=== PATIENT | female | born 1980 | race Caucasian/White ===

== ENCOUNTER 2017-09-24 11:58 | Inpatient (IN) | payer OTHER ==
[~2017-09-24] VITALS: Ht 165.1 cm; Wt 115.0 kg
--- NOTE | 2017-09-24 12:35 | ED GI/GU/ABDOMINAL COMPLAINT ---
History of Present Illness General Chief Complaint: General Adult Stated Complaint: SENT IN BY MD CHAVEZ FOR FEVER;?[facility] HOME Source: patient Exam Limitations: no limitations Vital Signs & Intake/Output Vital Signs & Intake/Output Vital Signs Date Time Temp Pulse Resp B/P B/P Pulse O2 O2 Flow FiO2 Mean Ox Delivery Rate 09/24 1745 100.0 110 18 94/60 98 Room Air 09/24 1538 99.9 106 18 92/54 100 Room Air 09/24 1343 99.0 110 09/24 1343 98 Room Air 09/24 1225 103.6 09/24 1217 103.6 130 18 94/63 98 Room Air Allergies Coded Allergies: erythromycin base (From ERYTHROCIN) (Intermediate, HIVES 09/24/17) Penicillins (RASH 04/07/17) amoxicillin (RASH 04/07/17) Reconcile Medications Ferrous Sulfate 325 MG (65 MG IRON) TABLET 1 TAB PO DAILY IRON, VITAMIN ( Reported) Mesalamine (Lialda) 1.2 GRAM TABLET. 4 TAB PO DAILY UNKNOWN (Reported) Prednisone 20 MG TABLET 1 TAB PO DAILY STEROID (Reported) Triage Note: PT TO ER PER DR. CHAVEZ FOR 5 DAY HX OF FEVER, CHILLS, AND VOMITING X 1. TEMP IN TRIAGE 103.6, LAST DOSE OF TYLENOL AT 0730. MEDICATED IN TRIAGE WITH 975 MG TYLENOL. PT REPORTS NEAR-[facility]NCOPE AT HOME BP 94/63 HR 130 Triage Nurses Notes Reviewed? yes ? N Is pt currently ? No Onset: Gradual Duration: constant Timing: recent history Quality/Severity: moderate Severity Numbers: 5 Radiation: no radiation HPI: Patient is a 37-year-old female with a past medical history of ulcerative colitis who currently is on infusions of INTYVIO currently she is on her second infusion last infusion was 3 weeks ago patient is also on prednisone mesalamine where she presents emergency room with concerns 5 day history of generalized weakness and fatigue fevers chills and intermittent headaches. Patient denies any overt abdominal pain however has had intermittent nausea symptoms. And one episode today of vomiting. Denies any neck pain neck stiffness chest pain cough shortness of breath arm pain jaw pain dysuria hematuria vaginal bleeding or discharge. Patient can tolerate by mouth (Shaina WEINSTEIN,Keith) Past History Travel History Traveled to [place] past 21 day No Medical History Any Pertinent Medical History? see below for history Neurological: NONE EENT: NONE Cardiovascular: NONE Respiratory: NONE Gastrointestinal: ulcerative colitis Hepatic: NONE Renal: NONE Musculoskeletal: NONE Psychiatric: NONE Endocrine: NONE Blood Disorders: NONE Cancer(s): NONE Surgical History Surgical History: none Psychosocial History What is your primary language Bulgarian Tobacco Use: Quit >30 days ago Family History Hx Contributory? No (Keith Elaine) Review of Systems Review of Systems Constitutional: Reports: see HPI, chills, fever, weakness. EENTM: Reports: no symptoms. Respiratory: Reports: no symptoms. Cardiovascular: Reports: no symptoms. GI: Reports: see HPI. Genitourinary: Reports: no symptoms. Musculoskeletal: Reports: no symptoms. Skin: Reports: no symptoms. Neurological/Psychological: Reports: see HPI. Hematologic/Endocrine: Reports: no symptoms. Immunologic/Allergic: Reports: no symptoms. All Other Systems: Reviewed and Negative (Keith Elaine) Physical Exam Physical Exam General Appearance: lethargic Head: atraumatic Eyes: Bilateral: normal appearance. Ears, Nose, Throat, Mouth: moist mucous membrane Respiratory: normal breath sounds, chest non-tender Cardiovascular: tachycardia Gastrointestinal: normal bowel sounds, soft, rebound Extremities: normal range of motion Neurologic/Psych: no motor/sensory deficits, awake Skin: intact, normal color Core Measures ACS in differential dx? No Sepsis Present: No Sepsis Focused Exam Completed? No (Keith Elaine) Progress Differential Diagnosis: AAA, AMI, appendicitis, biliary colic, bowel obstruction , colon cancer, cholecystitis, diverticulitis, ectopic , endometritis, esophageal varices, gastritis, hepatitis, hernia, hemorrhoids, ischemic bowel, inflamm bowel dis, intrauterine , kidney stone, Ngozi-Renetta tear, ovarian cyst, ovarian torsion, pancreatitis, PID/cervicitis, peptic ulcer, PUD/ GERD, perforated viscous, SBO, threatened AB, UTI/pyelo Plan of Care: Orders Procedure Date/time Status Clear Liquid Diet 09/24 D Active LACTIC ACID 09/24 2245 Active LACTIC ACID 09/24 1945 Active HIGH SENSITIVITY CRP 09/24 1837 Active WESTERGREN SED RATE 09/24 183 Active Weight 09/24 183 Active Vital Signs 09/24 183 Complete Teach/Educate 09/24 183 Active Pain Treatment and Response 09/24 1832 Active Nutritional Intake, Monitor 09/24 1832 Active Isolation 09/24 1833 Active Intake & Output 09/24 1833 Complete Patient Care Conference 09/24 1833 Active Activity/Ambulation 09/24 1833 Active C.DIFFICILE 09/24 1745 Active Pathway - chart 09/24 1744 Active House Staff 09/24 1744 Active Patient Data 09/24 1744 Active Code Status 09/24 1744 Active RAPID VIRAL INFLUENZA A 09/24 1630 Complete CULTURE,URINE 09/24 1630 Active Patient Data 09/24 1600 Active LACTIC ACID 09/24 1558 Complete ED Holding Orders 09/24 1557 Active Admit to inpatient 09/24 1557 Active Vital Signs 09/24 1557 Complete Code Status 09/24 1557 Complete Telemetry/[place] 09/24 1414 Active Intake & Output 09/24 1343 Active TROPONIN LEVEL 09/24 1322 Complete MAGNESIUM 09/24 1322 Complete HUMAN BETA HCG SCREEN 09/24 1322 Complete BLOOD CULTURE 09/24 1258 Active URINALYSIS 09/24 1258 Complete LACTIC ACID 09/24 1258 Complete COMPREHENSIVE METABOLIC PANEL 09/24 1258 Complete CBC WITHOUT DIFFERENTIAL 09/24 1258 Complete EKG 09/24 1200 Active Lab Add-on Test 09/24 UNK Active VTE Mechanical Prophylaxis 09/24 UNK Active Vital Signs 09/24 UNK Active MISTAKE 09/24 UNK Active Intake & Output 09/24 UNK Complete Hemoccult 09/24 UNK Active FingerStick- Glucose 09/24 UNK Active Current Medications Sig/Raymond Start time Last Medication Dose Stop Time Status Admin Ceftriaxone Sodium 1,000 MG Q12 09/25 0900 AC (Rocephin) Metronidazole 500 MG Q8 09/24 2200 AC (Flagyl) N/A 1 UNIT (No Carrier) Methylprednisolone 40 MG Q12 09/24 2100 AC (Solumedrol) Acetaminophen 325 MG Q6P PRN 09/24 1930 AC (Tylenol) Ciprofloxacin 400 MG ONCE ONE 09/24 1600 CAN (Cipro) 09/24 1659 Dextrose/Water 200 ML (D5W) Laboratory Tests 09/24/17 1652: Urine Color YEL, Urine Clarity CLEAR, Urine pH 6.5, Ur Specific [place] <= 1.005 , Urine Protein NEG, Urine Ketones NEG, Urine Nitrite NEG, Urine Bilirubin NEG, Urine Urobilinogen 0.2, Ur Leukocyte Esterase NEG, Ur Microscopic EXAM NOT REQUIRED, Urine Hemoglobin NEG, Urine Glucose NEG 09/24/17 1645: Lactic Acid 2.3 H 09/24/17 1322: Anion Gap 16, Estimated GFR 56 L, BUN/Creatinine Ratio 9.1, Glucose 99, Lactic Acid 3.6 H, Calcium 8.6, Magnesium 1.1 L, Total Bilirubin 0.8, AST 25, ALT 24, Alkaline Phosphatase 120, Troponin I < 0.01, Total Protein 6.0 L, Albumin 3.2 L, Globulin 2.8, Albumin/Globulin Ratio 1.1, Total Beta HCG NEGATIVE, CBC w Diff MAN DIFF ORDERED, RBC 4.14 L, MCV 86.8, MCH 28.6, MCHC 33.0, RDW 14.9 H, MPV 6.9 L, Gran % 95.5 H, Lymphocytes % 4.3 L, Monocytes % 0.1 L, Eosinophils % 0, Basophils % 0.1, Absolute Granulocytes 6.6 H, Segmented Neutrophils 77 H, Band Neutrophils 17 H, Absolute Lymphocytes 0.3 L, Lymphocytes 6 L, Absolute Monocytes 0 L, Absolute Eosinophils 0, Absolute Basophils 0, Platelet Estimate VERIFIED BY SMEAR, Normocytic RBCs VERIFIED, Normochromic RBCs VERIFIED 09/24/17 1308: Troponin I Cancelled 09/24/17 1259: Total Beta HCG Cancelled Microbiology 09/24 1745 STOOL: Clostridium difficile Toxin A & B - COLB 09/24 1652 URINE ROUT: Urine Culture - RECD 09/24 1638 NASOPHARYN: Influenza Virus A & B Rapid Smear - COMP 09/24 1333 BLOOD: Blood Culture - RECD 09/24 1322 BLOOD: Blood Culture - RECD On initial examination patient is noted to be lethargic and febrile, isn't has mild generalized point tenderness no peritoneal signs no concerns of meningitis, Patient has negative Rosinski in [place] sign, patient does have concerns that her CT scan was resulted of acute infectious ulcer to of colitis. Patient's GI provider is outsourced Dr. Malcolm where I discussed patient with Dr. Chavez who is aware and works patient discussed patient with infectious disease Dr. ARGUETA and Dr. PINEDA advised patient to be given Cipro Flagyl and will consult. Discussed admission with patient was aware and has no questions PT WAS GIVEN PO POTASSIUM Discussed patient with Dr. ARGUETA WHO ADVISED TO CHANGE CIPRO TO ROCEPHIN Diagnostic Imaging: Viewed by Me: CT Scan. Radiology Impression: acute abnormality Initial ED EKG: SINUS TACHYCARDIA 130 BPM Comments: PATIENT: BROOKLYN RUVALCABA PRESENT AGE: 37 PATIENT ACCOUNT NO: [id number] : 79 LOCATION: [facility] ORDERING PHYSICIAN: Keith WEINSTEIN SERVICE DATE: 09/24/17-1377 EXAM TYPE: CAT - CT ABD & PELVIS W IV CONTRAST; CTA CHEST-PULMONARY EMBOLISM EXAMINATION: CT ANGIOGRAM OF THE CHEST WITH CONTRAST (CT PULMONARY ANGIOGRAM FOR PE) CT ABDOMEN AND PELVIS WITH IV CONTRAST CLINICAL INFORMATION: History of ulcerative colitis. Fever, shortness of breath and tachycardia. Abdominal pain. COMPARISON: CT images from 11/25/2009 TECHNIQUE: Chest - Prior to contrast administration, noncontrast localization images were obtained. Subsequently, multidetector volumetric imaging was performed from the thoracic inlet to below the diaphragms following the administration of 95 mL Optiray 320 intravenous contrast. No contrast reaction reported. Sagittal, coronal, and MIP oblique sagittal reformatted images were obtained on the CT workstation, uploaded to PACS, and reviewed. Abdomen and pelvis - Multidetector CT imaging evaluation of the abdomen and pelvis was performed after the intravenous contrast administration. DLP: Total exam dose-length product 1471 mGy-cm FINDINGS: CHEST - QUALITY OF STUDY/CONTRAST BOLUS: Satisfactory. PULMONARY ARTERIES: Pulmonary arteries are normal in size. No embolic filling defects are identified within the main, lobar or segmental vessels. THORACIC AORTA: Normal in caliber; no aneurysm or dissection. LUNGS AND PLEURA: Trachea and central airways are widely patent and normal in caliber. No interstitial pulmonary edema, pneumothorax or pleural effusion. Minimal atelectasis in the dependent aspect of each lower lobe. There is a 0.4 cm noncalcified nodule of the medial right lung apex (image 68, series 2). 0.2 cm noncalcified nodule is present in the anterolateral aspect of the right lung apex (image 87, series 2). 0.2 cm subpleural nodule in the lateral aspect of the right upper lobe (image 138, series 2). Small, 0.3 x 0.5 cm noncalcified nodule in the posterior segment of the right upper lobe (image 164, series 2). Small, approximately 0.2 cm sized pulmonary and pleural-based nodules of the left upper lobe (image 144, 147 and 179, series 2). No pulmonary mass or consolidation. CARDIOVASCULAR: The heart size is normal. No pericardial effusion. MEDIASTINUM: The esophagus has normal wall thickness. The visualized portion of the thyroid gland is unremarkable. No mediastinal mass. LYMPHATICS: No pathologic sized axillary, hilar or mediastinal lymph nodes. ABDOMEN AND PELVIS - HEPATOBILIARY: Unremarkable. On the arterial phase images, there is no reflux of contrast into the inferior vena cava. Liver has normal size, contour and attenuation. No evidence of hepatic mass or intrahepatic bile duct dilatation. Gallbladder is normal. PANCREAS: Unremarkable. SPLEEN: Unremarkable. ADRENAL GLANDS: Unremarkable. KIDNEYS, URETERS, BLADDER: Unremarkable. GI TRACT AND PERITONEUM: Stomach is normal. Loops of bowel are normal in caliber. Appendix appears to be surgically absent. Circumferential wall thickening and mild mucosal hyperenhancement of the distal descending and sigmoid colon extending to the rectum with adjacent pericolic fat stranding and vascular congestion of the mesentery. Findings are consistent with active colitis. There are a few diverticula of the sigmoid colon. No pneumoperitoneum. ABDOMINAL WALL: Diastases of rectus abdominis muscles. At the level of the umbilicus, there is a small fat-containing umbilical hernia. VASCULAR: Abdominal aorta is normal in caliber and the celiac trunk, SMA, DENI and renal arteries are widely patent. There is a circumaortic left renal vein. Inferior vena cava is normal. LYMPH NODES: Within the lower abdomen/pelvis, mesenteric lymph nodes measure up to 0.8 cm short axis dimension. These are likely reactive to the colonic inflammation. No pathologic sized retroperitoneal lymph nodes. No iliac or inguinal lymphadenopathy. PELVIC VISCERA: The uterus and adnexa are unremarkable. A trace amount of free fluid is present in the pelvis. No abscess. OSSEOUS STRUCTURES: Bones of the thorax are unremarkable. Thoracic vertebra have normal height and alignment. No aggressive osseous lesions within the chest. The lumbar vertebra are intact. No suspicious osseous lesions in the lumbar spine, pelvis or proximal femurs. IMPRESSION: 1. No pulmonary embolism. 2. There are a few nonspecific, noncalcified nodules in the right and left upper lobe, largest measuring 0.3 x 0.5 cm. No pulmonary mass or lymphadenopathy in the chest. 3. Findings consistent with active colitis involving the descending and sigmoid colon to level the rectum. This is consistent with history of ulcerative colitis. There is reactive lymphadenopathy in the mesentery. 4. Small fat-containing umbilical hernia. DICTATED BY: Toby Arndt MD DATE/TIME DICTATED:09/24/171438 ETCH OPERATOR SEMICONDUCTOR WAFERS:SAMI DATE/TIME TRANSCRIBED:09/24/171438 CONFIDENTIAL, DO NOT COPY WITHOUT APPROPRIATE AUTHORIZATION. <Electronically signed in Other Vendor System> SIGNED BY: Toby Arndt MD 09/24/17 1500 (Keith Elaine) Departure Departure Disposition: STILL A PATIENT Condition: Stable Clinical Impression Primary Impression: Infectious colitis Secondary Impressions: Fever, Hypokalemia Referrals: Marin Chavez MD (PCP/Family) Departure Forms: Customer Survey General Discharge Information Admission Note Spoke With: Marin Chavez MD Documentation of Exam: Documentation of any treatments & extenuating circumstances including Concerns Regarding Discharge (functional status, medication knowledge or non-compliance, living conditions, etc.) that warrant an admission rather than observation: [PT REQUIRES IV ABX, GI CONSULT, ID CONSULT, IV FLUIDS, BLOOD CX PENDING ] (Keith Elaine) PA/CENTRAL SUPPLY TECH Co-Sign Statement Statement: ED Attending supervision documentation- [X] I saw and evaluated the patient. I have also reviewed all the pertinent lab results and diagnostic results. I agree with the findings and the plan of care as documented in the PA's/CENTRAL SUPPLY TECH's documentation. [] I have reviewed the ED Record and agree with the PA's/CENTRAL SUPPLY TECH's documentation. [] Additions or exceptions (if any) to the PAs/CENTRAL SUPPLY TECH's note and plan are summarized below: [] (Filiberto Mata DO) (Filiberto Mata DO)
[2017-09-24 13:32] LABS: ABSOLUTE BASOPHIL COUNT 0 /CUMM (0.0-0.2); ABSOLUTE EOSINOPHIL COUNT 0 /CUMM (0.0-0.7); ABSOLUTE GRANULOCYTE CT 6.6 /CUMM (1.4-6.5); ABSOLUTE LYMPH COUNT 0.3 /CUMM (1.2-3.4); ABSOLUTE MONOCYTE COUNT 0 /CUMM (0.10-0.60); BASOPHIL % 0.1 % (0.0-2.0); EOSINOPHIL % 0 % (0-5); HEMATOCRIT 35.9 % (37-47); MEAN CORPUSCULAR HGB 28.6 PG (27.0-31.0); MEAN CORPUSCULAR VOLUME 86.8 FL (81.0-99.0); MEAN PLATELET VOLUME 6.9 FL (7.4-10.4); PLATELET COUNT 316 /CUMM (130-400); RBC DISTRIBUTION WIDTH 14.9 % (11.5-14.5); RED BLOOD CELL CT 4.14 /CUMM (4.20-5.40); WHITE BLOOD CELL COUNT 6.9 /CUMM (4.8-10.8)
[2017-09-24 13:33] LABS: GRANULOCYTE % 95.5 % (42.2-75.2)
[2017-09-24] MEDS ORDERED: LIALDA1.2 G1 PO (14:30)
[2017-09-24] MEDS ORDERED: PREDNISONE20 M1 PO (14:30)
[2017-09-24] MEDS ORDERED: FERROUS SULFAT325 M3 PO (14:30)
--- NOTE | 2017-09-24 15:00 | CT SCAN REPORT ---
EXAMINATION: CT ANGIOGRAM OF THE CHEST WITH CONTRAST (CT PULMONARY ANGIOGRAM FOR PE) CT ABDOMEN AND PELVIS WITH IV CONTRAST CLINICAL INFORMATION: History of ulcerative colitis. Fever, shortness of breath and tachycardia. Abdominal pain. COMPARISON: CT images from 11/25/2009 TECHNIQUE: Chest - Prior to contrast administration, noncontrast localization images were obtained. Subsequently, multidetector volumetric imaging was performed from the thoracic inlet to below the diaphragms following the administration of 95 mL Optiray 320 intravenous contrast. No contrast reaction reported. Sagittal, coronal, and MIP oblique sagittal reformatted images were obtained on the CT workstation, uploaded to PACS, and reviewed. Abdomen and pelvis - Multidetector CT imaging evaluation of the abdomen and pelvis was performed after the intravenous contrast administration. DLP: Total exam dose-length product 1471 mGy-cm FINDINGS: CHEST - QUALITY OF STUDY/CONTRAST BOLUS: Satisfactory. PULMONARY ARTERIES: Pulmonary arteries are normal in size. No embolic filling defects are identified within the main, lobar or segmental vessels. THORACIC AORTA: Normal in caliber; no aneurysm or dissection. LUNGS AND PLEURA: Trachea and central airways are widely patent and normal in caliber. No interstitial pulmonary edema, pneumothorax or pleural effusion. Minimal atelectasis in the dependent aspect of each lower lobe. There is a 0.4 cm noncalcified nodule of the medial right lung apex (image 68, series 2). 0.2 cm noncalcified nodule is present in the anterolateral aspect of the right lung apex (image 87, series 2). 0.2 cm subpleural nodule in the lateral aspect of the right upper lobe (image 138, series 2). Small, 0.3 x 0.5 cm noncalcified nodule in the posterior segment of the right upper lobe (image 164, series 2). Small, approximately 0.2 cm sized pulmonary and pleural-based nodules of the left upper lobe (image 144, 147 and 179, series 2). No pulmonary mass or consolidation. CARDIOVASCULAR: The heart size is normal. No pericardial effusion. MEDIASTINUM: The esophagus has normal wall thickness. The visualized portion of the thyroid gland is unremarkable. No mediastinal mass. LYMPHATICS: No pathologic sized axillary, hilar or mediastinal lymph nodes. ABDOMEN AND PELVIS - HEPATOBILIARY: Unremarkable. On the arterial phase images, there is no reflux of contrast into the inferior vena cava. Liver has normal size, contour and attenuation. No evidence of hepatic mass or intrahepatic bile duct dilatation. Gallbladder is normal. PANCREAS: Unremarkable. SPLEEN: Unremarkable. ADRENAL GLANDS: Unremarkable. KIDNEYS, URETERS, BLADDER: Unremarkable. GI TRACT AND PERITONEUM: Stomach is normal. Loops of bowel are normal in caliber. Appendix appears to be surgically absent. Circumferential wall thickening and mild mucosal hyperenhancement of the distal descending and sigmoid colon extending to the rectum with adjacent pericolic fat stranding and vascular congestion of the mesentery. Findings are consistent with active colitis. There are a few diverticula of the sigmoid colon. No pneumoperitoneum. ABDOMINAL WALL: Diastases of rectus abdominis muscles. At the level of the umbilicus, there is a small fat-containing umbilical hernia. VASCULAR: Abdominal aorta is normal in caliber and the celiac trunk, SMA, DENI and renal arteries are widely patent. There is a circumaortic left renal vein. Inferior vena cava is normal. LYMPH NODES: Within the lower abdomen/pelvis, mesenteric lymph nodes measure up to 0.8 cm short axis dimension. These are likely reactive to the colonic inflammation. No pathologic sized retroperitoneal lymph nodes. No iliac or inguinal lymphadenopathy. PELVIC VISCERA: The uterus and adnexa are unremarkable. A trace amount of free fluid is present in the pelvis. No abscess. OSSEOUS STRUCTURES: Bones of the thorax are unremarkable. Thoracic vertebra have normal height and alignment. No aggressive osseous lesions within the chest. The lumbar vertebra are intact. No suspicious osseous lesions in the lumbar spine, pelvis or proximal femurs. IMPRESSION: 1. No pulmonary embolism. 2. There are a few nonspecific, noncalcified nodules in the right and left upper lobe, largest measuring 0.3 x 0.5 cm. No pulmonary mass or lymphadenopathy in the chest. 3. Findings consistent with active colitis involving the descending and sigmoid colon to level the rectum. This is consistent with history of ulcerative colitis. There is reactive lymphadenopathy in the mesentery. 4. Small fat-containing umbilical hernia.
--- NOTE | 2017-09-24 16:58 | History & Physical ---
Alba OLIVIER,[facility] 09/24/17 3558: General Information and HPI MD Statement: I have seen and personally examined BROOKLYN RUVALCABA and documented this H&P. The patient is a 37 year old F who presented with a patient stated chief complaint of [weakness]. Source of Information: patient, family History of Present Illness: 37-year-old female with past medical history of ulcerative colitis [diagnosed in 2012], came to [facility] with complaints of weakness, lethargy, fever since 5 days. Patient was in her usual state of health until 5 days ago following which she developed weakness and lethargy. Patient was able to hydrate herself but had a decreased food intake since then. Patient also had lightheadedness while bending her head down. She denies chest pain, shortness of breath, cough, nasal congestion, abdominal pain, nausea, vomiting, dysuria. Patient is on INTYVIO, prednisone mesalamine. She got her second infusion of INTYVIO 3 weeks ago. According to her she was on Remicade few years ago and was switched to INTYVIO recently. Dr. TOWNSEND's side senior water resources engineer. Patient has her next infusion scheduled on October 02. Allergies/Medications Home Med list Ferrous Sulfate 325 MG (65 MG IRON) TABLET 1 TAB PO DAILY IRON, VITAMIN ( Reported) Mesalamine (Lialda) 1.2 GRAM TABLET.DR 4 TAB PO DAILY UNKNOWN (Reported) Prednisone 20 MG TABLET 1 TAB PO DAILY STEROID (Reported) Compliance With Home Meds: FAIR Past History Travel History Traveled to [place] past 21 day No Medical History Neurological: NONE EENT: NONE Cardiovascular: NONE Respiratory: NONE Gastrointestinal: ulcerative colitis Hepatic: NONE Renal: NONE Musculoskeletal: NONE Psychiatric: NONE Endocrine: NONE Blood Disorders: NONE Cancer(s): NONE Surgical History Surgical History: none Past Family/Social History Family History Relations & Conditions if any MOTHER (post breast Ca x 2, DM, HTN, diverticulitis). Age 69. FATHER (ASHD, post CABG x 3, DM). Age 72. BROTHER (A&W- *UC, post colectomy). BROTHER (A&W). BROTHER (A&W). BROTHER (Ulcerative colitis). Relation not specified for: ulcerative colitis Psychosocial History Where do you live? Home Who Do You Live With? spouse Primary Language: Turkish Smoking Status: Never Smoked ETOH Use: denies use Functional Ability ADLs Independent: dressing, eating, toileting, bathing. Ambulation: independent IADLs Independent: shopping, housework, finances, food prep, telephone, transportation , medication admin. Review of Systems Review of Systems Constitutional: Reports: chills, fever, malaise, weakness. Cardiovascular: Reports: no symptoms. Respiratory: Reports: no symptoms. GI: Reports: bloody stool. Genitourinary: Reports: no symptoms. Musculoskeletal: Reports: no symptoms. Exam & Diagnostic Data Last 24 Hrs of Vital Signs/I&O Vital Signs Date Time Temp Pulse Resp B/P B/P Pulse O2 O2 Flow FiO2 Mean Ox Delivery Rate 09/24 2008 101.6 09/24 1745 100.0 110 18 94/60 98 Room Air 09/24 1538 99.9 106 18 92/54 100 Room Air 09/24 1343 99.0 110 09/24 1343 98 Room Air 09/24 1225 103.6 09/24 1217 103.6 130 18 94/63 98 Room Air Intake & Output 09/24 1600 09/24 0800 09/24 0000 Intake Total 1000 Output Total Balance 1000 Intake, IV 1000 Patient 225 lb Weight Weight Reported by Patient Measurement Method Physical Exam General Appearance Alert, Oriented X3, Cooperative, No Acute Distress Cardiovascular Regular Rate, Normal S1, Normal S2, No Murmurs Lungs Clear to Auscultation Abdomen Soft Neurological Normal Speech, Strength at 5/5 X4 Ext Last 24 Hrs of Labs/Cecilio: Laboratory Tests 09/24/17 1652: Urine Color YEL, Urine Clarity CLEAR, Urine pH 6.5, Ur Specific [place] <= 1.005 , Urine Protein NEG, Urine Ketones NEG, Urine Nitrite NEG, Urine Bilirubin NEG, Urine Urobilinogen 0.2, Ur Leukocyte Esterase NEG, Ur Microscopic EXAM NOT REQUIRED, Urine Hemoglobin NEG, Urine Glucose NEG 09/24/17 1645: Lactic Acid 2.3 H 09/24/17 1322: Anion Gap 16, Estimated GFR 56 L, BUN/Creatinine Ratio 9.1, Glucose 99, Lactic Acid 3.6 H, Calcium 8.6, Magnesium 1.1 L, Total Bilirubin 0.8, AST 25, ALT 24, Alkaline Phosphatase 120, Troponin I < 0.01, Total Protein 6.0 L, Albumin 3.2 L, Globulin 2.8, Albumin/Globulin Ratio 1.1, Total Beta HCG NEGATIVE, CBC w Diff MAN DIFF ORDERED, RBC 4.14 L, MCV 86.8, MCH 28.6, MCHC 33.0, RDW 14.9 H, MPV 6.9 L, Gran % 95.5 H, Lymphocytes % 4.3 L, Monocytes % 0.1 L, Eosinophils % 0, Basophils % 0.1, Absolute Granulocytes 6.6 H, Segmented Neutrophils 77 H, Band Neutrophils 17 H, Absolute Lymphocytes 0.3 L, Lymphocytes 6 L, Absolute Monocytes 0 L, Absolute Eosinophils 0, Absolute Basophils 0, Platelet Estimate VERIFIED BY SMEAR, Normocytic RBCs VERIFIED, Normochromic RBCs VERIFIED 09/24/17 1308: Troponin I Cancelled 09/24/17 1259: Total Beta HCG Cancelled Microbiology 09/24 2012 STOOL: Cryptosporidium Antigen - ORD 09/24 2012 STOOL: Giardia Antigen (CECILIO) - ORD 09/24 1745 STOOL: Clostridium difficile Toxin A & B - COLB 09/24 1652 URINE ROUT: Urine Culture - RECD 09/24 1638 NASOPHARYN: Influenza Virus A & B Rapid Smear - COMP 09/24 1333 BLOOD: Blood Culture - RECD 09/24 1322 BLOOD: Blood Culture - RECD Assessment/Plan Assessment: 37-year-old female with past medical history of ulcerative colitis on intyvio, prednisone, methylamine, came to [facility] ER with complaints of weakness, fever with chills, headache. Admission Vitals Temperature 103.6 , pulse rate 110, blood pressure 94/63, saturating 100 at room air Admission labs WBC 6.9 with granulocytes 95.5, hemoglobin 11.8, platelet count 316, sodium 135, potassium 2.9, creatinine 1.1, BUNs and 10, lactic acid 3.6, [id number], alkaline phosphatase 120, AST [address] abdomen and pelvis with IV contrast/CTA 1. No pulmonary embolism. 2. There are a few nonspecific, noncalcified nodules in the right and left upper lobe, largest measuring 0.3 x 0.5 cm. No pulmonary mass or lymphadenopathy in the chest. 3. Findings consistent with active colitis involving the descending and sigmoid colon to level the rectum. This is consistent with history of ulcerative colitis. There is reactive lymphadenopathy in the mesentery. 4. Small fat-containing umbilical hernia. Pending- Influenza A&B, blood culture, urine culture ------ Assessment and plan 1. Colitis-rule out flareup of ulcerative colitis/infectious colitis 2. Hypokalemia 3. Ulcerative colitis * Admitted in GEN med floor. Patient was seen by infectious disease doctor who suggested to start her on ceftriaxone and Flagyl. Patient will be started on clear liquids and IV fluids. Discussed with Dr. Menendez over the phone who suggested to continue his mesalamine, IV Solu-Medrol. Stool will be sent for C. difficile, culture. Serial abdominal examination. Tylenol for fever and Zofran for nausea if needed. * Hypokalemia-secondary due to multiple bowel movements and dehydration. We will replace potassium. * Accu-Chek. * GI prophylaxis-Pepcid 20 daily * Need to confirm when she had her last colonoscopy with her senior water resources engineer. Code-full code Diet-clear liquids DVT prophylaxis-Alps As Ranked By This Provider Problem List: 1. Hypomagnesemia 2. Hypokalemia 3. Infectious colitis 4. Ulcerative colitis Core Measures/Misc (01/26) Acute Coronary Syndrome ACS Diagnosis: No Congestive Heart Failure Congestive Heart Failure Diagnosis No Cerebrovascular Accident CVA/TIA Diagnosis: No VTE (View Protocol) VTE Risk Factors Age>40 No Mechanical VTE Prophylaxis d/t Other No VTE Pharm Prophylaxis d/t Other Sepsis (View protocol) Sepsis Present: No EdgarGia 09/24/17 1713: General Information and HPI Allergies/Medications Allergies: Coded Allergies: erythromycin base (From ERYTHROCIN) (Intermediate, HIVES 09/24/17) Penicillins (RASH 04/07/17) amoxicillin (RASH 04/07/17) Resident Review Statement Resident Statement: examined this patient, discussed with environmental intern, agreed with environmental intern, discussed with family, reviewed images Other Findings: This is a 37 YO lady w/PMH significant for ulcerative colitis on Prednisone 20 mg daily, Mesalamine, INTYVIO (Vedolizumab) infusions(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 The patient was in her USOH until Friday. She has been having fivers/chills since Friday. This morning called Dr. Maurer's office and was told to come to the hospital. The patient also noticed having lightheadedness and headache for the past 2 days. Please see above for more details. Upon presentation to the emergency room, she was noted to be febrile, hypotensive, labs significant for bandemia. Potassium was 2.9, lactic acid 2.6. Physical exam at the time of admission: Temperature 99.9, pulse rate 106, respiratory rate 18, blood pressure 92/54, oxygen saturation was diminished on room air. NAD, AAO 3, HEENT: PERRLA, EOMI, oropharynx, dry mucous membranes. Neck: Supple, no JVD, no carotid bruit: CV: RRR no murmur. Lungs: CTA BL. Abdomen: Normal bowel sounds, nontender, nondistended. Extremities: No edema, normal pulses. Neurology: Nonfocal. Pertinent labs as above, she underwent CTA and CT abdomen and pelvis which revealed no pulmonary embolism, calcified nodules in right and left upper lobe, active colitis involving descending and sigmoid colon. Reactive lymphadenopathy in the mesentery and small fat-containing umbilical hernia. Problem list: #Active colitis: In a patient with a history of ulcerative colitis, this could flare of ulcerative colitis versus infectious colitis. #Hypokalemia #Elevated creatinine-baseline unknown Plan * Monitor the patient on general medicine floor * Blood cultures, urine culture, flu swab for influenza, stool for C. difficile * Accu-Cheks while on steroids * Can try Zofran as needed * GI and ID consult appreciated Will follow recommendations * Will start the patient empirically on IV ceftriaxone and IV Flagyl * Encourage adequate fluid intake * Replete her potassium, recheck tomorrow morning and replete accordingly * Will start the patient on IV steroids as per GI recommendations, the patient will need mesalamine * Recheck renal function tomorrow morning after patient is hydrated. * Consider colorectal surgery evaluation * DVT prophylaxis at all times * The patient is full code * Case was discussed with attending Dr. Maurer, please refer to his addendum for further recommendations. Erasto OLIVIER,[facility] 09/24/171950: Attending MD Review Statement Attending Statement Attending MD Statement: examined this patient, discuss w/resident/PA/VOCATIONAL COORDINATOR, agreed w/resident/PA/VOCATIONAL COORDINATOR, discussed with family, reviewed EMR data (avail), discussed with nursing, discussed with case mgmt, reviewed images, amended to note Attending Assessment/Plan: Seen and examined independently She is awake and alert in no acute distress. T-max 103.6. Skin reveals significant erythematous rash in the upper body and her face HEENT exam is negative; Neck is supple with no adenopathy. Lungs are clear. Heart regular rhythm with no murmur. Abdomen is obese, soft, mildly tender in the lower abdomen, with no guarding or rebound, positive bowel sounds. Back no CVA tenderness. Extremities no cyanosis, clubbing or edema. Neuro is without focality. IMPRESSION This is a lady with severe ulcerative colitis with recurrent exacerbation, on immunosuppressive therapy including prednisone with previous failed Rituxan now on vedolizumab induction therapy, very high fever, chills, body ache with on and off diarrhea. She has been feeling lightheaded in the recent past. Since she came into the emergency room she was found to be significantly febrile and she had had extensive workup which includes a CT of the chest abdomen and pelvis which showed severe colitis. Issues include * Significant febrile illness with bandemia and CT scan suggestive of ulcerative colitis flare in a lady with immunosuppressed state due to biological agent and 20 mg of prednisone. This is highly suggestive of acute exacerbation of her ulcerative colitis with significant flare despite maximum therapy. Other causes of colitis like C. difficile seems less likely but that needs to be ruled out * Very high fever with headaches and significant flushing sensation. Rule out other infections including influenza but that seems less likely * Mild kidney disease creatinine of 1.1 probably related to dehydration * Significant electrolyte abnormality including hypo-kalemia which needs to be aggressively replaced * Hypomagnesemia * Metabolic acidosis due to lactic acidosis from low flow state now responding well to intravenous fluids * Significant immunosuppressed state RECOMMENDATION Continue fluid resuscitation Change fluid to D5 normal saline Aggressive potassium replacement by mouth 40 mEq 3 and intravenously Magnesium 2 g IV antibiotics as noted by D Check stool for culture, C. difficile, ova and parasite Intravenous steroids solumedrol 40 q 12 or hydrocortizone 100 q8 ESR and crp ( not high sensitive crp) NPO for now Follow labs closely PO pepcid Tylenol WIll follow danna
--- NOTE | 2017-09-24 17:08 | Cons- Infect Disease ---
General Information and HPI Consulting Request Date of Consult: 09/24/17 Requested By: Erasto OLIVIER,Marin Mckeon Reason for Consult: Fever and chills in a patient with ulcerative colitis Source of Information: patient, family History of Present Illness: This is a 37-year-old woman with ulcerative colitis, diagnosed several years prior to admission, treated with Remicade in the past, and, more recently, with Prednisone 20 mg daily, Mesalamine and status post 2 infusions of INTYVIO ( Vedolizumab), most recently 2 weeks prior to admission, admitted today after presenting to the emergency room with 5 days of fevers, chills and body aches, 2 days of left-sided headache and more acute onset of lightheadedness and near syncope. On admission she was febrile to 103.6, with a blood pressure of 94/63. Laboratory data revealed a white blood cell count of 7000, with 77 segs and 17 bands, BUN/creatinine 10 and 1.1, potassium 2.9, lactic acid 3.6, with normal liver enzymes. CTA of the chest, abdomen and pelvis revealed circumferential wall thickening and mild mucosal hyperenhancement of the distal descending and sigmoid colon extending to the rectum. She did have one episode of vomiting in the emergency room but has had no change in her bowel movements, which are typically bloody. She denies any cough, chest pain or shortness of breath. She denies any urinary symptoms or back pain. Allergies/Medications Allergies: Coded Allergies: erythromycin base (From ERYTHROCIN) (Intermediate, HIVES 09/24/17) Penicillins (RASH 04/07/17) amoxicillin (RASH 04/07/17) Home Med List: Ferrous Sulfate 325 MG (65 MG IRON) TABLET 1 TAB PO DAILY IRON, VITAMIN ( Reported) Mesalamine (Lialda) 1.2 GRAM TABLET.DR 4 TAB PO DAILY UNKNOWN (Reported) Prednisone 20 MG TABLET 1 TAB PO DAILY STEROID (Reported) Past History Travel History Traveled to [place] past 21 day No Medical History Neurological: NONE EENT: NONE Cardiovascular: NONE Respiratory: NONE Gastrointestinal: ulcerative colitis Hepatic: NONE Renal: NONE Musculoskeletal: NONE Psychiatric: NONE Endocrine: NONE Blood Disorders: NONE Cancer(s): NONE Surgical History Surgical History: none Psychosocial History Smoking Status: Never Smoked ETOH Use: denies use Illicit Drug Use: denies illicit drug use Review of Systems Review of Systems All Other Systems: Reviewed and Negative Exam & Diagnostic Data Last 24 Hrs of Vital Signs/I&O Vital Signs Date Time Temp Pulse Resp B/P B/P Pulse O2 O2 Flow FiO2 Mean Ox Delivery Rate 09/24 1538 99.9 106 18 92/54 100 Room Air 09/24 1343 99.0 110 09/24 1343 98 Room Air 09/24 1225 103.6 09/24 1217 103.6 130 18 94/63 98 Room Air Intake & Output 09/24 1600 09/24 0800 09/24 0000 Intake Total 1000 Output Total Balance 1000 Intake, IV 1000 Patient 225 lb Weight Weight Reported by Patient Measurement Method Physical Exam Other Physical Findings: She is awake and alert in no acute distress. T-max 103.6. Skin reveals no rash. HEENT exam is negative; no temporal artery tenderness. Neck is supple with no adenopathy. Lungs are clear. Heart regular rhythm with no murmur. Abdomen is obese, soft, mildly tender in the lower abdomen, with no guarding or rebound, positive bowel sounds. Back no CVA tenderness. Extremities no cyanosis, clubbing or edema. Neuro is without focality. Last 24 Hours of Lab Results: Laboratory Tests 09/24 09/24 09/24 1652 1645 1322 Chemistry Sodium (137 - 145 mmol/L) 135 L Potassium (3.5 - 5.1 mmol/L) 2.9 *L Chloride (98 - 107 mmol/L) 95 L Carbon Dioxide (22 - 30 mmol/L) 24 Anion Gap (5 - 16) 16 BUN (7 - 17 mg/dL) 10 Creatinine (0.5 - 1.0 mg/dL) 1.1 H Estimated GFR (>60 ml/min) 56 L BUN/Creatinine Ratio (7 - 25 %) 9.1 Glucose (65 - 99 mg/dL) 99 Lactic Acid (0.7 - 2.1 mmol/L) Pending 3.6 H Calcium (8.4 - 10.2 mg/dL) 8.6 Total Bilirubin (0.2 - 1.3 mg/dL) 0.8 AST (14 - 36 U/L) 25 ALT (9 - 52 U/L) 24 Alkaline Phosphatase (<127 U/L) 120 Troponin I (< 0.11 ng/ml) < 0.01 Total Protein (6.3 - 8.2 g/dL) 6.0 L Albumin (3.5 - 5.0 g/dL) 3.2 L Globulin (1.9 - 4.2 gm/dL) 2.8 Albumin/Globulin Ratio (1.1 - 2.2 %) 1.1 Total Beta HCG (NEGATIVE) NEGATIVE Hematology CBC w Diff MAN DIFF ORDERED WBC (4.8 - 10.8 /CUMM) 6.9 RBC (4.20 - 5.40 /CUMM) 4.14 L Hgb (12.0 - 16.0 G/DL) 11.8 L Hct (37 - 47 %) 35.9 L MCV (81.0 - 99.0 FL) 86.8 MCH (27.0 - 31.0 PG) 28.6 MCHC (33.0 - 37.0 G/DL) 33.0 RDW (11.5 - 14.5 %) 14.9 H Plt Count (130 - 400 /CUMM) 316 MPV (7.4 - 10.4 FL) 6.9 L Gran % (42.2 - 75.2 %) 95.5 H Lymphocytes % (20.5 - 51.1 %) 4.3 L Monocytes % (1.7 - 9.3 %) 0.1 L Eosinophils % (0 - 5 %) 0 Basophils % (0.0 - 2.0 %) 0.1 Absolute Granulocytes (1.4 - 6.5 /CUMM) 6.6 H Segmented Neutrophils (42.2 - 75.2 %) 77 H Band Neutrophils (0.0 - 5.0 %) 17 H Absolute Lymphocytes (1.2 - 3.4 /CUMM) 0.3 L Lymphocytes (20.5 - 51.1 %) 6 L Absolute Monocytes (0.10 - 0.60 /CUMM) 0 L Absolute Eosinophils (0.0 - 0.7 /CUMM) 0 Absolute Basophils (0.0 - 0.2 /CUMM) 0 Platelet Estimate (ADEQUATE) VERIFIED BY SMEAR Normocytic RBCs VERIFIED Normochromic RBCs VERIFIED Urines Urine Color Pending Urine Clarity Pending Urine pH Pending Ur Specific [place] Pending Urine Protein Pending Urine Ketones Pending Urine Nitrite Pending Urine Bilirubin Pending Urine Urobilinogen Pending Ur Leukocyte Esterase Pending Ur Microscopic Pending Urine Hemoglobin Pending Urine Glucose Pending 09/24 09/24 1308 1259 Chemistry Troponin I Cancelled Total Beta HCG Cancelled Last 24 Hours of Cecilio Results: Blood cultures September 24 pending Diagnostic Data Recent Imaging Findings: CTA of the chest, abdomen and pelvis revealed circumferential wall thickening and mild mucosal hyperenhancement of the distal descending and sigmoid colon extending to the rectum. Assessment/Plan Assessment/Plan Impression: This is a 37-year-old woman with ulcerative colitis, currently treated with Prednisone, Mesalamine and status post 2 infusions of INTYVIO (Vedolizumab) admitted today with 5 days of fevers, chills and body aches, 2 days of left- sided headache and more acute onset of lightheadedness and near syncope, found to be febrile with bandemia and hypokalemia and with a CT of the chest, abdomen and pelvis revealing findings consistent with active ulcerative colitis. Her fever and bandemia may all be secondary to a flareup of her ulcerative colitis, with the CT scan revealing findings consistent with this diagnosis. There is no evidence on exam or CT scan for perforation; therefore the role of antibiotics is unclear but, given her bandemia and her immunocompromised state, feel that antibiotics should be given empirically pending further evaluation. Other causes of colitis, including C. difficile (though she has had no recent antibiotics) or infectious colitis, could be considered though she reports no change in her bowel movements. She has no urinary symptoms to suggest a urinary tract infection, but this should be ruled out. Her symptoms are more suggestive of a viral illness, such as Influenza, though she has been ill for 5 days and bandemia would be unusual with this. Suggestion: 1. Obtain a urine for urinalysis and urine culture 2. Rapid flu swab for Influenza 3. Stool for C. difficile and culture 4. Further management of her ulcerative colitis per GI 5. Would begin Ceftriaxone 1 g IV every 24 hours and Flagyl 500 mg IV every 8 hours pending cultures Consult Acknowledgment - Thank you for your consult request.
[2017-09-24 17:45] VITALS: BP 94/60
--- NOTE | 2017-09-24 17:51 | PN- Student ---
Subjective Subjective: HPI: 37 y/o F with PMHx of ulcerative colitis treated with Remicade in the past now on INTYVIO, with Prednisone, Mesalamine. Patient was in her usual state of health until 5 days prior to admission (Friday ) when she started having fever (100's), chills, and body aches. Symptoms were constant until this morning around 03:00am when she had a spike in the fever to 103 and had ringins in the ears, started seeing stars, sharp pain around the left face, nausea, vomiting, and ligheadache. At this point patient decided to come to the ER. ROS: Denied- sorethroat, chest pain, SOB, cough, weight loss/gain PMHx: Ulcerative colitis PSHx: x2, apendectomy SHx: non-smoker, no ilicit drugs, no alchol Today-Lactic acid spike up to 9 and IV hydration was started. No acute events overnight. Patient seen and examined this morning. Reported feeling better. Patientr had one bowel movements last night. Patient ambulaton to the restroom okay. Denied headache, palpitations, chest pain, abodminal pain. Objective Objective: PE: General: obese young woman looking tired and lethargic HEENT: NCAT, anicteric sclera, moist oral mucosa without exudate CVS: normal S1 and S2 Lungs: symetreical chest expansion, clear breath sounds without any added sound Abdomen: positive bowel sounds, nondistended, mildlytender Extremities: palpable pulses, no edema Results Results: Laboratory Tests 09/25 09/25 09/25 09/25 09/25 0613 0600 0440 0306 0130 Chemistry Sodium Pending Potassium Pending Chloride Pending Carbon Dioxide Pending Anion Gap Pending BUN Pending Creatinine Pending BUN/Creatinine Ratio Pending Lactic Acid (0.7 - 2.1 mmol/L) 1.3 Cancelled 2.2 H Phosphorus Pending Magnesium Pending Hematology CBC w Diff Pending WBC Pending RBC Pending Hgb Pending Hct Pending MCV Pending MCH Pending MCHC Pending RDW Pending Plt Count Pending MPV Pending Other Body Source Stool Calprotectin Pending 09/24 09/24 09/24 2245 2244 2200 Chemistry Sodium (137 - 145 mmol/L) 136 L Cancelled Potassium (3.5 - 5.1 mmol/L) 4.3 Cancelled Chloride (98 - 107 mmol/L) 102 Cancelled Carbon Dioxide (22 - 30 mmol/L) 13 L Cancelled Anion Gap (5 - 16) 20 H Cancelled BUN (7 - 17 mg/dL) 9 Cancelled Creatinine (0.5 - 1.0 mg/dL) 1.1 H Cancelled Estimated GFR (>60 ml/min) 56 L BUN/Creatinine Ratio (7 - 25 %) 8.2 Cancelled Lactic Acid (0.7 - 2.1 mmol/L) Cancelled 9.4 H Magnesium (1.6 - 2.3 mg/dL) 0.9 *L Cancelled C-Reactive Prot, Quant (<1.0 mg/dL) > 9.0 H C-React Prot High Sens (1.0 - 3.0 mg/L) > 15.0 H Hematology ESR Westergren (0 - 20 MM) 55 H 09/24 09/24 1652 1645 Chemistry Lactic Acid (0.7 - 2.1 mmol/L) 2.3 H Urines Urine Color (YEL,AMB,STR) YEL Urine Clarity (CLEAR) CLEAR Urine pH (5.0 - 8.0) 6.5 Ur Specific Sixes (1.001 - 1.035) <= 1.005 Urine Protein (NEG,<30 MG/DL) NEG Urine Ketones (NEG) NEG Urine Nitrite (NEG) NEG Urine Bilirubin (NEG) NEG Urine Urobilinogen (0.1 - 1.0 EU/dl) 0.2 Ur Leukocyte Esterase (NEG) NEG Ur Microscopic EXAM NOT REQUIRED Urine Hemoglobin (NEG) NEG Urine Glucose (N MG/DL) NEG 09/24 09/24 1322 1308 Chemistry Sodium (137 - 145 mmol/L) 135 L Potassium (3.5 - 5.1 mmol/L) 2.9 *L Chloride (98 - 107 mmol/L) 95 L Carbon Dioxide (22 - 30 mmol/L) 24 Anion Gap (5 - 16) 16 BUN (7 - 17 mg/dL) 10 Creatinine (0.5 - 1.0 mg/dL) 1.1 H Estimated GFR (>60 ml/min) 56 L BUN/Creatinine Ratio (7 - 25 %) 9.1 Glucose (65 - 99 mg/dL) 99 Lactic Acid (0.7 - 2.1 mmol/L) 3.6 H Calcium (8.4 - 10.2 mg/dL) 8.6 Magnesium (1.6 - 2.3 mg/dL) 1.1 L Total Bilirubin (0.2 - 1.3 mg/dL) 0.8 AST (14 - 36 U/L) 25 ALT (9 - 52 U/L) 24 Alkaline Phosphatase (<127 U/L) 120 Troponin I (< 0.11 ng/ml) < 0.01 Cancelled Total Protein (6.3 - 8.2 g/dL) 6.0 L Albumin (3.5 - 5.0 g/dL) 3.2 L Globulin (1.9 - 4.2 gm/dL) 2.8 Albumin/Globulin Ratio (1.1 - 2.2 %) 1.1 Total Beta HCG (NEGATIVE) NEGATIVE Hematology CBC w Diff MAN DIFF ORDERED WBC (4.8 - 10.8 /CUMM) 6.9 RBC (4.20 - 5.40 /CUMM) 4.14 L Hgb (12.0 - 16.0 G/DL) 11.8 L Hct (37 - 47 %) 35.9 L MCV (81.0 - 99.0 FL) 86.8 MCH (27.0 - 31.0 PG) 28.6 MCHC (33.0 - 37.0 G/DL) 33.0 RDW (11.5 - 14.5 %) 14.9 H Plt Count (130 - 400 /CUMM) 316 MPV (7.4 - 10.4 FL) 6.9 L Gran % (42.2 - 75.2 %) 95.5 H Lymphocytes % (20.5 - 51.1 %) 4.3 L Monocytes % (1.7 - 9.3 %) 0.1 L Eosinophils % (0 - 5 %) 0 Basophils % (0.0 - 2.0 %) 0.1 Absolute Granulocytes (1.4 - 6.5 /CUMM) 6.6 H Segmented Neutrophils (42.2 - 75.2 %) 77 H Band Neutrophils (0.0 - 5.0 %) 17 H Absolute Lymphocytes (1.2 - 3.4 /CUMM) 0.3 L Lymphocytes (20.5 - 51.1 %) 6 L Absolute Monocytes (0.10 - 0.60 /CUMM) 0 L Absolute Eosinophils (0.0 - 0.7 /CUMM) 0 Absolute Basophils (0.0 - 0.2 /CUMM) 0 Platelet Estimate (ADEQUATE) VERIFIED BY SMEAR Normocytic RBCs VERIFIED Normochromic RBCs VERIFIED 09/24 1259 Chemistry Total Beta HCG Cancelled Vital Signs Date Time Temp Pulse Resp B/P B/P Pulse O2 O2 Flow FiO2 Mean Ox Delivery Rate 09/25 0625 97.5 81 18 100/64 97 Room Air 09/25 0124 98.7 103 18 102/52 95 Room Air 09/25 0000 95 Room Air 09/24 2245 99.0 09/24 2234 101.5 118 18 102/62 97 Room Air 09/24 2200 104.0 09/24 2108 101.0 09/24 2009 101.6 09/24 1745 100.0 110 18 94/60 98 Room Air 09/24 1538 99.9 106 18 92/54 100 Room Air 09/24 1343 99.0 110 09/24 1343 98 Room Air 09/24 1225 103.6 09/24 1217 103.6 130 18 94/63 98 Room Air Intake & Output 09/25 1600 09/25 0800 09/25 0000 Intake Total 5800 800 Output Total Balance 5800 800 Intake, IV 5800 400 Intake, Oral 400 Number 1 Bowel Movements Patient 243 lb 220 lb Weight Weight Reported by Patient Measurement Method Laboratory Tests 09/24/17 1652: Urine Color YEL, Urine Clarity CLEAR, Urine pH 6.5, Ur Specific Sixes <= 1.005 , Urine Protein NEG, Urine Ketones NEG, Urine Nitrite NEG, Urine Bilirubin NEG, Urine Urobilinogen 0.2, Ur Leukocyte Esterase NEG, Ur Microscopic EXAM NOT REQUIRED, Urine Hemoglobin NEG, Urine Glucose NEG 09/24/17 1645: Lactic Acid 2.3 H 09/24/17 1322: Anion Gap 16, Estimated GFR 56 L, BUN/Creatinine Ratio 9.1, Glucose 99, Lactic Acid 3.6 H, Calcium 8.6, Magnesium Pending, Total Bilirubin 0.8, AST 25, ALT 24 , Alkaline Phosphatase 120, Troponin I < 0.01, Total Protein 6.0 L, Albumin 3.2 L, Globulin 2.8, Albumin/Globulin Ratio 1.1, Total Beta HCG NEGATIVE, CBC w Diff MAN DIFF ORDERED, RBC 4.14 L, MCV 86.8, MCH 28.6, MCHC 33.0, RDW 14.9 H, MPV 6.9 L, Gran % 95.5 H, Lymphocytes % 4.3 L, Monocytes % 0.1 L, Eosinophils % 0, Basophils % 0.1, Absolute Granulocytes 6.6 H, Segmented Neutrophils 77 H, Band Neutrophils 17 H, Absolute Lymphocytes 0.3 L, Lymphocytes 6 L, Absolute Monocytes 0 L, Absolute Eosinophils 0, Absolute Basophils 0, Platelet Estimate VERIFIED BY SMEAR, Normocytic RBCs VERIFIED, Normochromic RBCs VERIFIED Assessment/Plan Assessment: 37 y/o F with PMHx of ulcerative colitis admitted today with a chief complain of fevers, chills and weakness. On admission she was febrile (103.6), tachycardic ( up to 130), with a BP of 94/63. Lab's showed WBC of 6.9 with granulocytes of 96 % and [address] abd consistent with active colitis involving the descending and sigmoid colon to level the rectum. Based on history, physycal examination, lab's and imagine, this maybe a flare up of her ulcerative colitis. DDx include: infectious colitis with baqcteria or viral origin (viral- is unlikely because of her bandemia and 5 days of symtopms will have been an improvement by now. Baterial seems more likely in a inmunocompromised host), acute gastroenteratis is more consistent with nausea and vomiting and this patient had one episode of emesis and CT is more consistent with colitis. Ischemic colitis and perforation are unlikely because no guarding/rebound tenderness, no active bloody movement, and no gas pattern or ischemic sign in CT. Plan: Plan: -Clear fluids diet -Monitor vitals, CBC, chemistry -Serial abd exams -Replet electrolytes -Zofran PRN -Emperic treatment of Ceftriaxone 1g IV daily and Flagyl 500mg IV Q8 -Follow recomendations -Prednisone 20 mg daily to IV Medrol 40 mg BID Pending: -Blood and urine cx -Rapid flu swab for Influenza -Per GI- Stool for C&S, Shiga toxin, C. difficile, Giardia Ag, Cryptosporidia Ag , Vibrio, Yersinia, & fecal calprotectin
--- NOTE | 2017-09-24 17:53 | Cons- Gastroenterology ---
General Information and HPI Consulting Request Date of Consult: 09/24/17 Requested By: Erasto OLIVIER,Marin Mckeon Reason for Consult: Fever, chills, myalgias, arthralgias, left frontal RICARDO, n & v, diarrhea, near syncope, & hypoK+, in a female with UC, followed for GI by Dr. Jordan Canales, in [place]. Source of Information: patient, family (pt's , Catarino), old records Exam Limitations: some of records in [place] History of Present Illness: 37 y/o female, non-HTN, non-DM, obesity (weight gain post steroids), remote 4 pk yr cigarette smoker (D/C 2001), dxd with ulcerative proctitis (UP) via 02/01/13: colonoscopy to TI by [facility] (Dr. Arriaga), at which point, bxs of TI, right colon, transverse colon & sigmoid - negative; bxs of rectosigmoid at 20 cm & rectum- marked chronic colitis with moderate acute activity & crypt abscesses, rx epithelial atypia, without dysplasia or Ca. The patient has since been taken care of for GI by Dr. Jordan Canales for GI in [place], [place] ([phone]). As per my discussion with Dr. Canales on admission, she progressed from UP to UC. She failed Remicade, despite increased doses & decreased intervals, & was *recently switched to Entyvio (Vedolizumab). She claimed she never developed Ab against Remicade, but it "just didn't work". She had never been on Humira. She was in the midst of being loaded with Entyvio & had received 2 doses (usual dosing is 300 mg IV x 1 on week 0, 2, 6, then Q 8 weeks). Her last dose of Entyvio was on 09/04/17, & she is due for her next (3rd) dose on 10/02/17, after which, it should be Q 8 weeks. She was also on Lialda 1.2g tab-> 4 tabs daily (4.8g QD), & Prednisone 20 mg daily. She claimed she had been Prednisone dependent for the past year, since 08/2016, and that every time the steroids were tapered, she began to flare. She was on Uceris months ago. She & her huisband were well-aware of the risks & benefits of biologic agents & steroid tx. She had never been on immunomodulators, such as 6MP. The patient stated that previous attempts at tx with Rowasa enema, Canasa suppositories, and /or Uceris foam "did not work & irritated her rectum". She claimed her last colonoscopy by Dr. Canales was > 1 year ago (*per Dr. Canales, last colonoscopy was : left-sided UC). There is no FHx of colon Ca. Of note, one of her brothers had a colectomy for UC. She denied any recent antibiotics or NSAIDs. She denied any recent travel, sick contacts, or raw food ingestion. She is allergic to Emycin, PCN, & Amoxicillin (rash), but apparently had previously tolerated cephalosporins. Her surgeries have included AP at [facility], [place] in 2013, & C- section x 2. 09/30/14: *QuantiFERON TB- negative; TPMT genotype- negative for poor metabolizer alleles (TPMT*1/TPMT*1), + varicella IgG 3.59 (immune); Hep A Ab, Hep Bs Ag, Hep B core Ab IgM, Hep Bs Ab- all neg. (*No Hep C Ab or HIV sent then). The patient stated [place] p.m. 09/19/17, she had T 101.8 with chills, myalgias, & arthralgias (syed knees B/L), without rash, jaundice, sx UTI, or URI. She got a left frontal RICARDO on 09/22/17, without any meningeal signs. She called her GI MD 09/22/17, with thoughts that she may have a viral syndrome. Her fever broke on 09/23/17, only to recur on Fri09/24/17 ("T- 103 at home"), with weakness & near syncope, without CP, SOB, palpitations, or LOC. She called her PMD 09/24/17 & was sent to the [facility] ER. The patient had 1-2 episodes of n & v-> clear emesis, without bile or hematemesis. There was no melena. She remained with her baseline diarrhea (12-15x/day x years), with only scant chronic BRBPR post defecation of brown stool, without any spontaneous LGIB. She denied any constipation, obstipation, or tenesmus. She denied any abdominal pain, except for chronic suprapubic discomfort. She denied any HOG TRADER sx, vaginal spotting, or discharge. Her appetite was fairly good. There was no unintentional weight loss. She had never had a blood transfx. Upon arrival to the [facility] ER 09/24/17 at 11:58 a.m., BP 94/63, P 130, R 18, T 103.6, O2 sat RA 98%. She was found to be hypokalemic with elevated lactate (* see labs). She was given IV NS, Tylenol, Zofran, & KCL. The patient was seen in consultation by ID in the ER. She was cultured & empirically started on broad spectrum antibiotics (Ceftriaxone 1g IV Q12h & Flagyl 500 mg IV Q8h). 09/24/17: 1322: Admission labs- WBC 6.9 (77S/17B/6L), H/H 11.8/35.9, MCV 86.8, RDW 14.9, PLT 316, glu 99, BUN/Cr 10/1.1, GFR 56, Na 135, K 2.9, HCO3 24, AG 16 , lactate 3.6-> 2.3, Mg 1.1, albumin 3.2, globulin 2.8, TBil 0.8, alk phos 120, AST 25, ALT 24, troponin < 0.01, serum HCG- neg. 09/24/17: U/A- clear, yellow, < 1.005, 6.5, micro- otherwise neg; neg nitirite, neg esterase. 09/24/17: BC x 2- pending. 09/24/17: UC- pending. 09/24/17: Rapid viral influenza A/B- negative. 09/24/17: EKG- ST @ 130, nl axis, LAE, NSST abnl. 09/24/17: CT ANGIOGRAM OF THE CHEST WITH CONTRAST (CT PULMONARY ANGIOGRAM FOR PE ) CT ABDOMEN AND PELVIS WITH IV CONTRAST- 1. No pulmonary embolism. 2. There are a few nonspecific, noncalcified nodules in the right and left upper lobe, largest measuring 0.3 x 0.5 cm. No pulmonary mass or lymphadenopathy in the chest. 3. Findings consistent with active colitis with circumferential wall thickening involving the descending and sigmoid colon, to the level of the rectum, with adjacent pericolonic fat stranding. This is consistent with history of ulcerative colitis. There is reactive lymphadenopathy in the mesentery. Few sigmoid diverticula, without diverticulitis. No obstruction, megacolon, or free air. Post AP. 4. Small fat-containing umbilical hernia. 5. Normal uterus & adnexa. Trace fluid in the pelvis. No abscess. Allergies/Medications Allergies: Coded Allergies: erythromycin base (From ERYTHROCIN) (Intermediate, HIVES 09/24/17) Penicillins (RASH 04/07/17) amoxicillin (RASH 04/07/17) Home Med List: Ferrous Sulfate 325 MG (65 MG IRON) TABLET 1 TAB PO DAILY IRON, VITAMIN ( Reported) Mesalamine (Lialda) 1.2 GRAM TABLET.DR 4 TAB PO DAILY UNKNOWN (Reported) Prednisone 20 MG TABLET 1 TAB PO DAILY STEROID (Reported) Current Medications: Current Medications Sig/Raymond Start time Last Medication Dose Route Stop Time Status Admin Acetaminophen 650 MG ONCE ONE 09/24 2014 DC 09/24 PO 09/25 2015 2009 Acetaminophen 325 MG Q6P PRN 09/24 1930 AC PO Acetaminophen 975 MG ONCE ONE 09/24 1230 DC 09/24 PO 09/24 1231 1225 Ceftriaxone Sodium 1,000 MG Q12 09/25 0900 AC IV Ceftriaxone Sodium 0 .STK-MED ONE 09/24 1705 DC .ROUTE Ceftriaxone Sodium 1,000 MG ONCE ONE 09/24 1630 DC 09/24 IV 09/24 1631 1700 Ciprofloxacin 400 MG ONCE ONE 09/24 1600 CAN Dextrose/Water 200 ML IV 09/24 1659 Dextrose/Sodium 1,000 ML Q10H 09/24 2014 UNVr Chloride IV Famotidine 20 MG DAILY 09/24 2014 AC PO Magnesium Sulfate 1 GM ONCE ONE 09/24 2014 UNVr Dextrose/Water 100 ML IV 09/25 0014 Methylprednisolone 40 MG Q12 09/24 2100 AC IV Metronidazole 500 MG Q8 09/24 2200 AC N/A 1 UNIT IV Metronidazole 500 MG ONCE ONE 09/24 1600 DC 09/24 N/A 1 UNIT IV 09/24 1659 1731 Ondansetron HCl 0 .STK-MED ONE 09/24 1329 DC .ROUTE Ondansetron HCl 4 MG ONCE ONE 09/24 1300 DC 05/16 IV 05/ 1301 1330 Potassium Chloride 80 MEQ ONCE ONE 09/24 2015 DC PO 09/24 2016 Potassium Chloride 10 MEQ ONCE ONE 09/24 1800 DC 05/16 IV 09/24 1801 1845 Potassium Chloride 0 .STK-MED ONE 09/24 1416 DC PO Potassium Chloride 40 MEQ ONCE ONE 09/24 1415 DC 05/16 PO / 1416 1428 Sodium Chloride 1,000 ML Q10H 09/24 2014 CAN IV 09/25 0614 Sodium Chloride 1,000 ML BOLUS ONE 09/24 1600 DC 05/16 IV / 1659 1700 Sodium Chloride 1,000 ML BOLUS ONE 09/24 1545 DC 05/16 IV / 1644 1542 Sodium Chloride 1,000 ML BOLUS ONE 09/24 1430 DC 05/ IV 09/24 1529 1420 Sodium Chloride 1,000 ML BOLUS ONE 09/24 1300 DC 05/ IV 09/24 1359 1330 Past History Travel History Traveled to [place] past 21 day No Medical History Blood Transfusion Hx: No Neurological: NONE EENT: NONE Cardiovascular: NONE Respiratory: NONE Gastrointestinal: NONE (02/01/13: initially dxd as UP), ulcerative colitis, umbilical hernia (intact) Hepatic: NONE Renal: NONE Musculoskeletal: NONE Psychiatric: NONE Endocrine: obesity (wt gain post prednisone) Blood Disorders: NONE Cancer(s): NONE HOG TRADER/Reproductive: NONE Surgical History Surgical History: appendectomy (2014 at [facility]), (x 2) Family History Relations & Conditions If Any: MOTHER (post breast Ca x 2, DM, HTN, diverticulitis). Age 69. FATHER (ASHD, post CABG x 3, DM). Age 72. BROTHER ([employer]- *UC, post colectomy). BROTHER ([employer]). BROTHER ([employer]). Psychosocial History Where Do You Live? Home Who Do You Live With? spouse, child Services at Home: None Primary Language: Tuvaluan Smoking Status: Former Smoker ETOH Use: denies use Illicit Drug Use: denies illicit drug use Living Will? no Power of Vp [employer]/HCP? no Other Social History: to Catarino. 2 children- [employer] (1 son & 1 dtr). Remote 4 pk yr cigarette smoker, D/C 2001. No EtOH. No illicit drugs. 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 Functional Ability ADLs Independent: dressing, eating, toileting, bathing. Ambulation: independent IADLs Independent: shopping, housework, finances, food prep, telephone, transportation , medication admin. 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 Review of Systems Constitutional: Reports: chills, fever, weakness. Denies: diaphoresis, malaise, unexplained weight loss. EENTM: Denies: blurred vision, double vision, visual changes, eye pain, eye drainage, eye tearing, icterus, ear discharge, ear pain, ear redness, hearing changes, nasal congestion, epistaxis, nasal pain, throat pain, throat swelling, mouth pain, tooth pain. Cardiovascular: Denies: chest pain, edema, orthopena, palpitations, peripheral edema, syncope. Respiratory: Denies: cough, hemoptysis, orthopnea, short of breath, sputum production, stridor, wheezing. GI: Reports: abdominal pain (suprapubic), diarrhea (chronic), nausea, vomiting ( clear). Denies: bloating, constipation, distention, bowel incontinence, melena, bloody stool, changes in stool, steatorrhea. Genitourinary: Denies: discharge, dysuria, frequency, hematuria, hesitation, nocturia, pain, urgency. Musculoskeletal: Reports: joint pain (arthralgias, syed knees B/L), muscle pain (myalgias). Denies: back pain, gout, joint swelling, muscle stiffness, neck pain. Skin: Denies: cysts, change in skin color, change in hair/nails, dryness, erythema, jaundice, lesions, lymphangitis, lumps, moles, rash. Neurological/Psychological: Denies: anxiety, ataxia, cognitive dysfunction, confusion, depressed, dementia, emotional problems, headache, numbness, paresthesia, pre-existing deficit, petit mal seizures, tingling, tremors, tonic-clonic seizures, unable to move lower ext , unable to move upper ext, weakness. Hematologic/Endocrine: Denies: bruising, bleeding, polyuria, polydipsia. Immunologic/Allergic: Denies: splenectomy, HIV/AIDS, lymphadenopathy. All Other Systems: Reviewed and Negative Exam & Diagnostic Data Vital Signs and I&O Vital Signs Date Time Temp Pulse Resp B/P B/P Pulse O2 O2 Flow FiO2 Mean Ox Delivery Rate 09/24 1538 99.9 106 18 92/54 100 Room Air 09/24 1343 99.0 110 09/24 1343 98 Room Air 09/24 1225 103.6 09/24 1217 103.6 130 18 94/63 98 Room Air Intake & Output 09/24 1600 09/24 0400 09/23 1600 09/23 0400 09/22 1600 09/22 0400 Intake Total 1000 Output Total Balance 1000 Intake, IV 1000 Patient 225 lb Weight Weight Reported by Patient Measurement Method Physical Exam: Well-developed, well-nourished, pleasant obese female, in no apparent distress. Nontoxic appearing, but fatigued. Sclera anicteric. Conjunctiva pink. Sinuses: NT. Oropharynx clear. No oral thrush. No apthous ulcers. Dry mucus membranes. There is no adenopathy, thyromegaly, or JVD. Neck: supple. No peripheral stigmata of inflammatory bowel disease or chronic liver disease on exam. No spiders on the anterior chest wall. No CVA tenderness. Breast & pelvic exams: API. Lungs: clear to A&P. No wheezing, rales, or rhonchi. Heart exam: regular rate rhythm, S1 and S2, without any murmur. Abdominal exam: normal bowel sounds , soft belly, mild LLQ tenderness, without guarding or rebound. Small reducible umbilical hernia, otherwise no mass. No organomegaly. No fluid shift. No pulsatile mass. Negative Hollis sign. No epigastric bruit. Clinically, without megacolon. Digital rectal exam: deferred by patient. Extremities: without C, C, or E. No palpable cords. B/L LE ALPS. No acute arthropathy. No joint crepitus. No rash. No palmar erythema. No Dupuytren's contractures. Distal pulses 2+ bilaterally. DTRs 2+ bilaterally. Alert and oriented x 3. Right handed. CN II- XII intact. No photophobia. Motor 5/5 B/L. No meningeal signs. No tremor. No asterixis. Results Pertinent Lab Results: Laboratory Tests 09/24 09/24 1652 1645 Chemistry Lactic Acid (0.7 - 2.1 mmol/L) 2.3 H Urines Urine Color (YEL,AMB,STR) YEL Urine Clarity (CLEAR) CLEAR Urine pH (5.0 - 8.0) 6.5 Ur Specific Hudson (1.001 - 1.035) <= 1.005 Urine Protein (NEG,<30 MG/DL) NEG Urine Ketones (NEG) NEG Urine Nitrite (NEG) NEG Urine Bilirubin (NEG) NEG Urine Urobilinogen (0.1 - 1.0 EU/dl) 0.2 Ur Leukocyte Esterase (NEG) NEG Ur Microscopic EXAM NOT REQUIRED Urine Hemoglobin (NEG) NEG Urine Glucose (N MG/DL) NEG 09/24 09/24 1322 1308 Chemistry Sodium (137 - 145 mmol/L) 135 L Potassium (3.5 - 5.1 mmol/L) 2.9 *L Chloride (98 - 107 mmol/L) 95 L Carbon Dioxide (22 - 30 mmol/L) 24 Anion Gap (5 - 16) 16 BUN (7 - 17 mg/dL) 10 Creatinine (0.5 - 1.0 mg/dL) 1.1 H Estimated GFR (>60 ml/min) 56 L BUN/Creatinine Ratio (7 - 25 %) 9.1 Glucose (65 - 99 mg/dL) 99 Lactic Acid (0.7 - 2.1 mmol/L) 3.6 H Calcium (8.4 - 10.2 mg/dL) 8.6 Magnesium (1.6 - 2.3 mg/dL) 1.1 L Total Bilirubin (0.2 - 1.3 mg/dL) 0.8 AST (14 - 36 U/L) 25 ALT (9 - 52 U/L) 24 Alkaline Phosphatase (<127 U/L) 120 Troponin I (< 0.11 ng/ml) < 0.01 Cancelled Total Protein (6.3 - 8.2 g/dL) 6.0 L Albumin (3.5 - 5.0 g/dL) 3.2 L Globulin (1.9 - 4.2 gm/dL) 2.8 Albumin/Globulin Ratio (1.1 - 2.2 %) 1.1 Total Beta HCG (NEGATIVE) NEGATIVE Hematology CBC w Diff MAN DIFF ORDERED WBC (4.8 - 10.8 /CUMM) 6.9 RBC (4.20 - 5.40 /CUMM) 4.14 L Hgb (12.0 - 16.0 G/DL) 11.8 L Hct (37 - 47 %) 35.9 L MCV (81.0 - 99.0 FL) 86.8 MCH (27.0 - 31.0 PG) 28.6 MCHC (33.0 - 37.0 G/DL) 33.0 RDW (11.5 - 14.5 %) 14.9 H Plt Count (130 - 400 /CUMM) 316 MPV (7.4 - 10.4 FL) 6.9 L Gran % (42.2 - 75.2 %) 95.5 H Lymphocytes % (20.5 - 51.1 %) 4.3 L Monocytes % (1.7 - 9.3 %) 0.1 L Eosinophils % (0 - 5 %) 0 Basophils % (0.0 - 2.0 %) 0.1 Absolute Granulocytes (1.4 - 6.5 /CUMM) 6.6 H Segmented Neutrophils (42.2 - 75.2 %) 77 H Band Neutrophils (0.0 - 5.0 %) 17 H Absolute Lymphocytes (1.2 - 3.4 /CUMM) 0.3 L Lymphocytes (20.5 - 51.1 %) 6 L Absolute Monocytes (0.10 - 0.60 /CUMM) 0 L Absolute Eosinophils (0.0 - 0.7 /CUMM) 0 Absolute Basophils (0.0 - 0.2 /CUMM) 0 Platelet Estimate (ADEQUATE) VERIFIED BY SMEAR Normocytic RBCs VERIFIED Normochromic RBCs VERIFIED 09/24 1259 Chemistry Total Beta HCG Cancelled Imaging/Other Studies: 09/24/17: EKG- ST @ 130, nl axis, LAE, NSST abnl. 09/24/17: CT ANGIOGRAM OF THE CHEST WITH CONTRAST (CT PULMONARY ANGIOGRAM FOR PE ) CT ABDOMEN AND PELVIS WITH IV CONTRAST- 1. No pulmonary embolism. 2. There are a few nonspecific, noncalcified nodules in the right and left upper lobe, largest measuring 0.3 x 0.5 cm. No pulmonary mass or lymphadenopathy in the chest. 3. Findings consistent with active colitis with circumferential wall thickening involving the descending and sigmoid colon, to the level of the rectum, with adjacent pericolonic fat stranding. This is consistent with history of ulcerative colitis. There is reactive lymphadenopathy in the mesentery. Few sigmoid diverticula, without diverticulitis. No obstruction, megacolon, or free air. Post AP. 4. Small fat-containing umbilical hernia. 5. Normal uterus & adnexa. Trace fluid in the pelvis. No abscess. Assessment/Plan Assessment/Recommendations: 37 y/o female, non-HTN, non-DM, obesity (weight gain post steroids), remote 4 pk yr cigarette smoker (D/C 2001), dxd with ulcerative proctitis (UP) via 02/01/13: colonoscopy to [facility] by [facility] (Dr. Arriaga), at which point, bxs of TI, right colon, transverse colon & sigmoid - negative; bxs of rectosigmoid at 20 cm & rectum- marked chronic colitis with moderate acute activity & crypt abscesses, rx epithelial atypia, without dysplasia or Ca. The patient has since been taken care of for GI by Dr. Jordan Canales for GI in [place], [place] ([phone]). As per my discussion with Dr. Canales on admission, she progressed from UP to UC. She failed Remicade, despite increased doses & decreased intervals, & was *recently switched to Entyvio (Vedolizumab). She claimed she never developed Ab against Remicade, but it "just didn't work". She had never been on Humira. She was in the midst of being loaded with Entyvio & had received 2 doses (usual dosing is 300 mg IV x 1 on week 0, 2, 6, then Q 8 weeks). Her last dose of Entyvio was on 09/04/17, & she is due for her next (3rd) dose on 10/02/17, after which, it should be Q 8 weeks. She was also on Lialda 1.2g tab-> 4 tabs daily (4.8g QD), & Prednisone 20 mg daily. She claimed she had been Prednisone dependent for the past year, since 08/2016, and that every time the steroids were tapered, she began to flare. She was on Uceris months ago. She & her huisband were well-aware of the risks & benefits of biologic agents & steroid tx. She had never been on immunomodulators, such as 6MP. The patient stated that previous attempts at tx with Rowasa enema, Canasa suppositories, and /or Uceris foam "did not work & irritated her rectum". She claimed her last colonoscopy by Dr. Canales was > 1 year ago (*per Dr. Canales, last colonoscopy was : left-sided UC). There is no FHx of colon Ca. Of note, one of her brothers had a colectomy for UC. She denied any recent antibiotics or NSAIDs. She denied any recent travel, sick contacts, or raw food ingestion. She is allergic to Emycin, PCN, & Amoxicillin (rash), but apparently had previously tolerated cephalosporins. Her surgeries have included AP at [facility] in 2013, & C- section x 2. 09/30/14: *QuantiFERON TB- negative; TPMT genotype- negative for poor metabolizer alleles (TPMT*1/TPMT*1), + varicella IgG 3.59 (immune); Hep A Ab, Hep Bs Ag, Hep B core Ab IgM, Hep Bs Ab- all neg. (*No Hep C Ab or HIV sent then). The patient stated Friday p.m. 09/19/17, she had T 101.8 with chills, myalgias, & arthralgias (syed knees B/L), without rash, jaundice, sx UTI, or URI. She got a left frontal RICARDO on 09/22/17, without any meningeal signs. She called her GI MD 09/22/17, with thoughts that she may have a viral syndrome. Her fever broke on 09/23/17, only to recur on Fri09/24/17 ("T- 103 at home"), with weakness & near syncope, without CP, SOB, palpitations, or LOC. She called her PMD 09/24/17 & was sent to the [facility] ER. The patient had 1-2 episodes of n & v-> clear emesis, without bile or hematemesis. There was no melena. She remained with her baseline diarrhea (12-15x/day x years), with only scant chronic BRBPR post defecation of brown stool, without any spontaneous LGIB. She denied any constipation, obstipation, or tenesmus. She denied any abdominal pain, except for chronic suprapubic discomfort. She denied any HOG TRADER sx, vaginal spotting, or discharge. Her appetite was fairly good. There was no unintentional weight loss. She had never had a blood transfx. Upon arrival to the [facility] 09/24/17 at 11:58 a.m., BP 94/63, P 130, R 18, T 103.6, O2 sat RA 98%. She was found to be hypokalemic with elevated lactate (* see labs). She was given IV NS, Tylenol, Zofran, & KCL. The patient was seen in consultation by ID in the ER. She was cultured & empirically started on broad spectrum antibiotics (Ceftriaxone 1g IV Q12h & Flagyl 500 mg IV Q8h). 09/24/17: 1322: Admission labs- WBC 6.9 (77S/17B/6L), H/H 11.8/35.9, MCV 86.8, RDW 14.9, PLT 316, glu 99, BUN/Cr 10/1.1, GFR 56, Na 135, K 2.9, HCO3 24, AG 16 , lactate 3.6-> 2.3, Mg 1.1, albumin 3.2, globulin 2.8, TBil 0.8, alk phos 120, AST 25, ALT 24, troponin < 0.01, serum HCG- neg. 09/24/17: U/A- clear, yellow, < 1.005, 6.5, micro- otherwise neg; neg nitirite, neg esterase. 09/24/17: BC x 2- pending. 09/24/17: UC- pending. 09/24/17: Rapid viral influenza A/B- negative. 09/24/17: EKG- ST @ 130, nl axis, LAE, NSST abnl. 09/24/17: CT ANGIOGRAM OF THE CHEST WITH CONTRAST (CT PULMONARY ANGIOGRAM FOR PE ) CT ABDOMEN AND PELVIS WITH IV CONTRAST- 1. No pulmonary embolism. 2. There are a few nonspecific, noncalcified nodules in the right and left upper lobe, largest measuring 0.3 x 0.5 cm. No pulmonary mass or lymphadenopathy in the chest. 3. Findings consistent with active colitis with circumferential wall thickening involving the descending and sigmoid colon, to the level of the rectum, with adjacent pericolonic fat stranding. This is consistent with history of ulcerative colitis. There is reactive lymphadenopathy in the mesentery. Few sigmoid diverticula, without diverticulitis. No obstruction, megacolon, or free air. Post AP. 4. Small fat-containing umbilical hernia. 5. Normal uterus & adnexa. Trace fluid in the pelvis. No abscess. *As of 09/24/17, it was difficult to tell whether the patient's fever, chills, myalgias, arthralgias, left frontal RICARDO, n & v, diarrhea, near syncope, & hypoK+/ hypoMg, were purely from a flare of her left-sided ulcerative colitis vs. superinfection with viral or bacterial pathogen in an immunocompromised patient on Entyvio (in midst of loading) & steroids. The left shift made a bacterial process more likely than viral. Her influenza swab was negative. She was pancultured, including blood and urine. A stool workup had not yet been sent. Her diarrhea was chronic in nature. The nausea and vomiting was minimal. Her last colonoscopy in [place] was 01/2015. She had previously failed Remicade & has been steroid dependent for most of the past year, since 08/2016, with difficulty in tapering them. She had never been on Humira or 6-MP. CT failed to reveal any megacolon or obstruction, with left- sided inflammation. Other possibilities to consider could include CMV colitis. A tick borne illness (prodromal sx, RICARDO) was probably unlikely, but possible. There was no rash. *SUGGEST: Clears po. Serial abdominal exams. Panculture (BC/UC). Stool for C&S, Shiga toxin, C. difficile, Giardia Ag, Cryptosporidia Ag, Vibrio, Yersinia, & fecal calprotectin. Check ESR & CRP. IV fluids. Strict I/O's. Replete K+ & Mg2+ ( prefer to replete the latter parenterally, as po Mg2+ may exacerbate diarrhea). Zofran as needed. Cautious use of Imodium as needed. Switch po Prednisone 20 mg daily to IV Medrol 40 mg BID. Accuchecks while on steroids. Continue Lialda ( mesalamine) 4.8g daily. *Empiric broad spectrum antibiotics (IV Ceftriaxone 1g Q12h & IV Flagyl 500 mg Q8h) for now, pending cultures & stool workup. *The next (3rd) 300 mg IV dose of Entyvio is due 10/02/17 (& after this, Q 8 weeks) & sepsis should be excluded before this is given. Consider checking tick panel, to include Lyme/Babesiosis/Ehrlichiosis. Serial CBC with diff, lytes, GFR, LFTs. If sx persist, may need inpt flex sig vs. full colonoscopy with bxs, to exclude CMV colitis. No NSAIDs. Tylenol as needed. The above findings and recommendations were discussed with the medical house staff. I also spoke with Dr. Younger & Dr. Jordan Canales, her usual GI MD, on the day of admission. Further GI recommendations to follow, depending on clinical course. Problem List: 1. Ulcerative colitis 2. Diarrhea 3. Nausea & vomiting 4. Fever 5. Hypokalemia 6. Dehydration 7. Umbilical hernia without obstruction and without gangrene 8. Hypomagnesemia 9. Elevated lactic acid level 10. Family history of ulcerative colitis Copies To: Erasto OLIVIER,Marin Mckeon; Parker OLIVIER,Jordan; Carisa OLIVIER,Jason Pardo. Consult Acknowledgment - Thank you for your consult request.
[2017-09-24 22:34] VITALS: BP 102/62
[2017-09-25 01:24] VITALS: BP 102/52
[2017-09-25 06:25] VITALS: BP 100/64
--- NOTE | 2017-09-25 07:49 | PN- Housestaff ---
Alba OLIVIER,Franny 09/25/17 0749: Subjective Follow-up For: Ulcerative colitis Rule out infectious colitis Subjective: Patient seen and examined at bedside. No overnight events. Denies fever, abdominal pain, diarrhea, nausea, vomiting. Patient had one episode of vomiting last night. Review of Systems Constitutional: Reports: no symptoms, see HPI. Objective Last 24 Hrs of Vital Signs/I&O Vital Signs Date Time Temp Pulse Resp B/P B/P Pulse O2 O2 Flow FiO2 Mean Ox Delivery Rate 09/25 0800 Room Air 09/25 0625 97.5 81 18 100/64 97 Room Air 09/25 0124 98.7 103 18 102/52 95 Room Air 09/25 0000 95 Room Air 09/24 2245 99.0 09/24 2234 101.5 118 18 102/62 97 Room Air 09/24 2200 104.0 09/24 2108 101.0 09/24 2009 101.6 09/24 1745 100.0 110 18 94/60 98 Room Air 09/24 1538 99.9 106 18 92/54 100 Room Air 09/24 1343 99.0 110 09/24 1343 98 Room Air Intake & Output 09/25 1600 09/25 0800 09/25 0000 Intake Total 5800 800 Output Total Balance 5800 800 Intake, IV 5800 400 Intake, Oral 400 Number 1 Bowel Movements Patient 243 lb 220 lb Weight Weight Reported by Patient Measurement Method Physical Exam General Appearance: Alert, Oriented X3, Cooperative, No Acute Distress Cardiovascular: Regular Rate, Normal S1, Normal S2, No Murmurs Lungs: Clear to Auscultation Abdomen: Soft, No Tenderness, No Hepatospenomegaly, No Masses Neurological: Normal Speech, Strength at 5/5 X4 Ext, Normal Tone, Sensation Intact Current Medications: Current Medications Sig/Raymond Start time Last Medication Dose Route Stop Time Status Admin Acetaminophen 650 MG ONCE ONE 09/25 1145 DC 09/25 PO 09/25 1146 1145 Acetaminophen 1,000 MG Q6P PRN 09/24 2245 AC N/A 1 UNIT IV Acetaminophen 650 MG ONCE ONE 09/24 2014 DC 09/24 PO 09/24 Acetaminophen 325 MG Q6P PRN 09/24 1930 DC PO Ceftriaxone Sodium 1,000 MG Q12 09/25 0900 AC 09/25 IV 0937 Ceftriaxone Sodium 0 .STK-MED ONE 09/24 1705 DC .ROUTE Ceftriaxone Sodium 1,000 MG ONCE ONE 09/24 1630 DC 09/24 IV 09/24 1631 1700 Ciprofloxacin 400 MG ONCE ONE 09/24 1600 CAN Dextrose/Water 200 ML IV 09/24 1659 Dextrose/Sodium 1,000 ML Q10H 09/24 2014 AC 09/24 Chloride IV 2127 Famotidine 20 MG DAILY 09/24 2013 AC 09/25 PO 0936 Heparin Sodium 5,000 UNIT Q8 09/24 220 AC 09/25 (Porcine) SC 0554 Magnesium Sulfate 1 GM ONCE ONE 09/24 2014 DC 09/24 Dextrose/Water 100 ML IV 09/25 0014 2348 Melatonin 5 MG AT BEDTIME 09/25 2099 AC PO Mesalamine 1,600 MG TID 09/24 2099 AC 09/25 PO 0936 Methylprednisolone 40 MG Q12 09/24 2100 AC 09/25 IV 0937 Metronidazole 500 MG Q8H 09/25 0130 AC 09/25 N/A 1 UNIT IV 0937 Metronidazole 500 MG Q8 09/24 220 DC N/A 1 UNIT IV Metronidazole 500 MG ONCE ONE 09/24 1600 DC 09/24 N/A 1 UNIT IV 09/24 1659 1731 Ondansetron HCl 4 MG Q6P PRN 09/24 2245 09/25 IV 0936 Oxycodone/ 1 TAB ONCE ONE 09/25 0215 DC 09/25 Acetaminophen PO 09/25 0216 0218 Potassium Chloride 80 MEQ ONCE ONE 09/24 2014 DC 09/24 PO 09/24 2016 2304 Potassium Chloride 10 MEQ ONCE ONE 09/24 1800 DC 09/24 IV 09/24 1801 1845 Potassium Chloride 0 .STK-MED ONE 09/24 1416 DC PO Potassium Chloride 40 MEQ ONCE ONE 09/24 1415 DC 09/24 PO 09/24 1416 1428 Sodium Chloride 1,000 ML BOLUS ONE 09/25 0015 DC 09/25 IV 09/25 0214 0017 Sodium Chloride 1,000 ML Q10H 09/24 2015 CAN IV 09/25 0614 Sodium Chloride 1,000 ML BOLUS ONE 09/24 1600 DC 09/24 IV 09/24 1659 1700 Sodium Chloride 1,000 ML BOLUS ONE 09/24 1545 DC 05 IV 09/24 1644 1542 Sodium Chloride 1,000 ML BOLUS ONE 05/16 1430 DC 09/24 IV 09/24 1529 1420 Sodium Chloride 1,000 ML BOLUS ONE 09/24 1300 DC 09/24 IV 09/24 1359 1330 Last 24 Hrs of Lab/Cecilio Results Last 24 Hrs of Labs/Mics: Laboratory Tests 09/25/17 0613: Anion Gap 11, Estimated GFR > 60, BUN/Creatinine Ratio 12.9, Phosphorus 3.6, Magnesium 1.8, CBC w Diff MAN DIFF ORDERED, RBC 3.51 L, MCV 87.9, MCH 28.4, MCHC 32.3 L, RDW 15.6 H, MPV 8.1, Gran % 96.4 H, Lymphocytes % 3.1 L, Monocytes % 0.5 L, Eosinophils % 0, Basophils % 0, Absolute Granulocytes 11.8 H, Segmented Neutrophils 71, Band Neutrophils 26 H, Absolute Lymphocytes 0.4 L , Lymphocytes 3 L, Absolute Monocytes 0.1, Absolute Eosinophils 0, Absolute Basophils 0, Platelet Estimate ADEQUATE, Normocytic RBCs VERIFIED, Normochromic RBCs VERIFIED 09/25/17 0600: Stool Calprotectin Pending 09/25/17 0440: Lactic Acid 1.3 09/25/17 0306: Lactic Acid Cancelled 09/25/17 0130: Lactic Acid 2.2 H 09/24/17 2245: Lactic Acid Cancelled 09/24/17 2244: Anion Gap 20 H, Estimated GFR 56 L, BUN/Creatinine Ratio 8.2, Lactic Acid 9.4 H, Magnesium 0.9 *L, C-Reactive Prot, Quant > 9.0 H, C-React Prot High Sens > 15.0 H, ESR Westergren 55 H 09/24/17 2200: Sodium Cancelled, Potassium Cancelled, Chloride Cancelled, Carbon Dioxide Cancelled, Anion Gap Cancelled, BUN Cancelled, Creatinine Cancelled, BUN/ Creatinine Ratio Cancelled, Magnesium Cancelled 09/24/17 2117: Lactic Acid Cancelled 09/24/17 1945: Lactic Acid Cancelled 09/24/17 1652: Urine Color YEL, Urine Clarity CLEAR, Urine pH 6.5, Ur Specific [place] <= 1.005 , Urine Protein NEG, Urine Ketones NEG, Urine Nitrite NEG, Urine Bilirubin NEG, Urine Urobilinogen 0.2, Ur Leukocyte Esterase NEG, Ur Microscopic EXAM NOT REQUIRED, Urine Hemoglobin NEG, Urine Glucose NEG 09/24/17 1645: Lactic Acid 2.3 H Microbiology 09/25 599 STOOL: Clostridium difficile Toxin A & B - RES 09/25 599 STOOL: Vibrio Culture - RES 09/25 599 STOOL: Yersinia Culture - RES 09/25 599 STOOL: Stool Culture - RES 09/25 599 STOOL: Cryptosporidium Antigen - COMP 09/25 599 STOOL: Giardia Antigen (CECILIO) - COMP 09/24 1745 STOOL: Clostridium difficile Toxin A & B - CAN Cancelled: COMBINED 09/24 1652 URINE ROUT: Urine Culture - RES 09/24 1638 NASOPHARYN: Influenza Virus A & B Rapid Smear - COMP Assessment/Plan Assessment: 37-year-old female with past medical history of ulcerative colitis on intyvio, prednisone, methylamine, came to [facility] with complaints of weakness, fever with chills, headache. Assessment and plan 1. Colitis-rule out flareup of ulcerative colitis/infectious colitis 2. Hypokalemia 3. Ulcerative colitis * Patient being treated for a flareup of ulcerative colitis/infectious colitis. Patient C. difficile negative. Patient is on ceftriaxone and Flagyl in view of possible perforation. Patient blood culture growing gram-negative rods. Patient was seen by infectious disease doctor who suggested to continue current management and get a surgical consult. Patient is on clear liquids will keep her nothing by mouth in view of perforation. Patient is also being followed by gastroenterology. Patient is on methylamine and IV Solu-Medrol. * Hypokalemia - resolved. * Accu-Check. * GI prophylaxis-Pepcid 20 daily Code-full code Diet-clear liquids DVT prophylaxis-Alps Problem List: 1. Gram-negative bacteremia 2. Ulcerative colitis Pain Ratin Pain Location: abdomen Pain Goal: Remain pain free Pain Plan: tylenol Tomorrow's Labs & Rationales: cbc,bep Erasto OLIVIER,[facility] 09/25/17 1407: Objective Last 24 Hrs of Vital Signs/I&O Vital Signs Date Time Temp Pulse Resp B/P B/P Pulse O2 O2 Flow FiO2 Mean Ox Delivery Rate 09/25 1359 97.6 85 20 100/70 98 Room Air 09/25 0800 Room Air 09/25 0625 97.5 81 18 100/64 97 Room Air 09/25 0124 98.7 103 18 102/52 95 Room Air 09/25 0000 95 Room Air 09/24 2245 99.0 09/24 2234 101.5 118 18 102/62 97 Room Air 09/24 2200 104.0 09/24 2108 101.0 09/24 2009 101.6 09/24 1745 100.0 110 18 94/60 98 Room Air 09/24 1538 99.9 106 18 92/54 100 Room Air Intake & Output 09/25 1600 09/25 0800 09/25 0000 Intake Total 5800 800 Output Total Balance 5800 800 Intake, IV 5800 400 Intake, Oral 400 Number 1 Bowel Movements Patient 243 lb 220 lb Weight Weight Reported by Patient Measurement Method Attending MD Review Statement Attending Statement Attending MD Statement: examined this patient, discuss w/resident/PA/HEEL SANDER RUBBER, agreed w/resident/PA/HEEL SANDER RUBBER, discussed with family, reviewed EMR data (avail), discussed with nursing, discussed with case mgmt, reviewed images, amended to note Attending Assessment/Plan: Skin reveals significant erythematous rash in the upper body which was present yesterday is better HEENT exam is negative; Neck is supple with no adenopathy. Lungs are clear. Heart regular rhythm with no murmur. Abdomen is obese, soft, mildly tender in the lower abdomen, with no guarding or rebound, positive bowel sounds. Back no CVA tenderness. Extremities no cyanosis, clubbing or edema. Neuro is without focality. IMPRESSION This is a lady with severe ulcerative colitis with recurrent exacerbation, on immunosuppressive therapy including prednisone with previous failed Rituxan now on vedolizumab induction therapy, very high fever, chills, body ache with on and off diarrhea. She has been feeling lightheaded in the recent past. Since she came into the emergency room she was found to be significantly febrile and she had had extensive workup which includes a CT of the chest abdomen and pelvis which showed severe colitis. Issues include * Significant febrile illness with bandemia and CT scan suggestive of ulcerative colitis flare in a lady with immunosuppressed state due to a biological agent and 20 mg of prednisone. This is highly suggestive of acute exacerbation of her ulcerative colitis with significant flare despite maximum therapy. Other causes of colitis like C. difficile seems less likely but that needs to be ruled out * Improving Very high fever with headaches and significant flushing sensation. FLu swab is neg * Resolved akirelated to dehydration * Electrolyte abnormalities now better * Significant immunosuppressed state RECOMMENDATION Continue fluid resuscitation Change fluid to D5 normal saline can change to 75 cc if taking po Magnesium 1 g IV antibiotics as noted by D Check stool for culture, C. difficile, ova and parasite Intravenous steroids solumedrol 40 q 12 Follow labs closely PO pepcid Tylenol WIll follow closely
[2017-09-25 08:28] LABS: ABSOLUTE BASOPHIL COUNT 0 /CUMM (0.0-0.2); ABSOLUTE EOSINOPHIL COUNT 0 /CUMM (0.0-0.7); ABSOLUTE GRANULOCYTE CT 11.8 /CUMM (1.4-6.5); ABSOLUTE LYMPH COUNT 0.4 /CUMM (1.2-3.4); BASOPHIL % 0 % (0.0-2.0); EOSINOPHIL % 0 % (0-5); MEAN PLATELET VOLUME 8.1 FL (7.4-10.4)
[2017-09-25 09:02] LABS: ABSOLUTE MONOCYTE COUNT 0.1 /CUMM (0.10-0.60); GRANULOCYTE % 96.4 % (42.2-75.2); MEAN CORPUSCULAR HGB 28.4 PG (27.0-31.0); MEAN CORPUSCULAR HGB CONC 32.3 G/DL (33.0-37.0); MEAN CORPUSCULAR VOLUME 87.9 FL (81.0-99.0); PLATELET COUNT 287 /CUMM (130-400); RBC DISTRIBUTION WIDTH 15.6 % (11.5-14.5)
[2017-09-25 09:10] LABS: HEMATOCRIT 30.9 % (37-47); WHITE BLOOD CELL COUNT 12.2 /CUMM (4.8-10.8)
[2017-09-25 11:00] LABS: RED BLOOD CELL CT 3.51 /CUMM (4.20-5.40)
[2017-09-25 13:59] VITALS: BP 100/70
--- NOTE | 2017-09-25 15:56 | PN- Infect Dx ---
Subjective Subjective: T-max 104 on steroids. She feels improved today, with mild lower abdominal discomfort and headache, but with no further chills or body aches. Objective Last 24 Hrs of Vital Signs/I&O Vital Signs Date Time Temp Pulse Resp B/P B/P Pulse O2 O2 Flow FiO2 Mean Ox Delivery Rate 09/25 1359 97.6 85 20 100/70 98 Room Air 09/25 0800 Room Air 09/25 0625 97.5 81 18 100/64 97 Room Air 09/25 0124 98.7 103 18 102/52 95 Room Air 09/25 0000 95 Room Air 09/24 2245 99.0 09/24 2234 101.5 118 18 102/62 97 Room Air 09/24 2200 104.0 09/24 2108 101.0 09/24 2009 101.6 09/24 1745 100.0 110 18 94/60 98 Room Air Intake & Output 09/25 1600 09/25 0800 09/25 0000 Intake Total 5800 800 Output Total Balance 5800 800 Intake, IV 5800 400 Intake, Oral 400 Number 1 Bowel Movements Patient 243 lb 220 lb Weight Weight Reported by Patient Measurement Method Physical Exam Other Physical Findings: She appears comfortable in no acute distress Lungs are clear Heart regular rhythm with no murmur Abdomen is obese, soft, mildly tender on palpation of the lower abdomen, with no guarding but with localized rebound, positive bowel sounds Back no CVA tenderness Results Last 24 Hours of Lab Results: Laboratory Tests 09/25 09/25 09/25 0613 0600 0440 Chemistry Sodium (137 - 145 mmol/L) 140 Potassium (3.5 - 5.1 mmol/L) 4.4 Chloride (98 - 107 mmol/L) 108 H Carbon Dioxide (22 - 30 mmol/L) 21 L Anion Gap (5 - 16) 11 BUN (7 - 17 mg/dL) 9 Creatinine (0.5 - 1.0 mg/dL) 0.7 Estimated GFR (>60 ml/min) > 60 BUN/Creatinine Ratio (7 - 25 %) 12.9 Lactic Acid (0.7 - 2.1 mmol/L) 1.3 Phosphorus (2.5 - 4.5 mg/dL) 3.6 Magnesium (1.6 - 2.3 mg/dL) 1.8 Hematology CBC w Diff MAN DIFF ORDERED WBC (4.8 - 10.8 /CUMM) 12.2 H RBC (4.20 - 5.40 /CUMM) 3.51 L Hgb (12.0 - 16.0 G/DL) 10.0 L Hct (37 - 47 %) 30.9 L MCV (81.0 - 99.0 FL) 87.9 MCH (27.0 - 31.0 PG) 28.4 MCHC (33.0 - 37.0 G/DL) 32.3 L RDW (11.5 - 14.5 %) 15.6 H Plt Count (130 - 400 /CUMM) 287 MPV (7.4 - 10.4 FL) 8.1 Gran % (42.2 - 75.2 %) 96.4 H Lymphocytes % (20.5 - 51.1 %) 3.1 L Monocytes % (1.7 - 9.3 %) 0.5 L Eosinophils % (0 - 5 %) 0 Basophils % (0.0 - 2.0 %) 0 Absolute Granulocytes (1.4 - 6.5 /CUMM) 11.8 H Segmented Neutrophils (42.2 - 75.2 %) 71 Band Neutrophils (0.0 - 5.0 %) 26 H Absolute Lymphocytes (1.2 - 3.4 /CUMM) 0.4 L Lymphocytes (20.5 - 51.1 %) 3 L Absolute Monocytes (0.10 - 0.60 /CUMM) 0.1 Absolute Eosinophils (0.0 - 0.7 /CUMM) 0 Absolute Basophils (0.0 - 0.2 /CUMM) 0 Platelet Estimate (ADEQUATE) ADEQUATE Normocytic RBCs VERIFIED Normochromic RBCs VERIFIED Other Body Source Stool Calprotectin Pending 09/25 09/25 09/24 09/24 0306 1330 [id number] 4400 Chemistry Sodium (137 - 145 mmol/L) 136 L Potassium (3.5 - 5.1 mmol/L) 4.3 Chloride (98 - 107 mmol/L) 102 Carbon Dioxide (22 - 30 mmol/L) 13 L Anion Gap (5 - 16) 20 H BUN (7 - 17 mg/dL) 9 Creatinine (0.5 - 1.0 mg/dL) 1.1 H Estimated GFR (>60 ml/min) 56 L BUN/Creatinine Ratio (7 - 25 %) 8.2 Lactic Acid (0.7 - 2.1 mmol/L) Cancelled 2.2 H Cancelled 9.4 H Magnesium (1.6 - 2.3 mg/dL) 0.9 *L C-Reactive Prot, Quant (<1.0 mg/dL) > 9.0 H C-React Prot High Sens (1.0 - 3.0 mg/L) > 15.0 H Hematology ESR Westergren (0 - 20 MM) 55 H 09/24 09/24 09/24 2200 2117 1945 Chemistry Sodium Cancelled Potassium Cancelled Chloride Cancelled Carbon Dioxide Cancelled Anion Gap Cancelled BUN Cancelled Creatinine Cancelled BUN/Creatinine Ratio Cancelled Lactic Acid Cancelled Cancelled Magnesium Cancelled 09/24 09/24 1652 1645 Chemistry Lactic Acid (0.7 - 2.1 mmol/L) 2.3 H Urines Urine Color (YEL,AMB,STR) YEL Urine Clarity (CLEAR) CLEAR Urine pH (5.0 - 8.0) 6.5 Ur Specific [place] (1.001 - 1.035) <= 1.005 Urine Protein (NEG,<30 MG/DL) NEG Urine Ketones (NEG) NEG Urine Nitrite (NEG) NEG Urine Bilirubin (NEG) NEG Urine Urobilinogen (0.1 - 1.0 EU/dl) 0.2 Ur Leukocyte Esterase (NEG) NEG Ur Microscopic EXAM NOT REQUIRED Urine Hemoglobin (NEG) NEG Urine Glucose (N MG/DL) NEG Last 24 Hours of Cecilio Results: Blood cultures September 24 1 bottle positive for gram-negative rods Rapid flu swab September 24 negative Urine culture September 24 negative Stool culture September 25 negative Stool O&P September 25 negative Stool C. difficile September 25 negative Assessment/Plan ID Impression: Gram-negative sepsis, presumably secondary to a perforation related to her active ulcerative colitis, with temperatures normal so far today (on steroids), but with her white blood cell count increased (possibly secondary to the steroids) though with increased bandemia, concerning for ongoing sepsis. Her abdominal exam may be masked by the steroids, and she does have mild tenderness and possible rebound, though, clearly, it would be preferable to avoid surgery in this patient. Suggestion: 1. Consider surgical evaluation with , whom she has seen in the past 2. Further management of her ulcerative colitis per GI 3. Follow-up final blood cultures 4. Continue Ceftriaxone and Flagyl pending above
--- NOTE | 2017-09-25 17:23 | PN- General Surgery ---
Subjective Subjective: feeling a little better today 37 yo female know to me. I first met her in 2012 when she presented for rectal bleeding. She has a strong family history of inflammatory bowel disease with a brother who is status post total proctocolectomy for ulcerative colitis. She underwent colonoscopy at that time and had obvious left-sided colitis. Biopsies were supportive of this diagnosis. Since that time she's been following with a gastric urologist in [place]. She has been treated with multiple different medicines including Remicade over the last year which per her reports failed to improve her symptoms. She presented to the hospital yesterday with fever abdominal pain and diarrhea. She was based on bowel rest with IV fluid resuscitation. She was started on broad spectrum IV antibiotics. She continues to be on steroids. CT scan performed yesterday demonstrates colitis with no evidence of megacolon or perforation. However she continues to spike fever and has positive blood cultures. Review of Systems: Positive for diarrhea, abdominal pain and fever Review of Systems Constitutional: Reports: chills, fever, malaise, weakness. Respiratory: Reports: no symptoms. Gastrointestinal: Reports: abdominal pain, bloating, diarrhea, vomiting. Genitourinary: Reports: no symptoms. Objective Vital Signs and I&Os Vital Signs Date Time Temp Pulse Resp B/P B/P Pulse O2 O2 Flow FiO2 Mean Ox Delivery Rate 09/25 1359 97.6 85 20 100/70 98 Room Air 09/25 0800 Room Air 09/25 0625 97.5 81 18 100/64 97 Room Air 09/25 0124 98.7 103 18 102/52 95 Room Air 09/25 0000 95 Room Air 09/24 2245 99.0 09/24 2234 101.5 118 18 102/62 97 Room Air 09/24 2200 104.0 09/24 2108 101.0 09/24 2009 101.6 09/24 1745 100.0 110 18 94/60 98 Room Air Intake & Output 09/25 1600 09/25 0800 09/25 0000 09/24 1600 09/24 0809/24 0000 Intake Total 1090 5800 800 1000 Output Total Balance 1090 5800 800 1000 Intake, IV 850 5800 400 1000 Intake, Oral 240 400 Number 1 Bowel Movements Patient 243 lb 220 lb 225 lb Weight Weight Reported by Patient Reported by Patient Measurement Method Gen. awake alert and in no acute distress Respiratory does not appear short of breath Abdomen obese nondistended with mild tenderness in the left lower quadrant and no rebound tenderness, patient does not have masses or hernias appreciable Extremities are well perfused Skin is cool to touch Current Medications: Current Medications Sig/Raymond Start time Last Medication Dose Route Stop Time Status Admin Acetaminophen 650 MG ONCE ONE 09/25 1145 DC 09/25 PO 09/25 1146 1145 Acetaminophen 1,000 MG Q6P PRN 09/24 2245 AC N/A 1 UNIT IV Acetaminophen 650 MG ONCE ONE 09/24 2014 DC 09/24 PO 09/24 Acetaminophen 325 MG Q6P PRN 09/24 1930 DC PO Ceftriaxone Sodium 1,000 MG Q12 09/25 0900 AC 09/25 IV 0937 Dextrose/Sodium 1,000 ML Q10H 09/24 2014 AC 09/24 Chloride IV 2127 Famotidine 20 MG DAILY 09/24 2013 AC 09/25 PO 0936 Heparin Sodium 5,000 UNIT Q8 09/24 2200 AC 09/25 (Porcine) SC 1437 Magnesium Sulfate 1 GM ONCE ONE 09/25 1445 AC Dextrose/Water 100 ML IV 09/25 1844 Magnesium Sulfate 1 GM ONCE ONE 09/24 2014 DC 09/24 Dextrose/Water 100 ML IV 09/25 0014 2348 Melatonin 5 MG AT BEDTIME 09/25 2100 AC PO Mesalamine 1,600 MG TID 09/24 2100 AC 09/25 PO 1436 Methylprednisolone 40 MG Q12 09/24 2100 AC 09/25 IV 0937 Metronidazole 500 MG Q8H 09/25 0130 AC 09/25 N/A 1 UNIT IV 1641 Metronidazole 500 MG Q8 09/24 2200 DC N/A 1 UNIT IV Ondansetron HCl 4 MG Q6P PRN 09/24 2245 AC 09/25 IV 0936 Oxycodone/ 1 TAB ONCE ONE 09/25 0215 DC 09/25 Acetaminophen PO 09/25 0216 0218 Patient Medication 1 ED ONE ONE 09/25 1630 DC 09/25 Teaching ED 09/25 1631 1641 Potassium Chloride 80 MEQ ONCE ONE 09/24 2014 DC 09/24 PO 09/25 2015 2304 Potassium Chloride 10 MEQ ONCE ONE 09/24 1800 DC 09/24 IV 09/24 1801 1845 Sodium Chloride 1,000 ML BOLUS ONE 09/25 0015 DC 09/25 IV 09/25 0214 0017 Sodium Chloride 1,000 ML Q10H 09/24 2014 CAN IV 09/25 0614 Results Last 48 Hours of Labs: Laboratory Tests 09/25 09/25 09/25 0613 0600 0440 Chemistry Sodium (137 - 145 mmol/L) 140 Potassium (3.5 - 5.1 mmol/L) 4.4 Chloride (98 - 107 mmol/L) 108 H Carbon Dioxide (22 - 30 mmol/L) 21 L Anion Gap (5 - 16) 11 BUN (7 - 17 mg/dL) 9 Creatinine (0.5 - 1.0 mg/dL) 0.7 Estimated GFR (>60 ml/min) > 60 BUN/Creatinine Ratio (7 - 25 %) 12.9 Lactic Acid (0.7 - 2.1 mmol/L) 1.3 Phosphorus (2.5 - 4.5 mg/dL) 3.6 Magnesium (1.6 - 2.3 mg/dL) 1.8 Hematology CBC w Diff MAN DIFF ORDERED WBC (4.8 - 10.8 /CUMM) 12.2 H RBC (4.20 - 5.40 /CUMM) 3.51 L Hgb (12.0 - 16.0 G/DL) 10.0 L Hct (37 - 47 %) 30.9 L MCV (81.0 - 99.0 FL) 87.9 MCH (27.0 - 31.0 PG) 28.4 MCHC (33.0 - 37.0 G/DL) 32.3 L RDW (11.5 - 14.5 %) 15.6 H Plt Count (130 - 400 /CUMM) 287 MPV (7.4 - 10.4 FL) 8.1 Gran % (42.2 - 75.2 %) 96.4 H Lymphocytes % (20.5 - 51.1 %) 3.1 L Monocytes % (1.7 - 9.3 %) 0.5 L Eosinophils % (0 - 5 %) 0 Basophils % (0.0 - 2.0 %) 0 Absolute Granulocytes (1.4 - 6.5 /CUMM) 11.8 H Segmented Neutrophils (42.2 - 75.2 %) 71 Band Neutrophils (0.0 - 5.0 %) 26 H Absolute Lymphocytes (1.2 - 3.4 /CUMM) 0.4 L Lymphocytes (20.5 - 51.1 %) 3 L Absolute Monocytes (0.10 - 0.60 /CUMM) 0.1 Absolute Eosinophils (0.0 - 0.7 /CUMM) 0 Absolute Basophils (0.0 - 0.2 /CUMM) 0 Platelet Estimate (ADEQUATE) ADEQUATE Normocytic RBCs VERIFIED Normochromic RBCs VERIFIED Other Body Source Stool Calprotectin Pending 09/25 09/25 09/24 09/24 0306 0130 2245 2244 Chemistry Sodium (137 - 145 mmol/L) 136 L Potassium (3.5 - 5.1 mmol/L) 4.3 Chloride (98 - 107 mmol/L) 102 Carbon Dioxide (22 - 30 mmol/L) 13 L Anion Gap (5 - 16) 20 H BUN (7 - 17 mg/dL) 9 Creatinine (0.5 - 1.0 mg/dL) 1.1 H Estimated GFR (>60 ml/min) 56 L BUN/Creatinine Ratio (7 - 25 %) 8.2 Lactic Acid (0.7 - 2.1 mmol/L) Cancelled 2.2 H Cancelled 9.4 H Magnesium (1.6 - 2.3 mg/dL) 0.9 *L C-Reactive Prot, Quant (<1.0 mg/dL) > 9.0 H C-React Prot High Sens (1.0 - 3.0 mg/L) > 15.0 H Hematology ESR [place] (0 - 20 MM) 55 H 09/24 09/24 09/24 2200 2117 1945 Chemistry Sodium Cancelled Potassium Cancelled Chloride Cancelled Carbon Dioxide Cancelled Anion Gap Cancelled BUN Cancelled Creatinine Cancelled BUN/Creatinine Ratio Cancelled Lactic Acid Cancelled Cancelled Magnesium Cancelled 09/24 09/24 1652 1645 Chemistry Lactic Acid (0.7 - 2.1 mmol/L) 2.3 H Urines Urine Color (YEL,AMB,STR) YEL Urine Clarity (CLEAR) CLEAR Urine pH (5.0 - 8.0) 6.5 Ur Specific [place] (1.001 - 1.035) <= 1.005 Urine Protein (NEG,<30 MG/DL) NEG Urine Ketones (NEG) NEG Urine Nitrite (NEG) NEG Urine Bilirubin (NEG) NEG Urine Urobilinogen (0.1 - 1.0 EU/dl) 0.2 Ur Leukocyte Esterase (NEG) NEG Ur Microscopic EXAM NOT REQUIRED Urine Hemoglobin (NEG) NEG Urine Glucose (N MG/DL) NEG 09/24 09/24 1322 1308 Chemistry Sodium (137 - 145 mmol/L) 135 L Potassium (3.5 - 5.1 mmol/L) 2.9 *L Chloride (98 - 107 mmol/L) 95 L Carbon Dioxide (22 - 30 mmol/L) 24 Anion Gap (5 - 16) 16 BUN (7 - 17 mg/dL) 10 Creatinine (0.5 - 1.0 mg/dL) 1.1 H Estimated GFR (>60 ml/min) 56 L BUN/Creatinine Ratio (7 - 25 %) 9.1 Glucose (65 - 99 mg/dL) 99 Lactic Acid (0.7 - 2.1 mmol/L) 3.6 H Calcium (8.4 - 10.2 mg/dL) 8.6 Magnesium (1.6 - 2.3 mg/dL) 1.1 L Total Bilirubin (0.2 - 1.3 mg/dL) 0.8 AST (14 - 36 U/L) 25 ALT (9 - 52 U/L) 24 Alkaline Phosphatase (<127 U/L) 120 Troponin I (< 0.11 ng/ml) < 0.01 Cancelled Total Protein (6.3 - 8.2 g/dL) 6.0 L Albumin (3.5 - 5.0 g/dL) 3.2 L Globulin (1.9 - 4.2 gm/dL) 2.8 Albumin/Globulin Ratio (1.1 - 2.2 %) 1.1 Total Beta HCG (NEGATIVE) NEGATIVE Hematology CBC w Diff MAN DIFF ORDERED WBC (4.8 - 10.8 /CUMM) 6.9 RBC (4.20 - 5.40 /CUMM) 4.14 L Hgb (12.0 - 16.0 G/DL) 11.8 L Hct (37 - 47 %) 35.9 L MCV (81.0 - 99.0 FL) 86.8 MCH (27.0 - 31.0 PG) 28.6 MCHC (33.0 - 37.0 G/DL) 33.0 RDW (11.5 - 14.5 %) 14.9 H Plt Count (130 - 400 /CUMM) 316 MPV (7.4 - 10.4 FL) 6.9 L Gran % (42.2 - 75.2 %) 95.5 H Lymphocytes % (20.5 - 51.1 %) 4.3 L Monocytes % (1.7 - 9.3 %) 0.1 L Eosinophils % (0 - 5 %) 0 Basophils % (0.0 - 2.0 %) 0.1 Absolute Granulocytes (1.4 - 6.5 /CUMM) 6.6 H Segmented Neutrophils (42.2 - 75.2 %) 77 H Band Neutrophils (0.0 - 5.0 %) 17 H Absolute Lymphocytes (1.2 - 3.4 /CUMM) 0.3 L Lymphocytes (20.5 - 51.1 %) 6 L Absolute Monocytes (0.10 - 0.60 /CUMM) 0 L Absolute Eosinophils (0.0 - 0.7 /CUMM) 0 Absolute Basophils (0.0 - 0.2 /CUMM) 0 Platelet Estimate (ADEQUATE) VERIFIED BY SMEAR Normocytic RBCs VERIFIED Normochromic RBCs VERIFIED 09/24 1259 Chemistry Total Beta HCG Cancelled Recent Imaging Studies: CT scan from yesterday reviewed Patient has obvious evidence of colitis with no evidence of perforation or megacolon Assessment/Plan Assessment/Plan This is a 29-year-old female with long-standing ulcerative colitis and strong family history of inflammatory bowel disease. She appears to have never had complete remission from her disease. She has been on escalating medical therapy. Within the last year she has failed to respond to biologic therapy- Remicade. She was recently switched to new biologic. She presents to the hospital today with diarrhea abdominal pain and fever Her CT scan mistress clear evidence of colitis without evidence of megacolon or perforation. However, she does continue to spike fevers and has positive blood cultures She is on steroids for her exam does not demonstrate a surgical abdomen. Do not believe this patient has perforation. Recommend the followin. Continued bowel rest 2. Continue broad-spectrum IV antibiotics 3. IBD management per GI 4. Serial abdominal exams If the patient fails to progress or shows signs of deterioration she would need a subtotal colectomy with end ileostomy. We would come back sometime later once her sepsis resolved for completion proctectomy J-pouch formation. We will continue to follow with you Problem List: 1. Ulcerative colitis 2. Diarrhea 3. Fever Attending MD Review Statement Attending Statement Attending MD Statement: examined this patient, reviewed images Attending Assessment/Plan: Refer to my assessment and plan
--- NOTE | 2017-09-25 19:25 | PN- Gastroenterology ---
Assessment/Plan GI Assessment/Recommendations: 37 y/o female, non-HTN, non-DM, obesity (weight gain post steroids), remote 4 pk yr cigarette smoker (D/C 2001), dxd with ulcerative proctitis (UP) via 02/01/13: colonoscopy to TI by [facility] (Dr. Arriaga), at which point, bxs of TI, right colon, transverse colon & sigmoid - negative; bxs of rectosigmoid at 20 cm & rectum- marked chronic colitis with moderate acute activity & crypt abscesses, rx epithelial atypia, without dysplasia or Ca. The patient has since been taken care of for GI by Dr. Jordan Canales for GI in [place], [place] ([phone]). As per my discussion with Dr. Canales on admission, she progressed from UP to UC. She failed Remicade, despite increased doses & decreased intervals, & was *recently switched to Entyvio (Vedolizumab). She claimed she never developed Ab against Remicade, but it "just didn't work". She had never been on Humira. She was in the midst of being loaded with Entyvio & had received 2 doses (usual dosing is 300 mg IV x 1 on week 0, 2, 6, then Q 8 weeks). Her last dose of Entyvio was on 09/04/17, & she is due for her next (3rd) dose on 10/02/17, after which, it should be Q 8 weeks. She was also on Lialda 1.2g tab-> 4 tabs daily (4.8g QD), & Prednisone 20 mg daily. She claimed she had been Prednisone dependent for the past year, since 08/2016, and that every time the steroids were tapered, she began to flare. She was on Uceris months ago. She & her huisband were well-aware of the risks & benefits of biologic agents & steroid tx. She had never been on immunomodulators, such as 6MP. The patient stated that previous attempts at tx with Rowasa enema, Canasa suppositories, and /or Uceris foam "did not work & irritated her rectum". She claimed her last colonoscopy by Dr. Canales was > 1 year ago (*per Dr. Canales, last colonoscopy was : left-sided UC). There is no FHx of colon Ca. Of note, one of her brothers had a colectomy for UC. She denied any recent antibiotics or NSAIDs. She denied any recent travel, sick contacts, or raw food ingestion. She is allergic to Emycin, PCN, & Amoxicillin (rash), but apparently had previously tolerated cephalosporins. Her surgeries have included AP at [facility], [place] in 2013, & C- section x 2. 09/30/14: *QuantiFERON TB- negative; TPMT genotype- negative for poor metabolizer alleles (TPMT*1/TPMT*1), + varicella IgG 3.59 (immune); Hep A Ab, Hep Bs Ag, Hep B core Ab IgM, Hep Bs Ab- all neg. (*No Hep C Ab or HIV sent then). The patient stated Friday p.m. 09/19/17, she had T 101.8 with chills, myalgias, & arthralgias (syed knees B/L), without rash, jaundice, sx UTI, or URI. She got a left frontal RICARDO on 09/22/17, without any meningeal signs. She called her GI MD 09/22/17, with thoughts that she may have a viral syndrome. Her fever broke on 09/23/17, only to recur on Fri09/24/17 ("T- 103 at home"), with weakness & near syncope, without CP, SOB, palpitations, or LOC. She called her PMD 09/24/17 & was sent to the [facility]. The patient had 1-2 episodes of n & v-> clear emesis, without bile or hematemesis. There was no melena. She remained with her baseline diarrhea (12-15x/day x years), with only scant chronic BRBPR post defecation of brown stool, without any spontaneous LGIB. She denied any constipation, obstipation, or tenesmus. She denied any abdominal pain, except for chronic suprapubic discomfort. She denied any PIGMENT WEIGHER sx, vaginal spotting, or discharge. Her appetite was fairly good. There was no unintentional weight loss. She had never had a blood transfx. Upon arrival to the [facility] 09/24/17 at 11:58 a.m., BP 94/63, P 130, R 18, T 103.6, O2 sat RA 98%. She was found to be hypokalemic with elevated lactate (* see labs). She was given IV NS, Tylenol, Zofran, & KCL. The patient was seen in consultation by ID in the ER. She was cultured & empirically started on broad spectrum antibiotics (Ceftriaxone 1g IV Q12h & Flagyl 500 mg IV Q8h). 09/24/17: 1322: Admission labs- WBC 6.9 (77S/17B/6L), H/H 11.8/35.9, MCV 86.8, RDW 14.9, PLT 316, glu 99, BUN/Cr 10/1.1, GFR 56, Na 135, K 2.9, HCO3 24, AG 16 , lactate 3.6-> 2.3, Mg 1.1, albumin 3.2, globulin 2.8, TBil 0.8, alk phos 120, AST 25, ALT 24, troponin < 0.01, serum HCG- neg. 09/24/17: U/A- clear, yellow, < 1.005, 6.5, micro- otherwise neg; neg nitirite, neg esterase. 09/24/17: BC x 2- pending. 09/24/17: UC- pending. 09/24/17: Rapid viral influenza A/B- negative. 09/24/17: EKG- ST @ 130, nl axis, LAE, NSST abnl. 09/24/17: CT ANGIOGRAM OF THE CHEST WITH CONTRAST (CT PULMONARY ANGIOGRAM FOR PE ) CT ABDOMEN AND PELVIS WITH IV CONTRAST- 1. No pulmonary embolism. 2. There are a few nonspecific, noncalcified nodules in the right and left upper lobe, largest measuring 0.3 x 0.5 cm. No pulmonary mass or lymphadenopathy in the chest. 3. Findings consistent with active colitis with circumferential wall thickening involving the descending and sigmoid colon, to the level of the rectum, with adjacent pericolonic fat stranding. This is consistent with history of ulcerative colitis. There is reactive lymphadenopathy in the mesentery. Few sigmoid diverticula, without diverticulitis. No obstruction, megacolon, or free air. Post AP. 4. Small fat-containing umbilical hernia. 5. Normal uterus & adnexa. Trace fluid in the pelvis. No abscess. *As of 09/24/17, it was difficult to tell whether the patient's fever, chills, myalgias, arthralgias, left frontal RICARDO, n & v, diarrhea, near syncope, & hypoK+/ hypoMg, were purely from a flare of her left-sided ulcerative colitis vs. superinfection with viral or bacterial pathogen in an immunocompromised patient on Entyvio (in midst of loading) & steroids. The left shift made a bacterial process more likely than viral. Her influenza swab was negative. She was pancultured, including blood and urine. A stool workup had not yet been sent. Her diarrhea was chronic in nature. The nausea and vomiting was minimal. Her last colonoscopy in [place] was 01/2015. She had previously failed Remicade & has been steroid dependent for most of the past year, since 08/2016, with difficulty in tapering them. She had never been on Humira or 6-MP. CT failed to reveal any megacolon or obstruction, with left- sided inflammation. Other possibilities to consider could include CMV colitis. A tick borne illness (prodromal sx, RICARDO) was probably unlikely, but possible. There was no rash. 09/24/17: Tick panel- pending. 09/24/17: *ESR 55 09/24/17: 2244: BUN/Cr 9/1.1, GFR 56, Na 136, K 4.3, HCO3 13, AG 20, *lactate 9.4(-> 2.2-> 1.3), Mg 0.9, *CRP > 9.0, 09/25/17: 0613: *WBC 12.2 (on steroids, with 71S/26B/3L), H/H 10/30.9, PLT 287, BUN/Cr 9/0.7, GFR > 60, Na 140, K 4.4, HCO3 21, AG 11, Mg 1.8, PO4 3.6. 09/24/17: *1 of 2 BC- GNR with ID/sens- pending. 09/24/17: UC- neg x 1 day. 09/25/17: *C. diff- neg, Giardia Ag- neg, Cryptosporidia Ag- neg 09/25/17: *Stool C&S, Shiga toxin, Vibrio, Yersinia- all pending. 09/25/17:*fecal calprotectin- pending. *ID, medical & surgical notes appreciated. *I just found out the patient had : 1 of 2 BC: GNR with ID/sens pending, which prompted a surgical consult on 09/25/17, at the request of ID. She was normotensive & no longer tachycardic. She did have dips in her BP last p.m. She was currently afebrile (T 97.6), *Tm 104 past 24 hrs overnight with chills then. She remained on IV Ceftriaxone and Flagyl & IV: D5NS @ 100 cc/hr. She was getting Mesalamine 4.8g daily & remained on IV Medrol 40 mg BID, plus po Pepcid 20 mg daily. She had sips of clears po yesterday, & was made NPO by surgery- Her abdominal pain was better, as was her diarrhea, N & V. Uncertain if microperfoation (benign abdominal exam, but on steroids) vs. bacterial translocation from ulcerative colitis, accounting for gram negative bacteremia, T 104 last p.m., & hypotension with + lactate (resolved). C. diff, Giardia Ag, Crypto Ag- neg. *SUGGEST: *NPO xc meds with sips. Serial abdominal exams. *2 way abdominal film- flat plate & upright, r/o free air- although adm CT- neg free air or megacolon (d/w RN who will notify medical housestaff) Follow-up cultures (BC-> check ID/sens of GNR; UC- neg so far). *Continue broad spectrum antibiotics (IV Ceftriaxone 1g Q12h & IV Flagyl 500 mg Q8h) for now, pending cultures & stool workup. *Close follow-up with surgery, as the patient may need urgent subtotal colectomy with end ileostomy if she deteriorates, with eventual completion proctectomy & J- pouch formation, once sepsis resolves. *Await stool for C&S, Shiga toxin, Vibrio , Yersinia, & fecal calprotectin. IV fluids. Strict I/O's. Replete K+ & Mg2+ ( prefer to replete the latter parenterally, as po Mg2+ may exacerbate diarrhea). Zofran as needed. Cautious use of Imodium as needed. Carefully continue IV Medrol 40 mg BID. Accuchecks while on steroids. Continue Lialda (mesalamine) 4.8g daily. *The next (3rd) 300 mg IV dose of Entyvio is due 10/02/17 (& after this, Q 8 weeks), but with gram negative bacteremia, this may have to be deferred. Consider checking tick panel, to include Lyme/Babesiosis/Ehrlichiosis (although now probably unlikely source, with GNR in BC). Serial CBC with diff, lytes, GFR, LFTs. *As GNR in BC may certainly imply a microperf, would hold off on inpt flex sig vs. full colonoscopy with bxs for now, to exclude CMV colitis. No NSAIDs. Tylenol as needed. The above findings and recommendations were previously discussed with the medical house staff. I also spoke Dr. Jordan Canales, her usual GI MD, on the day of admission. I again spoke with Dr. Younger of ID. Further GI recommendations to follow, depending on clinical course. Dr. Costa is taking over the inpt GI weekly service this p.m. Problem List: 1. Ulcerative colitis 2. Gram-negative bacteremia 3. Diarrhea 4. Nausea & vomiting 5. Fever 6. Hypokalemia 7. Dehydration 8. Umbilical hernia without obstruction and without gangrene 9. Hypomagnesemia 10. Elevated lactic acid level 11. Family history of ulcerative colitis Subjective Subjective: 09/24/17: Tick panel- pending. 09/24/17: *ESR 55 09/24/17: 2244: BUN/Cr 9/1.1, GFR 56, Na 136, K 4.3, HCO3 13, AG 20, *lactate 9.4(-> 2.2-> 1.3), Mg 0.9, *CRP > 9.0, 09/25/17: 0613: *WBC 12.2 (on steroids, with 71S/26B/3L), H/H 10/30.9, PLT 287, BUN/Cr 9/0.7, GFR > 60, Na 140, K 4.4, HCO3 21, AG 11, Mg 1.8, PO4 3.6. 09/24/17: *1 of 2 BC- GNR with ID/sens- pending. 09/24/17: UC- neg x 1 day. 09/25/17: *C. diff- neg, Giardia Ag- neg, Cryptosporidia Ag- neg 09/25/17: *Stool C&S, Shiga toxin, Vibrio, Yersinia- all pending. 09/25/17:*fecal calprotectin- pending. *ID, medical & surgical notes appreciated. *I just found out the patient had : 1 of 2 BC: GNR with ID/sens pending, which prompted a surgical consult on 09/25/17, at the request of ID. She was normotensive & no longer tachycardic. She did have dips in her BP last p.m. She was currently afebrile (T 97.6), *Tm 104 past 24 hrs overnight with chills then. She remained on IV Ceftriaxone and Flagyl & IV: D5NS @ 100 cc/hr. She was getting Mesalamine 4.8g daily & remained on IV Medrol 40 mg BID, plus po Pepcid 20 mg daily. She had sips of clears po yesterday, & was made NPO by surgery- ? if translocation of bacteria vs. microperfoartion. Her abdominal pain was better, as was her diarrhea, N & V. Review of Systems: Full 14 point ROS otherwise noncontributory & as above. Review of Systems Constitutional: Reports: chills, fever, weakness. Denies: diaphoresis, malaise, unexplained weight loss. EENTM: Denies: blurred vision, double vision, visual changes, eye pain, eye drainage, eye tearing, icterus, ear discharge, ear pain, ear redness, hearing changes, nasal congestion, epistaxis, nasal pain, throat pain, throat swelling, mouth pain, tooth pain. Cardiovascular: Denies: chest pain, edema, orthopena, palpitations, peripheral edema, syncope. Respiratory: Denies: cough, hemoptysis, orthopnea, short of breath, sputum production, stridor, wheezing. GI: Reports: abdominal pain (suprapubic), diarrhea (chronic-> sl better), nausea, vomiting (clear-> better). Denies: bloating, constipation, distention, bowel incontinence, melena, bloody stool, changes in stool, steatorrhea. Genitourinary: Denies: discharge, dysuria, frequency, hematuria, hesitation, nocturia, pain, urgency. Musculoskeletal: Reports: joint pain (arthralgias, syed knees B/L), muscle pain (myalgias). Denies: back pain, gout, joint swelling, muscle stiffness, neck pain. Skin: Denies: cysts, change in skin color, change in hair/nails, dryness, erythema, jaundice, lesions, lymphangitis, lumps, moles, rash. Neurological/Psychological: Denies: anxiety, ataxia, cognitive dysfunction, confusion, depressed, dementia, emotional problems, headache, numbness, paresthesia, pre-existing deficit, petit mal seizures, tingling, tremors, tonic-clonic seizures, unable to move lower ext , unable to move upper ext, weakness. Hematologic/Endocrine: Denies: bruising, bleeding, polyuria, polydipsia. Immunologic/Allergic: Denies: splenectomy, HIV/AIDS, lymphadenopathy. All Other Systems: Reviewed and Negative Objective Vital Signs and I&Os Vital Signs Date Time Temp Pulse Resp B/P B/P Pulse O2 O2 Flow FiO2 Mean Ox Delivery Rate 09/25 1359 97.6 85 20 100/70 98 Room Air 09/25 0800 Room Air 09/25 0625 97.5 81 18 100/64 97 Room Air 09/25 0124 98.7 103 18 102/52 95 Room Air 09/25 0000 95 Room Air 09/24 2245 99.0 09/24 2234 101.5 118 18 102/62 97 Room Air 09/24 2200 104.0 09/24 2108 101.0 09/24 2009 101.6 Intake & Output 09/25 1600 09/25 0400 09/24 1600 09/24 0400 09/23 1600 09/23 0400 Intake Total 6890 800 1000 Output Total Balance 6890 800 1000 Intake, IV 6650 400 1000 Intake, Oral 240 400 Number 1 Bowel Movements Patient 243 lb 220 lb 225 lb Weight Weight Reported by Patient Reported by Patient Measurement Method Physical Exam: Well-developed, well-nourished, pleasant obese female, in no apparent distress. Nontoxic appearing, but fatigued. Sclera anicteric. Conjunctiva pink. Sinuses: NT. Oropharynx clear. No oral thrush. No apthous ulcers. Dry mucus membranes. There is no adenopathy, thyromegaly, or JVD. Neck: supple. No peripheral stigmata of inflammatory bowel disease or chronic liver disease on exam. No spiders on the anterior chest wall. No CVA tenderness. Breast & pelvic exams: API. Lungs: clear to A&P. No wheezing, rales, or rhonchi. Heart exam: regular rate rhythm, S1 and S2, without any murmur. Abdominal exam: normal bowel sounds , soft belly, mild suprapubic tenderness, without guarding or rebound. Small reducible umbilical hernia, otherwise no mass. No organomegaly. No fluid shift. No pulsatile mass. Negative Hollis sign. No epigastric bruit. Clinically , without megacolon. Digital rectal exam: deferred by patient. Extremities: without C, C, or E. No palpable cords. B/L LE ALPS. No acute arthropathy. No joint crepitus. No rash. No palmar erythema. No Dupuytren's contractures. Distal pulses 2+ bilaterally. DTRs 2+ bilaterally. Alert and oriented x 3. Right handed. CN II-XII intact. No photophobia. Motor 5/5 B/L. No meningeal signs. No tremor. No asterixis. Current Medications: Current Medications Sig/Raymond Start time Last Medication Dose Route Stop Time Status Admin Acetaminophen 650 MG ONCE ONE 09/25 1145 DC 09/25 PO 09/25 1146 1145 Acetaminophen 1,000 MG Q6P PRN 09/24 2245 N/A 1 UNIT IV Acetaminophen 650 MG ONCE ONE 09/24 2014 DC 09/24 PO 09/24 Acetaminophen 325 MG Q6P PRN 09/24 1930 DC PO Acetaminophen/ 1 TAB ONCE ONE 09/25 1800 DC 09/25 Butalbital/Caffeine PO 09/25 1801 1813 Ceftriaxone Sodium 1,000 MG Q12 09/25 0900 09/25 IV 0937 Dextrose/Sodium 1,000 ML Q10H 09/24 2014 09/24 Chloride IV 2127 Famotidine 20 MG DAILY 09/24 2013 AC 09/25 PO 0936 Heparin Sodium 5,000 UNIT Q8 09/24 2200 09/25 (Porcine) SC 1437 Magnesium Sulfate 1 GM ONCE ONE 09/25 1445 DC 09/25 Dextrose/Water 100 ML IV 09/25 1844 1813 Magnesium Sulfate 1 GM ONCE ONE 09/24 2014 DC 09/24 Dextrose/Water 100 ML IV 09/25 0014 2348 Melatonin 5 MG AT BEDTIME 09/25 2099 AC PO Mesalamine 1,600 MG TID 09/24 2099 AC 09/25 PO 1436 Methylprednisolone 40 MG Q12 09/24 2099 AC 09/25 IV 0937 Metronidazole 500 MG Q8H 09/25 0130 AC 09/25 N/A 1 UNIT IV 1641 Metronidazole 500 MG Q8 09/24 2200 DC N/A 1 UNIT IV Ondansetron HCl 4 MG .STK-MED ONE 09/25 916 DC IM 09/25 0918 Ondansetron HCl 4 MG Q6P PRN 09/24 2245 09/25 IV 0936 Oxycodone/ 1 TAB ONCE ONE 09/25 214 DC 09/25 Acetaminophen PO 09/25 021 0218 Patient Medication 1 ED ONE ONE 09/25 1630 DC 09/25 Teaching ED 09/25 1631 1641 Potassium Chloride 80 MEQ ONCE ONE 09/24 2014 DC 09/24 PO 09/25 2015 230 Sodium Chloride 1,000 ML BOLUS ONE 09/25 0015 DC 09/25 IV 09/25 021 0017 Sodium Chloride 1,000 ML Q10H 09/24 2014 CAN IV 09/25 0614 Results Pertinent Lab Results: Laboratory Tests 09/25 09/25 09/25 0613 0600 0440 Chemistry Sodium (137 - 145 mmol/L) 140 Potassium (3.5 - 5.1 mmol/L) 4.4 Chloride (98 - 107 mmol/L) 108 H Carbon Dioxide (22 - 30 mmol/L) 21 L Anion Gap (5 - 16) 11 BUN (7 - 17 mg/dL) 9 Creatinine (0.5 - 1.0 mg/dL) 0.7 Estimated GFR (>60 ml/min) > 60 BUN/Creatinine Ratio (7 - 25 %) 12.9 Lactic Acid (0.7 - 2.1 mmol/L) 1.3 Phosphorus (2.5 - 4.5 mg/dL) 3.6 Magnesium (1.6 - 2.3 mg/dL) 1.8 Hematology CBC w Diff MAN DIFF ORDERED WBC (4.8 - 10.8 /CUMM) 12.2 H RBC (4.20 - 5.40 /CUMM) 3.51 L Hgb (12.0 - 16.0 G/DL) 10.0 L Hct (37 - 47 %) 30.9 L MCV (81.0 - 99.0 FL) 87.9 MCH (27.0 - 31.0 PG) 28.4 MCHC (33.0 - 37.0 G/DL) 32.3 L RDW (11.5 - 14.5 %) 15.6 H Plt Count (130 - 400 /CUMM) 287 MPV (7.4 - 10.4 FL) 8.1 Gran % (42.2 - 75.2 %) 96.4 H Lymphocytes % (20.5 - 51.1 %) 3.1 L Monocytes % (1.7 - 9.3 %) 0.5 L Eosinophils % (0 - 5 %) 0 Basophils % (0.0 - 2.0 %) 0 Absolute Granulocytes (1.4 - 6.5 /CUMM) 11.8 H Segmented Neutrophils (42.2 - 75.2 %) 71 Band Neutrophils (0.0 - 5.0 %) 26 H Absolute Lymphocytes (1.2 - 3.4 /CUMM) 0.4 L Lymphocytes (20.5 - 51.1 %) 3 L Absolute Monocytes (0.10 - 0.60 /CUMM) 0.1 Absolute Eosinophils (0.0 - 0.7 /CUMM) 0 Absolute Basophils (0.0 - 0.2 /CUMM) 0 Platelet Estimate (ADEQUATE) ADEQUATE Normocytic RBCs VERIFIED Normochromic RBCs VERIFIED Other Body Source Stool Calprotectin Pending 09/25 09/25 09/24 09/24 0306 0130 2154 2247 Chemistry Sodium (137 - 145 mmol/L) 136 L Potassium (3.5 - 5.1 mmol/L) 4.3 Chloride (98 - 107 mmol/L) 102 Carbon Dioxide (22 - 30 mmol/L) 13 L Anion Gap (5 - 16) 20 H BUN (7 - 17 mg/dL) 9 Creatinine (0.5 - 1.0 mg/dL) 1.1 H Estimated GFR (>60 ml/min) 56 L BUN/Creatinine Ratio (7 - 25 %) 8.2 Lactic Acid (0.7 - 2.1 mmol/L) Cancelled 2.2 H Cancelled 9.4 H Magnesium (1.6 - 2.3 mg/dL) 0.9 *L C-Reactive Prot, Quant (<1.0 mg/dL) > 9.0 H C-React Prot High Sens (1.0 - 3.0 mg/L) > 15.0 H Hematology ESR Westergren (0 - 20 MM) 55 H 09/24 09/24 09/24 2200 2117 1945 Chemistry Sodium Cancelled Potassium Cancelled Chloride Cancelled Carbon Dioxide Cancelled Anion Gap Cancelled BUN Cancelled Creatinine Cancelled BUN/Creatinine Ratio Cancelled Lactic Acid Cancelled Cancelled Magnesium Cancelled 09/24 09/24 1652 1645 Chemistry Lactic Acid (0.7 - 2.1 mmol/L) 2.3 H Urines Urine Color (YEL,AMB,STR) YEL Urine Clarity (CLEAR) CLEAR Urine pH (5.0 - 8.0) 6.5 Ur Specific [place] (1.001 - 1.035) <= 1.005 Urine Protein (NEG,<30 MG/DL) NEG Urine Ketones (NEG) NEG Urine Nitrite (NEG) NEG Urine Bilirubin (NEG) NEG Urine Urobilinogen (0.1 - 1.0 EU/dl) 0.2 Ur Leukocyte Esterase (NEG) NEG Ur Microscopic EXAM NOT REQUIRED Urine Hemoglobin (NEG) NEG Urine Glucose (N MG/DL) NEG 09/24 09/24 1322 1308 Chemistry Sodium (137 - 145 mmol/L) 135 L Potassium (3.5 - 5.1 mmol/L) 2.9 *L Chloride (98 - 107 mmol/L) 95 L Carbon Dioxide (22 - 30 mmol/L) 24 Anion Gap (5 - 16) 16 BUN (7 - 17 mg/dL) 10 Creatinine (0.5 - 1.0 mg/dL) 1.1 H Estimated GFR (>60 ml/min) 56 L BUN/Creatinine Ratio (7 - 25 %) 9.1 Glucose (65 - 99 mg/dL) 99 Lactic Acid (0.7 - 2.1 mmol/L) 3.6 H Calcium (8.4 - 10.2 mg/dL) 8.6 Magnesium (1.6 - 2.3 mg/dL) 1.1 L Total Bilirubin (0.2 - 1.3 mg/dL) 0.8 AST (14 - 36 U/L) 25 ALT (9 - 52 U/L) 24 Alkaline Phosphatase (<127 U/L) 120 Troponin I (< 0.11 ng/ml) < 0.01 Cancelled Total Protein (6.3 - 8.2 g/dL) 6.0 L Albumin (3.5 - 5.0 g/dL) 3.2 L Globulin (1.9 - 4.2 gm/dL) 2.8 Albumin/Globulin Ratio (1.1 - 2.2 %) 1.1 Total Beta HCG (NEGATIVE) NEGATIVE Hematology CBC w Diff MAN DIFF ORDERED WBC (4.8 - 10.8 /CUMM) 6.9 RBC (4.20 - 5.40 /CUMM) 4.14 L Hgb (12.0 - 16.0 G/DL) 11.8 L Hct (37 - 47 %) 35.9 L MCV (81.0 - 99.0 FL) 86.8 MCH (27.0 - 31.0 PG) 28.6 MCHC (33.0 - 37.0 G/DL) 33.0 RDW (11.5 - 14.5 %) 14.9 H Plt Count (130 - 400 /CUMM) 316 MPV (7.4 - 10.4 FL) 6.9 L Gran % (42.2 - 75.2 %) 95.5 H Lymphocytes % (20.5 - 51.1 %) 4.3 L Monocytes % (1.7 - 9.3 %) 0.1 L Eosinophils % (0 - 5 %) 0 Basophils % (0.0 - 2.0 %) 0.1 Absolute Granulocytes (1.4 - 6.5 /CUMM) 6.6 H Segmented Neutrophils (42.2 - 75.2 %) 77 H Band Neutrophils (0.0 - 5.0 %) 17 H Absolute Lymphocytes (1.2 - 3.4 /CUMM) 0.3 L Lymphocytes (20.5 - 51.1 %) 6 L Absolute Monocytes (0.10 - 0.60 /CUMM) 0 L Absolute Eosinophils (0.0 - 0.7 /CUMM) 0 Absolute Basophils (0.0 - 0.2 /CUMM) 0 Platelet Estimate (ADEQUATE) VERIFIED BY SMEAR Normocytic RBCs VERIFIED Normochromic RBCs VERIFIED 09/24 1259 Chemistry Total Beta HCG Cancelled Imaging/Other Studies: 09/24/17: EKG- ST @ 130, nl axis, LAE, NSST abnl. 09/24/17: CT ANGIOGRAM OF THE CHEST WITH CONTRAST (CT PULMONARY ANGIOGRAM FOR PE ) CT ABDOMEN AND PELVIS WITH IV CONTRAST- 1. No pulmonary embolism. 2. There are a few nonspecific, noncalcified nodules in the right and left upper lobe, largest measuring 0.3 x 0.5 cm. No pulmonary mass or lymphadenopathy in the chest. 3. Findings consistent with active colitis with circumferential wall thickening involving the descending and sigmoid colon, to the level of the rectum, with adjacent pericolonic fat stranding. This is consistent with history of ulcerative colitis. There is reactive lymphadenopathy in the mesentery. Few sigmoid diverticula, without diverticulitis. No obstruction, megacolon, or free air. Post AP. 4. Small fat-containing umbilical hernia. 5. Normal uterus & adnexa. Trace fluid in the pelvis. No abscess.
[2017-09-25 21:34] VITALS: BP 118/70
--- NOTE | 2017-09-25 22:59 | RADIOLOGY REPORT ---
EXAMINATION: XR ABDOMEN MULTIPLE VIEWS CLINICAL INDICATION: Abdominal pain. COMPARISON: None TECHNIQUE: 2 views of the abdomen. FINDINGS: There is no evidence of free air or obstruction. No abnormal calcifications are seen. The volume of gas in the bowel is small. Small volume of stool in colon. IMPRESSION: Unremarkable examination.
[2017-09-26 06:39] VITALS: BP 116/70
--- NOTE | 2017-09-26 07:11 | PN- Housestaff ---
Subjective Follow-up For: Ulcerative colitis ? Perforation. Complaints: no complaints Subjective: Patient seen and examined at bedside. No overnight events. Patient denies nausea, vomiting, abdominal pain, diarrhea. Patient is nothing by mouth for suspected perforation. Patient is aware that her blood is growing gram-negative rods. Patient was seen by yesterday who has low suspicion for perforation but would like to continue bowel rest and antibiotics. Review of Systems Constitutional: Reports: no symptoms, see HPI. Objective Last 24 Hrs of Vital Signs/I&O Vital Signs Date Time Temp Pulse Resp B/P B/P Pulse O2 O2 Flow FiO2 Mean Ox Delivery Rate 09/26 1348 97.8 78 20 128/70 98 Room Air 09/26 0639 97.5 70 18 116/70 96 Room Air 09/25 2134 97.8 81 18 118/70 96 Intake & Output 09/26 1600 09/26 0800 09/26 0000 Intake Total 1100 900 Output Total 500 Balance 1100 400 Intake, IV 1100 900 Number 1 1 Bowel Movements Output, Urine 500 Patient 254 lb 253 lb Weight Physical Exam General Appearance: Alert, Oriented X3, Cooperative, No Acute Distress Cardiovascular: Regular Rate, Normal S1, Normal S2, No Murmurs Lungs: Clear to Auscultation Abdomen: Soft, No Tenderness, No Hepatospenomegaly Neurological: Normal Speech, Strength at 5/5 X4 Ext, Normal Tone, Sensation Intact Current Medications: Current Medications Sig/Raymond Start time Last Medication Dose Route Stop Time Status Admin Acetaminophen 1,000 MG Q6P PRN 09/24 2245 AC N/A 1 UNIT IV Acetaminophen/ 1 TAB ONCE ONE 09/25 1800 DC 09/25 Butalbital/Caffeine PO 09/25 1801 1813 Ceftriaxone Sodium 1,000 MG Q24H 09/26 220 AC IV Ceftriaxone Sodium 1,000 MG Q12 09/25 0900 DC 09/25 IV 2201 Dextrose/Sodium 1,000 ML Q10H 09/24 2014 AC 09/26 Chloride IV 0554 Famotidine 20 MG DAILY 09/24 2013 AC 09/26 PO 1019 Heparin Sodium 5,000 UNIT Q8 09/24 2199 AC 09/26 (Porcine) SC 0541 Magnesium Sulfate 1 GM ONCE ONE 09/25 1445 DC 09/25 Dextrose/Water 100 ML IV 09/25 1844 1813 Melatonin 5 MG AT BEDTIME 09/25 2099 09/25 PO 2202 Mesalamine 1,600 MG TID 09/24 2099 AC 09/26 PO 1019 Methylprednisolone 40 MG Q12 09/24 2099 09/26 IV 1020 Metronidazole 500 MG Q8H 09/25 0130 09/26 N/A 1 UNIT IV 1019 Ondansetron HCl 4 MG Q6P PRN 09/24 2245 09/25 IV 0936 Patient Medication 1 ED ONE ONE 09/25 1630 DC 09/25 Teaching ED 09/25 1631 1641 Last 24 Hrs of Lab/Cecilio Results Last 24 Hrs of Labs/Mics: Laboratory Tests 09/26/17 1030: Urinalysis LIGHT H, Urine Color YEL, Urine Clarity HAZY H, Urine pH 6.0, Ur Specific [place] >= 1.030, Urine Protein TRACE H, Urine Ketones NEG, Urine Nitrite NEG, Urine Bilirubin NEG, Urine Urobilinogen 1.0, Ur Leukocyte Esterase TRACE H, Ur Microscopic SEDIMENT EXAMINED, Urine RBC 1-3, Urine WBC 1-3 H, Ur Epithelial Cells MANY H, Urine Bacteria MOD H, Urine Mucus FEW, Micro UA Comment BUDDING YEAST H, Urine Hemoglobin TRACE-INTACT, Urine Glucose NEG 09/26/17 0630: Anion Gap 9, Estimated GFR > 60, BUN/Creatinine Ratio 15.0, Phosphorus 2.6, Magnesium 2.3, CBC w Diff MAN DIFF ORDERED, RBC 3.31 L, MCV 87.6, MCH 28.5, MCHC 32.5 L, RDW 16.0 H, MPV 8.5, Gran % 93.7 H, Lymphocytes % 5.3 L, Monocytes % 0.9 L, Eosinophils % 0, Basophils % 0.1, Absolute Granulocytes 11.8 H, Segmented Neutrophils 84 H, Band Neutrophils 14 H, Absolute Lymphocytes 0.7 L, Lymphocytes 2 L, Absolute Monocytes 0.1, Absolute Eosinophils 0, Absolute Basophils 0, Platelet Estimate ADEQUATE, Hypochromic-Microcytic 1+, Poikilocytosis 1+, Anisocytosis 1+ Assessment/Plan Assessment: 37-year-old female with past medical history of ulcerative colitis on intyvio, prednisone, methylamine, came to [facility] with complaints of weakness, fever with chills, headache. Assessment and plan 1. Colitis-rule out flareup of ulcerative colitis/infectious colitis 2. Hypokalemia 3. Ulcerative colitis * Patient being treated for a flareup of ulcerative colitis/infectious colitis. Patient C. difficile negative. Patient is on ceftriaxone and Flagyl in view of possible perforation. Abdominal x-ray negative for any perforation. This was discussed with colorectal surgeon and custom van converter suggested to advance her diet to full liquid. Patient blood culture growing gram-negative rods. This bacteremia can be secondary due to translocation. We will follow final culture. Patient is also being followed by infectious disease. We'll get recommendations from GI/colorectal/ID. Patient is on mesalamine and IV Solu- Medrol. Eventually taper IV Solu-Medrol to by mouth steroids. * Hypokalemia - resolved. * Accu-Check. * GI prophylaxis-Pepcid 20 daily Code-full code Diet-liquid diet DVT prophylaxis-Alps Problem List: 1. Ulcerative colitis Pain Ratin Pain Location: none Pain Goal: Remain pain free Pain Plan: tylenol Tomorrow's Labs & Rationales: cbc,bep
--- NOTE | 2017-09-26 07:31 | PN- Student ---
Subjective Subjective: No acute events overnight. Continue afebrile. Patient seen and examined this morning. Patient feeling better. Denied fever, chills, palpitation, diarrhea, abdominal pain. Objective Objective: PE: General: obese young woman alert and oriented HEENT: NCAT, anicteric sclera, moist oral mucosa without exudate CVS: normal S1 and S2 Lungs: symetrical chest expansion, clear breath sounds without any added sound Abdomen: positive bowel sounds, nondistended, mildlytender Extremities: palpable pulses, no edema Results Results: Vital Signs Date Time Temp Pulse Resp B/P B/P Pulse O2 O2 Flow FiO2 Mean Ox Delivery Rate 09/26 0639 97.5 70 18 116/70 96 Room Air 09/25 2134 97.8 81 18 118/70 96 09/25 1359 97.6 85 20 100/70 98 Room Air Intake & Output 09/26 1600 09/26 0800 09/26 0000 Intake Total 1100 900 Output Total 500 Balance 1100 400 Intake, IV 1100 900 Number 1 1 Bowel Movements Output, Urine 500 Patient 253 lb Weight Laboratory Tests 09/26/17 0630: Anion Gap 9, Estimated GFR > 60, BUN/Creatinine Ratio 15.0, Phosphorus 2.6, Magnesium 2.3, CBC w Diff MAN DIFF ORDERED, RBC 3.31 L, MCV 87.6, MCH 28.5, MCHC 32.5 L, RDW 16.0 H, MPV 8.5, Gran % 93.7 H, Lymphocytes % 5.3 L, Monocytes % 0.9 L, Eosinophils % 0, Basophils % 0.1, Absolute Granulocytes 11.8 H, Segmented Neutrophils 84 H, Band Neutrophils 14 H, Absolute Lymphocytes 0.7 L, Lymphocytes 2 L, Absolute Monocytes 0.1, Absolute Eosinophils 0, Absolute Basophils 0, Platelet Estimate ADEQUATE, Hypochromic-Microcytic 1+, Poikilocytosis 1+, Anisocytosis 1+ 09/25/17 0613: Anion Gap 11, Estimated GFR > 60, BUN/Creatinine Ratio 12.9, Phosphorus 3.6, Magnesium 1.8, CBC w Diff MAN DIFF ORDERED, RBC 3.51 L, MCV 87.9, MCH 28.4, MCHC 32.3 L, RDW 15.6 H, MPV 8.1, Gran % 96.4 H, Lymphocytes % 3.1 L, Monocytes % 0.5 L, Eosinophils % 0, Basophils % 0, Absolute Granulocytes 11.8 H, Segmented Neutrophils 71, Band Neutrophils 26 H, Absolute Lymphocytes 0.4 L , Lymphocytes 3 L, Absolute Monocytes 0.1, Absolute Eosinophils 0, Absolute Basophils 0, Platelet Estimate ADEQUATE, Normocytic RBCs VERIFIED, Normochromic RBCs VERIFIED 09/25/17 0600: Stool Calprotectin Pending 09/25/17 0440: Lactic Acid 1.3 09/25/17 0306: Lactic Acid Cancelled 09/25/17 0130: Lactic Acid 2.2 H 09/24/17 2245: Lactic Acid Cancelled 09/24/17 2244: Anion Gap 20 H, Estimated GFR 56 L, BUN/Creatinine Ratio 8.2, Lactic Acid 9.4 H, Magnesium 0.9 *L, C-Reactive Prot, Quant > 9.0 H, C-React Prot High Sens > 15.0 H, ESR Westergren 55 H 09/24/17 2200: Sodium Cancelled, Potassium Cancelled, Chloride Cancelled, Carbon Dioxide Cancelled, Anion Gap Cancelled, BUN Cancelled, Creatinine Cancelled, BUN/ Creatinine Ratio Cancelled, Magnesium Cancelled 09/24/17 2117: Lactic Acid Cancelled 09/24/17 1945: Lactic Acid Cancelled 09/24/17 1652: Urine Color YEL, Urine Clarity CLEAR, Urine pH 6.5, Ur Specific [place] <= 1.005 , Urine Protein NEG, Urine Ketones NEG, Urine Nitrite NEG, Urine Bilirubin NEG, Urine Urobilinogen 0.2, Ur Leukocyte Esterase NEG, Ur Microscopic EXAM NOT REQUIRED, Urine Hemoglobin NEG, Urine Glucose NEG 09/24/17 1645: Lactic Acid 2.3 H 09/24/17 1322: Anion Gap 16, Estimated GFR 56 L, BUN/Creatinine Ratio 9.1, Glucose 99, Lactic Acid 3.6 H, Calcium 8.6, Magnesium 1.1 L, Total Bilirubin 0.8, AST 25, ALT 24, Alkaline Phosphatase 120, Troponin I < 0.01, Total Protein 6.0 L, Albumin 3.2 L, Globulin 2.8, Albumin/Globulin Ratio 1.1, Total Beta HCG NEGATIVE, CBC w Diff MAN DIFF ORDERED, RBC 4.14 L, MCV 86.8, MCH 28.6, MCHC 33.0, RDW 14.9 H, MPV 6.9 L, Gran % 95.5 H, Lymphocytes % 4.3 L, Monocytes % 0.1 L, Eosinophils % 0, Basophils % 0.1, Absolute Granulocytes 6.6 H, Segmented Neutrophils 77 H, Band Neutrophils 17 H, Absolute Lymphocytes 0.3 L, Lymphocytes 6 L, Absolute Monocytes 0 L, Absolute Eosinophils 0, Absolute Basophils 0, Platelet Estimate VERIFIED BY SMEAR, Normocytic RBCs VERIFIED, Normochromic RBCs VERIFIED 09/24/17 1308: Troponin I Cancelled 09/24/17 1259: Total Beta HCG Cancelled Microbiology 09/25 599 STOOL: Clostridium difficile Toxin A & B - RES 09/25 599 STOOL: Vibrio Culture - RES 09/25 599 STOOL: Yersinia Culture - RES 09/25 599 STOOL: Stool Culture - RES 09/25 599 STOOL: Cryptosporidium Antigen - COMP 09/25 599 STOOL: Giardia Antigen (TRAY) - COMP 09/24 1745 STOOL: Clostridium difficile Toxin A & B - CAN Cancelled: COMBINED 09/24 1652 URINE ROUT: Urine Culture - COMP 09/24 1638 NASOPHARYN: Influenza Virus A & B Rapid Smear - COMP 09/24 1333 BLOOD: Blood Culture - RES 09/24 1322 BLOOD: Blood Culture - RES GRAM NEGATIVE RODS Assessment/Plan Assessment: 37 y/o F with PMHx of ulcerative colitis admitted with a chief complain of fevers, chills and weakness. On admission she was febrile (103.6), tachycardic ( up to 130), with a BP of 94/63. Lab's showed WBC of 6.9 with granulocytes of 96 % and [address] abd consistent with active colitis involving the descending and sigmoid colon to level the rectum. Based on history, physical examination, lab's and imagine, this maybe a flare up of her ulcerative colitis. On the other hand, bandemia is consistent with infectious colitis. DDx include: infectious colitis with bacteria or viral origin (viral- is unlikely because of her bandemia and 5 days of symtopms will have been an improvement by now. Baterial seems more likely in a inmunocompromised host). Perforation is unlikely because no guarding/rebound tenderness, no active bloody movement, and no gas pattern on CT. WBC-12.6 (on steroids). Plan: Plan: -advance to clear liquids -Monitor vitals, CBC, chemistry -Serial abd exams -Cont. steroids and pepcid -Zofran PRN -Gram negative suzanna in blood: Ceftriaxone 1g IV daily and Flagyl 500mg IV Q8 -Follow recomendations -Prednisone 20 mg daily to IV Medrol 40 mg BID -F/U GI, ID, Gen surg recommendations Pending: -urine cx -Per GI Stool for C&S, Shiga toxin,, Vibrio, Yersinia
--- NOTE | 2017-09-26 09:07 | PN- General Surgery ---
Surgical Brief Attending Note Brief Attending Note: Patient subjectively better today Fever curve is down Abdomen soft tender to deep palpation left lower quadrant, clearly less tender than yesterday Impression: Improving colitis Recommendation: Start clears and advance diet very slowly as long as the patient does not develop worsening symptoms Continue broad-spectrum antibiotics and steroids We will continue to follow
[2017-09-26 09:30] LABS: ABSOLUTE BASOPHIL COUNT 0 /CUMM (0.0-0.2); ABSOLUTE EOSINOPHIL COUNT 0 /CUMM (0.0-0.7); ABSOLUTE GRANULOCYTE CT 11.8 /CUMM (1.4-6.5); ABSOLUTE LYMPH COUNT 0.7 /CUMM (1.2-3.4); ABSOLUTE MONOCYTE COUNT 0.1 /CUMM (0.10-0.60); BASOPHIL % 0.1 % (0.0-2.0); EOSINOPHIL % 0 % (0-5); GRANULOCYTE % 93.7 % (42.2-75.2); MEAN CORPUSCULAR HGB 28.5 PG (27.0-31.0); MEAN CORPUSCULAR HGB CONC 32.5 G/DL (33.0-37.0); MEAN CORPUSCULAR VOLUME 87.6 FL (81.0-99.0); MEAN PLATELET VOLUME 8.5 FL (7.4-10.4); PLATELET COUNT 288 /CUMM (130-400); RED BLOOD CELL CT 3.31 /CUMM (4.20-5.40); WHITE BLOOD CELL COUNT 12.6 /CUMM (4.8-10.8)
--- NOTE | 2017-09-26 13:11 | PN- Gastroenterology ---
Assessment/Plan GI Assessment/Recommendations: Assessment: Ms. Trent is a 37 year old female with left sided ulcerative colitis admitted with a flare and gram negative sepsis presumably secondary to bacterial translocation. She is without an obvious perforation on imaging and has a relatively bening physical exam so I am hopeful that her diet will be able to be advnanced and she can be discharged home shortly to follow up an an outpatient to get reloaded with entyvio. While she may ultimately require surgery for medically refractory disease I don't feel this is urgent and I would only pursue that on this admission if she develops signs of a toxic megacolon which she currently doens't have. Recommendations: 1. Continue IV solumedrol 40 mg q12 hours for now and if she continues to do well will likely change it to oral prednisone in 24-48 hours 2. Continue broad spectrum IV antibiotics for now and follow up cultures and tailor as indicated based on final culture results. 3. Continue mesalamine at current dose 4. Keep on a full liquid diet today and if she does well would consider advancing further in the am 5. Analgesia as needed 6. Considering the gram negative sepsis would recommend holding her next dose of entyvio which she is scheduled to get next week I will continue to follow this patient and make further recommendations based on her clinical course and results of repeat blood work. Problem List: 1. Nausea & vomiting 2. Diarrhea 3. Ulcerative colitis Subjective Subjective: Patient still with some abdominal discomfort and some loose stool but overall she feels better. He has been advanced to a liquid diet, but she has not started eating yet. She is without any vomiting or high fevers. Objective Vital Signs and I&Os Vital Signs Date Time Temp Pulse Resp B/P B/P Pulse O2 O2 Flow FiO2 Mean Ox Delivery Rate 09/26 0639 97.5 70 18 116/70 96 Room Air 09/25 2134 97.8 81 18 118/70 96 09/25 1359 97.6 85 20 100/70 98 Room Air Intake & Output 09/26 1600 09/26 0400 09/25 0400 09/24 0400 Intake Total 0199 752 4027 800 1000 Output Total 500 Balance 4019 605 1892 800 1000 Intake, IV 9228 726 0216 400 1000 Intake, Oral 240 400 Number 1 1 1 Bowel Movements Output, Urine 500 Patient 254 lb 243 lb 220 lb 225 lb Weight Weight Reported by Patient Reported by Patient Measurement Method Physical Exam General Appearance: well developed/nourished, no apparent distress, alert, comfortable Head: atraumatic, normal appearance Ears, Nose, Throat: normal pharynx Neck: normal inspection, supple, full range of motion Respiratory: normal breath sounds Cardiovascular: regular rate/rhythm Abdomen: normal bowel sounds, soft, tenderness Extremities: normal inspection, no edema Current Medications: Current Medications Sig/Raymond Start time Last Medication Dose Route Stop Time Status Admin Acetaminophen 1,000 MG Q6P PRN 09/24 224 N/A 1 UNIT IV Acetaminophen/ 1 TAB ONCE ONE 09/25 1800 SD 09/25 Butalbital/Caffeine PO 09/25 1801 1813 Ceftriaxone Sodium 1,000 MG Q24H 09/26 2199 IV Ceftriaxone Sodium 1,000 MG Q12 09/25 0900 SD 09/25 IV 2201 Dextrose/Sodium 1,000 ML Q10H 09/24 2014 09/26 Chloride IV 0554 Famotidine 20 MG DAILY 09/24 2013 09/26 PO 1019 Heparin Sodium 5,000 UNIT Q8 09/24 2199 09/26 (Porcine) SC 0541 Magnesium Sulfate 1 GM ONCE ONE 09/25 1445 SD 09/25 Dextrose/Water 100 ML IV 09/25 1844 1813 Melatonin 5 MG AT BEDTIME 09/25 2100 09/25 PO 2202 Mesalamine 1,600 MG TID 09/24 2099 09/26 PO 1019 Methylprednisolone 40 MG Q12 09/24 2100 09/26 IV 1020 Metronidazole 500 MG Q8H 09/25 0130 09/26 N/A 1 UNIT IV 1019 Ondansetron HCl 4 MG Q6P PRN 09/24 2244 09/25 IV 0936 Patient Medication 1 ED ONE ONE 09/25 1630 SD 09/25 Teaching ED 09/25 1631 1641 Results Pertinent Lab Results: Laboratory Tests 09/26 09/26 1030 0630 Chemistry Sodium (137 - 145 mmol/L) 141 Potassium (3.5 - 5.1 mmol/L) 4.1 Chloride (98 - 107 mmol/L) 110 H Carbon Dioxide (22 - 30 mmol/L) 23 Anion Gap (5 - 16) 9 BUN (7 - 17 mg/dL) 9 Creatinine (0.5 - 1.0 mg/dL) 0.6 Estimated GFR (>60 ml/min) > 60 BUN/Creatinine Ratio (7 - 25 %) 15.0 Phosphorus (2.5 - 4.5 mg/dL) 2.6 Magnesium (1.6 - 2.3 mg/dL) 2.3 Hematology CBC w Diff MAN DIFF ORDERED WBC (4.8 - 10.8 /CUMM) 12.6 H RBC (4.20 - 5.40 /CUMM) 3.31 L Hgb (12.0 - 16.0 G/DL) 9.4 L Hct (37 - 47 %) 29.0 L MCV (81.0 - 99.0 FL) 87.6 MCH (27.0 - 31.0 PG) 28.5 MCHC (33.0 - 37.0 G/DL) 32.5 L RDW (11.5 - 14.5 %) 16.0 H Plt Count (130 - 400 /CUMM) 288 MPV (7.4 - 10.4 FL) 8.5 Gran % (42.2 - 75.2 %) 93.7 H Lymphocytes % (20.5 - 51.1 %) 5.3 L Monocytes % (1.7 - 9.3 %) 0.9 L Eosinophils % (0 - 5 %) 0 Basophils % (0.0 - 2.0 %) 0.1 Absolute Granulocytes (1.4 - 6.5 /CUMM) 11.8 H Segmented Neutrophils (42.2 - 75.2 %) 84 H Band Neutrophils (0.0 - 5.0 %) 14 H Absolute Lymphocytes (1.2 - 3.4 /CUMM) 0.7 L Lymphocytes (20.5 - 51.1 %) 2 L Absolute Monocytes (0.10 - 0.60 /CUMM) 0.1 Absolute Eosinophils (0.0 - 0.7 /CUMM) 0 Absolute Basophils (0.0 - 0.2 /CUMM) 0 Platelet Estimate (ADEQUATE) ADEQUATE Hypochromic-Microcytic 1+ Poikilocytosis 1+ Anisocytosis 1+ Urines Urinalysis LIGHT H Urine Color (YEL,AMB,STR) YEL Urine Clarity (CLEAR) HAZY H Urine pH (5.0 - 8.0) 6.0 Ur Specific [place] (1.001 - 1.035) >= 1.030 Urine Protein (NEG,<30 MG/DL) TRACE H Urine Ketones (NEG) NEG Urine Nitrite (NEG) NEG Urine Bilirubin (NEG) NEG Urine Urobilinogen (0.1 - 1.0 EU/dl) 1.0 Ur Leukocyte Esterase (NEG) TRACE H Ur Microscopic SEDIMENT EXAMINED Urine RBC (0 - 5 /HPF) 1-3 Urine WBC (0 - 2 /HPF) 1-3 H Ur Epithelial Cells (NONE,FEW) MANY H Urine Bacteria (NEG/NONE) MOD H Urine Mucus (FEW,NONE) FEW Micro UA Comment BUDDING YEAST H Urine Hemoglobin (NEG) TRACE-INTACT Urine Glucose (N MG/DL) NEG 09/25 09/25 09/25 0613 0600 0440 Chemistry Sodium (137 - 145 mmol/L) 140 Potassium (3.5 - 5.1 mmol/L) 4.4 Chloride (98 - 107 mmol/L) 108 H Carbon Dioxide (22 - 30 mmol/L) 21 L Anion Gap (5 - 16) 11 BUN (7 - 17 mg/dL) 9 Creatinine (0.5 - 1.0 mg/dL) 0.7 Estimated GFR (>60 ml/min) > 60 BUN/Creatinine Ratio (7 - 25 %) 12.9 Lactic Acid (0.7 - 2.1 mmol/L) 1.3 Phosphorus (2.5 - 4.5 mg/dL) 3.6 Magnesium (1.6 - 2.3 mg/dL) 1.8 Hematology CBC w Diff MAN DIFF ORDERED WBC (4.8 - 10.8 /CUMM) 12.2 H RBC (4.20 - 5.40 /CUMM) 3.51 L Hgb (12.0 - 16.0 G/DL) 10.0 L Hct (37 - 47 %) 30.9 L MCV (81.0 - 99.0 FL) 87.9 MCH (27.0 - 31.0 PG) 28.4 MCHC (33.0 - 37.0 G/DL) 32.3 L RDW (11.5 - 14.5 %) 15.6 H Plt Count (130 - 400 /CUMM) 287 MPV (7.4 - 10.4 FL) 8.1 Gran % (42.2 - 75.2 %) 96.4 H Lymphocytes % (20.5 - 51.1 %) 3.1 L Monocytes % (1.7 - 9.3 %) 0.5 L Eosinophils % (0 - 5 %) 0 Basophils % (0.0 - 2.0 %) 0 Absolute Granulocytes (1.4 - 6.5 /CUMM) 11.8 H Segmented Neutrophils (42.2 - 75.2 %) 71 Band Neutrophils (0.0 - 5.0 %) 26 H Absolute Lymphocytes (1.2 - 3.4 /CUMM) 0.4 L Lymphocytes (20.5 - 51.1 %) 3 L Absolute Monocytes (0.10 - 0.60 /CUMM) 0.1 Absolute Eosinophils (0.0 - 0.7 /CUMM) 0 Absolute Basophils (0.0 - 0.2 /CUMM) 0 Platelet Estimate (ADEQUATE) ADEQUATE Normocytic RBCs VERIFIED Normochromic RBCs VERIFIED Other Body Source Stool Calprotectin Pending 09/25 09/25 09/24 09/24 0306 0130 2245 2244 Chemistry Sodium (137 - 145 mmol/L) 136 L Potassium (3.5 - 5.1 mmol/L) 4.3 Chloride (98 - 107 mmol/L) 102 Carbon Dioxide (22 - 30 mmol/L) 13 L Anion Gap (5 - 16) 20 H BUN (7 - 17 mg/dL) 9 Creatinine (0.5 - 1.0 mg/dL) 1.1 H Estimated GFR (>60 ml/min) 56 L BUN/Creatinine Ratio (7 - 25 %) 8.2 Lactic Acid (0.7 - 2.1 mmol/L) Cancelled 2.2 H Cancelled 9.4 H Magnesium (1.6 - 2.3 mg/dL) 0.9 *L C-Reactive Prot, Quant (<1.0 mg/dL) > 9.0 H C-React Prot High Sens (1.0 - 3.0 mg/L) > 15.0 H Hematology ESR Westergren (0 - 20 MM) 55 H 09/24 09/24 09/24 2200 2117 1945 Chemistry Sodium Cancelled Potassium Cancelled Chloride Cancelled Carbon Dioxide Cancelled Anion Gap Cancelled BUN Cancelled Creatinine Cancelled BUN/Creatinine Ratio Cancelled Lactic Acid Cancelled Cancelled Magnesium Cancelled 09/24 09/24 1652 1645 Chemistry Lactic Acid (0.7 - 2.1 mmol/L) 2.3 H Urines Urine Color (YEL,AMB,STR) YEL Urine Clarity (CLEAR) CLEAR Urine pH (5.0 - 8.0) 6.5 Ur Specific [place] (1.001 - 1.035) <= 1.005 Urine Protein (NEG,<30 MG/DL) NEG Urine Ketones (NEG) NEG Urine Nitrite (NEG) NEG Urine Bilirubin (NEG) NEG Urine Urobilinogen (0.1 - 1.0 EU/dl) 0.2 Ur Leukocyte Esterase (NEG) NEG Ur Microscopic EXAM NOT REQUIRED Urine Hemoglobin (NEG) NEG Urine Glucose (N MG/DL) NEG 09/24 09/24 1322 1308 Chemistry Sodium (137 - 145 mmol/L) 135 L Potassium (3.5 - 5.1 mmol/L) 2.9 *L Chloride (98 - 107 mmol/L) 95 L Carbon Dioxide (22 - 30 mmol/L) 24 Anion Gap (5 - 16) 16 BUN (7 - 17 mg/dL) 10 Creatinine (0.5 - 1.0 mg/dL) 1.1 H Estimated GFR (>60 ml/min) 56 L BUN/Creatinine Ratio (7 - 25 %) 9.1 Glucose (65 - 99 mg/dL) 99 Lactic Acid (0.7 - 2.1 mmol/L) 3.6 H Calcium (8.4 - 10.2 mg/dL) 8.6 Magnesium (1.6 - 2.3 mg/dL) 1.1 L Total Bilirubin (0.2 - 1.3 mg/dL) 0.8 AST (14 - 36 U/L) 25 ALT (9 - 52 U/L) 24 Alkaline Phosphatase (<127 U/L) 120 Troponin I (< 0.11 ng/ml) < 0.01 Cancelled Total Protein (6.3 - 8.2 g/dL) 6.0 L Albumin (3.5 - 5.0 g/dL) 3.2 L Globulin (1.9 - 4.2 gm/dL) 2.8 Albumin/Globulin Ratio (1.1 - 2.2 %) 1.1 Total Beta HCG (NEGATIVE) NEGATIVE Hematology CBC w Diff MAN DIFF ORDERED WBC (4.8 - 10.8 /CUMM) 6.9 RBC (4.20 - 5.40 /CUMM) 4.14 L Hgb (12.0 - 16.0 G/DL) 11.8 L Hct (37 - 47 %) 35.9 L MCV (81.0 - 99.0 FL) 86.8 MCH (27.0 - 31.0 PG) 28.6 MCHC (33.0 - 37.0 G/DL) 33.0 RDW (11.5 - 14.5 %) 14.9 H Plt Count (130 - 400 /CUMM) 316 MPV (7.4 - 10.4 FL) 6.9 L Gran % (42.2 - 75.2 %) 95.5 H Lymphocytes % (20.5 - 51.1 %) 4.3 L Monocytes % (1.7 - 9.3 %) 0.1 L Eosinophils % (0 - 5 %) 0 Basophils % (0.0 - 2.0 %) 0.1 Absolute Granulocytes (1.4 - 6.5 /CUMM) 6.6 H Segmented Neutrophils (42.2 - 75.2 %) 77 H Band Neutrophils (0.0 - 5.0 %) 17 H Absolute Lymphocytes (1.2 - 3.4 /CUMM) 0.3 L Lymphocytes (20.5 - 51.1 %) 6 L Absolute Monocytes (0.10 - 0.60 /CUMM) 0 L Absolute Eosinophils (0.0 - 0.7 /CUMM) 0 Absolute Basophils (0.0 - 0.2 /CUMM) 0 Platelet Estimate (ADEQUATE) VERIFIED BY SMEAR Normocytic RBCs VERIFIED Normochromic RBCs VERIFIED 09/24 1259 Chemistry Total Beta HCG Cancelled Imaging/Other Studies: SERVICE DATE: 09/25/17- EXAM TYPE: RAD - [id number] VIEWS EXAMINATION: XR ABDOMEN MULTIPLE VIEWS CLINICAL INDICATION: Abdominal pain. COMPARISON: None TECHNIQUE: 2 views of the abdomen. FINDINGS: There is no evidence of free air or obstruction. No abnormal calcifications are seen. The volume of gas in the bowel is small. Small volume of stool in colon. IMPRESSION: Unremarkable examination.
--- NOTE | 2017-09-26 13:28 | PN- Pulmonary ---
Subjective HPI/Critical Care Issues: REmained afebrile little better no pain One bm today Objective Current Medications: Current Medications Sig/Raymond Start time Last Medication Dose Route Stop Time Status Admin Acetaminophen 1,000 MG Q6P PRN 09/24 2245 N/A 1 UNIT IV Acetaminophen/ 1 TAB ONCE ONE 09/25 1800 MT 09/25 Butalbital/Caffeine PO 09/25 1801 1813 Ceftriaxone Sodium 1,000 MG Q24H 09/26 220 IV Ceftriaxone Sodium 1,000 MG Q12 09/25 0900 DC 09/25 IV 2201 Dextrose/Sodium 1,000 ML Q10H 09/24 2014 09/26 Chloride IV 0554 Famotidine 20 MG DAILY 09/24 2013 09/26 PO 1019 Heparin Sodium 5,000 UNIT Q8 09/24 2199 09/26 (Porcine) SC 0541 Magnesium Sulfate 1 GM ONCE ONE 09/25 1445 MT 09/25 Dextrose/Water 100 ML IV 09/25 1844 1813 Melatonin 5 MG AT BEDTIME 09/25 2100 09/25 PO 2202 Mesalamine 1,600 MG TID 09/24 2099 AC 09/26 PO 1019 Methylprednisolone 40 MG Q12 09/24 2100 09/26 IV 1020 Metronidazole 500 MG Q8H 09/25 0130 09/26 N/A 1 UNIT IV 1019 Ondansetron HCl 4 MG Q6P PRN 09/24 224 09/25 IV 0936 Patient Medication 1 ED ONE ONE 09/25 1630 DC 09/25 Teaching ED 09/25 1631 1641 Vital Signs & I&O Last 24 Hrs of Vitals and I&O: Vital Signs Date Time Temp Pulse Resp B/P B/P Pulse O2 O2 Flow FiO2 Mean Ox Delivery Rate 09/26 0639 97.5 70 18 116/70 96 Room Air 09/25 2134 97.8 81 18 118/70 96 09/25 1359 97.6 85 20 100/70 98 Room Air Intake & Output 09/26 1600 09/26 0800 09/26 0000 Intake Total 1100 900 Output Total 500 Balance 1100 400 Intake, IV 1100 900 Number 1 1 Bowel Movements Output, Urine 500 Patient 254 lb 253 lb Weight Laboratory Tests 09/26 09/26 1030 0630 Chemistry Sodium (137 - 145 mmol/L) 141 Potassium (3.5 - 5.1 mmol/L) 4.1 Chloride (98 - 107 mmol/L) 110 H Carbon Dioxide (22 - 30 mmol/L) 23 Anion Gap (5 - 16) 9 BUN (7 - 17 mg/dL) 9 Creatinine (0.5 - 1.0 mg/dL) 0.6 Estimated GFR (>60 ml/min) > 60 BUN/Creatinine Ratio (7 - 25 %) 15.0 Phosphorus (2.5 - 4.5 mg/dL) 2.6 Magnesium (1.6 - 2.3 mg/dL) 2.3 Hematology CBC w Diff MAN DIFF ORDERED WBC (4.8 - 10.8 /CUMM) 12.6 H RBC (4.20 - 5.40 /CUMM) 3.31 L Hgb (12.0 - 16.0 G/DL) 9.4 L Hct (37 - 47 %) 29.0 L MCV (81.0 - 99.0 FL) 87.6 MCH (27.0 - 31.0 PG) 28.5 MCHC (33.0 - 37.0 G/DL) 32.5 L RDW (11.5 - 14.5 %) 16.0 H Plt Count (130 - 400 /CUMM) 288 MPV (7.4 - 10.4 FL) 8.5 Gran % (42.2 - 75.2 %) 93.7 H Lymphocytes % (20.5 - 51.1 %) 5.3 L Monocytes % (1.7 - 9.3 %) 0.9 L Eosinophils % (0 - 5 %) 0 Basophils % (0.0 - 2.0 %) 0.1 Absolute Granulocytes (1.4 - 6.5 /CUMM) 11.8 H Segmented Neutrophils (42.2 - 75.2 %) 84 H Band Neutrophils (0.0 - 5.0 %) 14 H Absolute Lymphocytes (1.2 - 3.4 /CUMM) 0.7 L Lymphocytes (20.5 - 51.1 %) 2 L Absolute Monocytes (0.10 - 0.60 /CUMM) 0.1 Absolute Eosinophils (0.0 - 0.7 /CUMM) 0 Absolute Basophils (0.0 - 0.2 /CUMM) 0 Platelet Estimate (ADEQUATE) ADEQUATE Hypochromic-Microcytic 1+ Poikilocytosis 1+ Anisocytosis 1+ Urines Urinalysis LIGHT H Urine Color (YEL,AMB,STR) YEL Urine Clarity (CLEAR) HAZY H Urine pH (5.0 - 8.0) 6.0 Ur Specific [place] (1.001 - 1.035) >= 1.030 Urine Protein (NEG,<30 MG/DL) TRACE H Urine Ketones (NEG) NEG Urine Nitrite (NEG) NEG Urine Bilirubin (NEG) NEG Urine Urobilinogen (0.1 - 1.0 EU/dl) 1.0 Ur Leukocyte Esterase (NEG) TRACE H Ur Microscopic SEDIMENT EXAMINED Urine RBC (0 - 5 /HPF) 1-3 Urine WBC (0 - 2 /HPF) 1-3 H Ur Epithelial Cells (NONE,FEW) MANY H Urine Bacteria (NEG/NONE) MOD H Urine Mucus (FEW,NONE) FEW Micro UA Comment BUDDING YEAST H Urine Hemoglobin (NEG) TRACE-INTACT Urine Glucose (N MG/DL) NEG 09/25 09/25 09/25 0613 0600 0440 Chemistry Sodium (137 - 145 mmol/L) 140 Potassium (3.5 - 5.1 mmol/L) 4.4 Chloride (98 - 107 mmol/L) 108 H Carbon Dioxide (22 - 30 mmol/L) 21 L Anion Gap (5 - 16) 11 BUN (7 - 17 mg/dL) 9 Creatinine (0.5 - 1.0 mg/dL) 0.7 Estimated GFR (>60 ml/min) > 60 BUN/Creatinine Ratio (7 - 25 %) 12.9 Lactic Acid (0.7 - 2.1 mmol/L) 1.3 Phosphorus (2.5 - 4.5 mg/dL) 3.6 Magnesium (1.6 - 2.3 mg/dL) 1.8 Hematology CBC w Diff MAN DIFF ORDERED WBC (4.8 - 10.8 /CUMM) 12.2 H RBC (4.20 - 5.40 /CUMM) 3.51 L Hgb (12.0 - 16.0 G/DL) 10.0 L Hct (37 - 47 %) 30.9 L MCV (81.0 - 99.0 FL) 87.9 MCH (27.0 - 31.0 PG) 28.4 MCHC (33.0 - 37.0 G/DL) 32.3 L RDW (11.5 - 14.5 %) 15.6 H Plt Count (130 - 400 /CUMM) 287 MPV (7.4 - 10.4 FL) 8.1 Gran % (42.2 - 75.2 %) 96.4 H Lymphocytes % (20.5 - 51.1 %) 3.1 L Monocytes % (1.7 - 9.3 %) 0.5 L Eosinophils % (0 - 5 %) 0 Basophils % (0.0 - 2.0 %) 0 Absolute Granulocytes (1.4 - 6.5 /CUMM) 11.8 H Segmented Neutrophils (42.2 - 75.2 %) 71 Band Neutrophils (0.0 - 5.0 %) 26 H Absolute Lymphocytes (1.2 - 3.4 /CUMM) 0.4 L Lymphocytes (20.5 - 51.1 %) 3 L Absolute Monocytes (0.10 - 0.60 /CUMM) 0.1 Absolute Eosinophils (0.0 - 0.7 /CUMM) 0 Absolute Basophils (0.0 - 0.2 /CUMM) 0 Platelet Estimate (ADEQUATE) ADEQUATE Normocytic RBCs VERIFIED Normochromic RBCs VERIFIED Other Body Source Stool Calprotectin Pending 09/25 09/25 09/24 09/24 0306 0130 2245 2244 Chemistry Sodium (137 - 145 mmol/L) 136 L Potassium (3.5 - 5.1 mmol/L) 4.3 Chloride (98 - 107 mmol/L) 102 Carbon Dioxide (22 - 30 mmol/L) 13 L Anion Gap (5 - 16) 20 H BUN (7 - 17 mg/dL) 9 Creatinine (0.5 - 1.0 mg/dL) 1.1 H Estimated GFR (>60 ml/min) 56 L BUN/Creatinine Ratio (7 - 25 %) 8.2 Lactic Acid (0.7 - 2.1 mmol/L) Cancelled 2.2 H Cancelled 9.4 H Magnesium (1.6 - 2.3 mg/dL) 0.9 *L C-Reactive Prot, Quant (<1.0 mg/dL) > 9.0 H C-React Prot High Sens (1.0 - 3.0 mg/L) > 15.0 H Hematology ESR Westergren (0 - 20 MM) 55 H 09/24 09/24 09/24 2200 2117 1945 Chemistry Sodium Cancelled Potassium Cancelled Chloride Cancelled Carbon Dioxide Cancelled Anion Gap Cancelled BUN Cancelled Creatinine Cancelled BUN/Creatinine Ratio Cancelled Lactic Acid Cancelled Cancelled Magnesium Cancelled 09/24 09/24 1652 1645 Chemistry Lactic Acid (0.7 - 2.1 mmol/L) 2.3 H Urines Urine Color (YEL,AMB,STR) YEL Urine Clarity (CLEAR) CLEAR Urine pH (5.0 - 8.0) 6.5 Ur Specific [place] (1.001 - 1.035) <= 1.005 Urine Protein (NEG,<30 MG/DL) NEG Urine Ketones (NEG) NEG Urine Nitrite (NEG) NEG Urine Bilirubin (NEG) NEG Urine Urobilinogen (0.1 - 1.0 EU/dl) 0.2 Ur Leukocyte Esterase (NEG) NEG Ur Microscopic EXAM NOT REQUIRED Urine Hemoglobin (NEG) NEG Urine Glucose (N MG/DL) NEG Microbiology Date/Time Procedure - Status Source Growth 09/25 0600 Clostridium difficile Toxin A & B - RES STOOL 09/25 0600 Vibrio Culture - RES STOOL 09/25 0600 Yersinia Culture - RES STOOL 09/25 0600 Stool Culture - RES STOOL 09/25 0600 Cryptosporidium Antigen - COMP STOOL 09/25 0600 Giardia Antigen (TRAY) - COMP STOOL 09/24 1745 Clostridium difficile Toxin A & B - CAN STOOL Cancelled: COMBINED 09/24 1652 Urine Culture - COMP URINE ROUT 09/24 1638 Influenza Virus A & B Rapid Smear - COMP NASOPHARYN 09/24 1333 Blood Culture - RES BLOOD 09/24 1322 Blood Culture - RES BLOOD BACTEROIDES PROB FRAGILIS Impression/Plan Impression/Plan Impression/Plan: Skin reveals significant erythematous rash in the upper body which was present yesterday is better HEENT exam is negative; Neck is supple with no adenopathy. Lungs are clear. Heart regular rhythm with no murmur. Abdomen is obese, soft, mildly tender in the lower abdomen, with no guarding or rebound, positive bowel sounds. Back no CVA tenderness. Extremities no cyanosis, clubbing or edema. Neuro is without focality. IMPRESSION This is a lady with severe ulcerative colitis with recurrent exacerbation, on immunosuppressive therapy including prednisone with previous failed Rituxan now on vedolizumab induction therapy, very high fever, chills, body ache with on and off diarrhea. She has been feeling lightheaded in the recent past. Since she came into the emergency room she was found to be significantly febrile and she had had extensive workup which includes a CT of the chest abdomen and pelvis which showed severe colitis. Issues include * Sepsis with B fragilis bacteremia, with acute UC flare with superimposed sepsis in a lady with immunosuppressed state due to a biological agent and 20 mg of prednisone. NO active perf noted * Resolved akirelated to dehydration * Electrolyte abnormalities now better * Significant immunosuppressed state RECOMMENDATION Continue fluid resuscitation, reduce ivf to 50 cc and increase po intake and when stable in 24 hrs dc ivf Magnesium goal 2 and potassium goal 4 IV antibiotics Intravenous steroids solumedrol 40 q 12 and further dosing per gi Follow labs closely PO pepcid while on steroids Hep sub cut Tylenol prn WIll follow closely
[2017-09-26 13:48] VITALS: BP 128/70
--- NOTE | 2017-09-26 15:44 | PN- Infect Dx ---
Subjective Subjective: Afebrile on steroids without complaints. She feels improved and is tolerating a liquid diet currently. Objective Last 24 Hrs of Vital Signs/I&O Vital Signs Date Time Temp Pulse Resp B/P B/P Pulse O2 O2 Flow FiO2 Mean Ox Delivery Rate 09/26 1348 97.8 78 20 128/70 98 Room Air 09/26 0639 97.5 70 18 116/70 96 Room Air 09/25 2134 97.8 81 18 118/70 96 Intake & Output 09/26 1600 09/26 0800 09/26 0000 Intake Total 1100 900 Output Total 500 Balance 1100 400 Intake, IV 1100 900 Number 1 1 Bowel Movements Output, Urine 500 Patient 254 lb 253 lb Weight Physical Exam Other Physical Findings: She appears comfortable in no acute distress Abdomen is obese, soft, nontender with positive bowel sounds Results Last 24 Hours of Lab Results: Laboratory Tests 09/26 09/26 1030 0630 Chemistry Sodium (137 - 145 mmol/L) 141 Potassium (3.5 - 5.1 mmol/L) 4.1 Chloride (98 - 107 mmol/L) 110 H Carbon Dioxide (22 - 30 mmol/L) 23 Anion Gap (5 - 16) 9 BUN (7 - 17 mg/dL) 9 Creatinine (0.5 - 1.0 mg/dL) 0.6 Estimated GFR (>60 ml/min) > 60 BUN/Creatinine Ratio (7 - 25 %) 15.0 Phosphorus (2.5 - 4.5 mg/dL) 2.6 Magnesium (1.6 - 2.3 mg/dL) 2.3 Hematology CBC w Diff MAN DIFF ORDERED WBC (4.8 - 10.8 /CUMM) 12.6 H RBC (4.20 - 5.40 /CUMM) 3.31 L Hgb (12.0 - 16.0 G/DL) 9.4 L Hct (37 - 47 %) 29.0 L MCV (81.0 - 99.0 FL) 87.6 MCH (27.0 - 31.0 PG) 28.5 MCHC (33.0 - 37.0 G/DL) 32.5 L RDW (11.5 - 14.5 %) 16.0 H Plt Count (130 - 400 /CUMM) 288 MPV (7.4 - 10.4 FL) 8.5 Gran % (42.2 - 75.2 %) 93.7 H Lymphocytes % (20.5 - 51.1 %) 5.3 L Monocytes % (1.7 - 9.3 %) 0.9 L Eosinophils % (0 - 5 %) 0 Basophils % (0.0 - 2.0 %) 0.1 Absolute Granulocytes (1.4 - 6.5 /CUMM) 11.8 H Segmented Neutrophils (42.2 - 75.2 %) 84 H Band Neutrophils (0.0 - 5.0 %) 14 H Absolute Lymphocytes (1.2 - 3.4 /CUMM) 0.7 L Lymphocytes (20.5 - 51.1 %) 2 L Absolute Monocytes (0.10 - 0.60 /CUMM) 0.1 Absolute Eosinophils (0.0 - 0.7 /CUMM) 0 Absolute Basophils (0.0 - 0.2 /CUMM) 0 Platelet Estimate (ADEQUATE) ADEQUATE Hypochromic-Microcytic 1+ Poikilocytosis 1+ Anisocytosis 1+ Urines Urinalysis LIGHT H Urine Color (YEL,AMB,STR) YEL Urine Clarity (CLEAR) HAZY H Urine pH (5.0 - 8.0) 6.0 Ur Specific [place] (1.001 - 1.035) >= 1.030 Urine Protein (NEG,<30 MG/DL) TRACE H Urine Ketones (NEG) NEG Urine Nitrite (NEG) NEG Urine Bilirubin (NEG) NEG Urine Urobilinogen (0.1 - 1.0 EU/dl) 1.0 Ur Leukocyte Esterase (NEG) TRACE H Ur Microscopic SEDIMENT EXAMINED Urine RBC (0 - 5 /HPF) 1-3 Urine WBC (0 - 2 /HPF) 1-3 H Ur Epithelial Cells (NONE,FEW) MANY H Urine Bacteria (NEG/NONE) MOD H Urine Mucus (FEW,NONE) FEW Micro UA Comment BUDDING YEAST H Urine Hemoglobin (NEG) TRACE-INTACT Urine Glucose (N MG/DL) NEG Last 24 Hours of Cecilio Results: Blood cultures September 24 1 bottle positive for Bacteroides fragilis Urine culture September 24 negative Stool culture September 25 no growth Recent Imaging Studies: Abdominal x-ray September 26 negative Assessment/Plan ID Impression: Improved overall, with temperatures normal (on steroids) but with her white blood cell count still elevated, possibly secondary to steroids, with decreased bands on today's differential, on Ceftriaxone and Flagyl, Day 2 of treatment for Bacteroides fragilis sepsis, presumably secondary to a perforation related to her ulcerative colitis. Surgical evaluation noted and appreciated. Suggestion: 1. Further management of her ulcerative colitis per GI 2. Continue Ceftriaxone and Flagyl but, upon discharge, can change to Ciprofloxacin 500 mg p.o. every 12 hours and Flagyl 500 mg p.o. every 8 hours to complete a 10 day course of treatment
[2017-09-26 21:58] VITALS: BP 132/84
[2017-09-27 06:20] VITALS: BP 138/80
[2017-09-27 08:39] LABS: ABSOLUTE BASOPHIL COUNT 0 /CUMM (0.0-0.2); ABSOLUTE EOSINOPHIL COUNT 0 /CUMM (0.0-0.7); ABSOLUTE GRANULOCYTE CT 8.4 /CUMM (1.4-6.5); ABSOLUTE LYMPH COUNT 0.8 /CUMM (1.2-3.4); ABSOLUTE MONOCYTE COUNT 0.1 /CUMM (0.10-0.60); BASOPHIL % 0.2 % (0.0-2.0); EOSINOPHIL % 0 % (0-5); GRANULOCYTE % 90.2 % (42.2-75.2); HEMATOCRIT 29.9 % (37-47); MEAN CORPUSCULAR HGB 28.4 PG (27.0-31.0); MEAN CORPUSCULAR HGB CONC 32.5 G/DL (33.0-37.0); MEAN CORPUSCULAR VOLUME 87.3 FL (81.0-99.0); MEAN PLATELET VOLUME 8.9 FL (7.4-10.4); PLATELET COUNT 292 /CUMM (130-400); RBC DISTRIBUTION WIDTH 15.9 % (11.5-14.5); RED BLOOD CELL CT 3.42 /CUMM (4.20-5.40); WHITE BLOOD CELL COUNT 9.4 /CUMM (4.8-10.8)
--- NOTE | 2017-09-27 09:01 | PN- Housestaff ---
Subjective Follow-up For: Ulcerative colitis Potential infective colitis Subjective: Patient continues to have abdominal pain and diarrhea, 15 episodes today. She noted some blood in the diarrhea. She denies any other symptoms and has stable vitals. Review of Systems Constitutional: Reports: no symptoms. Cardiovascular: Reports: no symptoms. Respiratory: Reports: no symptoms. Gastrointestinal: Reports: abdominal pain, diarrhea, bloody stool. Genitourinary: Reports: no symptoms. Musculoskeletal: Reports: no symptoms. Skin: Reports: no symptoms. Objective Last 24 Hrs of Vital Signs/I&O Vital Signs Date Time Temp Pulse Resp B/P B/P Pulse O2 O2 Flow FiO2 Mean Ox Delivery Rate 09/27 1429 97.0 77 20 124/78 98 Room Air 09/27 0800 Room Air 09/27 0620 98.6 79 20 138/80 98 Room Air 09/26 2158 97.9 74 20 132/84 99 Intake & Output 09/27 1600 09/27 0800 09/27 0000 Intake Total 360 630 630 Output Total Balance 360 630 630 Intake, IV 150 150 Intake, Oral 360 480 480 Number 5 Bowel Movements Physical Exam General Appearance: Alert, Oriented X3, Cooperative, No Acute Distress Skin: No Rashes, No Breakdown, No Significant Lesion Skin Temp/Moisture Exam: Warm/Dry Sepsis Skin Exam (color): Normal for Ethnicity HEENT: Atraumatic, EOMI, Mucous Membr. moist/pink Cardiovascular: Regular Rate, Normal S1, Normal S2, No Murmurs Lungs: Clear to Auscultation, Normal Air Movement Abdomen: Normal Bowel Sounds, Soft, No Tenderness, No Hepatospenomegaly Neurological: Normal Speech Current Medications: Current Medications Sig/Raymond Start time Last Medication Dose Route Stop Time Status Admin Acetaminophen 1,000 MG Q6P PRN 09/24 224 AC N/A 1 UNIT IV Ceftriaxone Sodium 1,000 MG Q24H 09/26 2199 DC 09/26 IV 220 Ciprofloxacin 500 MG BID 09/27 2099 AC PO 10/01 2058 Famotidine 20 MG DAILY 09/24 2013 AC 09/27 PO 0903 Heparin Sodium 5,000 UNIT Q8 09/24 2199 AC 09/27 (Porcine) SC 1507 Loperamide HCl 2 MG Q6P PRN 09/27 1800 AC 09/27 PO 1759 Loperamide HCl 2 MG ONE ONE 09/27 1330 DC 09/27 PO 09/27 1331 1343 Melatonin 5 MG AT BEDTIME 09/25 2099 AC 09/26 PO 2205 Mesalamine 1,600 MG TID 09/24 2099 AC 09/27 PO 1611 Methylprednisolone 40 MG Q12 09/24 2099 AC 09/27 IV 0904 Metronidazole 500 MG Q8H 09/25 0130 09/27 N/A 1 UNIT IV 1759 Ondansetron HCl 4 MG Q6P PRN 09/24 2245 AC 09/25 IV 0936 Last 24 Hrs of Lab/Cecilio Results Last 24 Hrs of Labs/Mics: Laboratory Tests 09/27/17 1055: Anion Gap 12, Estimated GFR > 60, BUN/Creatinine Ratio 21.4 09/27/17 0710: CBC w Diff NO MAN DIFF REQ, RBC 3.42 L, MCV 87.3, MCH 28.4, MCHC 32.5 L, RDW 15.9 H, MPV 8.9, Gran % 90.2 H, Lymphocytes % 8.5 L, Monocytes % 1.1 L, Eosinophils % 0, Basophils % 0.2, Absolute Granulocytes 8.4 H, Absolute Lymphocytes 0.8 L, Absolute Monocytes 0.1, Absolute Eosinophils 0, Absolute Basophils 0 Microbiology 09/27 1519 STOOL: Clostridium difficile Toxin A & B - RECD Assessment/Plan Assessment: 37-year-old female with past medical history of ulcerative colitis on intyvio, prednisone, methylamine, came to [place] ER with complaints of weakness, fever with chills, headache. Assessment and plan 1. Colitis-rule out flareup of ulcerative colitis/infectious colitis 2. Hypokalemia 3. Ulcerative colitis * Patient being treated for a flareup of ulcerative colitis/infectious colitis on Ceftriaxone and Flagyl, Day 3 of treatment for Bacteroides fragilis sepsis, presumably secondary to a perforation related to her ulcerative colitis although xray shows no suggestion of perf. Patient C. difficile negative initially but continues to have bad diarrhea so we will draw another C. difficile level and then start the patient on Imodium. Patient is on ceftriaxone and Flagyl in view of possible perforation but as per ID today we will DC ceftriaxone and start Cipro 500 mg twice a day for 1 more week and we will continue Flagyl and transition to 500 mg by mouth every 8 on discharge for 10 days of total treatment. Abdominal x-ray negative for any perforation. This was discussed with colorectal surgeon and manager rail suggested to advance her diet to full liquid which she is still currently on. Patient blood culture growing gram- negative rods. This bacteremia can be secondary due to translocation. We will follow final culture. Patient is on mesalamine and IV soluMedrol 40 mg twice a day. Eventually taper IV Solu-Medrol to by mouth steroids. * Hypokalemia - resolved. * Accu-Check. * GI prophylaxis-Pepcid 20 daily Code-full code Diet-liquid diet DVT prophylaxis-Alps Problem List: 1. Ulcerative colitis Pain Ratin Pain Location: abdomen centrally Pain Goal: Pain 4 or less Pain Plan: na Tomorrow's Labs & Rationales: cbc
--- NOTE | 2017-09-27 10:45 | PN- General Surgery ---
Subjective Subjective: Awake and alert, having non bloody diarrhea. No complaints of abdominal pain Not much of an appetite Objective Vital Signs and I&Os Vital Signs Date Time Temp Pulse Resp B/P B/P Pulse O2 O2 Flow FiO2 Mean Ox Delivery Rate 09/27 0620 98.6 79 20 138/80 98 Room Air 09/26 2158 97.9 74 20 132/84 99 09/26 1348 97.8 78 20 128/70 98 Room Air Intake & Output 09/27 1600 09/27 0800 09/27 0000 09/26 1600 09/26 0800 09/26 0000 Intake Total 385 169 5408 900 Output Total 500 Balance 272 075 6695 400 Intake, IV 159 891 9257 900 Intake, Oral 480 480 Number 5 1 1 Bowel Movements Output, Urine 500 Patient 254 lb 253 lb Weight Physical Exam: Abdomen is soft and non tender Assessment/Plan Assessment/Plan Ulcerative colitis, she appears to be improving with no clinical evidence of perforation I would recommend a repeat C. Diff toxin with her increased diarrhea Core Measures Venous Thromboembolism VTE Risk Factors Age>40 No Mechanical VTE Prophylaxis d/t Other No VTE Pharm Prophylaxis d/t Other Attending MD Review Statement Attending Statement Attending MD Statement: examined this patient
--- NOTE | 2017-09-27 13:08 | PN- Gastroenterology ---
Assessment/Plan GI Assessment/Recommendations: Assessment: Ms. Trent is a 37 year old female admitted with an ulcerative colitis flare for which she is now on day #3 of IV solumederol and IV antibiotics with high dose 5-ASA medications. She has grown out bacteroides in her blood which I suspect is secondary to bacterial translocation from active colits. As sensitivities are pending would continue broad spectrum antibiotics for now and tailor them when they come back. As she has been afebrile for 48 hours now and is without any significant abdominal pain on physical exam she can likely be changed over to oral antibiotics tomorrow. She is having more diarrhea since last night which I am hopeful is just secondary to her resuming eating. She had a negative c diff 2 days ago and while it is not unreasonable to check that now as my suspicion for that is low I would start anti-motility agents now to help with her symptoms. If her symptoms fail to improve she may ultimately require a colectomy, but hopefully the diarrhea can be slowed to a point where she can be discharged and give the entyvio another try as she hasn't been fully loaded. Recommendations: 1. Diet as tolearted. 2. Follow up repeat stool for c diff, but would start imodium as needed for now (technically she is already on treatment for this with IV flagyl) 3. Continue IV solumederol 40 mg iv bid 4. Continue mesalamine at current dose 5. Continue IV broad spectrum antibiotics today, but if she remains afebrile would change to oral antibiotics tomorrow as sensitivities allow I will continue to follow this patient and make further recommendations based on her clinical course and results of repeat stool tests and blood work. Problem List: 1. Ulcerative colitis 2. Diarrhea 3. Nausea & vomiting Subjective Subjective: pt having more watery diarrhea since 1am, but no pain and only a scant amount of blood. tolerating a liquid diet. no vomiting. Objective Vital Signs and I&Os Vital Signs Date Time Temp Pulse Resp B/P B/P Pulse O2 O2 Flow FiO2 Mean Ox Delivery Rate 09/27 0800 Room Air 09/27 0620 98.6 79 20 138/80 98 Room Air 09/26 2158 97.9 74 20 132/84 99 09/26 1348 97.8 78 20 128/70 98 Room Air Intake & Output 09/27 1600 09/27 0400 09/26 1600 09/26 0400 09/25 1600 09/25 0400 Intake Total 548 129 8163 900 6890 800 Output Total 500 Balance 552 210 7162 400 6890 800 Intake, IV 139 693 4906 900 6650 400 Intake, Oral 480 480 240 400 Number 5 1 1 1 Bowel Movements Output, Urine 500 Patient 254 lb 243 lb 220 lb Weight Weight Reported by Patient Measurement Method Physical Exam General Appearance: well developed/nourished, no apparent distress, alert, comfortable Head: atraumatic, normal appearance Neck: normal inspection, supple, full range of motion Respiratory: normal breath sounds, chest non-tender, no respiratory distress Cardiovascular: regular rate/rhythm Abdomen: normal bowel sounds, soft, non-tender, no organomegaly Extremities: no edema Skin: intact, normal color Current Medications: Current Medications Sig/Raymond Start time Last Medication Dose Route Stop Time Status Admin Acetaminophen 1,000 MG Q6P PRN 09/24 2244 N/A 1 UNIT IV Ceftriaxone Sodium 1,000 MG Q24H 09/26 2199 09/26 IV 2200 Dextrose/Sodium 1,000 ML Q10H 09/24 2014 OK 09/26 Chloride IV 0554 Famotidine 20 MG DAILY 09/24 2013 AC 09/27 PO 0903 Heparin Sodium 5,000 UNIT Q8 09/24 2199 AC 09/27 (Porcine) SC 0604 Melatonin 5 MG AT BEDTIME 09/25 2099 AC 09/26 PO 2205 Mesalamine 1,600 MG TID 09/24 2099 AC 09/27 PO 0903 Methylprednisolone 40 MG Q12 09/24 2099 09/27 IV 0904 Metronidazole 500 MG Q8H 09/25 0130 09/27 N/A 1 UNIT IV 0904 Ondansetron HCl 4 MG Q6P PRN 09/24 2244 09/25 IV 0936 Patient Medication 1 ED ONE ONE 09/26 1500 OK 09/26 Teaching ED 09/26 1501 2205 Results Pertinent Lab Results: Laboratory Tests 09/27 09/27 1055 0710 Chemistry Sodium (137 - 145 mmol/L) 140 Potassium (3.5 - 5.1 mmol/L) 4.1 Chloride (98 - 107 mmol/L) 107 Carbon Dioxide (22 - 30 mmol/L) 21 L Anion Gap (5 - 16) 12 BUN (7 - 17 mg/dL) 15 Creatinine (0.5 - 1.0 mg/dL) 0.7 Estimated GFR (>60 ml/min) > 60 BUN/Creatinine Ratio (7 - 25 %) 21.4 Hematology CBC w Diff NO MAN DIFF REQ WBC (4.8 - 10.8 /CUMM) 9.4 RBC (4.20 - 5.40 /CUMM) 3.42 L Hgb (12.0 - 16.0 G/DL) 9.7 L Hct (37 - 47 %) 29.9 L MCV (81.0 - 99.0 FL) 87.3 MCH (27.0 - 31.0 PG) 28.4 MCHC (33.0 - 37.0 G/DL) 32.5 L RDW (11.5 - 14.5 %) 15.9 H Plt Count (130 - 400 /CUMM) 292 MPV (7.4 - 10.4 FL) 8.9 Gran % (42.2 - 75.2 %) 90.2 H Lymphocytes % (20.5 - 51.1 %) 8.5 L Monocytes % (1.7 - 9.3 %) 1.1 L Eosinophils % (0 - 5 %) 0 Basophils % (0.0 - 2.0 %) 0.2 Absolute Granulocytes (1.4 - 6.5 /CUMM) 8.4 H Absolute Lymphocytes (1.2 - 3.4 /CUMM) 0.8 L Absolute Monocytes (0.10 - 0.60 /CUMM) 0.1 Absolute Eosinophils (0.0 - 0.7 /CUMM) 0 Absolute Basophils (0.0 - 0.2 /CUMM) 0 09/26 09/26 1030 0630 Chemistry Sodium (137 - 145 mmol/L) 141 Potassium (3.5 - 5.1 mmol/L) 4.1 Chloride (98 - 107 mmol/L) 110 H Carbon Dioxide (22 - 30 mmol/L) 23 Anion Gap (5 - 16) 9 BUN (7 - 17 mg/dL) 9 Creatinine (0.5 - 1.0 mg/dL) 0.6 Estimated GFR (>60 ml/min) > 60 BUN/Creatinine Ratio (7 - 25 %) 15.0 Phosphorus (2.5 - 4.5 mg/dL) 2.6 Magnesium (1.6 - 2.3 mg/dL) 2.3 Hematology CBC w Diff MAN DIFF ORDERED WBC (4.8 - 10.8 /CUMM) 12.6 H RBC (4.20 - 5.40 /CUMM) 3.31 L Hgb (12.0 - 16.0 G/DL) 9.4 L Hct (37 - 47 %) 29.0 L MCV (81.0 - 99.0 FL) 87.6 MCH (27.0 - 31.0 PG) 28.5 MCHC (33.0 - 37.0 G/DL) 32.5 L RDW (11.5 - 14.5 %) 16.0 H Plt Count (130 - 400 /CUMM) 288 MPV (7.4 - 10.4 FL) 8.5 Gran % (42.2 - 75.2 %) 93.7 H Lymphocytes % (20.5 - 51.1 %) 5.3 L Monocytes % (1.7 - 9.3 %) 0.9 L Eosinophils % (0 - 5 %) 0 Basophils % (0.0 - 2.0 %) 0.1 Absolute Granulocytes (1.4 - 6.5 /CUMM) 11.8 H Segmented Neutrophils (42.2 - 75.2 %) 84 H Band Neutrophils (0.0 - 5.0 %) 14 H Absolute Lymphocytes (1.2 - 3.4 /CUMM) 0.7 L Lymphocytes (20.5 - 51.1 %) 2 L Absolute Monocytes (0.10 - 0.60 /CUMM) 0.1 Absolute Eosinophils (0.0 - 0.7 /CUMM) 0 Absolute Basophils (0.0 - 0.2 /CUMM) 0 Platelet Estimate (ADEQUATE) ADEQUATE Hypochromic-Microcytic 1+ Poikilocytosis 1+ Anisocytosis 1+ Urines Urinalysis LIGHT H Urine Color (YEL,AMB,STR) YEL Urine Clarity (CLEAR) HAZY H Urine pH (5.0 - 8.0) 6.0 Ur Specific [place] (1.001 - 1.035) >= 1.030 Urine Protein (NEG,<30 MG/DL) TRACE H Urine Ketones (NEG) NEG Urine Nitrite (NEG) NEG Urine Bilirubin (NEG) NEG Urine Urobilinogen (0.1 - 1.0 EU/dl) 1.0 Ur Leukocyte Esterase (NEG) TRACE H Ur Microscopic SEDIMENT EXAMINED Urine RBC (0 - 5 /HPF) 1-3 Urine WBC (0 - 2 /HPF) 1-3 H Ur Epithelial Cells (NONE,FEW) MANY H Urine Bacteria (NEG/NONE) MOD H Urine Mucus (FEW,NONE) FEW Micro UA Comment BUDDING YEAST H Urine Hemoglobin (NEG) TRACE-INTACT Urine Glucose (N MG/DL) NEG 09/25 09/25 09/25 0613 0600 0440 Chemistry Sodium (137 - 145 mmol/L) 140 Potassium (3.5 - 5.1 mmol/L) 4.4 Chloride (98 - 107 mmol/L) 108 H Carbon Dioxide (22 - 30 mmol/L) 21 L Anion Gap (5 - 16) 11 BUN (7 - 17 mg/dL) 9 Creatinine (0.5 - 1.0 mg/dL) 0.7 Estimated GFR (>60 ml/min) > 60 BUN/Creatinine Ratio (7 - 25 %) 12.9 Lactic Acid (0.7 - 2.1 mmol/L) 1.3 Phosphorus (2.5 - 4.5 mg/dL) 3.6 Magnesium (1.6 - 2.3 mg/dL) 1.8 Hematology CBC w Diff MAN DIFF ORDERED WBC (4.8 - 10.8 /CUMM) 12.2 H RBC (4.20 - 5.40 /CUMM) 3.51 L Hgb (12.0 - 16.0 G/DL) 10.0 L Hct (37 - 47 %) 30.9 L MCV (81.0 - 99.0 FL) 87.9 MCH (27.0 - 31.0 PG) 28.4 MCHC (33.0 - 37.0 G/DL) 32.3 L RDW (11.5 - 14.5 %) 15.6 H Plt Count (130 - 400 /CUMM) 287 MPV (7.4 - 10.4 FL) 8.1 Gran % (42.2 - 75.2 %) 96.4 H Lymphocytes % (20.5 - 51.1 %) 3.1 L Monocytes % (1.7 - 9.3 %) 0.5 L Eosinophils % (0 - 5 %) 0 Basophils % (0.0 - 2.0 %) 0 Absolute Granulocytes (1.4 - 6.5 /CUMM) 11.8 H Segmented Neutrophils (42.2 - 75.2 %) 71 Band Neutrophils (0.0 - 5.0 %) 26 H Absolute Lymphocytes (1.2 - 3.4 /CUMM) 0.4 L Lymphocytes (20.5 - 51.1 %) 3 L Absolute Monocytes (0.10 - 0.60 /CUMM) 0.1 Absolute Eosinophils (0.0 - 0.7 /CUMM) 0 Absolute Basophils (0.0 - 0.2 /CUMM) 0 Platelet Estimate (ADEQUATE) ADEQUATE Normocytic RBCs VERIFIED Normochromic RBCs VERIFIED Other Body Source Stool Calprotectin Pending 09/25 09/25 09/24 09/24 0306 0130 2245 2244 Chemistry Sodium (137 - 145 mmol/L) 136 L Potassium (3.5 - 5.1 mmol/L) 4.3 Chloride (98 - 107 mmol/L) 102 Carbon Dioxide (22 - 30 mmol/L) 13 L Anion Gap (5 - 16) 20 H BUN (7 - 17 mg/dL) 9 Creatinine (0.5 - 1.0 mg/dL) 1.1 H Estimated GFR (>60 ml/min) 56 L BUN/Creatinine Ratio (7 - 25 %) 8.2 Lactic Acid (0.7 - 2.1 mmol/L) Cancelled 2.2 H Cancelled 9.4 H Magnesium (1.6 - 2.3 mg/dL) 0.9 *L C-Reactive Prot, Quant (<1.0 mg/dL) > 9.0 H C-React Prot High Sens (1.0 - 3.0 mg/L) > 15.0 H Hematology ESR Westergren (0 - 20 MM) 55 H 09/24 09/24 09/24 2200 2117 1945 Chemistry Sodium Cancelled Potassium Cancelled Chloride Cancelled Carbon Dioxide Cancelled Anion Gap Cancelled BUN Cancelled Creatinine Cancelled BUN/Creatinine Ratio Cancelled Lactic Acid Cancelled Cancelled Magnesium Cancelled 09/24 09/24 1652 1645 Chemistry Lactic Acid (0.7 - 2.1 mmol/L) 2.3 H Urines Urine Color (YEL,AMB,STR) YEL Urine Clarity (CLEAR) CLEAR Urine pH (5.0 - 8.0) 6.5 Ur Specific [place] (1.001 - 1.035) <= 1.005 Urine Protein (NEG,<30 MG/DL) NEG Urine Ketones (NEG) NEG Urine Nitrite (NEG) NEG Urine Bilirubin (NEG) NEG Urine Urobilinogen (0.1 - 1.0 EU/dl) 0.2 Ur Leukocyte Esterase (NEG) NEG Ur Microscopic EXAM NOT REQUIRED Urine Hemoglobin (NEG) NEG Urine Glucose (N MG/DL) NEG 09/24 1322 Chemistry Sodium (137 - 145 mmol/L) 135 L Potassium (3.5 - 5.1 mmol/L) 2.9 *L Chloride (98 - 107 mmol/L) 95 L Carbon Dioxide (22 - 30 mmol/L) 24 Anion Gap (5 - 16) 16 BUN (7 - 17 mg/dL) 10 Creatinine (0.5 - 1.0 mg/dL) 1.1 H Estimated GFR (>60 ml/min) 56 L BUN/Creatinine Ratio (7 - 25 %) 9.1 Glucose (65 - 99 mg/dL) 99 Lactic Acid (0.7 - 2.1 mmol/L) 3.6 H Calcium (8.4 - 10.2 mg/dL) 8.6 Magnesium (1.6 - 2.3 mg/dL) 1.1 L Total Bilirubin (0.2 - 1.3 mg/dL) 0.8 AST (14 - 36 U/L) 25 ALT (9 - 52 U/L) 24 Alkaline Phosphatase (<127 U/L) 120 Troponin I (< 0.11 ng/ml) < 0.01 Total Protein (6.3 - 8.2 g/dL) 6.0 L Albumin (3.5 - 5.0 g/dL) 3.2 L Globulin (1.9 - 4.2 gm/dL) 2.8 Albumin/Globulin Ratio (1.1 - 2.2 %) 1.1 Total Beta HCG (NEGATIVE) NEGATIVE Hematology CBC w Diff MAN DIFF ORDERED WBC (4.8 - 10.8 /CUMM) 6.9 RBC (4.20 - 5.40 /CUMM) 4.14 L Hgb (12.0 - 16.0 G/DL) 11.8 L Hct (37 - 47 %) 35.9 L MCV (81.0 - 99.0 FL) 86.8 MCH (27.0 - 31.0 PG) 28.6 MCHC (33.0 - 37.0 G/DL) 33.0 RDW (11.5 - 14.5 %) 14.9 H Plt Count (130 - 400 /CUMM) 316 MPV (7.4 - 10.4 FL) 6.9 L Gran % (42.2 - 75.2 %) 95.5 H Lymphocytes % (20.5 - 51.1 %) 4.3 L Monocytes % (1.7 - 9.3 %) 0.1 L Eosinophils % (0 - 5 %) 0 Basophils % (0.0 - 2.0 %) 0.1 Absolute Granulocytes (1.4 - 6.5 /CUMM) 6.6 H Segmented Neutrophils (42.2 - 75.2 %) 77 H Band Neutrophils (0.0 - 5.0 %) 17 H Absolute Lymphocytes (1.2 - 3.4 /CUMM) 0.3 L Lymphocytes (20.5 - 51.1 %) 6 L Absolute Monocytes (0.10 - 0.60 /CUMM) 0 L Absolute Eosinophils (0.0 - 0.7 /CUMM) 0 Absolute Basophils (0.0 - 0.2 /CUMM) 0 Platelet Estimate (ADEQUATE) VERIFIED BY SMEAR Normocytic RBCs VERIFIED Normochromic RBCs VERIFIED > BLOOD CULTURE REPORT Final 09/27/173375 GRAM STAIN SUGGESTIVE OF: GRAM NEGATIVE RODS Called to/Readback by ALYSSIA/DR CHAVEZ by [facility] 09/25/17 [id number]/[id number] CULTURE: BACTEROIDES PROB FRAGILIS
--- NOTE | 2017-09-27 13:39 | PN- Infect Dx ---
Subjective Subjective: Afebrile on steroids. She complains of significant diarrhea over the past 12 hours, with 15 bowel movements reported, some with blood. She does not report any nausea, vomiting or abdominal discomfort. Objective Last 24 Hrs of Vital Signs/I&O Vital Signs Date Time Temp Pulse Resp B/P B/P Pulse O2 O2 Flow FiO2 Mean Ox Delivery Rate 09/27 0800 Room Air 09/27 0620 98.6 79 20 138/80 98 Room Air 09/26 2158 97.9 74 20 132/84 99 09/26 1348 97.8 78 20 128/70 98 Room Air Intake & Output 09/27 1600 09/27 0800 09/27 0000 Intake Total 630 630 Output Total Balance 630 630 Intake, IV 150 150 Intake, Oral 480 480 Number 5 Bowel Movements Physical Exam Other Physical Findings: She appears comfortable in no acute distress Skin macular rash, nonpruritic, on the face and upper chest Lungs are clear Heart regular rhythm with no murmur Abdomen is obese, soft, nontender with positive bowel sounds Extremities no cyanosis, clubbing or edema Results Last 24 Hours of Lab Results: Laboratory Tests 09/27 09/27 1055 0710 Chemistry Sodium (137 - 145 mmol/L) 140 Potassium (3.5 - 5.1 mmol/L) 4.1 Chloride (98 - 107 mmol/L) 107 Carbon Dioxide (22 - 30 mmol/L) 21 L Anion Gap (5 - 16) 12 BUN (7 - 17 mg/dL) 15 Creatinine (0.5 - 1.0 mg/dL) 0.7 Estimated GFR (>60 ml/min) > 60 BUN/Creatinine Ratio (7 - 25 %) 21.4 Hematology CBC w Diff NO MAN DIFF REQ WBC (4.8 - 10.8 /CUMM) 9.4 RBC (4.20 - 5.40 /CUMM) 3.42 L Hgb (12.0 - 16.0 G/DL) 9.7 L Hct (37 - 47 %) 29.9 L MCV (81.0 - 99.0 FL) 87.3 MCH (27.0 - 31.0 PG) 28.4 MCHC (33.0 - 37.0 G/DL) 32.5 L RDW (11.5 - 14.5 %) 15.9 H Plt Count (130 - 400 /CUMM) 292 MPV (7.4 - 10.4 FL) 8.9 Gran % (42.2 - 75.2 %) 90.2 H Lymphocytes % (20.5 - 51.1 %) 8.5 L Monocytes % (1.7 - 9.3 %) 1.1 L Eosinophils % (0 - 5 %) 0 Basophils % (0.0 - 2.0 %) 0.2 Absolute Granulocytes (1.4 - 6.5 /CUMM) 8.4 H Absolute Lymphocytes (1.2 - 3.4 /CUMM) 0.8 L Absolute Monocytes (0.10 - 0.60 /CUMM) 0.1 Absolute Eosinophils (0.0 - 0.7 /CUMM) 0 Absolute Basophils (0.0 - 0.2 /CUMM) 0 Last 24 Hours of Cecilio Results: No recent cultures Assessment/Plan ID Impression: Overall improved, with temperatures and white blood cell count now both normal ( on steroids), on Ceftriaxone and Flagyl, Day 3 of treatment for Bacteroides fragilis sepsis, presumably secondary to a perforation related to her ulcerative colitis. Her diarrhea may be secondary to the ulcerative colitis, but C. difficile could be considered given her recent antibiotics. Her rash may be medication related, though she has no fever or eosinophilia. Suggestion: 1. Stool for C. difficile 2. Further management of her diarrhea per GI 3. Discontinue Ceftriaxone 4. Begin Ciprofloxacin 500 mg p.o. every 12 hours and continue for 1 more week 5. Continue Flagyl with change to 500 mg p.o. every 8 hours upon discharge to complete a 10 day course of treatment
[2017-09-27 14:29] VITALS: BP 124/78
--- NOTE | 2017-09-27 15:48 | PN- Att Addend ---
Attending Addendum Attending Brief Note Covering attending note: Patient in bed in no distress she is afebrile she is on steroids. Still having diarrhea with some blood medication was ordered for her diarrhea. Her abdomen is soft her potassium is within normal limits her white count was 9400 with infectious disease saw the patient antibiotics were adjusted to Cipro and continue the Flagyl Overall improved. Continue treatments as per infectious diseases recommendations follow-up labs closely Intake & Output 09/27 0400 09/26 1600 09/26 0400 09/25 1600 09/25 0400 Intake Total 464 091 9705 900 6890 800 Output Total 500 Balance 978 901 1800 400 6890 800 Intake, IV 066 004 5994 900 6650 400 Intake, Oral 480 480 240 400 Number 5 1 1 1 Bowel Movements Output, Urine 500 Patient 254 lb 243 lb 220 lb Weight Weight Reported by Patient Measurement Method Current Medications Sig/Raymond Start time Last Medication Dose Route Stop Time Status Admin Acetaminophen 1,000 MG Q6P PRN 09/24 2244 N/A 1 UNIT IV Ceftriaxone Sodium 1,000 MG Q24H 09/26 2199 AC 09/26 IV 2200 Dextrose/Sodium 1,000 ML Q10H 09/24 2014 DC 09/26 Chloride IV 0554 Famotidine 20 MG DAILY 09/24 2013 AC 09/27 PO 0903 Heparin Sodium 5,000 UNIT Q8 09/24 2199 AC 09/27 (Porcine) SC 1507 Loperamide HCl 2 MG ONE ONE 09/27 1330 DC 09/27 PO 09/27 1331 1343 Melatonin 5 MG AT BEDTIME 09/25 2099 AC 09/26 PO 220 Mesalamine 1,600 MG TID 09/24 2099 AC 09/27 PO 0903 Methylprednisolone 40 MG Q12 09/24 2099 AC 09/27 IV 0904 Metronidazole 500 MG Q8H 09/25 0130 09/27 N/A 1 UNIT IV 0904 Ondansetron HCl 4 MG Q6P PRN 09/24 2244 09/25 IV 0936 Laboratory Tests 09/27/17 1055: Anion Gap 12, Estimated GFR > 60, BUN/Creatinine Ratio 21.4 09/27/17 0710: CBC w Diff NO MAN DIFF REQ, RBC 3.42 L, MCV 87.3, MCH 28.4, MCHC 32.5 L, RDW 15.9 H, MPV 8.9, Gran % 90.2 H, Lymphocytes % 8.5 L, Monocytes % 1.1 L, Eosinophils % 0, Basophils % 0.2, Absolute Granulocytes 8.4 H, Absolute Lymphocytes 0.8 L, Absolute Monocytes 0.1, Absolute Eosinophils 0, Absolute Basophils 0 09/26/17 1030: Urinalysis LIGHT H, Urine Color YEL, Urine Clarity HAZY H, Urine pH 6.0, Ur Specific [place] >= 1.030, Urine Protein TRACE H, Urine Ketones NEG, Urine Nitrite NEG, Urine Bilirubin NEG, Urine Urobilinogen 1.0, Ur Leukocyte Esterase TRACE H, Ur Microscopic SEDIMENT EXAMINED, Urine RBC 1-3, Urine WBC 1-3 H, Ur Epithelial Cells MANY H, Urine Bacteria MOD H, Urine Mucus FEW, Micro UA Comment BUDDING YEAST H, Urine Hemoglobin TRACE-INTACT, Urine Glucose NEG 09/26/17 0630: Anion Gap 9, Estimated GFR > 60, BUN/Creatinine Ratio 15.0, Phosphorus 2.6, Magnesium 2.3, CBC w Diff MAN DIFF ORDERED, RBC 3.31 L, MCV 87.6, MCH 28.5, MCHC 32.5 L, RDW 16.0 H, MPV 8.5, Gran % 93.7 H, Lymphocytes % 5.3 L, Monocytes % 0.9 L, Eosinophils % 0, Basophils % 0.1, Absolute Granulocytes 11.8 H, Segmented Neutrophils 84 H, Band Neutrophils 14 H, Absolute Lymphocytes 0.7 L, Lymphocytes 2 L, Absolute Monocytes 0.1, Absolute Eosinophils 0, Absolute Basophils 0, Platelet Estimate ADEQUATE, Hypochromic-Microcytic 1+, Poikilocytosis 1+, Anisocytosis 1+ 09/25/17 0613: Anion Gap 11, Estimated GFR > 60, BUN/Creatinine Ratio 12.9, Phosphorus 3.6, Magnesium 1.8, CBC w Diff MAN DIFF ORDERED, RBC 3.51 L, MCV 87.9, MCH 28.4, MCHC 32.3 L, RDW 15.6 H, MPV 8.1, Gran % 96.4 H, Lymphocytes % 3.1 L, Monocytes % 0.5 L, Eosinophils % 0, Basophils % 0, Absolute Granulocytes 11.8 H, Segmented Neutrophils 71, Band Neutrophils 26 H, Absolute Lymphocytes 0.4 L , Lymphocytes 3 L, Absolute Monocytes 0.1, Absolute Eosinophils 0, Absolute Basophils 0, Platelet Estimate ADEQUATE, Normocytic RBCs VERIFIED, Normochromic RBCs VERIFIED 09/25/17 0600: Stool Calprotectin Pending 09/25/17 0440: Lactic Acid 1.3 09/25/17 0306: Lactic Acid Cancelled 09/25/17 0130: Lactic Acid 2.2 H 09/24/17 2245: Lactic Acid Cancelled 09/24/17 2244: Anion Gap 20 H, Estimated GFR 56 L, BUN/Creatinine Ratio 8.2, Lactic Acid 9.4 H, Magnesium 0.9 *L, C-Reactive Prot, Quant > 9.0 H, C-React Prot High Sens > 15.0 H, ESR Westergren 55 H 09/24/17 2200: Sodium Cancelled, Potassium Cancelled, Chloride Cancelled, Carbon Dioxide Cancelled, Anion Gap Cancelled, BUN Cancelled, Creatinine Cancelled, BUN/ Creatinine Ratio Cancelled, Magnesium Cancelled 09/24/17 2117: Lactic Acid Cancelled 09/24/17 1945: Lactic Acid Cancelled 09/24/17 1652: Urine Color YEL, Urine Clarity CLEAR, Urine pH 6.5, Ur Specific [place] <= 1.005 , Urine Protein NEG, Urine Ketones NEG, Urine Nitrite NEG, Urine Bilirubin NEG, Urine Urobilinogen 0.2, Ur Leukocyte Esterase NEG, Ur Microscopic EXAM NOT REQUIRED, Urine Hemoglobin NEG, Urine Glucose NEG 09/24/17 1645: Lactic Acid 2.3 H Microbiology 09/27 1300 STOOL: Clostridium difficile Toxin A & B - COLB 09/25 06 STOOL: Clostridium difficile Toxin A & B - RES 09/25 06 STOOL: Vibrio Culture - RES 09/25 06 STOOL: Yersinia Culture - RES 09/25 06 STOOL: Stool Culture - RES 09/25 06 STOOL: Cryptosporidium Antigen - COMP 09/25 06 STOOL: Giardia Antigen (TRAY) - COMP 09/24 1745 STOOL: Clostridium difficile Toxin A & B - CAN Cancelled: COMBINED 09/24 165 URINE ROUT: Urine Culture - COMP 09/24 1638 NASOPHARYN: Influenza Virus A & B Rapid Smear - COMP Microbiology 09/27 1300 STOOL: Clostridium difficile Toxin A & B - COLB 09/25 0600 STOOL: Clostridium difficile Toxin A & B - RES 09/25 06 STOOL: Vibrio Culture - RES 09/25 599 STOOL: Yersinia Culture - RES 09/25 599 STOOL: Stool Culture - RES 09/25 599 STOOL: Cryptosporidium Antigen - COMP 09/25 599 STOOL: Giardia Antigen (TRAY) - COMP 09/24 174 STOOL: Clostridium difficile Toxin A & B - CAN Cancelled: COMBINED 09/24 1652 URINE ROUT: Urine Culture - COMP 09/24 1638 NASOPHARYN: Influenza Virus A & B Rapid Smear - COMP Vital Signs Date Time Temp Pulse Resp B/P B/P Pulse O2 O2 Flow FiO2 Mean Ox Delivery Rate 09/27 1429 97.0 77 20 124/78 98 Room Air 09/27 0800 Room Air 09/27 06 98.6 79 20 138/80 98 Room Air 09/26 2158 97.9 74 20 132/84 99 Antibiotics will be adjusted as per consultants recommendations.
[2017-09-27 22:37] VITALS: BP 128/80
[2017-09-28 06:22] VITALS: BP 120/70
--- NOTE | 2017-09-28 08:03 | PN- Housestaff ---
Subjective Follow-up For: Ulcerative colitis Potential infective colitis Subjective: Patient seen and examined at bedside. She was sitting in her bed comfortably. Patient denies abdominal pain, nausea, vomiting, diarrhea. She is able to tolerate oral feeds. Review of Systems Constitutional: Reports: no symptoms, see HPI. Objective Last 24 Hrs of Vital Signs/I&O Vital Signs Date Time Temp Pulse Resp B/P B/P Pulse O2 O2 Flow FiO2 Mean Ox Delivery Rate 09/28 0800 Room Air 09/28 0622 98.7 56 18 120/70 96 Room Air 09/27 2237 97.9 58 18 128/80 98 Room Air 09/27 1429 97.0 77 20 124/78 98 Room Air Intake & Output 09/28 1600 09/28 0800 09/28 0000 Intake Total 390 630 Output Total Balance 390 630 Intake, IV 150 150 Intake, Oral 240 480 Physical Exam General Appearance: Alert, Oriented X3, Cooperative, No Acute Distress Cardiovascular: Regular Rate, Normal S1, Normal S2, No Murmurs Lungs: Clear to Auscultation Abdomen: Soft, No Tenderness, No Hepatospenomegaly Neurological: Normal Speech, Strength at 5/5 X4 Ext, Normal Tone, Sensation Intact, Cranial Nerves 3-12 NL Vascular: Pulses Symmetrical Current Medications: Current Medications Sig/Raymond Start time Last Medication Dose Route Stop Time Status Admin Acetaminophen 1,000 MG Q6P PRN 09/24 224 AC N/A 1 UNIT IV Ceftriaxone Sodium 1,000 MG Q24H 09/26 2199 DC 09/26 IV 2200 Ciprofloxacin 500 MG BID 09/27 2099 AC 09/28 PO 10/01 2058 0941 Famotidine 20 MG DAILY 09/24 2013 AC 09/28 PO 08 Heparin Sodium 5,000 UNIT Q8 09/24 2199 AC 09/28 (Porcine) SC 0609 Loperamide HCl 2 MG Q6P PRN 09/27 1800 AC 09/28 PO 0739 Loperamide HCl 2 MG ONE ONE 09/27 1330 DC 09/27 PO 09/27 1331 1343 Melatonin 5 MG AT BEDTIME 09/25 2099 AC 09/27 PO 220 Mesalamine 1,600 MG TID 09/24 2099 AC 09/28 PO 0813 Methylprednisolone 40 MG Q12 09/24 2099 AC 09/28 IV 0813 Metronidazole 500 MG Q8H 09/25 0130 AC 09/28 N/A 1 UNIT IV 0941 Ondansetron HCl 4 MG Q6P PRN 09/24 2245 09/25 IV 0936 Last 24 Hrs of Lab/Cecilio Results Last 24 Hrs of Labs/Mics: Laboratory Tests 09/28/17 0640: CBC w Diff NO MAN DIFF REQ, RBC 3.58 L, MCV 87.6, MCH 28.3, MCHC 32.3 L, RDW 15.9 H, MPV 8.7, Gran % 85.7 H, Lymphocytes % 12.8 L, Monocytes % 1.3 L, Eosinophils % 0, Basophils % 0.2, Absolute Granulocytes 7.9 H, Absolute Lymphocytes 1.2, Absolute Monocytes 0.1, Absolute Eosinophils 0, Absolute Basophils 0 Microbiology 09/27 1519 STOOL: Clostridium difficile Toxin A & B - COMP Assessment/Plan Assessment: 37-year-old female with past medical history of ulcerative colitis on intyvio, prednisone, methylamine, came to [facility] with complaints of weakness, fever with chills, headache. Assessment and plan 1. Colitis-rule out flareup of ulcerative colitis/infectious colitis 2. Hypokalemia 3. Ulcerative colitis * Patient being treated for a flareup of ulcerative colitis/infectious colitis on ciprofloxacin and Flagyl, for Bacteroides fragilis sepsis, presumably secondary to a perforation related to her ulcerative colitis although xray shows no suggestion of perf. Patient C. difficile negative initially but continues to have bad diarrhea so we will draw another C. difficile level and then start the patient on Imodium. Patient WAS on ceftriaxone and Flagyl in view of possible perforation but as per ID today ceftriaxone was discontinued. Abdominal x-ray negative for any perforation. This was discussed with colorectal surgeon and truck despatcher suggested to advance her diet as tolerated.Patient's diet was advanced to regular diet. Patient is on mesalamine and IV soluMedrol 40 mg twice a day. Eventually taper IV Solu-Medrol to by mouth steroids. * Hypokalemia - resolved. * Accu-Check. * GI prophylaxis-Pepcid 20 daily Code-full code Diet-liquid diet DVT prophylaxis-Alps Problem List: 1. Ulcerative colitis Pain Ratin Pain Location: NONE Pain Goal: Remain pain free Pain Plan: TYLENOL Tomorrow's Labs & Rationales: CBC,BEP
[2017-09-28 08:39] LABS: ABSOLUTE BASOPHIL COUNT 0 /CUMM (0.0-0.2); ABSOLUTE EOSINOPHIL COUNT 0 /CUMM (0.0-0.7); ABSOLUTE GRANULOCYTE CT 7.9 /CUMM (1.4-6.5); ABSOLUTE LYMPH COUNT 1.2 /CUMM (1.2-3.4); ABSOLUTE MONOCYTE COUNT 0.1 /CUMM (0.10-0.60); BASOPHIL % 0.2 % (0.0-2.0); EOSINOPHIL % 0 % (0-5); GRANULOCYTE % 85.7 % (42.2-75.2); HEMATOCRIT 31.4 % (37-47); MEAN CORPUSCULAR HGB 28.3 PG (27.0-31.0); MEAN CORPUSCULAR HGB CONC 32.3 G/DL (33.0-37.0); MEAN CORPUSCULAR VOLUME 87.6 FL (81.0-99.0); MEAN PLATELET VOLUME 8.7 FL (7.4-10.4); PLATELET COUNT 335 /CUMM (130-400); RBC DISTRIBUTION WIDTH 15.9 % (11.5-14.5); RED BLOOD CELL CT 3.58 /CUMM (4.20-5.40); WHITE BLOOD CELL COUNT 9.2 /CUMM (4.8-10.8)
--- NOTE | 2017-09-28 09:17 | PN- General Surgery ---
See Addendum Subjective Subjective: PT IN BED, NO ABD PAIN, NO NAUSEA. STILL HAVING DIARRHEA BUT IT HAS DECREASED SLIGHTLY WITH IMMODIUM. TOLERATING FULLS. VOIDING, AMBULATING TO BATHROOM. DENIES FEVER, CP/SOB,RICARDO Objective Vital Signs and I&Os Vital Signs Date Time Temp Pulse Resp B/P B/P Pulse O2 O2 Flow FiO2 Mean Ox Delivery Rate 09/28 0622 98.7 56 18 120/70 96 Room Air 09/27 2237 97.9 58 18 128/80 98 Room Air 09/27 1429 97.0 77 20 124/78 98 Room Air Intake & Output 09/28 1600 09/28 0800 09/28 0000 09/27 1600 09/27 0800 09/27 0000 Intake Total 390 630 360 630 630 Output Total Balance 390 630 360 630 630 Intake, IV 150 150 150 150 Intake, Oral 240 480 360 480 480 Number 5 Bowel Movements Physical Exam: GEN- NAD RESP- CLEAR CARDIAC- RRR ABD- OBESE, +BS, NONTENDER Current Medications: Current Medications Sig/Raymond Start time Last Medication Dose Route Stop Time Status Admin Acetaminophen 1,000 MG Q6P PRN 09/24 2244 AC N/A 1 UNIT IV Ceftriaxone Sodium 1,000 MG Q24H 09/26 220 DC 09/26 IV 2200 Ciprofloxacin 500 MG BID 09/27 2099 AC 09/27 PO 10/01 Famotidine 20 MG DAILY 09/24 2013 AC 09/28 PO 0813 Heparin Sodium 5,000 UNIT Q8 09/24 2199 AC 09/28 (Porcine) SC 0609 Loperamide HCl 2 MG Q6P PRN 09/27 1800 AC 09/28 PO 0739 Loperamide HCl 2 MG ONE ONE 09/27 1330 DC 09/27 PO 09/27 1331 1343 Melatonin 5 MG AT BEDTIME 09/25 2099 AC 09/27 PO 2203 Mesalamine 1,600 MG TID 09/24 2099 AC 09/28 PO 0813 Methylprednisolone 40 MG Q12 09/24 2099 AC 09/28 IV 0813 Metronidazole 500 MG Q8H 09/25 0130 AC 09/28 N/A 1 UNIT IV 0222 Ondansetron HCl 4 MG Q6P PRN 09/24 224 AC 09/25 IV 0936 Results Last 48 Hours of Labs: Laboratory Tests 09/28 09/27 09/27 0640 1055 0710 Chemistry Sodium (137 - 145 mmol/L) 140 Potassium (3.5 - 5.1 mmol/L) 4.1 Chloride (98 - 107 mmol/L) 107 Carbon Dioxide (22 - 30 mmol/L) 21 L Anion Gap (5 - 16) 12 BUN (7 - 17 mg/dL) 15 Creatinine (0.5 - 1.0 mg/dL) 0.7 Estimated GFR (>60 ml/min) > 60 BUN/Creatinine Ratio (7 - 25 %) 21.4 Hematology CBC w Diff Pending NO MAN DIFF REQ WBC (4.8 - 10.8 /CUMM) Pending 9.4 RBC (4.20 - 5.40 /CUMM) Pending 3.42 L Hgb (12.0 - 16.0 G/DL) Pending 9.7 L Hct (37 - 47 %) Pending 29.9 L MCV (81.0 - 99.0 FL) Pending 87.3 MCH (27.0 - 31.0 PG) Pending 28.4 MCHC (33.0 - 37.0 G/DL) Pending 32.5 L RDW (11.5 - 14.5 %) Pending 15.9 H Plt Count (130 - 400 /CUMM) Pending 292 MPV (7.4 - 10.4 FL) Pending 8.9 Gran % (42.2 - 75.2 %) 90.2 H Lymphocytes % (20.5 - 51.1 %) 8.5 L Monocytes % (1.7 - 9.3 %) 1.1 L Eosinophils % (0 - 5 %) 0 Basophils % (0.0 - 2.0 %) 0.2 Absolute Granulocytes (1.4 - 6.5 /CUMM) 8.4 H Absolute Lymphocytes (1.2 - 3.4 /CUMM) 0.8 L Absolute Monocytes (0.10 - 0.60 /CUMM) 0.1 Absolute Eosinophils (0.0 - 0.7 /CUMM) 0 Absolute Basophils (0.0 - 0.2 /CUMM) 0 09/26 1030 Urines Urinalysis LIGHT H Urine Color (YEL,AMB,STR) YEL Urine Clarity (CLEAR) HAZY H Urine pH (5.0 - 8.0) 6.0 Ur Specific [place] (1.001 - 1.035) >= 1.030 Urine Protein (NEG,<30 MG/DL) TRACE H Urine Ketones (NEG) NEG Urine Nitrite (NEG) NEG Urine Bilirubin (NEG) NEG Urine Urobilinogen (0.1 - 1.0 EU/dl) 1.0 Ur Leukocyte Esterase (NEG) TRACE H Ur Microscopic SEDIMENT EXAMINED Urine RBC (0 - 5 /HPF) 1-3 Urine WBC (0 - 2 /HPF) 1-3 H Ur Epithelial Cells (NONE,FEW) MANY H Urine Bacteria (NEG/NONE) MOD H Urine Mucus (FEW,NONE) FEW Micro UA Comment BUDDING YEAST H Urine Hemoglobin (NEG) TRACE-INTACT Urine Glucose (N MG/DL) NEG Assessment/Plan Assessment/Plan 37YO F WITH ULCERATIVE COLITIS, NO EVIDENCE OF PERFORATION. STABLE WITH MEDICAL MANAGEMENT. DIARRHEA HAS DECREASED WITH IMMODIUM NO NEED FOR SURGICAL INTERVENTION AT THIS TIME PT SEEMS TO BE IMPROVING. PT MAY FU WITH DR CIFUENTES OUTPT IF SHE WISHES TO EXPLORE OPTION OF ELECTIVE TOTAL COLECTOMY FOR TREATMENT OF HER UC. CONT ABX AND SOLU-MED PER GI DIET PER GI- CURRENTLY ON FULLS, GI REC TO ADVANCE TOLERATED YESTERDAY AWAITING REPEAT C. DIFF CULTURE Core Measures Venous Thromboembolism VTE Risk Factors Age>40 No Mechanical VTE Prophylaxis d/t Other No VTE Pharm Prophylaxis d/t Other
--- NOTE | 2017-09-28 10:16 | PN- Gastroenterology ---
Assessment/Plan GI Assessment/Recommendations: Assessment: Ms. Trent is a 37 year old female with steroid dependent ulcerative colitis who is currently having a flare for which she is now on day # 4 of IV solumederol. She is starting to have some improvement in her diarrhea with the addition of imodium, but as she is still having diarrhea I would keep her on IV solumederol for another 24-48 hours. She is growing bacteroides in her blood which I suspect is secondary to bacterial translocation from her colitis and as she has been afebrile I am hopeful that her antibiotics can be changed over to oral antribiotics to complete a 7-10 day course. I feel the other culture growing gram positive cocci is likely a contaminant. Recommendations: 1. Continue IV solumederol 40 mg IV bid through today and will likey recommend changing to a oral prednisone in the next 24-48 hours. 2. Continue oral mesalamine at current dose 3. Advance diet as tolerated 4. Follow up repeat c diff 5. Follow up culture results and tailor abx as indicated and if she remains afebrile would change her to oral abx to complete a 7-10 day course 6. Ok to continue imodium as needed 7. Follow lytes and replete as needed. I will continue to follow this patient and make further recommendations based on her clinical course and repeat blood work Problem List: 1. Ulcerative colitis 2. Diarrhea 3. Dehydration Subjective Subjective: pt continues to improve, noting she feels the diarrhea has been helped with the addition of imodium. She is without any significant abdominal pain or vomiting. She also notes some formation of the stool, but it is still loose. Objective Vital Signs and I&Os Vital Signs Date Time Temp Pulse Resp B/P B/P Pulse O2 O2 Flow FiO2 Mean Ox Delivery Rate 09/28 0622 98.7 56 18 120/70 96 Room Air 09/27 2237 97.9 58 18 128/80 98 Room Air 09/27 1429 97.0 77 20 124/78 98 Room Air Intake & Output 09/28 1600 09/28 0400 09/27 1600 09/27 0400 09/26 1600 09/26 0400 Intake Total 390 630 195 492 3660 900 Output Total 500 Balance 390 630 570 861 7068 400 Intake, IV 150 150 272 593 4237 900 Intake, Oral 240 480 840 480 Number 5 1 1 Bowel Movements Output, Urine 500 Patient 254 lb Weight Physical Exam General Appearance: well developed/nourished, no apparent distress, comfortable Head: atraumatic, normal appearance Neck: normal inspection, supple, full range of motion Respiratory: normal breath sounds, chest non-tender Cardiovascular: regular rate/rhythm Abdomen: normal bowel sounds, soft, non-tender, no organomegaly Extremities: no edema Current Medications: Current Medications Sig/Raymond Start time Last Medication Dose Route Stop Time Status Admin Acetaminophen 1,000 MG Q6P PRN 09/24 2244 AC N/A 1 UNIT IV Ceftriaxone Sodium 1,000 MG Q24H 09/26 2199 DC 09/26 IV 2200 Ciprofloxacin 500 MG BID 09/27 2099 AC 09/28 PO 10/01 2058 0941 Famotidine 20 MG DAILY 09/24 2013 AC 09/28 PO 08 Heparin Sodium 5,000 UNIT Q8 09/24 2199 AC 09/28 (Porcine) SC 0609 Loperamide HCl 2 MG Q6P PRN 09/27 1800 AC 09/28 PO 0739 Loperamide HCl 2 MG ONE ONE 09/27 1330 DC 09/27 PO 09/27 1331 1343 Melatonin 5 MG AT BEDTIME 09/25 2099 AC 09/27 PO 2203 Mesalamine 1,600 MG TID 09/24 2099 AC 09/28 PO 0813 Methylprednisolone 40 MG Q12 09/24 2099 AC 09/28 IV 0813 Metronidazole 500 MG Q8H 09/25 0130 AC 09/28 N/A 1 UNIT IV 0941 Ondansetron HCl 4 MG Q6P PRN 09/24 2244 AC 09/25 IV 0936 Results Pertinent Lab Results: Laboratory Tests 09/28 09/27 0640 1055 Chemistry Sodium (137 - 145 mmol/L) 140 Potassium (3.5 - 5.1 mmol/L) 4.1 Chloride (98 - 107 mmol/L) 107 Carbon Dioxide (22 - 30 mmol/L) 21 L Anion Gap (5 - 16) 12 BUN (7 - 17 mg/dL) 15 Creatinine (0.5 - 1.0 mg/dL) 0.7 Estimated GFR (>60 ml/min) > 60 BUN/Creatinine Ratio (7 - 25 %) 21.4 Hematology CBC w Diff NO MAN DIFF REQ WBC (4.8 - 10.8 /CUMM) 9.2 RBC (4.20 - 5.40 /CUMM) 3.58 L Hgb (12.0 - 16.0 G/DL) 10.1 L Hct (37 - 47 %) 31.4 L MCV (81.0 - 99.0 FL) 87.6 MCH (27.0 - 31.0 PG) 28.3 MCHC (33.0 - 37.0 G/DL) 32.3 L RDW (11.5 - 14.5 %) 15.9 H Plt Count (130 - 400 /CUMM) 335 MPV (7.4 - 10.4 FL) 8.7 Gran % (42.2 - 75.2 %) 85.7 H Lymphocytes % (20.5 - 51.1 %) 12.8 L Monocytes % (1.7 - 9.3 %) 1.3 L Eosinophils % (0 - 5 %) 0 Basophils % (0.0 - 2.0 %) 0.2 Absolute Granulocytes (1.4 - 6.5 /CUMM) 7.9 H Absolute Lymphocytes (1.2 - 3.4 /CUMM) 1.2 Absolute Monocytes (0.10 - 0.60 /CUMM) 0.1 Absolute Eosinophils (0.0 - 0.7 /CUMM) 0 Absolute Basophils (0.0 - 0.2 /CUMM) 0 09/27 09/26 0710 1030 Hematology CBC w Diff NO MAN DIFF REQ WBC (4.8 - 10.8 /CUMM) 9.4 RBC (4.20 - 5.40 /CUMM) 3.42 L Hgb (12.0 - 16.0 G/DL) 9.7 L Hct (37 - 47 %) 29.9 L MCV (81.0 - 99.0 FL) 87.3 MCH (27.0 - 31.0 PG) 28.4 MCHC (33.0 - 37.0 G/DL) 32.5 L RDW (11.5 - 14.5 %) 15.9 H Plt Count (130 - 400 /CUMM) 292 MPV (7.4 - 10.4 FL) 8.9 Gran % (42.2 - 75.2 %) 90.2 H Lymphocytes % (20.5 - 51.1 %) 8.5 L Monocytes % (1.7 - 9.3 %) 1.1 L Eosinophils % (0 - 5 %) 0 Basophils % (0.0 - 2.0 %) 0.2 Absolute Granulocytes (1.4 - 6.5 /CUMM) 8.4 H Absolute Lymphocytes (1.2 - 3.4 /CUMM) 0.8 L Absolute Monocytes (0.10 - 0.60 /CUMM) 0.1 Absolute Eosinophils (0.0 - 0.7 /CUMM) 0 Absolute Basophils (0.0 - 0.2 /CUMM) 0 Urines Urinalysis LIGHT H Urine Color (YEL,AMB,STR) YEL Urine Clarity (CLEAR) HAZY H Urine pH (5.0 - 8.0) 6.0 Ur Specific [place] (1.001 - 1.035) >= 1.030 Urine Protein (NEG,<30 MG/DL) TRACE H Urine Ketones (NEG) NEG Urine Nitrite (NEG) NEG Urine Bilirubin (NEG) NEG Urine Urobilinogen (0.1 - 1.0 EU/dl) 1.0 Ur Leukocyte Esterase (NEG) TRACE H Ur Microscopic SEDIMENT EXAMINED Urine RBC (0 - 5 /HPF) 1-3 Urine WBC (0 - 2 /HPF) 1-3 H Ur Epithelial Cells (NONE,FEW) MANY H Urine Bacteria (NEG/NONE) MOD H Urine Mucus (FEW,NONE) FEW Micro UA Comment BUDDING YEAST H Urine Hemoglobin (NEG) TRACE-INTACT Urine Glucose (N MG/DL) NEG 09/26 0630 Chemistry Sodium (137 - 145 mmol/L) 141 Potassium (3.5 - 5.1 mmol/L) 4.1 Chloride (98 - 107 mmol/L) 110 H Carbon Dioxide (22 - 30 mmol/L) 23 Anion Gap (5 - 16) 9 BUN (7 - 17 mg/dL) 9 Creatinine (0.5 - 1.0 mg/dL) 0.6 Estimated GFR (>60 ml/min) > 60 BUN/Creatinine Ratio (7 - 25 %) 15.0 Phosphorus (2.5 - 4.5 mg/dL) 2.6 Magnesium (1.6 - 2.3 mg/dL) 2.3 Hematology CBC w Diff MAN DIFF ORDERED WBC (4.8 - 10.8 /CUMM) 12.6 H RBC (4.20 - 5.40 /CUMM) 3.31 L Hgb (12.0 - 16.0 G/DL) 9.4 L Hct (37 - 47 %) 29.0 L MCV (81.0 - 99.0 FL) 87.6 MCH (27.0 - 31.0 PG) 28.5 MCHC (33.0 - 37.0 G/DL) 32.5 L RDW (11.5 - 14.5 %) 16.0 H Plt Count (130 - 400 /CUMM) 288 MPV (7.4 - 10.4 FL) 8.5 Gran % (42.2 - 75.2 %) 93.7 H Lymphocytes % (20.5 - 51.1 %) 5.3 L Monocytes % (1.7 - 9.3 %) 0.9 L Eosinophils % (0 - 5 %) 0 Basophils % (0.0 - 2.0 %) 0.1 Absolute Granulocytes (1.4 - 6.5 /CUMM) 11.8 H Segmented Neutrophils (42.2 - 75.2 %) 84 H Band Neutrophils (0.0 - 5.0 %) 14 H Absolute Lymphocytes (1.2 - 3.4 /CUMM) 0.7 L Lymphocytes (20.5 - 51.1 %) 2 L Absolute Monocytes (0.10 - 0.60 /CUMM) 0.1 Absolute Eosinophils (0.0 - 0.7 /CUMM) 0 Absolute Basophils (0.0 - 0.2 /CUMM) 0 Platelet Estimate (ADEQUATE) ADEQUATE Hypochromic-Microcytic 1+ Poikilocytosis 1+ Anisocytosis 1+
[2017-09-28 15:17] VITALS: BP 120/80
--- NOTE | 2017-09-28 15:56 | PN- Att Addend ---
Attending Addendum Attending Brief Note Covering attending note: Patient having some abdominal pains today and was evaluated by GI earlier today and suggested to increase the diet. Patient still having diarrhea initially after eating a little bit more solid foods Vital signs are stable no fever white count 9200 no major changes on physical will continue GIs recommendations, continue IV steroids for today and reassess in the morning Intake & Output 09/28 1600 09/28 0400 09/27 1600 09/27 0400 09/26 1600 09/26 0400 Intake Total 390 630 551 817 6292 900 Output Total 500 Balance 390 630 459 103 5302 400 Intake, IV 150 150 122 409 8897 900 Intake, Oral 240 480 840 480 Number 5 1 1 Bowel Movements Output, Urine 500 Patient 254 lb Weight Current Medications Sig/Raymond Start time Last Medication Dose Route Stop Time Status Admin Acetaminophen 1,000 MG Q6P PRN 09/24 2244 AC N/A 1 UNIT IV Ceftriaxone Sodium 1,000 MG Q24H 09/26 2199 DC 09/26 IV 220 Ciprofloxacin 500 MG BID 09/27 2099 AC 09/28 PO 10/01 2058 0941 Famotidine 20 MG DAILY 09/24 2013 AC 09/28 PO 08 Heparin Sodium 5,000 UNIT Q8 09/24 2199 AC 09/28 (Porcine) SC 1332 Loperamide HCl 2 MG Q6P PRN 09/27 1799 AC 09/28 PO 1332 Melatonin 5 MG AT BEDTIME 09/25 2099 AC 09/27 PO 220 Mesalamine 1,600 MG TID 09/24 2099 AC 09/28 PO 0813 Methylprednisolone 40 MG Q12 09/24 2099 AC 09/28 IV 0813 Metronidazole 500 MG Q8H 09/25 013 AC 09/28 N/A 1 UNIT IV 0941 Ondansetron HCl 4 MG Q6P PRN 09/24 2244 AC 09/25 IV 0936 Laboratory Tests 09/28/17 0640: CBC w Diff NO MAN DIFF REQ, RBC 3.58 L, MCV 87.6, MCH 28.3, MCHC 32.3 L, RDW 15.9 H, MPV 8.7, Gran % 85.7 H, Lymphocytes % 12.8 L, Monocytes % 1.3 L, Eosinophils % 0, Basophils % 0.2, Absolute Granulocytes 7.9 H, Absolute Lymphocytes 1.2, Absolute Monocytes 0.1, Absolute Eosinophils 0, Absolute Basophils 0 05/19/18 1055: Anion Gap 12, Estimated GFR > 60, BUN/Creatinine Ratio 21.4 09/27/17 0710: CBC w Diff NO MAN DIFF REQ, RBC 3.42 L, MCV 87.3, MCH 28.4, MCHC 32.5 L, RDW 15.9 H, MPV 8.9, Gran % 90.2 H, Lymphocytes % 8.5 L, Monocytes % 1.1 L, Eosinophils % 0, Basophils % 0.2, Absolute Granulocytes 8.4 H, Absolute Lymphocytes 0.8 L, Absolute Monocytes 0.1, Absolute Eosinophils 0, Absolute Basophils 0 09/26/17 1030: Urinalysis LIGHT H, Urine Color YEL, Urine Clarity HAZY H, Urine pH 6.0, Ur Specific [place] >= 1.030, Urine Protein TRACE H, Urine Ketones NEG, Urine Nitrite NEG, Urine Bilirubin NEG, Urine Urobilinogen 1.0, Ur Leukocyte Esterase TRACE H, Ur Microscopic SEDIMENT EXAMINED, Urine RBC 1-3, Urine WBC 1-3 H, Ur Epithelial Cells MANY H, Urine Bacteria MOD H, Urine Mucus FEW, Micro UA Comment BUDDING [place]AST H, Urine Hemoglobin TRACE-INTACT, Urine Glucose NEG 09/26/17 0630: Anion Gap 9, Estimated GFR > 60, BUN/Creatinine Ratio 15.0, Phosphorus 2.6, Magnesium 2.3, CBC w Diff MAN DIFF ORDERED, RBC 3.31 L, MCV 87.6, MCH 28.5, MCHC 32.5 L, RDW 16.0 H, MPV 8.5, Gran % 93.7 H, Lymphocytes % 5.3 L, Monocytes % 0.9 L, Eosinophils % 0, Basophils % 0.1, Absolute Granulocytes 11.8 H, Segmented Neutrophils 84 H, Band Neutrophils 14 H, Absolute Lymphocytes 0.7 L, Lymphocytes 2 L, Absolute Monocytes 0.1, Absolute Eosinophils 0, Absolute Basophils 0, Platelet Estimate ADEQUATE, Hypochromic-Microcytic 1+, Poikilocytosis 1+, Anisocytosis 1+ Microbiology 09/27 1518 STOOL: Clostridium difficile Toxin A & B - COMP Microbiology 09/27 1518 STOOL: Clostridium difficile Toxin A & B - COMP Vital Signs Date Time Temp Pulse Resp B/P B/P Pulse O2 O2 Flow FiO2 Mean Ox Delivery Rate 05/20 1517 98.0 53 18 120/80 96 05/20 0800 Room Air 09/28 0622 98.7 56 18 120/70 96 Room Air 09/27 2237 97.9 58 18 128/80 98 Room Air
--- NOTE | 2017-09-28 18:27 | Patient Discharge Instructions ---
Discharge Instructions General Discharge Information You were seen/treated for: Ulcerative colitis flare up Watch for these problems: In case of nausea, vomiting, abdominal pain, bloody bowel movement please go to nearest emergency room Special Instructions: Please follow-up with your primary care provider/surgery/chief nursing executive within 1-2 weeks of discharge Diet Continue normal diet: No Recommended Diet: Regular, LOW CARB DIET, LOW FAT YOGURT DIET Activity Full Activity/No Limits: No Activity Self Limited: Yes Acute Coronary Syndrome Inclusion Criteria At DC or during hospital stay patient has or had the following: ACS DIAGNOSIS No Discharge Core Measures Meds if any: Prescribed or Continued at Discharge Meds if any: NOT Prescribed or Continued at Discharge Congestive Heart Failure Inclusion Criteria At DC or during hospital stay patient has or had the following: CHF DIAGNOSIS No Discharge Core Measures Meds if any: Prescribed or Continued at Discharge Meds if any: NOT Prescribed or Continued at Discharge Cerebrovascular accident Inclusion Criteria At DC or during hospital stay patient has or had the following: CVA/TIA Diagnosis No Discharge Core Measures Meds if any: Prescribed or Continued at Discharge Meds if any: NOT Prescribed or Continued at Discharge Venous thromboembolism Inclusion Criteria VTE Diagnosis No VTE Type NONE VTE Confirmed by (Test) NONE Discharge Core Measures - Per Current guidelines, there needs to be overlap - treatment for the first 5 days of Warfarin therapy. - If discharged on Warfarin prior to 5 days of - overlap therapy, the patient will need to be - assessed for post discharge needs including - *Post discharge parental anticoagulation - *Warfarin and/or parental anticoagulation education - *Follow up date to check INR post discharge At least 5 days overlap therapy as Inpatient No Meds if any: Prescribed or Continued at Discharge Note: Overlap Therapy is Warfarin and Anticoagulant Meds if any: NOT Prescribed or Continued at Discharge
[2017-09-28 22:12] VITALS: BP 134/80
[2017-09-29 06:41] VITALS: BP 124/18
--- NOTE | 2017-09-29 06:51 | PN- Housestaff ---
Subjective Follow-up For: Ulcerative colitis Subjective: Patient seen and examined at bedside. Overnight patient had 5-6 loose bowel movements. She denies abdominal pain, nausea, vomiting. Review of Systems Constitutional: Reports: no symptoms, see HPI. Objective Last 24 Hrs of Vital Signs/I&O Vital Signs Date Time Temp Pulse Resp B/P B/P Pulse O2 O2 Flow FiO2 Mean Ox Delivery Rate 09/29 0641 98.6 60 16 124/18 96 Room Air 09/28 2212 98.1 58 20 134/80 100 Room Air 09/28 1517 98.0 53 18 120/80 96 Intake & Output 09/29 1600 09/29 0800 09/29 0000 Intake Total 480 680 Output Total Balance 480 680 Intake, IV 200 Intake, Oral 480 480 Number 3 1 Bowel Movements Physical Exam General Appearance: Alert, Oriented X3, Cooperative, No Acute Distress Cardiovascular: Regular Rate, Normal S1, Normal S2, No Murmurs Lungs: Clear to Auscultation Abdomen: Normal Bowel Sounds, Soft, No Tenderness Neurological: Normal Speech, Strength at 5/5 X4 Ext, Normal Tone Extremities: No Edema Current Medications: Current Medications Sig/Raymond Start time Last Medication Dose Route Stop Time Status Admin Acetaminophen 1,000 MG Q6P PRN 09/24 2244 AC 09/28 N/A 1 UNIT IV 1631 Ciprofloxacin 500 MG BID 09/27 2099 AC 09/29 PO 10/01 2058 0823 Famotidine 20 MG DAILY 09/24 2013 AC 09/29 PO 0823 Heparin Sodium 5,000 UNIT Q8 09/24 2199 AC 09/29 (Porcine) SC 0513 Loperamide HCl 2 MG Q6P PRN 09/27 1800 AC 09/29 PO 0823 Melatonin 5 MG AT BEDTIME 09/25 2099 AC 09/28 PO 211 Mesalamine 1,600 MG TID 09/24 2099 AC 09/29 PO 0823 Methylprednisolone 40 MG Q12 09/24 2099 AC 09/29 IV 0824 Metronidazole 500 MG Q8H 09/25 013 AC 09/29 N/A 1 UNIT IV 0824 Ondansetron HCl 4 MG Q6P PRN 09/24 2245 AC 09/25 IV 0936 Last 24 Hrs of Lab/Cecilio Results Last 24 Hrs of Labs/Mics: Laboratory Tests 09/29/17 0630: Anion Gap 9, Estimated GFR > 60, BUN/Creatinine Ratio 18.6, CBC w Diff NO MAN DIFF REQ, RBC 3.37 L, MCV 88.1, MCH 28.4, MCHC 32.3 L, RDW 15.4 H, MPV 8.0, Gran % 89.9 H, Lymphocytes % 7.1 L, Monocytes % 3.0, Eosinophils % 0, Basophils % 0, Absolute Granulocytes 12.2 H, Absolute Lymphocytes 1.0 L, Absolute Monocytes 0.4, Absolute Eosinophils 0, Absolute Basophils 0 Assessment/Plan Assessment: 37-year-old female with past medical history of ulcerative colitis on intyvio, prednisone, methylamine, came to [place] ER with complaints of weakness, fever with chills, headache. Assessment and plan 1. Colitis-flareup of ulcerative colitis 2. Hypokalemia- RESOLVED * Patient being treated for a flareup of ulcerative colitis on ciprofloxacin and Flagyl, for Bacteroides fragilis sepsis, presumably secondary to a perforation related to her ulcerative colitis although xray shows no suggestion of perf. Patient C. difficile negative twice but continues to have bad diarrhe. Patient is on Imodium. This was discussed with colorectal surgeon and hat brusher machine suggested to advance her diet as tolerated. Patient is on mesalamine and IV soluMedrol 40 mg twice a day. Eventually taper IV Solu-Medrol to by mouth steroids. * Hypokalemia - resolved. * Accu-Check. * GI prophylaxis-Pepcid 20 daily Problem List: 1. Ulcerative colitis Pain Ratin Pain Location: abd pain Pain Goal: Remain pain free Pain Plan: tylenol Tomorrow's Labs & Rationales: cbc,bep
--- NOTE | 2017-09-29 08:08 | PN- Student ---
Subjective Subjective: No acute events overnight. Patient forrest and examined this morning. Tolerating diet well. Patient ambulating okay. Patient complains of streaks of blood diarrhea. Denied palpitation, abdominal pain, nausea/vomiting. Objective Objective: General: obese young woman alert and oriented without any distress HEENT: NCAT, anicteric sclera, moist oral mucosa without exudate CVS: normal S1 and S2 Lungs: symetrical chest expansion, clear breath sounds without any added sound Abdomen: positive bowel sounds, nondistended, mildlytender Extremities: palpable pulses, no edema Assessment/Plan Assessment: 37 y/o F with PMHx of ulcerative colitis admitted with a chief complain of fevers, chills and weakness. On admission she was febrile (103.6), tachycardic ( up to 130), with a BP of 94/63. Lab's showed WBC of 6.9 with granulocytes of 96 % and [address] abd consistent with active colitis involving the descending and sigmoid colon to level the rectum. Based on history, physical examination, lab's and imagine, this maybe a flare up of her ulcerative colitis. On the other hand, bandemia is consistent with infectious colitis. DDx include: infectious colitis with bacteria or viral origin (viral- is unlikely because of her bandemia and 5 days of symtopms will have been an improvement by now. Baterial seems more likely in a inmunocompromised host). Perforation is unlikely because no guarding/rebound tenderness, and no gas pattern on CT. Surgery, GI and ID following. No surgery for the moment. Patient will follow as an outpatient with Dr. Arriaga. Plan: Plan: -advance diet as tolerated -Monitor vitals, CBC, chemistry -Serial abd exams -Cont. steroids and pepcid -Zofran PRN -Gram negative suzanna in blood: Cipro 500mg PO and Flagyl 500mg IV Q8 -Cont. mesalamine 1,600mg TID -Cont. solumedrol 40 BID -Follow recomendations -F/U GI, ID, Gen surg recommendations
[2017-09-29 08:45] LABS: ABSOLUTE BASOPHIL COUNT 0 /CUMM (0.0-0.2); ABSOLUTE EOSINOPHIL COUNT 0 /CUMM (0.0-0.7); ABSOLUTE GRANULOCYTE CT 12.2 /CUMM (1.4-6.5); ABSOLUTE MONOCYTE COUNT 0.4 /CUMM (0.10-0.60); BASOPHIL % 0 % (0.0-2.0); EOSINOPHIL % 0 % (0-5); GRANULOCYTE % 89.9 % (42.2-75.2); HEMATOCRIT 29.7 % (37-47); MEAN CORPUSCULAR HGB 28.4 PG (27.0-31.0); MEAN CORPUSCULAR HGB CONC 32.3 G/DL (33.0-37.0); MEAN CORPUSCULAR VOLUME 88.1 FL (81.0-99.0); PLATELET COUNT 413 /CUMM (130-400); RBC DISTRIBUTION WIDTH 15.4 % (11.5-14.5); RED BLOOD CELL CT 3.37 /CUMM (4.20-5.40)
[2017-09-29 10:15] LABS: WHITE BLOOD CELL COUNT 13.6 /CUMM (4.8-10.8)
--- NOTE | 2017-09-29 10:28 | PN- Pulmonary ---
Subjective HPI/Critical Care Issues: Doing better Still has sig diarrhea fatigued Objective Current Medications: Current Medications Sig/Raymond Start time Last Medication Dose Route Stop Time Status Admin Acetaminophen 1,000 MG Q6P PRN 09/24 224 AC 09/28 N/A 1 UNIT IV 1631 Ciprofloxacin 500 MG BID 09/27 2099 AC 09/29 PO 10/01 205 0823 Famotidine 20 MG DAILY 09/24 2013 AC 09/29 PO 0823 Heparin Sodium 5,000 UNIT Q8 09/24 2199 AC 09/29 (Porcine) SC 0513 Loperamide HCl 2 MG .STK-MED ONE 09/28 1327 DC PO 09/28 1328 Loperamide HCl 2 MG Q6P PRN 09/27 1800 AC 09/29 PO 0823 Melatonin 5 MG AT BEDTIME 09/25 2099 AC 09/28 PO 211 Mesalamine 1,600 MG TID 09/24 2099 AC 09/29 PO 0823 Methylprednisolone 40 MG Q12 09/24 2099 AC 09/29 IV 0824 Metronidazole 500 MG Q8H 09/25 0130 AC 09/29 N/A 1 UNIT IV 0824 Ondansetron HCl 4 MG Q6P PRN 09/24 2244 AC 09/25 IV 0936 Vital Signs & I&O Last 24 Hrs of Vitals and I&O: Vital Signs Date Time Temp Pulse Resp B/P B/P Pulse O2 O2 Flow FiO2 Mean Ox Delivery Rate 09/29 0641 98.6 60 16 124/18 96 Room Air 09/28 2212 98.1 58 20 134/80 100 Room Air 09/28 1517 98.0 53 18 120/80 96 Intake & Output 09/29 1600 09/29 0800 09/29 0000 Intake Total 480 680 Output Total Balance 480 680 Intake, IV 200 Intake, Oral 480 480 Number 3 1 Bowel Movements Impression/Plan Impression/Plan Impression/Plan: HEENT exam is negative; Neck is supple with no adenopathy. Lungs are clear. Heart regular rhythm with no murmur. Abdomen is obese, soft, non tender with no guarding or rebound, positive bowel sounds. Back no CVA tenderness. Extremities no cyanosis, clubbing or edema. Neuro is without focality. IMPRESSION This is a lady with severe ulcerative colitis with recurrent exacerbation, on immunosuppressive therapy including prednisone with previous failed Rituxan now on vedolizumab induction therapy, very high fever, chills, body ache with on and off diarrhea. She has been feeling lightheaded in the recent past. Since she came into the emergency room she was found to be significantly febrile and she had had extensive workup which includes a CT of the chest abdomen and pelvis which showed severe colitis. Issues include * Resolving Sepsis with B fragilis bacteremia, with acute UC flare with superimposed sepsis. Pt is immunosuppressed * Resolved nick related to dehydration * Electrolyte abnormalities now better * Significant immunosuppressed state RECOMMENDATION Cont steroids and can be changed to po today - please ask gi Abx per id Follow labs closely PO pepcid while on steroids Hep sub cut Tylenol prn WIll follow closely
--- NOTE | 2017-09-29 12:39 | PN- General Surgery ---
Subjective Subjective: Awake and alert, tolerating her diet No abdominal pain Diarrhea improving Objective Vital Signs and I&Os Vital Signs Date Time Temp Pulse Resp B/P B/P Pulse O2 O2 Flow FiO2 Mean Ox Delivery Rate 09/29 0641 98.6 60 16 124/18 96 Room Air 09/28 2212 98.1 58 20 134/80 100 Room Air 09/28 1517 98.0 53 18 120/80 96 Intake & Output 09/29 1600 09/29 0800 09/29 0000 09/28 1600 09/28 0800 09/28 0000 Intake Total 480 680 480 390 630 Output Total Balance 480 680 480 390 630 Intake, IV 200 150 150 Intake, Oral 480 480 480 240 480 Number 3 1 Bowel Movements Physical Exam: Abdomen is soft and non tender Assessment/Plan Assessment/Plan Ulcerative colitis, improving with medical treatment No plans for acute surgical intervention Attending MD Review Statement Attending Statement Attending MD Statement: examined this patient
[2017-09-29 14:05] VITALS: BP 136/88
--- NOTE | 2017-09-29 15:38 | PN- Infect Dx ---
Subjective Subjective: Afebrile on steroids. She continues to have diarrhea, though it has improved, with no nausea, vomiting or abdominal pain. Objective Last 24 Hrs of Vital Signs/I&O Vital Signs Date Time Temp Pulse Resp B/P B/P Pulse O2 O2 Flow FiO2 Mean Ox Delivery Rate 09/29 1405 97.9 69 20 136/88 95 09/29 0641 98.6 60 16 124/18 96 Room Air 09/28 2212 98.1 58 20 134/80 100 Room Air Intake & Output 09/29 1600 09/29 0800 09/29 0000 Intake Total 580 480 680 Output Total Balance 580 480 680 Intake, IV 100 200 Intake, Oral 480 480 480 Number 0 3 1 Bowel Movements Physical Exam Other Physical Findings: She appears comfortable in no acute distress Lungs are clear Heart regular rhythm with no murmur Abdomen is obese, soft, nontender with positive bowel sounds Results Last 24 Hours of Lab Results: Laboratory Tests 09/29 0630 Chemistry Sodium (137 - 145 mmol/L) 139 Potassium (3.5 - 5.1 mmol/L) 4.3 Chloride (98 - 107 mmol/L) 102 Carbon Dioxide (22 - 30 mmol/L) 28 Anion Gap (5 - 16) 9 BUN (7 - 17 mg/dL) 13 Creatinine (0.5 - 1.0 mg/dL) 0.7 Estimated GFR (>60 ml/min) > 60 BUN/Creatinine Ratio (7 - 25 %) 18.6 Hematology CBC w Diff NO MAN DIFF REQ WBC (4.8 - 10.8 /CUMM) 13.6 H RBC (4.20 - 5.40 /CUMM) 3.37 L Hgb (12.0 - 16.0 G/DL) 9.6 L Hct (37 - 47 %) 29.7 L MCV (81.0 - 99.0 FL) 88.1 MCH (27.0 - 31.0 PG) 28.4 MCHC (33.0 - 37.0 G/DL) 32.3 L RDW (11.5 - 14.5 %) 15.4 H Plt Count (130 - 400 /CUMM) 413 H MPV (7.4 - 10.4 FL) 8.0 Gran % (42.2 - 75.2 %) 89.9 H Lymphocytes % (20.5 - 51.1 %) 7.1 L Monocytes % (1.7 - 9.3 %) 3.0 Eosinophils % (0 - 5 %) 0 Basophils % (0.0 - 2.0 %) 0 Absolute Granulocytes (1.4 - 6.5 /CUMM) 12.2 H Absolute Lymphocytes (1.2 - 3.4 /CUMM) 1.0 L Absolute Monocytes (0.10 - 0.60 /CUMM) 0.4 Absolute Eosinophils (0.0 - 0.7 /CUMM) 0 Absolute Basophils (0.0 - 0.2 /CUMM) 0 Last 24 Hours of Cecilio Results: Stool C. difficile September 27 negative Blood cultures September 16 1 bottle positive for Bacteroides probable fragilis and a second bottle positive for an anaerobic gram-negative suzanna, possibly Eubacterium (after initial suspicion on the gram stain of a gram-positive suzanna) Assessment/Plan ID Impression: Overall improved, with temperatures remaining normal (on steroids) but with her white blood cell count elevated today, most likely secondary to the steroids, now on Ciprofloxacin and Flagyl, Day 5 of treatment for gram-negative anaerobic sepsis, with a second blood culture positive for another anaerobic gram-negative suzanna, either secondary to a perforation or translocation related to her ulcerative colitis. Her diarrhea is likely secondary to the ulcerative colitis and has improved to some extent on Imodium. Suggestion: 1. Further management of her ulcerative colitis per GI 2. Continue Ciprofloxacin for 1 more week 3. Continue Flagyl, which can be changed to 500 mg p.o. every 8 hours upon discharge, for 1 more week
[2017-09-29] MEDS ORDERED: CIPRO500 M1 PO (16:25)
[2017-09-29] MEDS ORDERED: FLAGYL500 MG PO (16:25)
[2017-09-29] MEDS ORDERED: PREDNISONE10 M2 PO ×2 (16:31→16:50)
[2017-09-29 21:48] VITALS: BP 130/76
--- NOTE | 2017-09-30 06:48 | PN- Housestaff ---
Subjective Follow-up For: Ulcerative colitis Subjective: Patient seen and examined at bedside. She complained of 5-6 formed stools. No history of nausea, vomiting, abdominal pain. Review of Systems Constitutional: Reports: no symptoms, see HPI. Objective Last 24 Hrs of Vital Signs/I&O Vital Signs Date Time Temp Pulse Resp B/P B/P Pulse O2 O2 Flow FiO2 Mean Ox Delivery Rate 09/30 0657 96.8 57 20 140/90 94 Room Air 09/29 2148 96.4 64 20 130/76 98 Intake & Output 09/30 1600 09/30 0800 09/30 0000 Intake Total 450 580 Output Total Balance 450 580 Intake, IV 150 100 Intake, Oral 300 480 Number 3 Bowel Movements Physical Exam General Appearance: Alert, Oriented X3, No Acute Distress Cardiovascular: Regular Rate, Normal S1, Normal S2, No Murmurs Lungs: Normal Air Movement Abdomen: Soft, No Tenderness, No Hepatospenomegaly Neurological: Normal Speech, Strength at 5/5 X4 Ext, Normal Tone, Sensation Intact Extremities: No Cyanosis, No Edema, Normal Pulses Current Medications: Current Medications Sig/Raymond Start time Last Medication Dose Route Stop Time Status Admin Acetaminophen 1,000 MG Q6P PRN 09/24 2244 DCD 09/28 N/A 1 UNIT IV 1631 Ciprofloxacin 500 MG BID 09/27 2099 DCD 09/30 PO 10/04 0901 0949 Famotidine 20 MG DAILY 09/24 2013 DCD 09/30 PO 0949 Heparin Sodium 5,000 UNIT Q8 09/24 2199 DCD 09/29 (Porcine) SC 0513 Loperamide HCl 2 MG .STK-MED ONE 09/29 1642 DC PO 09/29 1643 Loperamide HCl 2 MG Q6P PRN 09/27 1800 DCD 09/30 PO 0950 Melatonin 5 MG AT BEDTIME 09/25 2099 DCD 09/29 PO 2118 Mesalamine 1,600 MG TID 09/24 2099 DCD 09/30 PO 0949 Methylprednisolone 40 MG Q12 09/24 2099 DCD 09/30 IV 0950 Metronidazole 500 MG Q8H 09/25 0130 DCD 09/30 N/A 1 UNIT IV 0950 Ondansetron HCl 4 MG Q6P PRN 09/24 2244 DCD 09/25 IV 0936 Last 24 Hrs of Lab/Cecilio Results Last 24 Hrs of Labs/Mics: Laboratory Tests 09/30/17 0622: Anion Gap 9, Estimated GFR > 60, BUN/Creatinine Ratio 24.0, CBC w Diff NO MAN DIFF REQ, RBC 3.53 L, MCV 88.1, MCH 28.3, MCHC 32.2 L, RDW 15.8 H, MPV 7.9, Gran % 92.8 H, Lymphocytes % 5.1 L, Monocytes % 2.1, Eosinophils % 0, Basophils % 0, Absolute Granulocytes 18.9 H, Absolute Lymphocytes 1.0 L, Absolute Monocytes 0.4, Absolute Eosinophils 0, Absolute Basophils 0 Assessment/Plan Assessment: 37-year-old female with past medical history of ulcerative colitis on intyvio, prednisone, methylamine, came to [place] ER with complaints of weakness, fever with chills, headache. Assessment and plan 1. Colitis-flareup of ulcerative colitis 2. Hypokalemia- RESOLVED * Patient being treated for a flareup of ulcerative colitis on ciprofloxacin and Flagyl. 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 * Patient is also on Imodium for diarrhea. She can be on low-carb low-fat yogurt diet. * Hypokalemia - resolved. * Accu-Check. * GI prophylaxis-Pepcid 20 daily Problem List: 1. Ulcerative colitis Pain Ratin Pain Location: none Pain Goal: Remain pain free Pain Plan: tylenol Tomorrow's Labs & Rationales: none
[2017-09-30 06:57] VITALS: BP 140/90
--- NOTE | 2017-09-30 07:59 | PN- Student ---
Subjective Subjective: No acute events overnight. Patient seen and examined this morning. Patient resting in bed. Reported having soft/loose bowell movement which she consider baseline. Continue afebrile. Denied headache, chills, palpitation, SOB, abdominal pain. Patient feels ready to go home. Objective Objective: Vital Signs Date Time Temp Pulse Resp B/P B/P Pulse O2 O2 Flow FiO2 Mean Ox Delivery Rate 09/30 656 96.8 57 20 140/90 94 Room Air 09/29 2148 96.4 64 20 130/76 98 09/29 1405 97.9 69 20 136/88 95 Intake & Output 09/30 1600 09/30 0800 09/30 0000 Intake Total 450 580 Output Total Balance 450 580 Intake, IV 150 100 Intake, Oral 300 480 Number 3 Bowel Movements Laboratory Tests 09/30 621 Chemistry Sodium (137 - 145 mmol/L) 137 Potassium (3.5 - 5.1 mmol/L) 4.4 Chloride (98 - 107 mmol/L) 102 Carbon Dioxide (22 - 30 mmol/L) 26 Anion Gap (5 - 16) 9 BUN (7 - 17 mg/dL) 12 Creatinine (0.5 - 1.0 mg/dL) 0.5 Estimated GFR (>60 ml/min) > 60 BUN/Creatinine Ratio (7 - 25 %) 24.0 Hematology CBC w Diff NO MAN DIFF REQ WBC (4.8 - 10.8 /CUMM) 20.3 H RBC (4.20 - 5.40 /CUMM) 3.53 L Hgb (12.0 - 16.0 G/DL) 10.0 L Hct (37 - 47 %) 31.1 L MCV (81.0 - 99.0 FL) 88.1 MCH (27.0 - 31.0 PG) 28.3 MCHC (33.0 - 37.0 G/DL) 32.2 L RDW (11.5 - 14.5 %) 15.8 H Plt Count (130 - 400 /CUMM) 500 H MPV (7.4 - 10.4 FL) 7.9 Gran % (42.2 - 75.2 %) 92.8 H Lymphocytes % (20.5 - 51.1 %) 5.1 L Monocytes % (1.7 - 9.3 %) 2.1 Eosinophils % (0 - 5 %) 0 Basophils % (0.0 - 2.0 %) 0 Absolute Granulocytes (1.4 - 6.5 /CUMM) 18.9 H Absolute Lymphocytes (1.2 - 3.4 /CUMM) 1.0 L Absolute Monocytes (0.10 - 0.60 /CUMM) 0.4 Absolute Eosinophils (0.0 - 0.7 /CUMM) 0 Absolute Basophils (0.0 - 0.2 /CUMM) 0 General: obese young woman alert and oriented without any distress HEENT: NCAT, anicteric sclera, moist oral mucosa without exudate CVS: normal S1 and S2 Lungs: symetrical chest expansion, clear breath sounds without any added sound Abdomen: positive bowel sounds, nondistended, nontender Extremities: palpable pulses, no edema Results Results: Laboratory Tests 09/30/17 0622: Anion Gap 9, Estimated GFR > 60, BUN/Creatinine Ratio 24.0, CBC w Diff NO MAN DIFF REQ, RBC 3.53 L, MCV 88.1, MCH 28.3, MCHC 32.2 L, RDW 15.8 H, MPV 7.9, Gran % 92.8 H, Lymphocytes % 5.1 L, Monocytes % 2.1, Eosinophils % 0, Basophils % 0, Absolute Granulocytes 18.9 H, Absolute Lymphocytes 1.0 L, Absolute Monocytes 0.4, Absolute Eosinophils 0, Absolute Basophils 0 09/29/17 0630: Anion Gap 9, Estimated GFR > 60, BUN/Creatinine Ratio 18.6, CBC w Diff NO MAN DIFF REQ, RBC 3.37 L, MCV 88.1, MCH 28.4, MCHC 32.3 L, RDW 15.4 H, MPV 8.0, Gran % 89.9 H, Lymphocytes % 7.1 L, Monocytes % 3.0, Eosinophils % 0, Basophils % 0, Absolute Granulocytes 12.2 H, Absolute Lymphocytes 1.0 L, Absolute Monocytes 0.4, Absolute Eosinophils 0, Absolute Basophils 0 Assessment/Plan Assessment: 37 y/o F with PMHx of ulcerative colitis admitted with a chief complain of fevers, chills and weakness. On admission she was febrile (103.6), tachycardic ( up to 130), with soft BP of 94/63. Lab's showed WBC of 6.9 with granulocytes of 96% and [address] abd consistent with active colitis involving the descending and sigmoid colon to level the rectum. Based on history, physical examination, lab's and imagine, this maybe a flare up of her ulcerative colitis. On the other hand, bandemia is consistent with infectious colitis. DDx include: infectious colitis with bacteria or viral origin (viral- is unlikely because of her bandemia and 5 days of symtopms will have been an improvement by now. Baterial seems more likely in a inmunocompromised host). Perforation is unlikely because no guarding/rebound tenderness, and no gas pattern on CT. Surgery, GI and ID following. No surgery for the moment. Patient will follow as an outpatient with Dr. Arriaga. At this point patient is stable to be discharge (more than 25 hrs afebrile, tolerating diet, ambulating okay). Plan: Plan: -advance diet as tolerated -Monitor vitals, CBC, chemistry -Serial abd exams -Cont. steroids and pepcid -Zofran PRN -Cont. abx PO with Ciprofloxacin and Flagyl (500 mg Q8) for 1 more week upon discharge -Cont. mesalamine 1,600mg TID -Cont. solumedrol 40 BID -Follow recomendations -F/U GI, ID, Gen surg recommendations
[2017-09-30] MEDS ORDERED: PREDNISONE10 M2 PO ×4 (08:38→10:52)
[2017-09-30 08:47] LABS: ABSOLUTE BASOPHIL COUNT 0 /CUMM (0.0-0.2); ABSOLUTE EOSINOPHIL COUNT 0 /CUMM (0.0-0.7); ABSOLUTE GRANULOCYTE CT 18.9 /CUMM (1.4-6.5); ABSOLUTE MONOCYTE COUNT 0.4 /CUMM (0.10-0.60); BASOPHIL % 0 % (0.0-2.0); EOSINOPHIL % 0 % (0-5); HEMATOCRIT 31.1 % (37-47); MEAN CORPUSCULAR HGB 28.3 PG (27.0-31.0); MEAN CORPUSCULAR HGB CONC 32.2 G/DL (33.0-37.0); MEAN CORPUSCULAR VOLUME 88.1 FL (81.0-99.0); MEAN PLATELET VOLUME 7.9 FL (7.4-10.4); RBC DISTRIBUTION WIDTH 15.8 % (11.5-14.5); RED BLOOD CELL CT 3.53 /CUMM (4.20-5.40); WHITE BLOOD CELL COUNT 20.3 /CUMM (4.8-10.8)
[2017-09-30 09:15] LABS: PLATELET COUNT 500 /CUMM (130-400)
[2017-09-30 09:16] LABS: GRANULOCYTE % 92.8 % (42.2-75.2)
--- NOTE | 2017-09-30 09:29 | PN- Pulmonary ---
Subjective HPI/Critical Care Issues: Doing ok stable mild loose stool No further fever Wishes to go home at all costs and understands the risks and benefit and wants to go home still Objective Current Medications: Current Medications Sig/Raymond Start time Last Medication Dose Route Stop Time Status Admin Acetaminophen 1,000 MG Q6P PRN 09/24 224 AC 09/28 N/A 1 UNIT IV 1631 Ciprofloxacin 500 MG BID 09/27 2099 AC 09/29 PO 10/04 0901 2118 Famotidine 20 MG DAILY 09/24 2013 AC 09/29 PO 0823 Heparin Sodium 5,000 UNIT Q8 09/24 2199 AC 09/29 (Porcine) SC 0513 Loperamide HCl 2 MG .STK-MED ONE 09/29 1642 DC PO 09/29 164 Loperamide HCl 2 MG Q6P PRN 09/27 1800 AC 09/29 PO 164 Melatonin 5 MG AT BEDTIME 09/25 2099 AC 09/29 PO 211 Mesalamine 1,600 MG TID 09/24 2099 AC 09/29 PO 211 Methylprednisolone 40 MG Q12 09/24 2099 AC 09/29 IV 2118 Metronidazole 500 MG Q8H 09/25 0130 AC 09/30 N/A 1 UNIT IV 0123 Ondansetron HCl 4 MG Q6P PRN 09/24 2244 AC 09/25 IV 0936 Vital Signs & I&O Last 24 Hrs of Vitals and I&O: Vital Signs Date Time Temp Pulse Resp B/P B/P Pulse O2 O2 Flow FiO2 Mean Ox Delivery Rate 09/30 0657 96.8 57 20 140/90 94 Room Air 09/298 96.4 64 20 130/76 98 09/29 1405 97.9 69 20 136/88 95 Intake & Output 09/30 1600 09/30 0800 09/30 0000 Intake Total 450 580 Output Total Balance 450 580 Intake, IV 150 100 Intake, Oral 300 480 Number 3 Bowel Movements Impression/Plan Impression/Plan Impression/Plan: HEENT exam is negative; Neck is supple with no adenopathy. Lungs are clear. Heart regular rhythm with no murmur. Abdomen is obese, soft, non tender with no guarding or rebound, positive bowel sounds. Back no CVA tenderness. Extremities no cyanosis, clubbing or edema. Neuro is without focality. CLINICAL INFORMATION: History of ulcerative colitis. Fever, shortness of breath and tachycardia. Abdominal pain. COMPARISON: CT images from 11/25/2009 TECHNIQUE: Chest - Prior to contrast administration, noncontrast localization images were obtained. Subsequently, multidetector volumetric imaging was performed from the thoracic inlet to below the diaphragms following the administration of 95 mL Optiray 320 intravenous contrast. No contrast reaction reported. Sagittal, coronal, and MIP oblique sagittal reformatted images were obtained on the CT workstation, uploaded to PACS, and reviewed. Abdomen and pelvis - Multidetector CT imaging evaluation of the abdomen and pelvis was performed after the intravenous contrast administration. DLP: Total exam dose-length product 1471 mGy-cm FINDINGS: CHEST - QUALITY OF STUDY/CONTRAST BOLUS: Satisfactory. PULMONARY ARTERIES: Pulmonary arteries are normal in size. No embolic filling defects are identified within the main, lobar or segmental vessels. THORACIC AORTA: Normal in caliber; no aneurysm or dissection. LUNGS AND PLEURA: Trachea and central airways are widely patent and normal in caliber. No interstitial pulmonary edema, pneumothorax or pleural effusion. Minimal atelectasis in the dependent aspect of each lower lobe. There is a 0.4 cm noncalcified nodule of the medial right lung apex (image 68, series 2). 0.2 cm noncalcified nodule is present in the anterolateral aspect of the right lung apex (image 87, series 2). 0.2 cm subpleural nodule in the lateral aspect of the right upper lobe (image 138, series 2). Small, 0.3 x 0.5 cm noncalcified nodule in the posterior segment of the right upper lobe (image 164, series 2). Small, approximately 0.2 cm sized pulmonary and pleural-based nodules of the left upper lobe (image 144, 147 and 179, series 2). No pulmonary mass or consolidation. CARDIOVASCULAR: The heart size is normal. No pericardial effusion. MEDIASTINUM: The esophagus has normal wall thickness. The visualized portion of the thyroid gland is unremarkable. No mediastinal mass. LYMPHATICS: No pathologic sized axillary, hilar or mediastinal lymph nodes. ABDOMEN AND PELVIS - HEPATOBILIARY: Unremarkable. On the arterial phase images, there is no reflux of contrast into the inferior vena cava. Liver has normal size, contour and attenuation. No evidence of hepatic mass or intrahepatic bile duct dilatation. Gallbladder is normal. PANCREAS: Unremarkable. SPLEEN: Unremarkable. ADRENAL GLANDS: Unremarkable. KIDNEYS, URETERS, BLADDER: Unremarkable. GI TRACT AND PERITONEUM: Stomach is normal. Loops of bowel are normal in caliber. Appendix appears to be surgically absent. Circumferential wall thickening and mild mucosal hyperenhancement of the distal descending and sigmoid colon extending to the rectum with adjacent pericolic fat stranding and vascular congestion of the mesentery. Findings are consistent with active colitis. There are a few diverticula of the sigmoid colon. No pneumoperitoneum. ABDOMINAL WALL: Diastases of rectus abdominis muscles. At the level of the umbilicus, there is a small fat-containing umbilical hernia. VASCULAR: Abdominal aorta is normal in caliber and the celiac trunk, SMA, DENI and renal arteries are widely patent. There is a circumaortic left renal vein. Inferior vena cava is normal. LYMPH NODES: Within the lower abdomen/pelvis, mesenteric lymph nodes measure up to 0.8 cm short axis dimension. These are likely reactive to the colonic inflammation. No pathologic sized retroperitoneal lymph nodes. No iliac or inguinal lymphadenopathy. PELVIC VISCERA: The uterus and adnexa are unremarkable. A trace amount of free fluid is present in the pelvis. No abscess. OSSEOUS STRUCTURES: Bones of the thorax are unremarkable. Thoracic vertebra have normal height and alignment. No aggressive osseous lesions within the chest. The lumbar vertebra are intact. No suspicious osseous lesions in the lumbar spine, pelvis or proximal femurs. IMPRESSION: 1. No pulmonary embolism. 2. There are a few nonspecific, noncalcified nodules in the right and left upper lobe, largest measuring 0.3 x 0.5 cm. No pulmonary mass or lymphadenopathy in the chest. 3. Findings consistent with active colitis involving the descending and sigmoid colon to level the rectum. This is consistent with history of ulcerative colitis. There is reactive lymphadenopathy in the mesentery. 4. Small fat-containing umbilical hernia. DICTATED BY: Toby Arndt MD DATE/TIME DICTATED:09/24/171438 XR ABDOMEN MULTIPLE VIEWS CLINICAL INDICATION: Abdominal pain. COMPARISON: None TECHNIQUE: 2 views of the abdomen. FINDINGS: There is no evidence of free air or obstruction. No abnormal calcifications are seen. The volume of gas in the bowel is small. Small volume of stool in colon. IMPRESSION: Unremarkable examination. DICTATED BY: Te Blas MD DATE/TIME DICTATED:09/25/172254 Laboratory Tests 09/30 09/29 0622 0630 Chemistry Sodium (137 - 145 mmol/L) 137 139 Potassium (3.5 - 5.1 mmol/L) 4.4 4.3 Chloride (98 - 107 mmol/L) 102 102 Carbon Dioxide (22 - 30 mmol/L) 26 28 Anion Gap (5 - 16) 9 9 BUN (7 - 17 mg/dL) 12 13 Creatinine (0.5 - 1.0 mg/dL) 0.5 0.7 Estimated GFR (>60 ml/min) > 60 > 60 BUN/Creatinine Ratio (7 - 25 %) 24.0 18.6 Hematology CBC w Diff NO MAN DIFF REQ NO MAN DIFF REQ WBC (4.8 - 10.8 /CUMM) 20.3 H 13.6 H RBC (4.20 - 5.40 /CUMM) 3.53 L 3.37 L Hgb (12.0 - 16.0 G/DL) 10.0 L 9.6 L Hct (37 - 47 %) 31.1 L 29.7 L MCV (81.0 - 99.0 FL) 88.1 88.1 MCH (27.0 - 31.0 PG) 28.3 28.4 MCHC (33.0 - 37.0 G/DL) 32.2 L 32.3 L RDW (11.5 - 14.5 %) 15.8 H 15.4 H Plt Count (130 - 400 /CUMM) 500 H 413 H MPV (7.4 - 10.4 FL) 7.9 8.0 Gran % (42.2 - 75.2 %) 92.8 H 89.9 H Lymphocytes % (20.5 - 51.1 %) 5.1 L 7.1 L Monocytes % (1.7 - 9.3 %) 2.1 3.0 Eosinophils % (0 - 5 %) 0 0 Basophils % (0.0 - 2.0 %) 0 0 Absolute Granulocytes (1.4 - 6.5 /CUMM) 18.9 H 12.2 H Absolute Lymphocytes (1.2 - 3.4 /CUMM) 1.0 L 1.0 L Absolute Monocytes (0.10 - 0.60 /CUMM) 0.4 0.4 Absolute Eosinophils (0.0 - 0.7 /CUMM) 0 0 Absolute Basophils (0.0 - 0.2 /CUMM) 0 0 BLOOD CULTURE B FRAGILIS AND ANAEROBIC GNR POSSIBLE EUBACTERIUM LIMOSUM STOOL FOR CDIFF O AND P AND TOXINS AND CULTURE OF STOOL NEG FOR ALL ENTERIC PATHOGENS INCLUDING YERSINIA, VIBRIO SHIGA ETC IMPRESSION This is a lady with severe ulcerative colitis with recurrent exacerbation, on immunosuppressive therapy including prednisone with previous failed Rituxan now on vedolizumab induction therapy, very high fever, chills, body ache with on and off diarrhea. She has been feeling lightheaded in the recent past. Since she came into the emergency room she was found to be significantly febrile and she had had extensive workup which includes a CT of the chest abdomen and pelvis which showed severe colitis. Issues include * Resolving Sepsis with B fragilis bacteremia, with acute UC flare with superimposed sepsis. Pt is immunosuppressed. Per ID this is due to either translocation or a small perf which was not seen in the ct (Colorectal surg did not think that she had a perf and ct and sub xray showed no perf) * Resolved nick related to dehydration * Electrolyte abnormalities now better * Significant immunosuppressed state RECOMMENDATION Cont steroids and give 20 mg prednisone today prior to dc Abx per id (cipro 500bid for one week and Flagyl 500 q 8 po for one week PO pepcid while on steroids Low fat yogurt Strict low carb diet Pt to see her GI ANAB[facility] for further plan for UC VIt d 1000 iu daily 600 mg calcium daily Pt to be dcd on 60 mg prednisone for 5 days, then 50 for one week and 40 for one week and then 30 mg daily, further UC mgt per GI as out pt Dr. Canales
--- NOTE | 2017-09-30 09:33 | Discharge Summary ---
Visit Information Visit Dates Admission Date: 09/24/17 Discharge Date: 09/30/17 Hospital Course Course Attending Physician: Marin Maurer MD Primary Care Physician: Marin Maurer MD Hospital Course: This is a lady with severe ulcerative colitis with recurrent exacerbation, on immunosuppressive therapy including prednisone with previous failed Rituxan now on vedolizumab induction therapy, very high fever, chills, body ache with on and off diarrhea. She has been feeling lightheaded in the recent past. Since she came into the emergency room she was found to be significantly febrile and she had had extensive workup which includes a CT of the chest abdomen and pelvis which showed severe colitis. Issues include * Resolving Sepsis with B fragilis bacteremia, with acute UC flare with superimposed sepsis. Pt is immunosuppressed. Per ID this is due to either translocation or a small perf which was not seen in the ct (Colorectal surg did not think that she had a perf and ct and sub xray showed no perf) * Resolved nick related to dehydration * Electrolyte abnormalities now better * Significant immunosuppressed state RECOMMENDATION/OUT PT PLAN Cont steroids and give 20 mg prednisone today prior to dc Abx per id (cipro 500bid for one week and Flagyl 500 q 8 po for one week PO pepcid while on steroids Low fat yogurt Strict low carb diet, to check glucose prn Pt to see her GI ANA[facility] for further plan for UC VIt d 1000 iu daily 600 mg calcium daily Pt to be dcd on 60 mg prednisone for 5 days, then 50 for one week and 40 for one week and then 30 mg daily, further UC mgt per GI as out pt Dr. Canales Allergies: Coded Allergies: erythromycin base (From ERYTHROCIN) (Intermediate, HIVES 09/24/17) Penicillins (RASH 04/07/17) amoxicillin (RASH 04/07/17) Pertinent Lab Results: CHEST/ABD CT WITH C Chest - Prior to contrast administration, noncontrast localization images were obtained. Subsequently, multidetector volumetric imaging was performed from the thoracic inlet to below the diaphragms following the administration of 95 mL Optiray 320 intravenous contrast. No contrast reaction reported. Sagittal, coronal, and MIP oblique sagittal reformatted images were obtained on the CT workstation, uploaded to PACS, and reviewed. Abdomen and pelvis - Multidetector CT imaging evaluation of the abdomen and pelvis was performed after the intravenous contrast administration. DLP: Total exam dose-length product 1471 mGy-cm FINDINGS: CHEST - QUALITY OF STUDY/CONTRAST BOLUS: Satisfactory. PULMONARY ARTERIES: Pulmonary arteries are normal in size. No embolic filling defects are identified within the main, lobar or segmental vessels. THORACIC AORTA: Normal in caliber; no aneurysm or dissection. LUNGS AND PLEURA: Trachea and central airways are widely patent and normal in caliber. No interstitial pulmonary edema, pneumothorax or pleural effusion. Minimal atelectasis in the dependent aspect of each lower lobe. There is a 0.4 cm noncalcified nodule of the medial right lung apex (image 68, series 2). 0.2 cm noncalcified nodule is present in the anterolateral aspect of the right lung apex (image 87, series 2). 0.2 cm subpleural nodule in the lateral aspect of the right upper lobe (image 138, series 2). Small, 0.3 x 0.5 cm noncalcified nodule in the posterior segment of the right upper lobe (image 164, series 2). Small, approximately 0.2 cm sized pulmonary and pleural-based nodules of the left upper lobe (image 144, 147 and 179, series 2). No pulmonary mass or consolidation. CARDIOVASCULAR: The heart size is normal. No pericardial effusion. MEDIASTINUM: The esophagus has normal wall thickness. The visualized portion of the thyroid gland is unremarkable. No mediastinal mass. LYMPHATICS: No pathologic sized axillary, hilar or mediastinal lymph nodes. ABDOMEN AND PELVIS - HEPATOBILIARY: Unremarkable. On the arterial phase images, there is no reflux of contrast into the inferior vena cava. Liver has normal size, contour and attenuation. No evidence of hepatic mass or intrahepatic bile duct dilatation. Gallbladder is normal. PANCREAS: Unremarkable. SPLEEN: Unremarkable. ADRENAL GLANDS: Unremarkable. KIDNEYS, URETERS, BLADDER: Unremarkable. GI TRACT AND PERITONEUM: Stomach is normal. Loops of bowel are normal in caliber. Appendix appears to be surgically absent. Circumferential wall thickening and mild mucosal hyperenhancement of the distal descending and sigmoid colon extending to the rectum with adjacent pericolic fat stranding and vascular congestion of the mesentery. Findings are consistent with active colitis. There are a few diverticula of the sigmoid colon. No pneumoperitoneum. ABDOMINAL WALL: Diastases of rectus abdominis muscles. At the level of the umbilicus, there is a small fat-containing umbilical hernia. VASCULAR: Abdominal aorta is normal in caliber and the celiac trunk, SMA, DENI and renal arteries are widely patent. There is a circumaortic left renal vein. Inferior vena cava is normal. LYMPH NODES: Within the lower abdomen/pelvis, mesenteric lymph nodes measure up to 0.8 cm short axis dimension. These are likely reactive to the colonic inflammation. No pathologic sized retroperitoneal lymph nodes. No iliac or inguinal lymphadenopathy. PELVIC VISCERA: The uterus and adnexa are unremarkable. A trace amount of free fluid is present in the pelvis. No abscess. OSSEOUS STRUCTURES: Bones of the thorax are unremarkable. Thoracic vertebra have normal height and alignment. No aggressive osseous lesions within the chest. The lumbar vertebra are intact. No suspicious osseous lesions in the lumbar spine, pelvis or proximal femurs. IMPRESSION: 1. No pulmonary embolism. 2. There are a few nonspecific, noncalcified nodules in the right and left upper lobe, largest measuring 0.3 x 0.5 cm. No pulmonary mass or lymphadenopathy in the chest. 3. Findings consistent with active colitis involving the descending and sigmoid colon to level the rectum. This is consistent with history of ulcerative colitis. There is reactive lymphadenopathy in the mesentery. 4. Small fat-containing umbilical hernia. DICTATED BY: Toby Arndt MD DATE/TIME DICTATED:09/24/171438 XR ABDOMEN MULTIPLE VIEWS CLINICAL INDICATION: Abdominal pain. COMPARISON: None TECHNIQUE: 2 views of the abdomen. FINDINGS: There is no evidence of free air or obstruction. No abnormal calcifications are seen. The volume of gas in the bowel is small. Small volume of stool in colon. IMPRESSION: Unremarkable examination. DICTATED BY: Te Blas MD DATE/TIME DICTATED:09/25/172 Laboratory Tests 09/30 09/29 0622 0630 Chemistry Sodium (137 - 145 mmol/L) 137 139 Potassium (3.5 - 5.1 mmol/L) 4.4 4.3 Chloride (98 - 107 mmol/L) 102 102 Carbon Dioxide (22 - 30 mmol/L) 26 28 Anion Gap (5 - 16) 9 9 BUN (7 - 17 mg/dL) 12 13 Creatinine (0.5 - 1.0 mg/dL) 0.5 0.7 Estimated GFR (>60 ml/min) > 60 > 60 BUN/Creatinine Ratio (7 - 25 %) 24.0 18.6 Hematology CBC w Diff NO MAN DIFF REQ NO MAN DIFF REQ WBC (4.8 - 10.8 /CUMM) 20.3 H 13.6 H RBC (4.20 - 5.40 /CUMM) 3.53 L 3.37 L Hgb (12.0 - 16.0 G/DL) 10.0 L 9.6 L Hct (37 - 47 %) 31.1 L 29.7 L MCV (81.0 - 99.0 FL) 88.1 88.1 MCH (27.0 - 31.0 PG) 28.3 28.4 MCHC (33.0 - 37.0 G/DL) 32.2 L 32.3 L RDW (11.5 - 14.5 %) 15.8 H 15.4 H Plt Count (130 - 400 /CUMM) 500 H 413 H MPV (7.4 - 10.4 FL) 7.9 8.0 Gran % (42.2 - 75.2 %) 92.8 H 89.9 H Lymphocytes % (20.5 - 51.1 %) 5.1 L 7.1 L Monocytes % (1.7 - 9.3 %) 2.1 3.0 Eosinophils % (0 - 5 %) 0 0 Basophils % (0.0 - 2.0 %) 0 0 Absolute Granulocytes (1.4 - 6.5 /CUMM) 18.9 H 12.2 H Absolute Lymphocytes (1.2 - 3.4 /CUMM) 1.0 L 1.0 L Absolute Monocytes (0.10 - 0.60 /CUMM) 0.4 0.4 Absolute Eosinophils (0.0 - 0.7 /CUMM) 0 0 Absolute Basophils (0.0 - 0.2 /CUMM) 0 0 BLOOD CULTURE B FRAGILIS AND ANAEROBIC GNR POSSIBLE EUBACTERIUM LIMOSUM STOOL FOR CDIFF O AND P AND TOXINS AND CULTURE OF STOOL NEG FOR ALL ENTERIC PATHOGENS INCLUDING YERSINIA, VIBRIO SHIGA ETC Disposition Summary Disposition Principal Diagnosis: ANAEROBIC SEPSIS DUE TO ULCERATIVE COLITIS FLARE Additional Diagnosis: * Resolved nick related to dehydration * Electrolyte abnormalities now better * Significant immunosuppressed state Discharge Disposition: home or self care Discharge Instructions General Discharge Information Code Status: Full Code Patient's Diet: LOW FAT LOW CARB DIET Patient's Activity: LILIANA Follow-Up Instructions/Appts: DR SCOTT ARRIAGA Medications at Discharge Discharge Medications: Continue taking these medications: Mesalamine (Lialda) 1.2 GRAM TABLET. 4 Tablet ORAL DAILY Qty = 120 Comments: Last Taken: 09/30/17 Time: 10AM Prednisone (Prednisone) 20 MG TABLET 1 Tablet ORAL DAILY Qty = 30 Comments: IV SOLU ADMINISTERED Last Taken: 09/30/17 Time: 10AM Ferrous Sulfate (Ferrous Sulfate) 325 MG (65 MG IRON) TABLET 1 Tablet ORAL DAILY Comments: DID NOT ADMINISTER Start taking the following new medications: Cholecalciferol (Vitamin D3) (Vitamin D) 1,000 UNIT CAPSULE 1 Tablet ORAL DAILY Qty = 30 Refills = 1 Instructions: . Comments: DID NOT ADMINISTER Calcium Carbonate/Vitamin D3 (Caltrate 600 + D Tablet) 600 MG-800 TABLET 1 Tablet ORAL DAILY Qty = 30 No Refills Instructions: . Comments: DID NOT ADMINISTERED Metronidazole (Flagyl) 500 MG TABLET 1 Tablet ORAL EVERY 8 HOURS Qty = 15 No Refills Instructions: . Comments: IV FORM ADMINISTERED Last Taken: 09/30/17 Time: 10AM Ciprofloxacin HCl (Cipro) 500 MG TABLET 500 Milligram ORAL TWICE DAILY Qty = 10 No Refills Instructions: . Comments: Last Taken: 09/30/17 Time: 10AM Prednisone (Prednisone) 10 MG TABLET 1 Tablet ORAL DAILY Qty = 150 No Refills Instructions: ..... Comments: IV SOLU ADMINISTERED please take 6 tab on 09/30-10/06 PLEASE TAKE 5 TAB ON 10/07-10/13 pLEASE TAKE 4 TAB ON 10/14- 10/20 pLEASE TAKE 3 TAB ON 10/21- CONTINUE TAKING Copies To: Samir Arriaga Jr., DO; Parker OLIVIER,Jordan Pettit MD Review Statement Documenting Attending: Scott OLIVIER,Marin Mckeon
[2017-09-30] MEDS ORDERED: CALTRATE 600 +1 EACH PO ×2 (10:47→10:52)
[2017-09-30] MEDS ORDERED: VITAMIN D1000 UNI1 PO ×2 (10:47→10:52)
[2017-09-30] MEDS ORDERED: CIPRO500 M1 PO (10:52)
[2017-09-30] MEDS ORDERED: FLAGYL500 MG PO (10:52)
== END 2017-09-30 12:09 | DRG 872 ==
LOC: ERH 11:58 → ERHI 15:57 → 2NA 15:57 → ENRESERV 16:21 → 2NA 17:35 → ENPENDDIS 09-30 11:06 → ENTRNSPT 09-30 11:49 → EDTRNSPTSTS 09-30 12:03 → EDTRNSPT 09-30 12:03 → CMPTRNSPT 09-30 12:09 → 2NA 09-30 12:09
PROVIDERS: Internal Medicine; Physician Assistant; Student in an Organized Health Care Education/Training Program
DX: A41.89 Other specified sepsis (principal); E87.2 Acidosis; N17.9 Acute kidney failure, unspecified; E83.42 Hypomagnesemia; K51.90 Ulcerative colitis, unspecified, without complications; A09 Infectious gastroenteritis and colitis, unspecified; Z79.52 Long term (current) use of systemic steroids; E87.6 Hypokalemia; Z88.1 Allergy status to other antibiotic agents; Z88.0 Allergy status to penicillin; E86.0 Dehydration; E66.9 Obesity, unspecified; Z68.36 Body mass index [BMI] 36.0-36.9, adult; K42.9 Umbilical hernia without obstruction or gangrene; T38.0X5A Adverse effect of glucocorticoids and synthetic analogues, initial encounter; B96.6 Bacteroides fragilis [B. fragilis] as the cause of diseases classified elsewhere
CPT/HCPCS: 2NAP; 86317; 87798; 36592; 74021; 74177; 81001; 81003; 82436; 87040; 87045; 87086; 87328; 87329; 87804; 87804-59; 93005; 93010; 96361; 96374; 96375; 99291; J0131; J0696; J0744; J1644; J2405; J2920; J7042; J7060

== ENCOUNTER 2017-10-07 09:21 | Inpatient (IN) | payer OTHER ==
[~2017-10-07] VITALS: Ht 165.1 cm; Wt 99.8 kg
[~2017-10-07 09:21] MED LIST: CALTRATE 600 +1 EACH PO; CIPRO500 M1 PO; FERROUS SULFAT325 M3 PO; FLAGYL500 MG PO; LIALDA1.2 G1 PO; PREDNISONE10 M2 PO; PREDNISONE20 M1 PO; VITAMIN D1000 UNI1 PO
--- NOTE | 2017-10-07 09:58 | ED GENERAL ADULT ---
History of Present Illness General Chief Complaint: Abdominal Pain/Flank Pain Stated Complaint: +NV, ABD PAIN, D'CD 09/30 FOR SAME Source: patient, old records Exam Limitations: no limitations Allergies Coded Allergies: erythromycin base (From ERYTHROCIN) (Intermediate, HIVES 09/24/17) Penicillins (RASH 04/07/17) amoxicillin (RASH 04/07/17) Reconcile Medications Calcium Carbonate/Vitamin D3 (Caltrate 600 + D Tablet) 600 MG-800 TABLET 1 TAB PO DAILY SUPLEMENT . Cholecalciferol (Vitamin D3) (Vitamin D) 1,000 UNIT CAPSULE 1 TAB PO DAILY SUPLEMENT . Ferrous Sulfate 325 MG (65 MG IRON) TABLET 1 TAB PO DAILY IRON, VITAMIN ( Reported) Mesalamine (Lialda) 1.2 GRAM TABLET.DR 4 TAB PO DAILY UNKNOWN (Reported) Prednisone 20 MG TABLET 2.5 TAB PO DAILY STEROID (Reported) Triage Note: 37 Y/O FEMALE C/O LOWER ABDOMINAL PAIN (CENTER) AND NAUSEA SINCE YESTERDAY MORNING. D/KATE FROM INPATIENT ON 09/30 AFTER BEING ADMITTED FOR "BACTERIAL INFECTION IN MY BLOOD FROM MY ULCERATIVE COLITIS". PT STATES SHE WAS STARTING TO FEEL BETTER UNTIL YESTERDAY. STATES UNABLE TO TOLERATE PO INTAKE. AFEBRILE. Triage Nurses Notes Reviewed? yes : No Patient currently breastfeeds: No HPI: Patient is 37-year-old female with past medical history of UC (steroid dependant , on Entevio) presented to the ED with chief complaint of nausea and abdominal pain since yesterday. Patient was discharged 1w ago from Gen. medicine floor after being treated for sepsis/bactremia of B frag 2/ presumed microperf/bacterial translocation + UC flare up with crip, flagyl + prednisolon taper, Mesalamin as well as Imodium for diarrhea with recommendation to follow with mechanic senior, Dr Banks; she was planning to visit him on . Patient reported that overall her general condition was improving after discharge from [facility] last week, but since yesterday she started to have nausea and vomiting, and abdominal pain in left lower quadrant and umbilical area. She vomited more than 5 times of nonbloody material. She rated abdominal pain as 2- 6/10, no radiation, no improving or aggravating factor. She had some chills last nigth but measured T and had no fever. She finished antibiotics administered in last visit during the weekend and continued the prednisolon tapering; planned to take 50mg today. She contacted her GI doctor today, Dr Banks and was recommended to come to ED. (Lynsey Muñoz MD,Lorie Cordova) Vital Signs & Intake/Output Vital Signs & Intake/Output Vital Signs Date Time Temp Pulse Resp B/P B/P Pulse O2 O2 Flow FiO2 Mean Ox Delivery Rate 10/07 1125 98.2 77 18 125/78 100 Room Air 10/07 0931 97.8 106 18 129/84 97 Room Air (Phani OLIVIER,Jordan Betancourt) Past History Travel History Traveled to [place] past 21 day No Medical History Neurological: NONE EENT: NONE Cardiovascular: NONE Respiratory: NONE Gastrointestinal: NONE (02/01/13: initially dxd as UP), ulcerative colitis, umbilical hernia (intact) Hepatic: NONE Renal: NONE Musculoskeletal: NONE Psychiatric: NONE Endocrine: obesity (wt gain post prednisone) Blood Disorders: NONE Cancer(s): NONE LEAVE COORDINATOR/Reproductive: NONE History of MRSA: No History of VRE: No History of CDIFF: No Surgical History Surgical History: appendectomy (2014 at [facility]), (x 2) Psychosocial History Who do you live with Family Services at Home None What is your primary language Venezuelan Tobacco Use: Quit >30 days ago Family History Family History, If Any: MOTHER (post breast Ca x 2, DM, HTN, diverticulitis). Age 69. FATHER (ASHD, post CABG x 3, DM). Age 72. BROTHER ([facility]- *UC, post colectomy). BROTHER (A&W). BROTHER ([employer]&W). BROTHER (Ulcerative colitis). Relation not specified for: ulcerative colitis Hx Contributory? No (Lynsey Muñoz MD,Lorie Cordova) Medical History Any Pertinent Medical History? see below for history Psychosocial History ETOH Use: denies use Illicit Drug Use: denies illicit drug use (Jordan Jeronimo MD) Review of Systems Review of Systems Constitutional: Reports: see HPI. (Lorie Perry MD) Review of Systems EENTM: Reports: no symptoms. Respiratory: Reports: no symptoms. Cardiovascular: Reports: no symptoms. GI: Reports: see HPI, nausea. Genitourinary: Reports: no symptoms. Musculoskeletal: Reports: no symptoms. Skin: Reports: no symptoms. Neurological/Psychological: Reports: no symptoms. Hematologic/Endocrine: Reports: no symptoms. Immunologic/Allergic: Reports: no symptoms. All Other Systems: Reviewed and Negative (Phani OLIVIER,Jordan Betancourt) Physical Exam Physical Exam General Appearance: well developed/nourished, no apparent distress, alert, awake , Ill looking Head: atraumatic, normal appearance Ears, Nose, Throat: normal pharynx, Relatively Dry mucus memb Respiratory: normal breath sounds, no respiratory distress Cardiovascular: regular rate/rhythm Gastrointestinal: soft, Tenderness in deep palpation in LLG and umblical area Extremities: no edema Core Measures ACS in differential dx? No CVA/TIA Diagnosis: No Sepsis Present: No Sepsis Focused Exam Completed? No (Lynsey Muñoz MD,Lorie Cordova) Physical Exam Eyes: Bilateral: PERRL, EOMI. Neck: normal inspection, supple Neurologic/Psych: no motor/sensory deficits, awake, alert, oriented x 3, normal mood/affect (Phani OLIVIER,Jordan Betancourt) Progress Differential Diagnoses I considered the following diagnoses in my evaluation of the patient: [Colitis, UC flare, abdominal abcess, reactive thrombocytosis] Plan of Care: Orders Procedure Date/time Status Nothing by Mouth 10/07 L Active Patient Data 10/07 1211 Active ED Holding Orders 10/07 1206 Active Admit to inpatient 10/07 1206 Active Vital Signs 10/07 1206 Active Code Status 10/07 1206 Active BLOOD CULTURE 10/07 1148 Active URINALYSIS 10/07 1116 Complete Lab Add-on Test 10/07 1023 Active DIRECT BILIRUBIN 10/07 0951 Complete LIPASE 10/07 0950 Complete LACTIC ACID 10/07 0950 Complete COMPREHENSIVE METABOLIC PANEL 10/07 0950 Complete CBC WITHOUT DIFFERENTIAL 10/07 0950 Complete AMYLASE 10/07 0950 Complete Current Medications Sig/Raymond Start time Last Medication Dose Stop Time Status Admin Morphine Sulfate 2 MG ONCE PRN 10/07 1030 AC 10/07 (MORPHINE SULFATE) 1123 Ondansetron HCl 4 MG Q6P PRN 10/07 1030 AC 10/07 (Zofran) 1056 Dextrose/Sodium 1,000 ML Q8H 10/07 1015 AC Chloride (D5W-1/2 Normal Saline 1000ML) Laboratory Tests 10/07/17 1115: Urinalysis LIGHT H, Urine Color YEL, Urine Clarity HAZY H, Urine pH 6.5, Ur Specific [place] 1.015, Urine Protein TRACE H, Urine Ketones TRACE H, Urine Nitrite POS H, Urine Bilirubin NEG@ICTO, Urine Urobilinogen 0.2, Ur Leukocyte Esterase NEG, Ur Microscopic SEDIMENT EXAMINED, Urine RBC 1-3, Urine WBC 3-5 H, Ur Epithelial Cells MOD H, Urine Crystals 3+ CA OX H, Urine Bacteria MOD H, Granular Casts RARE H, Urine Mucus MANY H, Urine Hemoglobin TRACE-INTACT, Urine Glucose NEG 10/07/17 0951: Anion Gap 14, Estimated GFR > 60, BUN/Creatinine Ratio 18.8, Glucose 113 H, Lactic Acid 1.6, Calcium 9.7, Total Bilirubin 0.7, Direct Bilirubin 0.2, AST 10 L, ALT 25, Alkaline Phosphatase 83, Total Protein 6.7, Albumin 3.4 L, Globulin 3.3, Albumin/Globulin Ratio 1.0 L, Amylase 74, Lipase 200, CBC w Diff MAN DIFF ORDERED, RBC 4.32, MCV 87.6, MCH 28.0, MCHC 32.0 L, RDW 15.6 H, MPV 7.2 L, Gran % 79.0 H, Lymphocytes % 14.7 L, Monocytes % 6.0, Eosinophils % 0.1, Basophils % 0.2, Absolute Granulocytes 12.8 H, Absolute Lymphocytes 2.4, Absolute Monocytes 1.0 H, Absolute Eosinophils 0, Absolute Basophils 0, Platelet Estimate INCREASED, Anisocytosis 1+, Stomatocytes 1+ Microbiology 10/07 1210 BLOOD: Blood Culture - RECD 10/07 1148 BLOOD: Blood Culture - ORD (Lynsey Muñoz MD,Lorie Cordova) Differential Diagnoses I considered the following diagnoses in my evaluation of the patient: Diagnostic Imaging: Viewed by Me: CT Scan. Discussed w/RAD: CT Scan. Radiology Impression: SEE BELOW Initial ED EKG: none Comments: PATIENT: BROOKLYN RUVALCABA PRESENT AGE: 37 PATIENT ACCOUNT NO: [id number] : 79 LOCATION: [facility] ORDERING PHYSICIAN: Lorie Muñoz MD SERVICE DATE: 10/07/17- EXAM TYPE: CAT - CT ABD & PELVIS W IV CONTRAST EXAMINATION: CT ABDOMEN AND PELVIS WITH CONTRAST CLINICAL INFORMATION: Bacteremia, ulcerative colitis flare, left lower quadrant and umbilical pain, nausea COMPARISON: 11/24/2009 TECHNIQUE: Multidetector volumetric imaging was performed of the abdomen and pelvis following IV administration of 95 mL of Optiray 320 intravenous contrast. Sagittal and coronal reformatted images were obtained on the technologist's workstation. DLP: 934.22 mGy-cm FINDINGS: LUNG BASES: The visualized lung bases are unremarkable. LIVER, GALLBLADDER, AND BILIARY TREE: The liver is normal in size, shape, and attenuation. No focal hepatic lesion or biliary ductal dilatation is present. The gallbladder is unremarkable with no evidence of radiopaque gallstones, gallbladder wall thickening, or obvious pericholecystic inflammatory changes. PANCREAS: Unremarkable. SPLEEN: Unremarkable. ADRENAL GLANDS: Unremarkable. KIDNEYS AND URETERS: The kidneys are normal in size, shape, and attenuation. No hydronephrosis, hydroureter, or calculi seen. No perinephric stranding. BLADDER: Unremarkable. GASTROINTESTINAL TRACT: There is a rim-enhancing, mixed fluid and gas collection in the central pelvis which is difficult to precisely measure given its irregular shape, though is approximately 8.2 x 7.7 cm in the axial plane and 5.0 cm in craniocaudal dimension. This does not appear to represent a loop of bowel and is most suspicious for an abscess. A tiny focus of gas in the left lower quadrant on image 70/101 anterior to this collection appears to represent a focus of free air. The sigmoid colon in the pelvis is collapsed, which limits assessment for wall thickening, though there is some pericolonic stranding suggesting a degree of colonic inflammation. A few small sigmoid colon diverticula are noted. No specific evidence of bowel obstruction. Patient appears status post appendectomy. ABDOMINAL WALL: No significant hernia is appreciated. LYMPH NODES: A few borderline enlarged pelvic lymph nodes are noted. VASCULAR: Unremarkable. PELVIC VISCERA: Unremarkable. OSSEOUS STRUCTURES: Mild degenerative changes are present in the spine. IMPRESSION: Mixed fluid and gas collection in the central pelvis measuring approximately 8.2 x 7.7 x 5.0 cm, most suspicious for abscess. Tiny focus of free air is noted in the left lower quadrant anteriorly. Colitis of the sigmoid colon is suspected. This critical result was discussed with Lorie Muñoz on 10/07/2017 11:27 AM, and it was ascertained that the content and urgency of the report was understood at the time of direct communication. DICTATED BY: Rubén Morse MD DATE/TIME DICTATED:10/07/171106 NONPROFIT MANAGER:SAMI DATE/TIME TRANSCRIBED:10/07/171106 CONFIDENTIAL, DO NOT COPY WITHOUT APPROPRIATE AUTHORIZATION. <Electronically signed in Other Vendor System> SIGNED BY: Rubén Morse MD 10/07/17 1131 (Jordan Jeronimo MD) Departure Departure Condition: Stable Referrals: Marin Maurer MD (PCP/Family) Departure Forms: Customer Survey General Discharge Information Admission Note Documentation of Exam: Documentation of any treatments & extenuating circumstances including Concerns Regarding Discharge (functional status, medication knowledge or non-compliance, living conditions, etc.) that warrant an admission rather than observation: [ abdominal abcess] ED team contacted Dr Arriaga and Dr Rodriguez as this patient is known to them from previous admission. Dr Maurer accepting attending for admission to floor. (Lynsey Muñoz MD,Lorie Cordova) Departure Disposition: STILL A PATIENT Clinical Impression Primary Impression: Intestinal abscess Secondary Impressions: Thrombocytosis Admission Note Spoke With: Marin Maurer MD Documentation of Exam: Documentation of any treatments & extenuating circumstances including Concerns Regarding Discharge (functional status, medication knowledge or non-compliance, living conditions, etc.) that warrant an admission rather than observation: Resident Co-Sign Statement Statement: ED Attending supervision documentation- [X] I saw and evaluated the patient. I have also reviewed all the pertinent lab results and diagnostic results. I agree with the findings and the plan of care as documented in the Resident's documentation. [X] I have reviewed the ED Record and agree with the Resident's documentation. [] Additions or exceptions (if any) to the Resident's note and plan are summarized below: [Patient had recent admission for bacteremia in the setting of ulcerative colitis on immunosuppressive therapy. Patient was feeling better however last night she became nauseous and had abdominal pain. Patient has been unable to keep anything down. Her CAT scan shows an abscess. Patient has thrombocytosis with platelet count of well over 1 million. Patient has been hydrated. Patient will need admission for higher drainage as well as surgical an ID consultation' s.] (Jordan Jeronimo MD) Critical Care Note Critical Care Note Critical Care Time: mins: (90 MIN) (Phani OLIVIER,Jordan Betancourt)
[2017-10-07 10:10] LABS: ABSOLUTE BASOPHIL COUNT 0 /CUMM (0.0-0.2); ABSOLUTE EOSINOPHIL COUNT 0 /CUMM (0.0-0.7); ABSOLUTE GRANULOCYTE CT 12.8 /CUMM (1.4-6.5); ABSOLUTE LYMPH COUNT 2.4 /CUMM (1.2-3.4); BASOPHIL % 0.2 % (0.0-2.0); EOSINOPHIL % 0.1 % (0-5); HEMATOCRIT 37.8 % (37-47); MEAN CORPUSCULAR VOLUME 87.6 FL (81.0-99.0); MEAN PLATELET VOLUME 7.2 FL (7.4-10.4); RBC DISTRIBUTION WIDTH 15.6 % (11.5-14.5); RED BLOOD CELL CT 4.32 /CUMM (4.20-5.40); WHITE BLOOD CELL COUNT 16.2 /CUMM (4.8-10.8)
[2017-10-07 10:26] LABS: PLATELET COUNT 1123 /CUMM (130-400)
--- NOTE | 2017-10-07 11:31 | CT SCAN REPORT ---
EXAMINATION: CT ABDOMEN AND PELVIS WITH CONTRAST CLINICAL INFORMATION: Bacteremia, ulcerative colitis flare, left lower quadrant and umbilical pain, nausea COMPARISON: 11/24/2009 TECHNIQUE: Multidetector volumetric imaging was performed of the abdomen and pelvis following IV administration of 95 mL of Optiray 320 intravenous contrast. Sagittal and coronal reformatted images were obtained on the technologist's workstation. DLP: 934.22 mGy-cm FINDINGS: LUNG BASES: The visualized lung bases are unremarkable. LIVER, GALLBLADDER, AND BILIARY TREE: The liver is normal in size, shape, and attenuation. No focal hepatic lesion or biliary ductal dilatation is present. The gallbladder is unremarkable with no evidence of radiopaque gallstones, gallbladder wall thickening, or obvious pericholecystic inflammatory changes. PANCREAS: Unremarkable. SPLEEN: Unremarkable. ADRENAL GLANDS: Unremarkable. KIDNEYS AND URETERS: The kidneys are normal in size, shape, and attenuation. No hydronephrosis, hydroureter, or calculi seen. No perinephric stranding. BLADDER: Unremarkable. GASTROINTESTINAL TRACT: There is a rim-enhancing, mixed fluid and gas collection in the central pelvis which is difficult to precisely measure given its irregular shape, though is approximately 8.2 x 7.7 cm in the axial plane and 5.0 cm in craniocaudal dimension. This does not appear to represent a loop of bowel and is most suspicious for an abscess. A tiny focus of gas in the left lower quadrant on image 70/101 anterior to this collection appears to represent a focus of free air. The sigmoid colon in the pelvis is collapsed, which limits assessment for wall thickening, though there is some pericolonic stranding suggesting a degree of colonic inflammation. A few small sigmoid colon diverticula are noted. No specific evidence of bowel obstruction. Patient appears status post appendectomy. ABDOMINAL WALL: No significant hernia is appreciated. LYMPH NODES: A few borderline enlarged pelvic lymph nodes are noted. VASCULAR: Unremarkable. PELVIC VISCERA: Unremarkable. OSSEOUS STRUCTURES: Mild degenerative changes are present in the spine. IMPRESSION: Mixed fluid and gas collection in the central pelvis measuring approximately 8.2 x 7.7 x 5.0 cm, most suspicious for abscess. Tiny focus of free air is noted in the left lower quadrant anteriorly. Colitis of the sigmoid colon is suspected. This critical result was discussed with Lorie Muñoz on 10/07/2017 11:27 AM, and it was ascertained that the content and urgency of the report was understood at the time of direct communication.
--- NOTE | 2017-10-07 13:29 | History & Physical ---
CokerMichael 10/07/17 1327: General Information and HPI MD Statement: I have seen and personally examined BROOKLYN TRENT and documented this H&P. The patient is a 37 year old F who presented with a patient stated chief complaint of nausea, vomiting and abdominal pain. Source of Information: patient, family Exam Limitations: no limitations History of Present Illness: 37-year-old woman with past medical history of ulcerative colitis with frequent exacerbations, on immunotherapy with vedolizumab, recently admitted on 09/24/2017 with severe ulcerative colitis, found to have B fragilis bacteremia and septicemia during the admission, discharged on p.o. Cipro and Flagyl, completed the course on 10/05/2017 presents to [facility] ED with 1 day history of worsening lower abdominal pain, nausea and multiple episodes of bilious vomiting. After admission, patient states she continued to feel poorly as well as fatigued but had no GI symptoms. She was able to tolerate fluids and light diet with no problems. She woke up yesterday 5 AM to take her prednisone, and as soon as she finished a bowl of cereal she threw up multiple times. She admits to feeling warm, but no recorded fevers. She denies any diarrhea or any blood in stools. No urinary complaints. No recent sick contacts. She states compliance with her prescribed antibiotic regimen. She was adhering to her prolonged prednisone taper. During the episode yesterday she admitted to feeling lightheaded and dizzy. With no resolution to her symptoms, she called her GI doctor Dr. Canales who recommended that the patient comes to the ED for evaluation. Other systems reviewed and negative, except as above. Allergies/Medications Allergies: Coded Allergies: erythromycin base (From ERYTHROCIN) (Intermediate, HIVES 09/24/17) Penicillins (RASH 04/07/17) amoxicillin (RASH 04/07/17) Home Med list Calcium Carbonate/Vitamin D3 (Caltrate 600 + D Tablet) 600 MG-800 TABLET 1 TAB PO DAILY SUPLEMENT . Cholecalciferol (Vitamin D3) (Vitamin D) 1,000 UNIT CAPSULE 1 TAB PO DAILY SUPLEMENT . Ferrous Sulfate 325 MG (65 MG IRON) TABLET 1 TAB PO DAILY IRON, VITAMIN ( Reported) Mesalamine (Lialda) 1.2 GRAM TABLET.DR 4 TAB PO DAILY UNKNOWN (Reported) Prednisone 20 MG TABLET 2.5 TAB PO DAILY STEROID (Reported) Past History Travel History Traveled to [place] past 21 day No Medical History Neurological: NONE EENT: NONE Cardiovascular: NONE Respiratory: NONE Gastrointestinal: NONE (02/01/13: initially dxd as UP), ulcerative colitis, umbilical hernia (intact) Hepatic: NONE Renal: NONE Musculoskeletal: NONE Psychiatric: NONE Endocrine: obesity (wt gain post prednisone) Blood Disorders: NONE Cancer(s): NONE PICK REMOVER/Reproductive: NONE History of MRSA: No History of VRE: No History of CDIFF: No Surgical History Surgical History: appendectomy (2014 at [facility]), (x 2) Past Family/Social History Family History Relations & Conditions if any MOTHER (post breast Ca x 2, DM, HTN, diverticulitis). Age 69. FATHER (ASHD, post CABG x 3, DM). Age 72. BROTHER (A&W- *UC, post colectomy). BROTHER (A&W). BROTHER (A&W). BROTHER (Ulcerative colitis). Relation not specified for: ulcerative colitis Psychosocial History Who Do You Live With? spouse Services at Home: None Primary Language: Kinyarwanda ETOH Use: denies use Illicit Drug Use: denies illicit drug use Living Will? no Power of Hospice Office Coordinator/HCP? no Functional Ability ADLs Independent: dressing, eating, toileting, bathing. Ambulation: independent IADLs Independent: shopping, housework, finances, food prep, telephone, transportation , medication admin. Review of Systems Review of Systems Constitutional: Reports: see HPI. Exam & Diagnostic Data Last 24 Hrs of Vital Signs/I&O Vital Signs Date Time Temp Pulse Resp B/P B/P Pulse O2 O2 Flow FiO2 Mean Ox Delivery Rate 10/07 1328 98.0 75 18 118/60 97 Room Air 10/07 1125 98.2 77 18 125/78 100 Room Air 10/07 0931 97.8 106 18 129/84 97 Room Air Intake & Output 10/07 1600 10/07 0800 10/07 0000 Intake Total Output Total Balance Patient 220 lb Weight Weight Reported by Patient Measurement Method Physical Exam General Appearance Alert, Oriented X3, Cooperative HEENT Atraumatic, PERRLA, EOMI, Mucous Membr. moist/pink Neck Supple, No JVD Lymphatic Axillary nl, Cervical nl Cardiovascular Regular Rate, Normal S1, Normal S2 Lungs Clear to Auscultation, Normal Air Movement Abdomen Soft, duffusely tender abdomen with hypoactive bowel sounds. Neurological Normal Gait, Normal Speech Extremities No Clubbing, No Cyanosis, No Edema Last 24 Hrs of Labs/Cecilio: Laboratory Tests 10/07/17 1250: Lactic Acid Cancelled 10/07/17 1115: Urinalysis LIGHT H, Urine Color YEL, Urine Clarity HAZY H, Urine pH 6.5, Ur Specific [place] 1.015, Urine Protein TRACE H, Urine Ketones TRACE H, Urine Nitrite POS H, Urine Bilirubin NEG@ICTO, Urine Urobilinogen 0.2, Ur Leukocyte Esterase NEG, Ur Microscopic SEDIMENT EXAMINED, Urine RBC 1-3, Urine WBC 3-5 H, Ur Epithelial Cells MOD H, Urine Crystals 3+ CA OX H, Urine Bacteria MOD H, Granular Casts RARE H, Urine Mucus MANY H, Urine Hemoglobin TRACE-INTACT, Urine Glucose NEG 10/07/17 0951: Anion Gap 14, Estimated GFR > 60, BUN/Creatinine Ratio 18.8, Glucose 113 H, Lactic Acid 1.6, Calcium 9.7, Total Bilirubin 0.7, Direct Bilirubin 0.2, AST 10 L, ALT 25, Alkaline Phosphatase 83, Total Protein 6.7, Albumin 3.4 L, Globulin 3.3, Albumin/Globulin Ratio 1.0 L, Amylase 74, Lipase 200, CBC w Diff MAN DIFF ORDERED, RBC 4.32, MCV 87.6, MCH 28.0, MCHC 32.0 L, RDW 15.6 H, MPV 7.2 L, Gran % 79.0 H, Lymphocytes % 14.7 L, Monocytes % 6.0, Eosinophils % 0.1, Basophils % 0.2, Absolute Granulocytes 12.8 H, Absolute Lymphocytes 2.4, Absolute Monocytes 1.0 H, Absolute Eosinophils 0, Absolute Basophils 0, Platelet Estimate INCREASED, Anisocytosis 1+, Stomatocytes 1+ Microbiology 10/07 1225 BLOOD: Blood Culture - RECD 10/07 1210 BLOOD: Blood Culture - RECD Diagnostic Data Other Results CT A/p: IMPRESSION: Mixed fluid and gas collection in the central pelvis measuring approximately 8.2 x 7.7 x 5.0 cm, most suspicious for abscess. Tiny focus of free air is noted in the left lower quadrant anteriorly. Colitis of the sigmoid colon is suspected. Assessment/Plan Assessment: 37-year-old woman with history of recurrent ulcerative colitis, admitted with recent flare, found to be bacteremic secondary to bacterial translocation versus microperforations discharged on p.o. ciprofloxacin and Flagyl comes back to the ED with worsening abdominal pain, nausea and vomiting with CT evidence of intra- abdominal abscess being admitted to general medicine floor for further management. 1. Intra-abdominal abscess. Admit to general medicine service. Large-bore IVs. IV fluid hydration. Ms. Trent was started on steroids during recent admission. She has been receiving high-dose steroids (60 mg for 1 week, 50 mg 1 week) for less than 3 weeks and her degree of suppression of HPA [place] cannot be categorized. The fact that she may need to go for an urgent surgery, we will start her on stress dose steroids IV hydrocortisone 100 mg every 8 hours. Request surgery evaluation. In terms of her antibiotic regimen selection, patient did have abscess formation while on appropriate coverage with ciprofloxacin and Flagyl. Will wait for ID recommendations for antibiotic selection. Given her fairly nontoxic appearance and labs, ceftriaxone or Cipro + Flagyl perhaps may be adequate. Nonetheless, surgical intervention would be paramount. Vedolizumab may contribute to wound dehiscence and delayed wound healing. GI evaluation to comment on that. ?Hold Vedolizumab perioperatively for at least 2 weeks. 2. Sigmoid colitis. Keep n.p.o. Conservative management. IV fluids. GI evaluation. 3. Thrombocytosis. Likely reactive to ongoing infection. Continue to monitor. Full code. Alps for DVT prophylaxis. N.p.o. As Ranked By This Provider Problem List: 1. Ulcerative colitis Core Measures/Misc (01/26) Acute Coronary Syndrome ACS Diagnosis: No Congestive Heart Failure Congestive Heart Failure Diagnosis No Cerebrovascular Accident CVA/TIA Diagnosis: No VTE (View Protocol) VTE Risk Factors Acute Medical Illness No Mechanical VTE Prophylaxis d/t N/A MechProphylax Ordered No VTE Pharm Prophylaxis d/t Surgical Contraindication Sepsis (View protocol) Sepsis Present: No If YES complete Sepsis Event Note If YES complete Sepsis Event Note Erasto OLIVIER,[facility] 10/07/172028: Core Measures/Misc (01/26) Sepsis (View protocol) If YES complete Sepsis Event Note If YES complete Sepsis Event Note Attending MD Review Statement Attending Statement Attending MD Statement: examined this patient, discuss w/resident/PA/INSET CUTTER, agreed w/resident/PA/INSET CUTTER, discussed with family, reviewed EMR data (avail), discussed with nursing, discussed with case mgmt, reviewed images, amended to note Attending Assessment/Plan: Seen and examined independently Discussed with gen surg and pt and family extensively This is a 37-year-old woman with ulcerative colitis, hospitalized 2 weeks ago with polymicrobial anaerobic bacteremia, with a CT of the abdomen and pelvis revealing circumferential wall thickening of the distal descending and sigmoid colon extending to the rectum, with no free air, treated with IV steroids and Ceftriaxone and Flagyl and discharged on Cipro and Flagyl, admitted earlier today with one day of recurrent vomiting and lower abdominal pain, found to be afebrile with leukocytosis and thrombocytosis and with a CT of the abdomen and pelvis revealing a mixed fluid and gas collection in the central pelvis, suspicious for an abscess. Her clinical picture is consistent with an intra-abdominal abscess secondary to her recent perforation. Per ID discussion with IR - IR does not feel that the interloop abscess would be amenable to drainage and, therefore, suspect she will require surgery for drainage and probable bowel resection/subtotal colectomy. She has been covered with Ceftriaxone and Flagyl Pt is hemodynamically stable now with no sig sepsis Colorectal surg did wish to proceed with surg but it is on hold pending further discussion with IR as pt was hesitant with proceeding with direct surg today ISSUES Sig immunosupp state due to high dose steroids and recent UC flare (failed 2 biologic agents and on high dose steroids followed by GI Dr. Canales regularly * Intraabd abcess due to recent small bowel perf * Recent sig UC flare despite 2 biologics now controlled with high dose steroid * Sig reactive thrombocytosis * No sig DM induced by steroid REC /PLAN KEep npo IV abx Cont steroids stress dose Colorectal to eval in am to see if they need to take her to the OR or Pt to go for IR drainage PT is high risk for severe sepsis due to immunosupp agents (which she needs for her sig UC flare) Cont IVF and change to D5 ringers in am watch sugars and sliding scale Prog guarded Discussed with pt and family and they are agreeable with above plan
[2017-10-07 15:54] LABS: PT 13.3 SEC (9.4-12.5)
--- NOTE | 2017-10-07 16:22 | Cons- Infect Disease ---
General Information and HPI Consulting Request Date of Consult: 10/07/17 Requested By: Erasto OLIVIER,Marin Mckeon Reason for Consult: Intraabdominal abscess Source of Information: patient, old records History of Present Illness: This is a 37-year-old woman with ulcerative colitis, diagnosed several years prior to admission, treated in the past with Remicade and, more recently, with prednisone, Mesalamine and status post 2 infusions of ENTYVIO (Vedolizumab), most recently 4 weeks prior to admission, hospitalized 2 weeks ago with fevers and chills, found to have polymicrobial anaerobic bacteremia, with a CT of the abdomen and pelvis revealing circumferential wall thickening of the distal descending and sigmoid colon extending to the rectum, with no free air, treated with IV steroids and Ceftriaxone and Flagyl and discharged on Cipro and Flagyl to complete a two-week course of antibiotics, with a white blood cell of 20,000 on discharge, admitted earlier today after presenting to the emergency room with one-day of recurrent vomiting and lower abdominal pain. On admission she was afebrile. Laboratory data revealed a white blood cell count of 16,000, platelet count 1,123,000, BUN/creatinine 15 and 0.8, with normal liver enzymes, INR 1.22. Urinalysis 1-3 RBC/3-[address] of the abdomen and pelvis revealed a mixed fluid and gas collection in the central pelvis measuring 8.2 x 7.7 x 5 cm, with a tiny focus of free air in the left lower quadrant, and with evidence of colitis of the sigmoid colon. She was given Ceftriaxone and Flagyl in the emergency room and was admitted to the floor. Allergies/Medications Allergies: Coded Allergies: erythromycin base (From ERYTHROCIN) (Intermediate, HIVES 09/24/17) Penicillins (RASH 04/07/17) amoxicillin (RASH 04/07/17) Home Med List: Calcium Carbonate/Vitamin D3 (Caltrate 600 + D Tablet) 600 MG-800 TABLET 1 TAB PO DAILY SUPLEMENT . Cholecalciferol (Vitamin D3) (Vitamin D) 1,000 UNIT CAPSULE 1 TAB PO DAILY SUPLEMENT . Ferrous Sulfate 325 MG (65 MG IRON) TABLET 1 TAB PO DAILY IRON, VITAMIN ( Reported) Mesalamine (Lialda) 1.2 GRAM TABLET.DR 4 TAB PO DAILY UNKNOWN (Reported) Prednisone 20 MG TABLET 2.5 TAB PO DAILY STEROID (Reported) Past History Travel History Traveled to [place] past 21 day No Medical History Blood Transfusion Hx: No Neurological: NONE EENT: NONE Cardiovascular: NONE Respiratory: NONE Gastrointestinal: ulcerative colitis, umbilical hernia (intact) Hepatic: NONE Renal: NONE Musculoskeletal: NONE Psychiatric: NONE Endocrine: obesity (wt gain post prednisone) Blood Disorders: NONE Cancer(s): NONE CSO/Reproductive: NONE History of MRSA: No History of VRE: No History of CDIFF: No Isolation History: Standard Surgical History Surgical History: appendectomy (2014 at [facility]), (x 2) Family History Relations & Conditions If Any: MOTHER (post breast Ca x 2, DM, HTN, diverticulitis). Age 69. FATHER (ASHD, post CABG x 3, DM). Age 72. BROTHER (A&W- *UC, post colectomy). BROTHER (A&W). BROTHER (A&W). BROTHER (Ulcerative colitis). Relation not specified for: ulcerative colitis Psychosocial History Where Do You Live? Home Who Do You Live With? spouse Services at Home: None Primary Language: Russian Smoking Status: Former Smoker ETOH Use: denies use Illicit Drug Use: denies illicit drug use Living Will? no Power of Head Of Store Operations/HCP? no Functional Ability ADLs Independent: dressing, eating, toileting, bathing. Ambulation: independent IADLs Independent: shopping, housework, finances, food prep, telephone, transportation , medication admin. Review of Systems Review of Systems All Other Systems: Reviewed and Negative Exam & Diagnostic Data Last 24 Hrs of Vital Signs/I&O Vital Signs Date Time Temp Pulse Resp B/P B/P Pulse O2 O2 Flow FiO2 Mean Ox Delivery Rate 10/07 1328 98.0 75 18 118/60 97 Room Air 10/07 1125 98.2 77 18 125/78 100 Room Air 10/07 0931 97.8 106 18 129/84 97 Room Air Intake & Output 10/07 1600 10/07 0800 10/07 0000 Intake Total Output Total Balance Patient 220 lb Weight Weight Reported by Patient Measurement Method Physical Exam Other Physical Findings: She is awake and alert in no acute distress. She is afebrile on steroids. Skin reveals no rash. HEENT exam is negative. Neck is supple with no adenopathy. Lungs are clear. Heart regular rhythm with no murmur. Abdomen is obese, soft, tender on palpation of the lower abdomen and left lower quadrant, with no guarding or rebound, with positive bowel sounds. Back no CVA tenderness. Extremities no cyanosis, clubbing or edema. Neuro is without focality. Last 24 Hours of Lab Results: Laboratory Tests 10/07 10/07 10/07 1526 1250 1115 Chemistry Lactic Acid Cancelled Coagulation PT (9.4 - 12.5 SEC) 13.3 H INR (0.90 - 1.19) 1.22 H Urines Urinalysis LIGHT H Urine Color (YEL,AMB,STR) YEL Urine Clarity (CLEAR) HAZY H Urine pH (5.0 - 8.0) 6.5 Ur Specific [place] (1.001 - 1.035) 1.015 Urine Protein (NEG,<30 MG/DL) TRACE H Urine Ketones (NEG) TRACE H Urine Nitrite (NEG) POS H Urine Bilirubin (NEG) NEG@ICTO Urine Urobilinogen (0.1 - 1.0 EU/dl) 0.2 Ur Leukocyte Esterase (NEG) NEG Ur Microscopic SEDIMENT EXAMINED Urine RBC (0 - 5 /HPF) 1-3 Urine WBC (0 - 2 /HPF) 3-5 H Ur Epithelial Cells (NONE,FEW) MOD H Urine Crystals 3+ CA OX H Urine Bacteria (NEG/NONE) MOD H Granular Casts (NONE /LPF) RARE H Urine Mucus (FEW,NONE) MANY H Urine Hemoglobin (NEG) TRACE-INTACT Urine Glucose (N MG/DL) NEG 10/07 0951 Chemistry Sodium (137 - 145 mmol/L) 139 Potassium (3.5 - 5.1 mmol/L) 4.2 Chloride (98 - 107 mmol/L) 97 L Carbon Dioxide (22 - 30 mmol/L) 28 Anion Gap (5 - 16) 14 BUN (7 - 17 mg/dL) 15 Creatinine (0.5 - 1.0 mg/dL) 0.8 Estimated GFR (>60 ml/min) > 60 BUN/Creatinine Ratio (7 - 25 %) 18.8 Glucose (65 - 99 mg/dL) 113 H Lactic Acid (0.7 - 2.1 mmol/L) 1.6 Calcium (8.4 - 10.2 mg/dL) 9.7 Total Bilirubin (0.2 - 1.3 mg/dL) 0.7 Direct Bilirubin (< 0.4 mg/dL) 0.2 AST (14 - 36 U/L) 10 L ALT (9 - 52 U/L) 25 Alkaline Phosphatase (<127 U/L) 83 Total Protein (6.3 - 8.2 g/dL) 6.7 Albumin (3.5 - 5.0 g/dL) 3.4 L Globulin (1.9 - 4.2 gm/dL) 3.3 Albumin/Globulin Ratio (1.1 - 2.2 %) 1.0 L Amylase (30 - 110 U/L) 74 Lipase (23 - 300 U/L) 200 Hematology CBC w Diff MAN DIFF ORDERED WBC (4.8 - 10.8 /CUMM) 16.2 H RBC (4.20 - 5.40 /CUMM) 4.32 Hgb (12.0 - 16.0 G/DL) 12.1 Hct (37 - 47 %) 37.8 MCV (81.0 - 99.0 FL) 87.6 MCH (27.0 - 31.0 PG) 28.0 MCHC (33.0 - 37.0 G/DL) 32.0 L RDW (11.5 - 14.5 %) 15.6 H Plt Count (130 - 400 /CUMM) 1123 *H MPV (7.4 - 10.4 FL) 7.2 L Gran % (42.2 - 75.2 %) 79.0 H Lymphocytes % (20.5 - 51.1 %) 14.7 L Monocytes % (1.7 - 9.3 %) 6.0 Eosinophils % (0 - 5 %) 0.1 Basophils % (0.0 - 2.0 %) 0.2 Absolute Granulocytes (1.4 - 6.5 /CUMM) 12.8 H Absolute Lymphocytes (1.2 - 3.4 /CUMM) 2.4 Absolute Monocytes (0.10 - 0.60 /CUMM) 1.0 H Absolute Eosinophils (0.0 - 0.7 /CUMM) 0 Absolute Basophils (0.0 - 0.2 /CUMM) 0 Platelet Estimate (ADEQUATE) INCREASED Anisocytosis 1+ Stomatocytes 1+ Last 24 Hours of Cecilio Results: Blood cultures x2 October 07 pending Diagnostic Data Recent Imaging Findings: CT of the abdomen and pelvis revealed a mixed fluid and gas collection in the central pelvis, measuring 8.2 x 7.7 x 5 cm, suspicious for an abscess, with a tiny focus of free air in the left lower quadrant and with evidence of colitis of the sigmoid colon. Assessment/Plan Assessment/Plan Impression: This is a 37-year-old woman with ulcerative colitis, hospitalized 2 weeks ago with polymicrobial anaerobic bacteremia, with a CT of the abdomen and pelvis revealing circumferential wall thickening of the distal descending and sigmoid colon extending to the rectum, with no free air, treated with IV steroids and Ceftriaxone and Flagyl and discharged on Cipro and Flagyl, admitted earlier today with one day of recurrent vomiting and lower abdominal pain, found to be afebrile with leukocytosis and thrombocytosis and with a CT of the abdomen and pelvis revealing a mixed fluid and gas collection in the central pelvis, suspicious for an abscess. Her clinical picture is consistent with an intra-abdominal abscess secondary to her recent perforation. Have reviewed the CT scan with IR, who does not feel that the interloop abscess would be amenable to drainage and, therefore, suspect she will require surgery for drainage and probable bowel resection/subtotal colectomy. She has been covered with Ceftriaxone and Flagyl, which can be continued pending further evaluation. Suggestion: 1. Await Colorectal surgery evaluation 2. Continue stress steroids per Medicine 3. Continue Ceftriaxone and Flagyl pending above Consult Acknowledgment - Thank you for your consult request.
--- NOTE | 2017-10-07 17:48 | Cons- General Surgery ---
General Information and HPI Consulting Request Date of Consult: 10/07/17 Requested By: Erasto OLIVIER,Marin Mckeon Reason for Consult: Patient presents with colonic perforation and history of ulcerative colitis Source of Information: patient Exam Limitations: no limitations History of Present Illness: This is a 37-year-old female who several years ago a colonoscopy for rectal bleeding. She was found to inflammation or colon biopsies indicated likely inflammatory bowel disease. She started medical therapy at that time. Recently she was admitted for here to be flaring disease disease failing medical therapy. She was placed on IV antibiotics and appeared to recover. She recently completed her antibiotics and then developed abdominal pain and pelvic pain and was sent by her GI doctor to the hospital. CT scan was performed and once again demonstrates colitis primarily left sided but now with new perforation and abscess. Allergies/Medications Allergies: Coded Allergies: erythromycin base (From ERYTHROCIN) (Intermediate, HIVES 09/24/17) Penicillins (RASH 04/07/17) amoxicillin (RASH 04/07/17) Home Med List: Calcium Carbonate/Vitamin D3 (Caltrate 600 + D Tablet) 600 MG-800 TABLET 1 TAB PO DAILY SUPLEMENT . Cholecalciferol (Vitamin D3) (Vitamin D) 1,000 UNIT CAPSULE 1 TAB PO DAILY SUPLEMENT . Ferrous Sulfate 325 MG (65 MG IRON) TABLET 1 TAB PO DAILY IRON, VITAMIN ( Reported) Mesalamine (Lialda) 1.2 GRAM TABLET.DR 4 TAB PO DAILY UNKNOWN (Reported) Prednisone 20 MG TABLET 2.5 TAB PO DAILY STEROID (Reported) Current Medications: Current Medications Sig/Raymond Start time Last Medication Dose Route Stop Time Status Admin Acetaminophen 650 MG Q4P PRN 10/07 1400 AC PO Ceftriaxone Sodium 2,000 MG DAILY 10/08 0900 AC IV Ceftriaxone Sodium 0 .STK-MED ONE 10/07 1319 DC .ROUTE Ceftriaxone Sodium 2,000 MG ONCE ONE 10/07 1315 DC 10/07 IV 10/07 1316 1304 Ceftriaxone Sodium 0 .STK-MED ONE 10/07 1308 DC .ROUTE Dextrose/Sodium 1,000 ML Q8H 10/07 1015 DC 10/07 Chloride IV 1331 Hydrocortisone 100 MG Q8 10/07 1402 AC Sodium Succinate IV Lactated Ringer's 1,000 ML Q13H 10/07 1415 AC 10/07 IV 10/09 1814 1456 Methylprednisolone 0 .STK-MED ONE 10/07 1159 DC .ROUTE Methylprednisolone 40 MG ONCE ONE 10/07 1015 DC 10/07 IV 10/07 1016 1154 Metronidazole 500 MG Q8H 10/07 1900 AC N/A 1 UNIT IV Metronidazole 500 MG ONCE ONE 10/07 1315 DC 10/07 N/A 1 UNIT IV 10/07 1414 1317 Morphine Sulfate 2 MG Q4P PRN 10/07 1345 AC 10/07 IV 1500 Morphine Sulfate 4 MG ONCE ONE 10/07 1245 DC 10/07 IV 10/07 1246 1237 Morphine Sulfate 0 .STK-MED ONE 10/07 1243 DC .ROUTE Morphine Sulfate 0 .STK-MED ONE 10/07 1129 DC .ROUTE Morphine Sulfate 2 MG ONCE PRN 10/07 1030 AC 10/07 IV 1123 Ondansetron HCl 4 MG Q6P PRN 10/07 1345 AC IV Ondansetron HCl 0 .STK-MED ONE 10/07 1046 DC .ROUTE Ondansetron HCl 4 MG Q6P PRN 10/07 1030 AC 10/07 IV 1056 Oxycodone/ 1 TAB Q6P PRN 10/07 1345 AC Acetaminophen PO Sodium Chloride 1,000 ML .[id number] 10/07 1345 DC IV 10/09 1904 Sodium Chloride 1,000 ML BOLUS ONE 10/07 1245 DC 10/07 IV 10/07 1344 1237 Sodium Chloride 1,000 ML BOLUS ONE 10/07 1045 DC 10/07 IV 10/07 1144 1055 Past History Medical History Blood Transfusion Hx: No Neurological: NONE EENT: NONE Cardiovascular: NONE Respiratory: NONE Gastrointestinal: ulcerative colitis, umbilical hernia (intact) Hepatic: NONE Renal: NONE Musculoskeletal: NONE Psychiatric: NONE Endocrine: obesity (wt gain post prednisone) Blood Disorders: NONE Cancer(s): NONE LOSS PREVENTION LEAD/Reproductive: NONE Surgical History Pertinent Surgical History: appendectomy (2014 at [facility]), (x 2) Family History Relations & Conditions If Any: MOTHER (post breast Ca x 2, DM, HTN, diverticulitis). Age 69. FATHER (ASHD, post CABG x 3, DM). Age 72. BROTHER ([facility]- *UC, post colectomy). BROTHER (A&W). BROTHER ([facility]&W). BROTHER (Ulcerative colitis). Relation not specified for: ulcerative colitis Psychosocial History Where Do You Live? Home Who Do You Live With? spouse Services at Home: None Primary Language: Hungarian Smoking Status: Former Smoker ETOH Use: denies use Illicit Drug Use: denies illicit drug use Living Will? no Power of Tool Hardener/HCP? no Functional Ability ADLs Independent: dressing, eating, toileting, bathing. Ambulation: independent IADLs Independent: shopping, housework, finances, food prep, telephone, transportation , medication admin. Review of Systems Review of Systems: Positive for abdominal pain Positive for diarrhea and blood per rectum but states this has been improving over the last few weeks Exam & Diagnostic Data Vital Signs and I&O Vital Signs Date Time Temp Pulse Resp B/P B/P Pulse O2 O2 Flow FiO2 Mean Ox Delivery Rate 10/07 1328 98.0 75 18 118/60 97 Room Air 10/07 1125 98.2 77 18 125/78 100 Room Air 10/07 0931 97.8 106 18 129/84 97 Room Air Intake & Output 10/07 1600 10/07 0800 10/07 0000 10/06 1600 10/06 0800 10/06 0000 Intake Total Output Total Balance Patient 220 lb Weight Weight Reported by Patient Measurement Method Physical Exam General Appearance: well developed/nourished, no apparent distress, alert, awake , anxious Head: atraumatic, normal appearance Eyes: Bilateral: normal appearance. Ears, Nose, Throat: moist mucus membranes Neck: normal inspection Respiratory: no respiratory distress Gastrointestinal: soft, guarding, tenderness Extremities: normal inspection, normal capillary refill, no edema Neurologic/Psych: no motor/sensory deficits, awake, alert, oriented x 3 Cranial Nerves: normal speech Skin: intact, warm/dry Other Physical Findings: Patient's abdomen is obese but soft and nondistended She has tenderness with localized rebounding to the left lower quadrant and suprapubic areas He does not have generalized peritonitis Last 24 Hours of Labs: Laboratory Tests 10/07 10/07 10/07 1526 1250 1115 Chemistry Lactic Acid Cancelled Coagulation PT (9.4 - 12.5 SEC) 13.3 H INR (0.90 - 1.19) 1.22 H Urines Urinalysis LIGHT H Urine Color (YEL,AMB,STR) YEL Urine Clarity (CLEAR) HAZY H Urine pH (5.0 - 8.0) 6.5 Ur Specific [place] (1.001 - 1.035) 1.015 Urine Protein (NEG,<30 MG/DL) TRACE H Urine Ketones (NEG) TRACE H Urine Nitrite (NEG) POS H Urine Bilirubin (NEG) NEG@ICTO Urine Urobilinogen (0.1 - 1.0 EU/dl) 0.2 Ur Leukocyte Esterase (NEG) NEG Ur Microscopic SEDIMENT EXAMINED Urine RBC (0 - 5 /HPF) 1-3 Urine WBC (0 - 2 /HPF) 3-5 H Ur Epithelial Cells (NONE,FEW) MOD H Urine Crystals 3+ CA OX H Urine Bacteria (NEG/NONE) MOD H Granular Casts (NONE /LPF) RARE H Urine Mucus (FEW,NONE) MANY H Urine Hemoglobin (NEG) TRACE-INTACT Urine Glucose (N MG/DL) NEG 10/07 0951 Chemistry Sodium (137 - 145 mmol/L) 139 Potassium (3.5 - 5.1 mmol/L) 4.2 Chloride (98 - 107 mmol/L) 97 L Carbon Dioxide (22 - 30 mmol/L) 28 Anion Gap (5 - 16) 14 BUN (7 - 17 mg/dL) 15 Creatinine (0.5 - 1.0 mg/dL) 0.8 Estimated GFR (>60 ml/min) > 60 BUN/Creatinine Ratio (7 - 25 %) 18.8 Glucose (65 - 99 mg/dL) 113 H Lactic Acid (0.7 - 2.1 mmol/L) 1.6 Calcium (8.4 - 10.2 mg/dL) 9.7 Total Bilirubin (0.2 - 1.3 mg/dL) 0.7 Direct Bilirubin (< 0.4 mg/dL) 0.2 AST (14 - 36 U/L) 10 L ALT (9 - 52 U/L) 25 Alkaline Phosphatase (<127 U/L) 83 Total Protein (6.3 - 8.2 g/dL) 6.7 Albumin (3.5 - 5.0 g/dL) 3.4 L Globulin (1.9 - 4.2 gm/dL) 3.3 Albumin/Globulin Ratio (1.1 - 2.2 %) 1.0 L Amylase (30 - 110 U/L) 74 Lipase (23 - 300 U/L) 200 Hematology CBC w Diff MAN DIFF ORDERED WBC (4.8 - 10.8 /CUMM) 16.2 H RBC (4.20 - 5.40 /CUMM) 4.32 Hgb (12.0 - 16.0 G/DL) 12.1 Hct (37 - 47 %) 37.8 MCV (81.0 - 99.0 FL) 87.6 MCH (27.0 - 31.0 PG) 28.0 MCHC (33.0 - 37.0 G/DL) 32.0 L RDW (11.5 - 14.5 %) 15.6 H Plt Count (130 - 400 /CUMM) 1123 *H MPV (7.4 - 10.4 FL) 7.2 L Gran % (42.2 - 75.2 %) 79.0 H Lymphocytes % (20.5 - 51.1 %) 14.7 L Monocytes % (1.7 - 9.3 %) 6.0 Eosinophils % (0 - 5 %) 0.1 Basophils % (0.0 - 2.0 %) 0.2 Absolute Granulocytes (1.4 - 6.5 /CUMM) 12.8 H Absolute Lymphocytes (1.2 - 3.4 /CUMM) 2.4 Absolute Monocytes (0.10 - 0.60 /CUMM) 1.0 H Absolute Eosinophils (0.0 - 0.7 /CUMM) 0 Absolute Basophils (0.0 - 0.2 /CUMM) 0 Platelet Estimate (ADEQUATE) INCREASED Anisocytosis 1+ Stomatocytes 1+ Imaging Results: CT scan reviewed with radiology Patient with sizable pelvic abscess and ongoing colitis primarily involving the left colon When compared to recent CT from prior hospitalization there is no evidence of right sided colitis and the descending colon which previously appeared colitic does not appear colitic today Assessment/Plan Assessment/Plan This is a 37-year-old female with the long-standing diagnosis of ulcerative colitis She was recently hospitalized for failure of medical therapy and seem to respond to IV antibiotics Upon completion antibiotics she developed abdominal pain with nausea and vomiting prompting her to come to the hospital CT scan performed today demonstrates ongoing left-sided colitis with now perforation and abscess This is a somewhat atypical pattern for ulcerative colitis Patient does not appear septic at this time We discussed the option of going straight to surgery for resection and the possibility that this will require subtotal colectomy versus percutaneous drainage with broad-spectrum antibiotics and observation Interventional radiology feels that drainage may be difficult because the abscess is surrounded by small bowel but is willing to attempt percutaneous drainage If IR fails to successfully drain abscess we will proceed to surgery If the patient decompensates despite drainage and the biotics and resuscitation we will also need to proceed to surgery She will clearly need at least a partial colectomy the extent of the colon resection will be partially based on findings in the operating room I think subtotal colectomy is likely with end ileostomy We will follow this patient closely with you Problem List: 1. Ulcerative colitis Copies To: Parker OLIVIER,Jordan Consult Acknowledgment - Thank you for your consult request. Attending MD Review Statement Attending Statement Attending MD Statement: examined this patient, discuss w/resident/PA/HOUSEKEEPING COORDINATOR
[2017-10-07 22:34] VITALS: BP 141/79
[2017-10-08 06:57] VITALS: BP 133/68
--- NOTE | 2017-10-08 07:49 | PN- General Surgery ---
Subjective Subjective: No significant change in her left lower / suprapubic abdominal pain. NPO status, with only slight nausea. Denies fevers, chills, sweats. Denies flatus / bms. No urinary symptoms. She has a lot of questions written down after researching things overnight, and anticipates discussing things further with re: plan for surgery. Objective Vital Signs and I&Os Vital Signs Date Time Temp Pulse Resp B/P B/P Pulse O2 O2 Flow FiO2 Mean Ox Delivery Rate 10/08 0657 98.0 71 20 133/68 98 Room Air 10/07 2234 97.6 62 18 141/79 94 Room Air 10/07 1328 98.0 75 18 118/60 97 Room Air 10/07 1125 98.2 77 18 125/78 100 Room Air 10/07 0931 97.8 106 18 129/84 97 Room Air Intake & Output 10/08 0800 10/08 0000 10/07 1600 10/07 0800 10/07 0000 10/06 1600 Intake Total 600 300 Output Total Balance 600 300 Intake, IV 600 300 Patient 220 lb Weight Weight Reported by Patient Measurement Method Physical Exam: General - alert & oriented x 3. comfortable. no acute distress. Lungs - clear bilaterally. no w/r/r. Cardiac - s1s2. reg. Abdomen - soft. left lower quadrant and suprapubic tenderness. no peritonitis appreciated. Extremities - warm bilaterally. no c/c/e. calves soft and nontender b/l. athrombics in place. Current Medications: Current Medications Sig/Raymond Start time Last Medication Dose Route Stop Time Status Admin Acetaminophen 650 MG Q4P PRN 10/07 1400 AC PO Ceftriaxone Sodium 2,000 MG Q24H 10/08 1300 AC IV Ceftriaxone Sodium 2,000 MG DAILY 10/08 0900 DC IV Ceftriaxone Sodium 0 .STK-MED ONE 10/07 1319 DC .ROUTE Ceftriaxone Sodium 2,000 MG ONCE ONE 10/07 1315 DC 10/07 IV 10/07 1316 1304 Ceftriaxone Sodium 0 .STK-MED ONE 10/07 1308 DC .ROUTE Dextrose/Lactated 1,000 ML Q13H 10/08 0745 AC 10/08 Ringer's IV 0743 Dextrose/Sodium 1,000 ML Q8H 10/07 1015 DC 10/07 Chloride IV 1331 Hydrocortisone 100 MG Q8H 10/08 0200 AC 10/08 Sodium Succinate IV 0131 Hydrocortisone 100 MG Q8 10/07 1402 DC 10/07 Sodium Succinate IV 1759 Insulin Human Regular 0 Q6 10/08 1200 AC SC Lactated Ringer's 1,000 ML Q13H 10/07 1415 DC 10/08 IV 10/09 1814 0540 Methylprednisolone 0 .STK-MED ONE 10/07 1159 DC .ROUTE Methylprednisolone 40 MG ONCE ONE 10/07 1015 DC 10/07 IV 10/07 1016 1154 Metronidazole 500 MG Q8H 10/07 1900 AC 10/08 N/A 1 UNIT IV 0230 Metronidazole 500 MG ONCE ONE 10/07 1315 DC 10/07 N/A 1 UNIT IV 10/07 1414 1317 Morphine Sulfate 2 MG Q4P PRN 10/07 1900 AC 10/08 IV 0656 Morphine Sulfate 2 MG Q4P PRN 10/07 1345 DC 10/07 IV 1500 Morphine Sulfate 4 MG ONCE ONE 10/07 1245 DC 10/07 IV 10/07 1246 1237 Morphine Sulfate 0 .STK-MED ONE 10/07 1243 DC .ROUTE Morphine Sulfate 0 .STK-MED ONE 10/07 1129 DC .ROUTE Morphine Sulfate 2 MG ONCE PRN 10/07 1030 AC 10/07 IV 1123 Ondansetron HCl 4 MG Q6P PRN 10/07 1345 AC IV Ondansetron HCl 0 .STK-MED ONE 10/07 1046 DC .ROUTE Ondansetron HCl 4 MG Q6P PRN 10/07 1030 AC 10/07 IV 1056 Oxycodone/ 1 TAB Q6P PRN 10/07 1345 AC Acetaminophen PO Sodium Chloride 1,000 ML .[id number] 10/07 1345 DC IV 10/09 1904 Sodium Chloride 1,000 ML BOLUS ONE 10/07 1245 DC 10/07 IV 10/07 1344 1237 Sodium Chloride 1,000 ML BOLUS ONE 10/07 1045 DC 10/07 IV 10/07 1144 1055 Results Last 48 Hours of Labs: Laboratory Tests 10/07 10/07 10/07 1526 1250 1115 Chemistry Lactic Acid Cancelled Coagulation PT (9.4 - 12.5 SEC) 13.3 H INR (0.90 - 1.19) 1.22 H Urines Urinalysis LIGHT H Urine Color (YEL,AMB,STR) YEL Urine Clarity (CLEAR) HAZY H Urine pH (5.0 - 8.0) 6.5 Ur Specific [place] (1.001 - 1.035) 1.015 Urine Protein (NEG,<30 MG/DL) TRACE H Urine Ketones (NEG) TRACE H Urine Nitrite (NEG) POS H Urine Bilirubin (NEG) NEG@ICTO Urine Urobilinogen (0.1 - 1.0 EU/dl) 0.2 Ur Leukocyte Esterase (NEG) NEG Ur Microscopic SEDIMENT EXAMINED Urine RBC (0 - 5 /HPF) 1-3 Urine WBC (0 - 2 /HPF) 3-5 H Ur Epithelial Cells (NONE,FEW) MOD H Urine Crystals 3+ CA OX H Urine Bacteria (NEG/NONE) MOD H Granular Casts (NONE /LPF) RARE H Urine Mucus (FEW,NONE) MANY H Urine Hemoglobin (NEG) TRACE-INTACT Urine Glucose (N MG/DL) NEG 10/07 0951 Chemistry Sodium (137 - 145 mmol/L) 139 Potassium (3.5 - 5.1 mmol/L) 4.2 Chloride (98 - 107 mmol/L) 97 L Carbon Dioxide (22 - 30 mmol/L) 28 Anion Gap (5 - 16) 14 BUN (7 - 17 mg/dL) 15 Creatinine (0.5 - 1.0 mg/dL) 0.8 Estimated GFR (>60 ml/min) > 60 BUN/Creatinine Ratio (7 - 25 %) 18.8 Glucose (65 - 99 mg/dL) 113 H Lactic Acid (0.7 - 2.1 mmol/L) 1.6 Calcium (8.4 - 10.2 mg/dL) 9.7 Total Bilirubin (0.2 - 1.3 mg/dL) 0.7 Direct Bilirubin (< 0.4 mg/dL) 0.2 AST (14 - 36 U/L) 10 L ALT (9 - 52 U/L) 25 Alkaline Phosphatase (<127 U/L) 83 Total Protein (6.3 - 8.2 g/dL) 6.7 Albumin (3.5 - 5.0 g/dL) 3.4 L Globulin (1.9 - 4.2 gm/dL) 3.3 Albumin/Globulin Ratio (1.1 - 2.2 %) 1.0 L Amylase (30 - 110 U/L) 74 Lipase (23 - 300 U/L) 200 Hematology CBC w Diff MAN DIFF ORDERED WBC (4.8 - 10.8 /CUMM) 16.2 H RBC (4.20 - 5.40 /CUMM) 4.32 Hgb (12.0 - 16.0 G/DL) 12.1 Hct (37 - 47 %) 37.8 MCV (81.0 - 99.0 FL) 87.6 MCH (27.0 - 31.0 PG) 28.0 MCHC (33.0 - 37.0 G/DL) 32.0 L RDW (11.5 - 14.5 %) 15.6 H Plt Count (130 - 400 /CUMM) 1123 *H MPV (7.4 - 10.4 FL) 7.2 L Gran % (42.2 - 75.2 %) 79.0 H Lymphocytes % (20.5 - 51.1 %) 14.7 L Monocytes % (1.7 - 9.3 %) 6.0 Eosinophils % (0 - 5 %) 0.1 Basophils % (0.0 - 2.0 %) 0.2 Absolute Granulocytes (1.4 - 6.5 /CUMM) 12.8 H Absolute Lymphocytes (1.2 - 3.4 /CUMM) 2.4 Absolute Monocytes (0.10 - 0.60 /CUMM) 1.0 H Absolute Eosinophils (0.0 - 0.7 /CUMM) 0 Absolute Basophils (0.0 - 0.2 /CUMM) 0 Platelet Estimate (ADEQUATE) INCREASED Anisocytosis 1+ Stomatocytes 1+ Assessment/Plan Assessment/Plan This 37-year-old female with hxf ulcerative colitis, recently hospitalized for failure of medical therapy, with ongoing left-sided colitis and perforation with abscess currently npo / iv fluids iv rocephin / flagyl iv solucortef q8 ?IR drainage today she will likely need at least a partial colectomy, however subtotal colectomy is likely with end ileostomy (according to 's last note) serial exams ?may consider adding heparin sc - dvt ppx f/u medical team will d/w
[2017-10-08 08:19] LABS: ABSOLUTE BASOPHIL COUNT 0 /CUMM (0.0-0.2); ABSOLUTE EOSINOPHIL COUNT 0 /CUMM (0.0-0.7); ABSOLUTE GRANULOCYTE CT 8.6 /CUMM (1.4-6.5); ABSOLUTE LYMPH COUNT 0.8 /CUMM (1.2-3.4); ABSOLUTE MONOCYTE COUNT 0.3 /CUMM (0.10-0.60); BASOPHIL % 0.1 % (0.0-2.0); EOSINOPHIL % 0 % (0-5); MEAN CORPUSCULAR HGB 28.9 PG (27.0-31.0); MEAN CORPUSCULAR HGB CONC 32.5 G/DL (33.0-37.0); MEAN CORPUSCULAR VOLUME 88.7 FL (81.0-99.0); RBC DISTRIBUTION WIDTH 15.3 % (11.5-14.5); RED BLOOD CELL CT 3.54 /CUMM (4.20-5.40); WHITE BLOOD CELL COUNT 9.7 /CUMM (4.8-10.8)
--- NOTE | 2017-10-08 08:32 | PN- Housestaff ---
See Addendum Subjective Follow-up For: Intra-abdominal abcess Subjective: Tearful and anxious going to surgery. Complans of abdominal pain, not improved with Morphine, no nausea or vomiting. No fevers or chills. Review of Systems Constitutional: Reports: see HPI. Objective Last 24 Hrs of Vital Signs/I&O Vital Signs Date Time Temp Pulse Resp B/P B/P Pulse O2 O2 Flow FiO2 Mean Ox Delivery Rate 10/08 0657 98.0 71 20 133/68 98 Room Air 10/07 2234 97.6 62 18 141/79 94 Room Air 10/07 1328 98.0 75 18 118/60 97 Room Air 10/07 1125 98.2 77 18 125/78 100 Room Air 10/07 0931 97.8 106 18 129/84 97 Room Air Intake & Output 10/08 1600 10/08 0800 10/08 0000 Intake Total 600 300 Output Total Balance 600 300 Intake, IV 600 300 Physical Exam General Appearance: Alert, Oriented X3, Cooperative Neck: Supple, No JVD Cardiovascular: Regular Rate, Normal S1, Normal S2 Lungs: Clear to Auscultation, Normal Air Movement Abdomen: Normal Bowel Sounds, Soft, Diffusely tender to palpation Extremities: No Clubbing, No Cyanosis, No Edema Current Medications: Current Medications Sig/Raymond Start time Last Medication Dose Route Stop Time Status Admin Acetaminophen 650 MG Q4P PRN 10/07 1400 AC PO Ceftriaxone Sodium 2,000 MG Q24H 10/08 1300 AC IV Ceftriaxone Sodium 2,000 MG DAILY 10/08 0900 DC IV Ceftriaxone Sodium 0 .STK-MED ONE 10/07 1319 DC .ROUTE Ceftriaxone Sodium 2,000 MG ONCE ONE 10/07 1315 DC 10/07 IV 10/07 1316 1304 Ceftriaxone Sodium 0 .STK-MED ONE 10/07 1308 DC .ROUTE Dextrose/Lactated 1,000 ML Q13H 10/08 0745 AC 10/08 Ringer's IV 0743 Dextrose/Sodium 1,000 ML Q8H 10/07 1015 DC 10/07 Chloride IV 1331 Heparin Sodium 5,000 UNIT Q8 10/08 1400 CAN (Porcine) SC Hydrocortisone 100 MG Q8H 10/08 0200 AC 10/08 Sodium Succinate IV 0913 Hydrocortisone 100 MG Q8 10/07 1402 DC 10/07 Sodium Succinate IV 1759 Insulin Human Regular 0 Q6 10/08 1200 AC SC Lactated Ringer's 1,000 ML Q13H 10/07 1415 DC 10/08 IV 10/09 1814 0540 Methylprednisolone 0 .STK-MED ONE 10/07 1159 DC .ROUTE Metronidazole 500 MG Q8H 10/07 1900 AC 10/08 N/A 1 UNIT IV 1035 Metronidazole 500 MG ONCE ONE 10/07 1315 DC 10/07 N/A 1 UNIT IV 10/07 1414 1317 Morphine Sulfate 2 MG ONCE ONE 10/08 0945 DC 10/08 IV 10/08 0946 0958 Morphine Sulfate 2 MG Q4P PRN 10/07 1900 AC 10/08 IV 0656 Morphine Sulfate 2 MG Q4P PRN 10/07 1345 DC 10/07 IV 1500 Morphine Sulfate 4 MG ONCE ONE 10/07 1245 DC 10/07 IV 10/07 1246 1237 Morphine Sulfate 0 .STK-MED ONE 10/07 1243 DC .ROUTE Morphine Sulfate 0 .STK-MED ONE 10/07 1129 DC .ROUTE Morphine Sulfate 2 MG ONCE PRN 10/07 1030 AC 10/07 IV 1123 Ondansetron HCl 4 MG Q6P PRN 10/07 1345 AC IV Ondansetron HCl 4 MG Q6P PRN 10/07 1030 AC 10/07 IV 1056 Oxycodone/ 1 TAB Q6P PRN 10/07 1345 AC Acetaminophen PO Patient Medication 1 ED ONE ONE 10/08 1045 DC Teaching ED 10/08 1046 Sodium Chloride 1,000 ML .[id number] 10/07 1345 DC IV 10/09 1904 Sodium Chloride 1,000 ML BOLUS ONE 10/07 1245 DC 10/07 IV 10/07 1344 1237 Sodium Chloride 1,000 ML BOLUS ONE 10/07 1045 DC 10/07 IV 10/07 1144 1055 Last 24 Hrs of Lab/Cecilio Results Last 24 Hrs of Labs/Mics: Laboratory Tests 10/08/17 0747: Anion Gap 10, Estimated GFR > 60, BUN/Creatinine Ratio 17.1, Total Beta HCG NEGATIVE, Cortisol AM Sample 25.3 H, CBC w Diff NO MAN DIFF REQ, RBC 3.54 L, MCV 88.7, MCH 28.9, MCHC 32.5 L, RDW 15.3 H, MPV 7.0 L, Gran % 88.6 H, Lymphocytes % 8.1 L, Monocytes % 3.2, Eosinophils % 0, Basophils % 0.1, Absolute Granulocytes 8.6 H, Absolute Lymphocytes 0.8 L, Absolute Monocytes 0.3, Absolute Eosinophils 0, Absolute Basophils 0 10/07/17 1526: PT 13.3 H, INR 1.22 H 10/07/17 1250: Lactic Acid Cancelled 10/07/17 1115: Urinalysis LIGHT H, Urine Color YEL, Urine Clarity HAZY H, Urine pH 6.5, Ur Specific [place] 1.015, Urine Protein TRACE H, Urine Ketones TRACE H, Urine Nitrite POS H, Urine Bilirubin NEG@ICTO, Urine Urobilinogen 0.2, Ur Leukocyte Esterase NEG, Ur Microscopic SEDIMENT EXAMINED, Urine RBC 1-3, Urine WBC 3-5 H, Ur Epithelial Cells MOD H, Urine Crystals 3+ CA OX H, Urine Bacteria MOD H, Granular Casts RARE H, Urine Mucus MANY H, Urine Hemoglobin TRACE-INTACT, Urine Glucose NEG Microbiology 10/07 1225 BLOOD: Blood Culture - RECD 10/07 1210 BLOOD: Blood Culture - RECD Assessment/Plan Assessment: 37-year-old woman with history of recurrent ulcerative colitis, admitted with recent flare, found to be bacteremic secondary to bacterial translocation versus microperforations discharged on p.o. ciprofloxacin and Flagyl comes back to the ED with worsening abdominal pain, nausea and vomiting with CT evidence of intra- abdominal abscess being admitted to general medicine floor for a possible surgical intervention (possible subtotal colectomy) 1. Intra-abdominal abscess. Keep NPO. IVF. To OR today. Continue stress dose steroids. Continue Ceftriaxone and Flagyl. Optimal pain control. 2. Sigmoid colitis. IVF and steroids. 3. Thrombocytosis. Downtrending. Likely reactive. Full code ALPs for now. NPO Problem List: 1. Intestinal abscess Pain Ratin Pain Location: Abdomen Pain Goal: Remain pain free Pain Plan: PRN Tomorrow's Labs & Rationales: Post Op
[2017-10-08 08:43] LABS: HEMATOCRIT 31.4 % (37-47)
[2017-10-08 08:58] LABS: GRANULOCYTE % 88.6 % (42.2-75.2); PLATELET COUNT 918 /CUMM (130-400)
[2017-10-08 12:34] VITALS: BP 140/70
--- NOTE | 2017-10-08 13:58 | PN- Pulmonary ---
Subjective HPI/Critical Care Issues: No significant change in her left lower / suprapubic abdominal pain. NPO status , with only slight nausea. Denies fevers, chills, sweats. Denies flatus / bms. No urinary symptoms. She has a lot of questions written down after researching things overnight, and anticipates surg with re: plan for surgery. Objective Current Medications: Current Medications Sig/Raymond Start time Last Medication Dose Route Stop Time Status Admin Acetaminophen 650 MG Q4P PRN 10/07 1400 AC PO Ceftriaxone Sodium 2,000 MG Q24H 10/08 1300 AC 10/08 IV 1216 Ceftriaxone Sodium 2,000 MG DAILY 10/08 0900 DC IV Dextrose/Lactated 1,000 ML Q13H 10/08 0745 AC 10/08 Ringer's IV 0743 Dextrose/Sodium 1,000 ML Q8H 10/07 1015 DC 10/07 Chloride IV 1331 Heparin Sodium 5,000 UNIT Q8 10/08 1400 CAN (Porcine) SC Hydrocortisone 100 MG Q8H 10/08 0200 10/08 Sodium Succinate IV 0913 Hydrocortisone 100 MG Q8 10/07 1402 DC 10/07 Sodium Succinate IV 1759 Insulin Human Regular 0 Q6 10/08 1200 AC 10/08 SC 1151 Lactated Ringer's 1,000 ML Q13H 10/07 1415 DC 10/08 IV 10/09 1814 0540 Metronidazole 500 MG Q8H 10/07 1900 AC 10/08 N/A 1 UNIT IV 1035 Metronidazole 500 MG ONCE ONE 10/07 1315 DC 10/07 N/A 1 UNIT IV 10/07 1414 1317 Morphine Sulfate 2 MG ONCE ONE 10/08 0945 DC 10/08 IV 10/08 0946 0958 Morphine Sulfate 2 MG Q4P PRN 10/07 1900 10/08 IV 1151 Morphine Sulfate 2 MG Q4P PRN 10/07 1345 DC 10/07 IV 1500 Morphine Sulfate 2 MG ONCE PRN 10/07 1030 10/07 IV 1123 Ondansetron HCl 4 MG Q6P PRN 10/07 1345 AC IV Ondansetron HCl 4 MG Q6P PRN 10/07 1030 AC 10/07 IV 1056 Oxycodone/ 1 TAB Q6P PRN 10/07 1345 AC Acetaminophen PO Patient Medication 1 ED ONE ONE 10/08 1045 DC Teaching ED 10/08 1046 Sodium Chloride 1,000 ML .[id number] 10/07 1345 DC IV 10/09 1904 Vital Signs & I&O Last 24 Hrs of Vitals and I&O: Vital Signs Date Time Temp Pulse Resp B/P B/P Pulse O2 O2 Flow FiO2 Mean Ox Delivery Rate 10/08 1234 98.7 79 18 140/70 100 Room Air Room Air 10/08 0657 98.0 71 20 133/68 98 Room Air 10/07 2234 97.6 62 18 141/79 94 Room Air Intake & Output 10/08 1600 10/08 0800 10/08 0000 Intake Total 600 300 Output Total Balance 600 300 Intake, IV 600 300 Impression/Plan Impression/Plan Impression/Plan: General - alert & oriented x 3. comfortable. no acute distress. Lungs - clear bilaterally. no w/r/r. Cardiac - s1s2. reg. Abdomen - soft. left lower quadrant and suprapubic tenderness. no peritonitis appreciated. Extremities - warm bilaterally. no c/c/e. calves soft and nontender b/l. athrombics in place. This is a 37-year-old woman with ulcerative colitis, hospitalized 2 weeks ago with polymicrobial anaerobic bacteremia, with a CT of the abdomen and pelvis revealing circumferential wall thickening of the distal descending and sigmoid colon extending to the rectum, with no free air, treated with IV steroids and Ceftriaxone and Flagyl and discharged on Cipro and Flagyl, admitted with one day of recurrent vomiting and lower abdominal pain, found to be afebrile with leukocytosis and thrombocytosis and with a CT of the abdomen and pelvis revealing a mixed fluid and gas collection in the central pelvis, suspicious for an abscess. Her clinical picture is consistent with an intra-abdominal abscess secondary to her recent perforation. Pt is hemodynamically stable now with no sig sepsis Colorectal surg did wish to proceed with surg today ISSUES Sig immunosupp state due to high dose steroids and recent UC flare (failed 2 biologic agents and on high dose steroids followed by GI Dr. Canales regularly * Intraabd abcess due to recent small bowel perf for surg * Recent sig UC flare despite 2 biologics now controlled with high dose steroid * Sig reactive thrombocytosis * No sig DM induced by steroid REC /PLAN KEep npo IV abx Cont steroids stress dose Colorectal for surg PT is high risk for severe sepsis due to immunosupp agents (which she needs for her sig UC flare) Cont IVF and change to D5 ringers in am watch sugars and sliding scale Prog guarded Discussed with pt and family and they are agreeable with above plan
--- NOTE | 2017-10-08 13:58 | PN- Infect Dx ---
Subjective Subjective: Afebrile on steroids. She does not report any pain, but she is on morphine. She is anxious about the upcoming surgery. Objective Last 24 Hrs of Vital Signs/I&O Vital Signs Date Time Temp Pulse Resp B/P B/P Pulse O2 O2 Flow FiO2 Mean Ox Delivery Rate 10/08 1234 98.7 79 18 140/70 100 Room Air Room Air 10/08 0657 98.0 71 20 133/68 98 Room Air 10/07 2234 97.6 62 18 141/79 94 Room Air Intake & Output 10/08 1600 10/08 0800 10/08 0000 Intake Total 600 300 Output Total Balance 600 300 Intake, IV 600 300 Physical Exam Other Physical Findings: She is tearful but in no acute distress Lungs are clear Heart regular rhythm with no murmur Abdomen is obese, soft, nontender with positive bowel sounds Extremities no cyanosis, clubbing or edema Results Last 24 Hours of Lab Results: Laboratory Tests 10/08 10/07 0747 1526 Chemistry Sodium (137 - 145 mmol/L) 138 Potassium (3.5 - 5.1 mmol/L) 4.5 Chloride (98 - 107 mmol/L) 101 Carbon Dioxide (22 - 30 mmol/L) 28 Anion Gap (5 - 16) 10 BUN (7 - 17 mg/dL) 12 Creatinine (0.5 - 1.0 mg/dL) 0.7 Estimated GFR (>60 ml/min) > 60 BUN/Creatinine Ratio (7 - 25 %) 17.1 Total Beta HCG (NEGATIVE) NEGATIVE Cortisol AM Sample (4.46 - 22.7 ug/dL) 25.3 H Coagulation PT (9.4 - 12.5 SEC) 13.3 H INR (0.90 - 1.19) 1.22 H Hematology CBC w Diff NO MAN DIFF REQ WBC (4.8 - 10.8 /CUMM) 9.7 RBC (4.20 - 5.40 /CUMM) 3.54 L Hgb (12.0 - 16.0 G/DL) 10.2 L Hct (37 - 47 %) 31.4 L MCV (81.0 - 99.0 FL) 88.7 MCH (27.0 - 31.0 PG) 28.9 MCHC (33.0 - 37.0 G/DL) 32.5 L RDW (11.5 - 14.5 %) 15.3 H Plt Count (130 - 400 /CUMM) 918 H MPV (7.4 - 10.4 FL) 7.0 L Gran % (42.2 - 75.2 %) 88.6 H Lymphocytes % (20.5 - 51.1 %) 8.1 L Monocytes % (1.7 - 9.3 %) 3.2 Eosinophils % (0 - 5 %) 0 Basophils % (0.0 - 2.0 %) 0.1 Absolute Granulocytes (1.4 - 6.5 /CUMM) 8.6 H Absolute Lymphocytes (1.2 - 3.4 /CUMM) 0.8 L Absolute Monocytes (0.10 - 0.60 /CUMM) 0.3 Absolute Eosinophils (0.0 - 0.7 /CUMM) 0 Absolute Basophils (0.0 - 0.2 /CUMM) 0 Last 24 Hours of Cecilio Results: Blood cultures October 07 negative Assessment/Plan ID Impression: Stable, with temperatures remaining normal and white blood cell count also now normal, on Ceftriaxone and Flagyl, Day 1 of treatment for an intra-abdominal abscess secondary to a recent perforation in the setting of active ulcerative colitis. She is scheduled for surgery later today, with the extent of surgery ( partial versus subtotal colectomy) based on the OR findings. Suggestion: 1. Await surgery later today 2. Continue Ceftriaxone and Flagyl
--- NOTE | 2017-10-08 18:45 | Operative Report ---
Operative/Inv Procedure Report Surgery Date: 10/08/17 Name of Procedure: 1. Exploratory laparotomy evacuation and drainage of abdominal cavity abscess 2. Total abdominal colectomy with end ileostomy 3. Small bowel resection with anastomosis Pre-Operative Diagnosis: Ulcerative colitis with perforation and abscess Post-Operative Diagnosis: Ulcerative colitis with perforation and abscess Estimated Blood Loss: less than 200 mL's Surgeon/Forge Utility Worker: Dr Samir Renae Anesthesia: general endotracheal tube, block Monitors: Per routine IV Fluids: 3200 mL's of crystalloid Implants: None Urine Output: 300 mL Drains: 1. ARY drain and pelvis 2. Nasogastric tube - position checked in the OR and tip is in appropriate position 3. Del Rio catheter Specimens: 1. Rectosigmoid-area of perforation 2. Portion of jejunum - 17 cm 3. Portion of terminal ileum - 5 cm 4. Transverse and descending colon-stitch crump proximal and 5. Remainder of colon -10 cm 6. Additional portion of terminal ileum Microbiology: 1. Abdominal cavity fluid- for culture 2. Abscess cavity jack pus- for culture Complications: None Condition: Good Operative Indication: This is a 29-year-old female with history of ulcerative colitis diagnosed several years ago She hasn't been on multiple medical regimens which have failed to control her disease including multiple biologic treatments Approximately 2 weeks ago she was admitted for a flare despite being on aggressive medical therapy. Her steroid dose was increased and antibiotics were added to her regimen and she was discharged home. She returned to the hospital yesterday with complaints of pelvic and abdominal pain and nausea and vomiting CT scan revealed persistent colitis involving the left colon with fairly large pelvic abscess not amenable to IR drainage because the abscess cavity was surrounded on all sides by small intestine. She was admitted IV resuscitated and started on IV antibiotics After lengthy discussion with the patient and her family we decided to proceed to the operating room with the understanding that we would likely need to perform a subtotal colectomy. Operative/Procedure Note Note: Patient was taken into the operating room and placed in the supine position on the operating room table. She had received IV antibiotics prior to coming down for her surgery. She underwent induction of general anesthesia placement of endotracheal tube and Del Rio catheter. The anesthesia team did bilateral tap blocks. At this point stoma markings were performed. Patient had 2 folds one in the lower abdomen about the level of the inguinal crease and one just above the umbilicus. The marking was performed at the apex of the abdominal old equidistant between these 2 creases above the line of site. The abdomen was prepped and draped in usual fashion. A generous midline incision was performed and we dissected down to the fascia. The fascia was divided in the midline and we entered the abdominal cavity. Immediately there was clear ascitic fluid that was noted proximally 10 mL of this was aspirated and sent for routine culture. We extended the fascial incision to the length of the skin incision. Expiration of the abdominal cavity then was initiated. There was a dense inflammatory process in the left lower quadrant and lower abdomen. As we began to slowly mobilize small bowel loops away from this inflammatory process we entered a very large abscess cavity. There was at least 200 mL of purulent material present in the cavity. This was a green milky appearing purulent fluid which was extremely malodorous. We were able to aspirate at least 10 mL and send this for culture. A pull sucker was used to aspirate the remainder of the abscess which had a dense rind and we copiously irrigate any visible pus. Next we began to mobilize the small bowel loop which was tethered in the pelvis and tethered to this abscess cavity. As we mobilized the bowel we noted at least 2 areas where there was deserosalization as the serosal surface of the small bowel had become incorporated with the abscess cavity. All bowel was packed in the right upper quadrant and the Bookwalter was placed. I wanted to remove the nidus of the infection as soon as possible. There appeared to be a area of perforation in the rectosigmoid along the mesenteric edge of the bowel I took down the white line of Toldt and some abnormal lateral adhesions. Mobilize most of the white line of Toldt chose a proximal site of transection with the bowel was clearly colitic but not perforated. The a window was made in the bowel mesentery here and a HARSH 80 mm blue loaded stapler was used to divide the bowel. I sequentially isolated portions of the sigmoid colon mesentery and divided these bundles of mesentery with the LigaSure device we continued to we got to the level of sacral promontory. At this point there was still abscess cavity rind so we had to go to below the peritoneal reflection posteriorly enter the posterior avascular space and dissect down to about the junction of the middle and upper third of the rectum. Here the mesentery was soft and the bowel was all so suitable for staple line. Mesentery was divided here with electrocautery and the exposing the rectal wall. A TA 55 blue loaded stapler was used to divide the bowel at this level and the specimen was removed from the field. At this point we copiously irrigate out the abdominal cavity and pelvis one more time. Next we ran the bowel in the mid jejunum was an area that had been stuck to the abscess cavity. This appeared to be about a 17 cm jeopardize portion of the bowel because once again the serosa had been peeled away by the abscess cavity. This area was resected. First and window was made in the mesentery on either side of this cystic portion of the bowel. The HARSH 80 blue stapler was used to divide the bowel on either end. The mesentery between these 2 transection points was divided using the LigaSure device. A side to side anastomosis was created. The 2 sides were aligned with each other. The corners of the staple line were excised intentionally grating enterotomies. A HARSH blue loaded stapler was used to create a common channel. When we're expecting the lumen there was multiple pulsatile bleeding sites and along the staple line. This was oversewn within the lumen with a 3-0 Vicryl suture running locking fashion which completely controlled bleeding. The enterotomy was then closed with a TA 60 stapler. A long-term crotch sutures were then placed with 2-0 Vicryl sutures in interrupted fashion a second portion of the small bowel was resected. This was a 5 cm portion of the ileum approximately 10 cm from the terminal ileum. A second side -to-side anastomosis was was created with the concept of possibly preserving some of the colon because initially a large portion the colon appeared normal. Attention at this point was returned to the colon the descending colon was completely mobilized the splenic flexure was taken down using electrocautery I divided the descending colon and portion of the transverse colon mesentery using the vessel sealer. 2 proximately the junction of the middle and second third of the transverse colon and the bowel was divided here with a blue HARSH stapler. The proximal margin was marked with a stitch and the proximal margin was opened. Grossly there appeared to be some serosal inflammation in this area and the mucosa appeared abnormal. As her more closely inspected the transverse colon most of the transverse colon appeared to have some serositis to about the level of the hepatic flexure. At this point I felt there was no good reason to preserve the small enough colon that appeared normal. And as her diagnosis ulcerative colitis I felt leaving this colon could result in persistent colitis so we proceeded with a completion colectomy. The mesentery was divided with the LigaSure including the middle colic and ileocolic vessels which were individually I identified and isolated. A HARSH stapler was used to divide the bowel flushed with the ileocecal valve. The specimen was removed from the field The colostomy incision was then performed excising a circular tube of skin's subcutaneous tissue down to the fascia. The fascia was divided in a cruciate fashion. This exposed the rectus muscle was bluntly placed in the midline with the Honey clamp. The posterior fascia/perineum was divided in a cruciate fashion. At this point it was clear that the bowel would not come through this fascial defect partially because of the thickness of the abdominal wall partially because the anastomosis which was too close to the transected end of the bowel. I considered options including inside anastomosis but the only way I could get the bowel to reach the surface of the skin to excise the anastomosis and the terminal ileum this was an additional 10 cm of small bowel. Able to easily pull the end of the small bowel through the fascial defect to the surface of the skin. ARY drain was placed in the pelvis and pulled out through the left lower quadrant stab incision. It was secured to the skin with a 2-0 nylon the fascia was closed with a running looped PDS suture. The skin was approximated in a few areas with nylon suture placed in a mattress fashion. A 1 inch Nu Gauze packing was placed between these sutures. Midline incision was covered and the ileostomy was matured. We first excised the staple line using electrocautery and then a Bisi type ileostomy was created with interrupted 3-0 Vicryl sutures. Alexandra collection device was placed over the ileostomy and a bulky midline dressing was placed over the midline incision/wound. The patient tolerated the procedure well she has been operating room and taken recovery area in good condition At the end of this operational needle sponges and measurements were accounted for Findings: 1. Severe colitis of left colon with perforation at the rectosigmoid and large abscess 2. Mild colitis involving transverse colon and descending colon 3. Small bowel secondarily injured by abscess cavity at 2 points(1 jejunum 1 ileum) 4. Total small bowel resection between 30 - 40 cm Discharge Disposition: PACU CC: Erasto OLIVIER,Marin Mckeon; Parker OLIVIER,Jordan
--- NOTE | 2017-10-08 18:55 | PN- General Surgery ---
Surgical Brief Attending Note Brief Attending Note: With patient , her father and her this morning to discuss treatment plan and surgery Meeting lasted from 745 to 8:30 - 45 minutes total We discussed her diagnosis and the surgery at length We discussed her imaging and findings of the radiologists. These findings included a fairly large pelvic abscess which did not appear amenable to a cutaneous drainage. I discussed my surgical plan which was a sickly exploratory laparotomy with at least partial and probably subtotal colectomy with formation of end ileostomy. We discussed later reconstruction options including the formation of an ileoanal J-pouch when she was recovered and her surgical path confirmed her disease to be ulcerative colitis At the end of discussion we decided to proceed with surgery. Immediately the OR was contacted and we obtained a time
[2017-10-08 20:30] VITALS: BP 130/70
[2017-10-08 21:00] VITALS: BP 130/70
[2017-10-08 22:30] VITALS: BP 120/80
[2017-10-08 23:00] VITALS: BP 120/80
[2017-10-09] VITALS (9 sets, daily range): BP systolic 126–148; BP diastolic 74–99
--- NOTE | 2017-10-09 08:35 | PN- Housestaff ---
Subjective Follow-up For: Intra-abdominal abcess POD #1 Subjective: Complains of pain secondary to surgery. Complains of difficulty reading texts, difficulty with near vision. Nauseus this am, resolved with NG decompression. Review of Systems Constitutional: Reports: see HPI. Objective Last 24 Hrs of Vital Signs/I&O Vital Signs Date Time Temp Pulse Resp B/P B/P Pulse O2 O2 Flow FiO2 Mean Ox Delivery Rate 10/09 1051 97.6 64 18 148/94 98 Room Air 10/09 0500 96.8 59 16 130/77 10/09 0500 96.8 59 18 130/77 97 Room Air 10/09 0307 96.5 54 16 126/76 95 Room Air 10/09 0300 96.5 54 16 126/76 10/09 0200 94 Nasal 1.0L Cannula 10/09 0100 97.6 80 16 141/80 10/09 0100 97.6 80 16 141/80 97 Room Air 10/08 2300 97.8 69 18 120/80 92 Nasal 1.0L Cannula 10/08 2230 97.8 69 18 120/80 10/08 2100 96.5 83 18 130/70 99 Nasal 2.0L Cannula 10/08 2030 Nasal 2.0L Cannula 10/08 2030 96.5 83 18 130/70 10/08 1234 98.7 79 18 140/70 100 Room Air Room Air Intake & Output 10/09 1600 10/09 0800 10/09 0000 Intake Total 600 Output Total 600 40 100 Balance -600 560 -100 Intake, IV 600 Intake, Oral 0 Output, 40 Drainage Output, 300 0 Gastric Drainage Output, Stool 0 Output, Urine 300 100 Physical Exam General Appearance: Alert, Oriented X3, Cooperative HEENT: Atraumatic, PERRLA, EOMI Cardiovascular: Regular Rate, Normal S1, Normal S2 Lungs: Clear to Auscultation, Normal Air Movement Abdomen: Softly distended, tender around surgical site. Midline incision with dressing. R sided ileostomy. ARY with serosanginous drainage. Extremities: No Clubbing, No Cyanosis, No Edema Current Medications: Current Medications Sig/Raymond Start time Last Medication Dose Route Stop Time Status Admin Acetaminophen 1,000 MG Q6H 10/09 0000 DC N/A 1 UNIT IV 10/09 1814 Acetaminophen 1,000 MG Q6H 10/08 2130 AC 10/09 N/A 1 UNIT IV 10/09 1544 0847 Acetaminophen 650 MG Q4P PRN 10/07 1400 DC PO Ceftriaxone Sodium 2,000 MG Q24H 10/09 1200 AC IV Ceftriaxone Sodium 2,000 MG Q24H 10/08 1300 DC 10/08 IV 1216 Dextrose/Lactated 1,000 ML Q13H 10/08 0745 DC 10/08 Ringer's IV 0743 Dextrose/Sodium 1,000 ML Q8H 10/08 1815 DC 10/09 Chloride IV 0515 Fentanyl Citrate 500 MCG .STK-MED ONE 10/08 1306 DC IM 10/08 1307 Heparin Sodium 5,000 UNIT Q8 10/09 0600 AC 10/09 (Porcine) SC 0515 Hydrocortisone 100 MG Q8H 10/08 2200 AC 10/09 Sodium Succinate IV 0514 Hydrocortisone 100 MG Q8H 10/08 0200 DC 10/08 Sodium Succinate IV 0913 Hydromorphone HCl 2 MG .STK-MED ONE 10/08 1932 DC IM 10/08 1933 Hydromorphone HCl 2 MG .STK-MED ONE 10/08 1913 DC IM 10/08 1914 Hydromorphone HCl 2 MG .STK-MED ONE 10/08 1858 DC IM 10/08 1859 Hydromorphone HCl 2 MG .STK-MED ONE 10/08 1849 DC IM 10/08 1850 Hydromorphone HCl 50 MG Q24H PRN 10/08 1830 AC Sodium Chloride 45 ML IV Hydromorphone HCl 2 MG .STK-MED ONE 10/08 1306 DC IM 10/08 1307 Insulin Human Regular 4 UNITS .STK-MED ONE 10/09 0011 DC IV 10/09 0012 Insulin Human Regular 0 Q6 10/08 2359 AC 10/09 SC 0514 Insulin Human Regular 0 Q6 10/08 1200 DC 10/08 SC 1151 Methylprednisolone 125 MG .STK-MED ONE 10/08 1351 DC IM 10/08 1352 Metronidazole 500 MG Q8H 10/09 0200 AC 10/09 N/A 1 UNIT IV 1048 Metronidazole 500 MG Q8H 10/07 1900 DC 10/08 N/A 1 UNIT IV 1035 Midazolam HCl 2 MG .STK-MED ONE 10/08 1306 DC IM 10/08 1307 Morphine Sulfate 2 MG Q4P PRN 10/07 1900 DC 10/08 IV 1151 Morphine Sulfate 2 MG ONCE PRN 10/07 1030 DC 10/07 IV 1123 Ondansetron HCl 4 MG Q6P PRN 10/08 1815 AC IV Ondansetron HCl 4 MG Q6P PRN 10/07 1345 DC IV Ondansetron HCl 4 MG Q6P PRN 10/07 1030 DC 10/07 IV 1056 Oxycodone/ 1 TAB Q6P PRN 10/07 1345 DC Acetaminophen PO Pantoprazole Sodium 40 MG DAILY 10/09 0900 AC 10/09 IV 0847 Sodium Chloride 1,000 ML Q8H 10/09 0930 AC 10/09 IV 1048 Sodium Chloride 500 ML ONCE ONE 10/09 0915 DC 10/09 IV 10/09 1014 0950 Sodium Chloride 500 ML ONCE ONE 10/09 0900 CAN IV 10/09 0901 Assessment/Plan Assessment: 37-year-old woman with history of recurrent ulcerative colitis, admitted with recent flare, found to be bacteremic secondary to bacterial translocation versus microperforations discharged on p.o. ciprofloxacin and Flagyl comes back to the ED with worsening abdominal pain, nausea and vomiting with CT evidence of intra- abdominal abscess being admitted to general medicine floor for a possible surgical intervention (possible subtotal colectomy) 1. Intra-abdominal abscess. S/p subtotal colectomy. Keep NPO and NG tube. IVF. Continue stress dose steroids gibran-op, begin taper. Continue Ceftriaxone and Flagyl. Optimal pain control, pain pump in place. 2. Sigmoid colitis. S/p subtotal colectomy. 3. Thrombocytosis. Downtrending. Likely reactive. Full code ALPs for now. NPO Problem List: 1. Nausea & vomiting 2. Diarrhea 3. Ulcerative colitis Pain Ratin Pain Location: Abdomen Pain Goal: Pain 4 or less Pain Plan: PRN Tomorrow's Labs & Rationales: Post op
--- NOTE | 2017-10-09 08:57 | PN- General Surgery ---
See Addendum Subjective Subjective: Pt. reports Tylenol IV helps her sleep. Relatively comfortable on perforator operator oil well Had nausea early in am, NGT was kinked and manipulated by nurse with improvement in symptoms. Objective Vital Signs and I&Os Vital Signs Date Time Temp Pulse Resp B/P B/P Pulse O2 O2 Flow FiO2 Mean Ox Delivery Rate 10/09 0500 96.8 59 16 130/77 10/09 0500 96.8 59 18 130/77 97 Room Air 10/09 0307 96.5 54 16 126/76 95 Room Air 10/09 0300 96.5 54 16 126/76 10/09 0200 94 Nasal 1.0L Cannula 10/09 0100 97.6 80 16 141/80 10/09 0100 97.6 80 16 141/80 97 Room Air 10/08 2300 97.8 69 18 120/80 92 Nasal 1.0L Cannula 10/08 2230 97.8 69 18 120/80 10/08 2100 96.5 83 18 130/70 99 Nasal 2.0L Cannula 10/08 2030 Nasal 2.0L Cannula 10/08 2030 96.5 83 18 130/70 10/08 1234 98.7 79 18 140/70 100 Room Air Room Air Intake & Output 10/09 1600 10/09 0800 10/09 0000 10/08 1600 10/08 0800 10/08 0000 Intake Total 600 600 600 300 Output Total 40 100 Balance 560 -100 600 600 300 Intake, IV 600 600 600 300 Intake, Oral 0 Output, 40 Drainage Output, 0 Gastric Drainage Output, Stool 0 Output, Urine 100 Alert, oriented , appropriate, no distress. Lungs clear bilat. Heart regular Abdomen softly distended, appropriately tender. Midline incision with dressing over is dry. -R sided Ileostomy is warm, viable with small amounts of serosanginous drainage in bag. No air. -ARY with serosang. drainage , 40 cc over night -NGT drained 250 cc of bilious drainagethis morning after was unkinked by nurse. Extr. without edema. [place] in place , dark concentrated, output was recorded as none over night, this morning immediately drained 300 cc in urimeter. Assessment/Plan Assessment/Plan 37 y o female with hx of UC,abscess, failed medical treatment and biologics, underwent Expl. lap/total colectomy/SBR/ end ileostomy/evacuation of abscess POD #1 Stable hemodynamics. Abdominal exam as expected.Ileostomy viable. Awaiting bowel fxn. Would continue NGT for decompression till air in bag and low NGT output. Low/ borderline urinary output/urine concentrated, likely mild dehydration. I will add fluid bolus. Will check eletrolytes. No fevers. Continue abx: Rocefin/ Flagyl for intrabadominal infection/ abscess.Will follow CBC. Will likely chanage abdominal packing/ dressing later, will discuss with Dr Arriaga Pain controlled with perforator operator oil well/ IV Ofirmev. OOB to chair/ mobilize Steroids as per medical team recommendations. heparin sc for chemical DVT prophylaxis. Path. pending. Will review all above with surgeon. Core Measures Venous Thromboembolism VTE Risk Factors Acute Medical Illness No Mechanical VTE Prophylaxis d/t N/A MechProphylax Ordered No VTE Pharm Prophylaxis d/t Surgical Contraindication
--- NOTE | 2017-10-09 11:44 | PN- Infect Dx ---
Subjective Subjective: Afebrile. She complains of abdominal pain. Objective Last 24 Hrs of Vital Signs/I&O Vital Signs Date Time Temp Pulse Resp B/P B/P Pulse O2 O2 Flow FiO2 Mean Ox Delivery Rate 10/09 1051 97.6 64 18 148/94 98 Room Air 10/09 0500 96.8 59 16 130/77 10/09 0500 96.8 59 18 130/77 97 Room Air 10/09 0307 96.5 54 16 126/76 95 Room Air 10/09 0300 96.5 54 16 126/76 10/09 0200 94 Nasal 1.0L Cannula 10/09 0100 97.6 80 16 141/80 10/09 0100 97.6 80 16 141/80 97 Room Air 10/08 2300 97.8 69 18 120/80 92 Nasal 1.0L Cannula 10/08 2230 97.8 69 18 120/80 10/08 2100 96.5 83 18 130/70 99 Nasal 2.0L Cannula 10/08 2030 Nasal 2.0L Cannula 10/08 2030 96.5 83 18 130/70 10/08 1234 98.7 79 18 140/70 100 Room Air Room Air Intake & Output 10/09 1600 10/09 0800 10/09 0000 Intake Total 600 Output Total 600 40 100 Balance -600 560 -100 Intake, IV 600 Intake, Oral 0 Output, 40 Drainage Output, 300 0 Gastric Drainage Output, Stool 0 Output, Urine 300 100 Physical Exam Other Physical Findings: She is awake and alert in no acute distress HEENT NG tube in place Abdomen dressing intact with drain in place and with ileostomy with serous fluid Extremities no cyanosis, clubbing or edema Del Rio catheter is in place Results Last 24 Hours of Lab Results: Laboratory Tests 10/09 10/09 1134 0903 Chemistry Sodium (137 - 145 mmol/L) 136 L Potassium (3.5 - 5.1 mmol/L) 4.2 Chloride (98 - 107 mmol/L) 102 Carbon Dioxide (22 - 30 mmol/L) 29 Anion Gap (5 - 16) 5 BUN (7 - 17 mg/dL) 10 Creatinine (0.5 - 1.0 mg/dL) 0.6 Estimated GFR (>60 ml/min) > 60 BUN/Creatinine Ratio (7 - 25 %) 16.7 Glucose (65 - 99 mg/dL) 139 H Phosphorus (2.5 - 4.5 mg/dL) 3.0 Magnesium (1.6 - 2.3 mg/dL) 1.8 Hematology CBC w Diff Pending WBC Pending RBC Pending Hgb Pending Hct Pending MCV Pending MCH Pending MCHC Pending RDW Pending Plt Count Pending MPV Pending Last 24 Hours of Cecilio Results: OR culture October 08 labeled small bowel cavity abscess positive for alpha strep and probable anaerobes OR culture October 08 labeled peritoneal fluid negative Urine culture October 08 negative Blood cultures 2 October 07 negative Assessment/Plan ID Impression: Stable status post exploratory laparotomy with evacuation and drainage of abdominal abscess, total abdominal colectomy with end ileostomy and small bowel resection with anastomosis for ulcerative colitis with perforation and abscess. She remains afebrile with white blood cell count yesterday normal on Ceftriaxone and Flagyl, which can be continued pending final OR cultures. Suggestion: 1. Follow-up final OR cultures 2. Decrease Ceftriaxone to 1 g IV every 24 hours 3. Continue Flagyl
[2017-10-09 12:49] LABS: ABSOLUTE BASOPHIL COUNT 0 /CUMM (0.0-0.2); ABSOLUTE EOSINOPHIL COUNT 0 /CUMM (0.0-0.7); ABSOLUTE GRANULOCYTE CT 8.6 /CUMM (1.4-6.5); ABSOLUTE LYMPH COUNT 0.8 /CUMM (1.2-3.4); ABSOLUTE MONOCYTE COUNT 0.3 /CUMM (0.10-0.60); BASOPHIL % 0.1 % (0.0-2.0); EOSINOPHIL % 0 % (0-5); HEMATOCRIT 28.3 % (37-47); MEAN CORPUSCULAR HGB 27.7 PG (27.0-31.0); MEAN CORPUSCULAR HGB CONC 30.9 G/DL (33.0-37.0); MEAN CORPUSCULAR VOLUME 89.9 FL (81.0-99.0); MEAN PLATELET VOLUME 7.5 FL (7.4-10.4); RBC DISTRIBUTION WIDTH 14.8 % (11.5-14.5); RED BLOOD CELL CT 3.15 /CUMM (4.20-5.40); WHITE BLOOD CELL COUNT 9.7 /CUMM (4.8-10.8)
[2017-10-09 13:16] LABS: GRANULOCYTE % 88.3 % (42.2-75.2); PLATELET COUNT 639 /CUMM (130-400)
--- NOTE | 2017-10-09 19:57 | PN- Pulmonary ---
Subjective HPI/Critical Care Issues: Doing better. Status post surgery, mild pain NG tube in place Objective Current Medications: Current Medications Sig/Raymond Start time Last Medication Dose Route Stop Time Status Admin Acetaminophen 1,000 MG Q12 10/09 2100 AC N/A 1 UNIT IV 10/11 0914 Acetaminophen 1,000 MG Q12 10/09 1645 DC N/A 1 UNIT IV 10/10 2114 Acetaminophen 1,000 MG Q6H 10/09 0000 DC N/A 1 UNIT IV 10/09 1814 Acetaminophen 1,000 MG Q6H 10/08 2130 DC 10/09 N/A 1 UNIT IV 10/09 1544 1456 Ceftriaxone Sodium 2,000 MG Q24H 10/09 1200 DC IV Ceftriaxone Sodium 1,000 MG Q24H 10/09 1200 AC 10/09 IV 1248 Dextrose/Sodium 1,000 ML Q8H 10/08 1815 DC 10/09 Chloride IV 0515 Heparin Sodium 5,000 UNIT Q8 10/09 0600 AC 10/09 (Porcine) SC 1421 Hydrocortisone 50 MG Q8H 10/09 2200 AC Sodium Succinate IV Hydrocortisone 100 MG Q8H 10/08 2200 DC 10/09 Sodium Succinate IV 0514 Hydromorphone HCl 50 MG Q24H PRN 10/08 1830 AC Sodium Chloride 45 ML IV Insulin Human Regular 4 UNITS .STK-MED ONE 10/09 0513 DC IV 10/09 0514 Insulin Human Regular 4 UNITS .STK-MED ONE 10/09 0011 DC IV 10/09 0012 Insulin Human Regular 0 Q6 10/08 2359 AC 10/09 SC 1756 Metronidazole 500 MG Q8H 10/09 0200 AC 10/09 N/A 1 UNIT IV 1752 Ondansetron HCl 4 MG Q6P PRN 10/08 1815 AC IV Pantoprazole Sodium 40 MG DAILY 10/09 0900 AC 10/09 IV 0847 Patient Medication 1 ED ONE ONE 10/09 1630 DC Teaching ED 10/09 1631 Sodium Chloride 1,000 ML Q8H 10/09 0930 AC 10/09 IV 1048 Sodium Chloride 500 ML ONCE ONE 10/09 0915 DC 10/09 IV 10/09 1014 0950 Sodium Chloride 500 ML ONCE ONE 10/09 0900 CAN IV 10/09 0901 Vital Signs & I&O Last 24 Hrs of Vitals and I&O: Vital Signs Date Time Temp Pulse Resp B/P B/P Pulse O2 O2 Flow FiO2 Mean Ox Delivery Rate 10/09 1847 97.8 64 18 142/82 98 Room Air 10/09 1402 98.1 59 20 129/99 97 Room Air 10/09 1051 97.6 64 18 148/94 98 Room Air 10/09 0500 96.8 59 16 130/77 10/09 0500 96.8 59 18 130/77 97 Room Air 10/09 0307 96.5 54 16 126/76 95 Room Air 10/09 0300 96.5 54 16 126/76 10/09 0200 94 Nasal 1.0L Cannula 10/09 0100 97.6 80 16 141/80 10/09 0100 97.6 80 16 141/80 97 Room Air 10/08 2300 97.8 69 18 120/80 92 Nasal 1.0L Cannula 10/08 2230 97.8 69 18 120/80 10/08 2100 96.5 83 18 130/70 99 Nasal 2.0L Cannula 10/08 2030 Nasal 2.0L Cannula 10/08 2030 96.5 83 18 130/70 Intake & Output 10/09 1600 10/09 0800 10/09 0000 Intake Total 1500 600 Output Total 955 40 175 Balance 545 560 -175 Intake, IV 1500 600 Intake, Oral 0 0 Output, 30 40 75 Drainage Output, 425 0 Gastric Drainage Output, Stool 0 0 Output, Urine 500 100 Impression/Plan Impression/Plan Impression/Plan: This is a 37-year-old woman with ulcerative colitis, hospitalized 2 weeks ago with polymicrobial anaerobic bacteremia, with a CT of the abdomen and pelvis revealing circumferential wall thickening of the distal descending and sigmoid colon extending to the rectum, with no free air, treated with IV steroids and Ceftriaxone and Flagyl and discharged on Cipro and Flagyl, admitted with one day of recurrent vomiting and lower abdominal pain, found to be afebrile with leukocytosis and thrombocytosis and with a CT of the abdomen and pelvis revealing a mixed fluid and gas collection in the central pelvis, Status post surgery with subtotal colectomy ISSUES * Status post surgery doing well * Sig immunosupp state due to high dose steroids and recent UC flare (failed 2 biologic agents and on high dose steroids followed by GI Dr. Canales regularly * Intraabd abcess due to recent small bowel perf status post surgery * Sig reactive thrombocytosis * No sig DM induced by steroid REC /PLAN KEep npo IV abx Reduce steroids hydrocortisone 50 every 8 Other management per surgery
--- NOTE | 2017-10-10 08:05 | PN- General Surgery ---
Surgical Brief Attending Note Brief Attending Note: Patient complaining of poorly controlled pain this morning AVSS Nasogastric tube with bilious drainage Abdomen is soft, stoma is pink without gas or stool in bag, midline dressing intact Pelvic ARY serosanguineous A.m. labs pending Impression: Poor pain control- adjusting pain meds, continue IV Tylenol, give single dose of IV Toradol Awaiting bowel function- keep nothing by mouth with NG tube and IV fluids Start wet to moist daily dressing change to abdominal wound Encourage out of bed activity Continue broad-spectrum antibiotics
[2017-10-10 09:48] LABS: ABSOLUTE BASOPHIL COUNT 0 /CUMM (0.0-0.2); ABSOLUTE EOSINOPHIL COUNT 0 /CUMM (0.0-0.7); ABSOLUTE LYMPH COUNT 0.7 /CUMM (1.2-3.4); ABSOLUTE MONOCYTE COUNT 0.4 /CUMM (0.10-0.60); BASOPHIL % 0 % (0.0-2.0); EOSINOPHIL % 0 % (0-5); GRANULOCYTE % 91.3 % (42.2-75.2); HEMATOCRIT 26.2 % (37-47); MEAN CORPUSCULAR HGB 28.7 PG (27.0-31.0); MEAN CORPUSCULAR HGB CONC 32.4 G/DL (33.0-37.0); MEAN CORPUSCULAR VOLUME 88.7 FL (81.0-99.0); MEAN PLATELET VOLUME 7.3 FL (7.4-10.4); PLATELET COUNT 624 /CUMM (130-400); RBC DISTRIBUTION WIDTH 14.9 % (11.5-14.5); RED BLOOD CELL CT 2.95 /CUMM (4.20-5.40)
--- NOTE | 2017-10-10 11:40 | PN- Infect Dx ---
Subjective Subjective: Afebrile on steroids. She had a bad night with significant pain, which was poorly controlled. Objective Last 24 Hrs of Vital Signs/I&O Vital Signs Date Time Temp Pulse Resp B/P B/P Pulse O2 O2 Flow FiO2 Mean Ox Delivery Rate 10/09 2300 97.7 63 17 136/74 10/09 2227 97.7 63 17 136/74 98 Room Air 10/09 1847 97.8 64 18 142/82 98 Room Air 10/09 1402 98.1 59 20 129/99 97 Room Air Intake & Output 10/10 1600 10/10 0800 10/10 0000 Intake Total 1000 1000 Output Total 935 635 Balance 65 365 Intake, IV 1000 1000 Number 0 Bowel Movements Output, 35 70 Drainage Output, 450 250 Gastric Drainage Output, Stool 0 15 Output, Urine 450 300 Physical Exam Other Physical Findings: She appears more comfortable presently, in no acute distress HEENT NG tube remains in place Abdomen is distended, dressing intact, with serosanguineous drainage in the ostomy bag, with a drain in place Extremities no cyanosis, clubbing or edema Del [place] catheter remains in place Results Last 24 Hours of Lab Results: Laboratory Tests 10/10 0810 Chemistry Sodium (137 - 145 mmol/L) 137 Potassium (3.5 - 5.1 mmol/L) 3.8 Chloride (98 - 107 mmol/L) 101 Carbon Dioxide (22 - 30 mmol/L) 28 Anion Gap (5 - 16) 8 BUN (7 - 17 mg/dL) 10 Creatinine (0.5 - 1.0 mg/dL) 0.7 Estimated GFR (>60 ml/min) > 60 BUN/Creatinine Ratio (7 - 25 %) 14.3 Hematology CBC w Diff MAN DIFF ORDERED WBC (4.8 - 10.8 /CUMM) 12.0 H RBC (4.20 - 5.40 /CUMM) 2.95 L Hgb (12.0 - 16.0 G/DL) 8.5 L Hct (37 - 47 %) 26.2 L MCV (81.0 - 99.0 FL) 88.7 MCH (27.0 - 31.0 PG) 28.7 MCHC (33.0 - 37.0 G/DL) 32.4 L RDW (11.5 - 14.5 %) 14.9 H Plt Count (130 - 400 /CUMM) 624 H MPV (7.4 - 10.4 FL) 7.3 L Gran % (42.2 - 75.2 %) 91.3 H Lymphocytes % (20.5 - 51.1 %) 5.5 L Monocytes % (1.7 - 9.3 %) 3.2 Eosinophils % (0 - 5 %) 0 Basophils % (0.0 - 2.0 %) 0 Absolute Granulocytes (1.4 - 6.5 /CUMM) 11.0 H Segmented Neutrophils (42.2 - 75.2 %) 92 H Band Neutrophils (0.0 - 5.0 %) 3 Absolute Lymphocytes (1.2 - 3.4 /CUMM) 0.7 L Lymphocytes (20.5 - 51.1 %) 4 L Monocytes (1.7 - 9.3 %) 1 L Absolute Monocytes (0.10 - 0.60 /CUMM) 0.4 Absolute Eosinophils (0.0 - 0.7 /CUMM) 0 Absolute Basophils (0.0 - 0.2 /CUMM) 0 Platelet Estimate (ADEQUATE) INCREASED Polychromasia 1+ Anisocytosis 1+ Last 24 Hours of Cecilio Results: OR culture October 08 labeled small bowel cavity abscess positive for alpha strep and mixed anaerobes OR culture October 08 labeled peritoneal fluid negative Urine culture October 08 negative Blood cultures 2 October 07 negative Assessment/Plan ID Impression: Stable, status now 2 days status post exploratory laparotomy with evacuation and drainage of an abdominal abscess, total abdominal colectomy with end ileostomy and small bowel resection with anastomosis for ulcerative colitis with perforation and abscess. She remains afebrile (on steroids) with her white blood cell count slightly elevated today, possibly secondary to steroids, on Ceftriaxone and Flagyl, which can be continued to cover the alpha strep and anaerobes isolated from her OR culture. Suggestion: 1. Ensure adequate pain relief 2. Remove [place] catheter as soon as possible 3. Continue Ceftriaxone and Flagyl
--- NOTE | 2017-10-10 13:47 | PN- Medicine Consult ---
Assessment/PlanMedical Consult Assessment/Plan Assessment: 37-year-old woman with history of recurrent ulcerative colitis, admitted with recent flare, found to be bacteremic secondary to bacterial translocation versus microperforations discharged on p.o. ciprofloxacin and Flagyl comes back to the ED with worsening abdominal pain, nausea and vomiting with CT evidence of intra- abdominal abscess being admitted to general medicine floor for a possible surgical intervention (possible subtotal colectomy) Plan: Plan: POD #2 Keep NPO and NG tube. IVF. Monitor H and H. Continue stress dose steroids taper. Continue Ceftriaxone and Flagyl. Optimal pain control with IV Tylenol and IV Dilaudid. Thrombocytosis improving. FSGs acceptable. Problem List: 1. Intestinal abscess Subjective Subjective: Complains of abdominal pain, 02/18. Objective Last 24 Hrs of Vital Signs/I&O Vital Signs Date Time Temp Pulse Resp B/P B/P Pulse O2 O2 Flow FiO2 Mean Ox Delivery Rate 10/09 2300 97.7 63 17 136/74 10/09 2227 97.7 63 17 136/74 98 Room Air 10/09 1847 97.8 64 18 142/82 98 Room Air 10/09 1402 98.1 59 20 129/99 97 Room Air Intake & Output 10/10 1600 10/10 0800 10/10 0000 Intake Total 1000 1000 Output Total 935 635 Balance 65 365 Intake, IV 1000 1000 Number 0 Bowel Movements Output, 35 70 Drainage Output, 450 250 Gastric Drainage Output, Stool 0 15 Output, Urine 450 300 Physical Exam General Appearance: well developed/nourished, alert, awake, anxious Cardiovascular: regular rate/rhythm Respiratory: normal breath sounds (anteriorly) Abdomen: Midline incision with dressing. ARY with serosang drainage. Extremities: normal inspection, normal capillary refill Current Medications: Current Medications Sig/Raymond Start time Last Medication Dose Route Stop Time Status Admin Acetaminophen 1,000 MG Q12 10/09 2100 AC 10/10 N/A 1 UNIT IV 10/11 0914 0852 Acetaminophen 1,000 MG Q12 10/09 1645 DC N/A 1 UNIT IV 10/10 2114 Acetaminophen 1,000 MG Q6H 10/08 2130 DC 10/09 N/A 1 UNIT IV 10/09 1544 1456 Ceftriaxone Sodium 1,000 MG Q24H 10/09 1200 AC 10/10 IV 1152 Heparin Sodium 5,000 UNIT Q8 10/09 0600 AC 10/10 (Porcine) SC 0540 Hydrocortisone 50 MG Q8H 10/09 2200 AC 10/10 Sodium Succinate IV 0541 Hydrocortisone 100 MG Q8H 10/08 2200 DC 10/09 Sodium Succinate IV 0514 Hydromorphone HCl 0.6 MG ONCE ONE 10/10 0745 DC 10/10 IV 10/10 0746 0750 Hydromorphone HCl 0.6 MG Q4P PRN 10/10 0745 AC 10/10 IV 1152 Hydromorphone HCl 50 MG Q24H PRN 10/08 1830 DC Sodium Chloride 45 ML IV Insulin Human Regular 2 UNITS .STK-MED ONE 10/10 0022 DC IV 10/10 0023 Insulin Human Regular 1 UNITS .STK-MED ONE 10/09 1755 DC IV 10/09 1756 Insulin Human Regular 0 Q6 10/08 2359 10/10 SC 1152 Ketorolac 30 MG 0800 10/10 0800 DC 10/10 Tromethamine IV 10/10 0801 0758 Metronidazole 500 MG Q8H 10/09 0200 10/10 N/A 1 UNIT IV 0930 Morphine Sulfate 4 MG Q4P PRN 10/10 0745 CAN IV Morphine Sulfate 2 MG ONCE ONE 10/10 0545 DC 10/10 IV 10/10 0546 0541 Morphine Sulfate 2 MG ONCE ONE 10/09 2345 DC 10/10 IV 10/09 2346 0013 Morphine Sulfate 2 MG Q4P PRN 10/09 2330 DC 10/10 IV 0437 Ondansetron HCl 4 MG Q6P PRN 10/08 1815 IV Pantoprazole Sodium 40 MG DAILY 10/09 0900 10/10 IV 0750 Patient Medication 1 ED ONE ONE 10/09 1630 UT Teaching ED 10/09 1631 Sodium Chloride 1,000 ML Q8H 10/09 0930 10/10 IV 0607 Results Last 24 Hrs Lab/Cecilio Results: Laboratory Tests 10/10/17 0810: Anion Gap 8, Estimated GFR > 60, BUN/Creatinine Ratio 14.3, CBC w Diff MAN DIFF ORDERED, RBC 2.95 L, MCV 88.7, MCH 28.7, MCHC 32.4 L, RDW 14.9 H, MPV 7.3 L, Gran % 91.3 H, Lymphocytes % 5.5 L, Monocytes % 3.2, Eosinophils % 0, Basophils % 0, Absolute Granulocytes 11.0 H, Segmented Neutrophils 92 H, Band Neutrophils 3, Absolute Lymphocytes 0.7 L, Lymphocytes 4 L, Monocytes 1 L, Absolute Monocytes 0.4, Absolute Eosinophils 0, Absolute Basophils 0, Platelet Estimate INCREASED, Polychromasia 1+, Anisocytosis 1+
--- NOTE | 2017-10-10 14:11 | PN- Pulmonary ---
Subjective HPI/Critical Care Issues: Afebrile on steroids. She had a bad night with significant pain, which was poorly controlled. Objective Current Medications: Current Medications Sig/Raymond Start time Last Medication Dose Route Stop Time Status Admin Acetaminophen 1,000 MG Q12 10/09 2100 AC 10/10 N/A 1 UNIT IV 10/11 0914 0852 Acetaminophen 1,000 MG Q12 10/09 1645 DC N/A 1 UNIT IV 10/10 2114 Acetaminophen 1,000 MG Q6H 10/08 2130 DC 10/09 N/A 1 UNIT IV 10/09 1544 1456 Ceftriaxone Sodium 1,000 MG Q24H 10/09 1200 AC 10/10 IV 1152 Heparin Sodium 5,000 UNIT Q8 10/09 0600 AC 10/10 (Porcine) SC 1347 Hydrocortisone 50 MG Q8H 10/09 2200 AC 10/10 Sodium Succinate IV 1347 Hydromorphone HCl 0.6 MG ONCE ONE 10/10 0745 DC 10/10 IV 10/10 0746 0750 Hydromorphone HCl 0.6 MG Q4P PRN 10/10 0745 AC 10/10 IV 1152 Hydromorphone HCl 50 MG Q24H PRN 10/08 1830 DC Sodium Chloride 45 ML IV Insulin Human Regular 2 UNITS .STK-MED ONE 10/10 0548 DC IV 10/10 0549 Insulin Human Regular 2 UNITS .STK-MED ONE 10/10 0022 DC IV 10/10 0023 Insulin Human Regular 1 UNITS .STK-MED ONE 10/09 1755 DC IV 10/09 1756 Insulin Human Regular 0 Q6 10/08 2359 AC 10/10 SC 1152 Ketorolac 30 MG 0800 10/10 0800 DC 10/10 Tromethamine IV 10/10 0801 0758 Metronidazole 500 MG Q8H 10/09 0200 AC 10/10 N/A 1 UNIT IV 0930 Morphine Sulfate 4 MG Q4P PRN 10/10 0745 CAN IV Morphine Sulfate 2 MG ONCE ONE 10/10 0545 DC 10/10 IV 10/10 0546 0541 Morphine Sulfate 2 MG ONCE ONE 10/09 2345 DC 10/10 IV 10/09 2346 0013 Morphine Sulfate 2 MG Q4P PRN 10/09 2330 DC 10/10 IV 0437 Ondansetron HCl 4 MG Q6P PRN 10/08 1815 AC IV Pantoprazole Sodium 40 MG DAILY 10/09 09 AC 10/10 IV 0750 Patient Medication 1 ED ONE ONE 10/09 1630 DC Teaching ED 10/09 1631 Sodium Chloride 1,000 ML Q8H 10/09 09 AC 10/10 IV 1352 Vital Signs & I&O Last 24 Hrs of Vitals and I&O: Vital Signs Date Time Temp Pulse Resp B/P B/P Pulse O2 O2 Flow FiO2 Mean Ox Delivery Rate 10/09 2300 97.7 63 17 136/74 10/09 2227 97.7 63 17 136/74 98 Room Air 10/09 1847 97.8 64 18 142/82 98 Room Air Intake & Output 10/10 1600 10/10 0800 10/10 0000 Intake Total 600 1000 1000 Output Total 150 935 635 Balance 450 65 365 Intake, IV 600 1000 1000 Intake, Oral 0 Number 0 Bowel Movements Output, 25 35 70 Drainage Output, 125 450 250 Gastric Drainage Output, Stool 0 15 Output, Urine 450 300 Laboratory Tests 10/10 10/09 0810 1134 Chemistry Sodium (137 - 145 mmol/L) 137 Potassium (3.5 - 5.1 mmol/L) 3.8 Chloride (98 - 107 mmol/L) 101 Carbon Dioxide (22 - 30 mmol/L) 28 Anion Gap (5 - 16) 8 BUN (7 - 17 mg/dL) 10 Creatinine (0.5 - 1.0 mg/dL) 0.7 Estimated GFR (>60 ml/min) > 60 BUN/Creatinine Ratio (7 - 25 %) 14.3 Hematology CBC w Diff MAN DIFF ORDERED NO MAN DIFF REQ WBC (4.8 - 10.8 /CUMM) 12.0 H 9.7 RBC (4.20 - 5.40 /CUMM) 2.95 L 3.15 L Hgb (12.0 - 16.0 G/DL) 8.5 L 8.7 L Hct (37 - 47 %) 26.2 L 28.3 L MCV (81.0 - 99.0 FL) 88.7 89.9 MCH (27.0 - 31.0 PG) 28.7 27.7 MCHC (33.0 - 37.0 G/DL) 32.4 L 30.9 L RDW (11.5 - 14.5 %) 14.9 H 14.8 H Plt Count (130 - 400 /CUMM) 624 H 639 H MPV (7.4 - 10.4 FL) 7.3 L 7.5 Gran % (42.2 - 75.2 %) 91.3 H 88.3 H Lymphocytes % (20.5 - 51.1 %) 5.5 L 8.2 L Monocytes % (1.7 - 9.3 %) 3.2 3.4 Eosinophils % (0 - 5 %) 0 0 Basophils % (0.0 - 2.0 %) 0 0.1 Absolute Granulocytes (1.4 - 6.5 /CUMM) 11.0 H 8.6 H Segmented Neutrophils (42.2 - 75.2 %) 92 H Band Neutrophils (0.0 - 5.0 %) 3 Absolute Lymphocytes (1.2 - 3.4 /CUMM) 0.7 L 0.8 L Lymphocytes (20.5 - 51.1 %) 4 L Monocytes (1.7 - 9.3 %) 1 L Absolute Monocytes (0.10 - 0.60 /CUMM) 0.4 0.3 Absolute Eosinophils (0.0 - 0.7 /CUMM) 0 0 Absolute Basophils (0.0 - 0.2 /CUMM) 0 0 Platelet Estimate (ADEQUATE) INCREASED Polychromasia 1+ Anisocytosis 1+ 10/09 0903 Chemistry Sodium (137 - 145 mmol/L) 136 L Potassium (3.5 - 5.1 mmol/L) 4.2 Chloride (98 - 107 mmol/L) 102 Carbon Dioxide (22 - 30 mmol/L) 29 Anion Gap (5 - 16) 5 BUN (7 - 17 mg/dL) 10 Creatinine (0.5 - 1.0 mg/dL) 0.6 Estimated GFR (>60 ml/min) > 60 BUN/Creatinine Ratio (7 - 25 %) 16.7 Glucose (65 - 99 mg/dL) 139 H Phosphorus (2.5 - 4.5 mg/dL) 3.0 Magnesium (1.6 - 2.3 mg/dL) 1.8 Microbiology Date/Time Procedure - Status Source Growth 10/08 143 Culture & Sensitivity - RES GI FROM OR ALPHA STREP 10/08 143 Gram Stain - RES GI FROM OR 10/08 1425 Urine Culture - COMP URINE ROUT 10/08 142 Culture & Sensitivity - RES GI FROM OR 10/08 1425 Gram Stain - RES GI FROM OR Impression/Plan Impression/Plan Impression/Plan: She appears more comfortable presently, in no acute distress HEENT NG tube remains in place Chest decreased bs both sides Abdomen is distended, dressing intact, with serosanguineous drainage in the ostomy bag, with a drain in place Extremities no cyanosis, clubbing or edema [place] catheter remains in place This is a 37-year-old woman with ulcerative colitis,was on sig steroids, previous biologic agents came in with perf bowel with intraabd abcess s/p elap with drainage with total colectomy, end ileostomy and SB resection and anastamosis ISSUES * Status post surgery doing well, with pain now on dilautid * Sig immunosupp state due to high dose steroids and recent UC flare (failed 2 biologic agents and on high dose steroids followed by GI Dr. Canales regularly * Sig reactive thrombocytosis * No sig DM induced by steroid REC /PLAN KEep npo IV abx Reduce steroids hydrocortisone 50 every 8 for now will decide on further reduction in am Other management per surgery and id discussed with family
[2017-10-10 14:49] VITALS: BP 138/72
[2017-10-10 21:48] VITALS: BP 142/80
[2017-10-11 06:29] VITALS: BP 144/86
--- NOTE | 2017-10-11 11:15 | PN- General Surgery ---
Surgical Brief Attending Note Brief Attending Note: POD#3 S/P Total abdominal colectomy, SB resection and drainage of an abscess Awake and alert, pain control is improved NG tube is in and draining bile Some dark fluid in the ostomy bag, no flatus in the bag Dressing already changed this AM Appears to be doing well We will try clamping the NG tube today and hopefully removing it and the romero in the next 24 hours Case discussed with the PA
--- NOTE | 2017-10-11 11:46 | PN- Pulmonary ---
Subjective HPI/Critical Care Issues: Doing well Stable Objective Current Medications: Current Medications Sig/Raymond Start time Last Medication Dose Route Stop Time Status Admin Acetaminophen 1,000 MG Q12 10/09 2100 DC 10/11 N/A 1 UNIT IV 10/11 0914 0847 Ceftriaxone Sodium 1,000 MG Q24H 10/09 1200 AC 10/10 IV 1152 Heparin Sodium 5,000 UNIT Q8 10/09 0600 AC 10/11 (Porcine) SC 0651 Hydrocortisone 50 MG Q8H 10/09 2200 AC 10/11 Sodium Succinate IV 0651 Hydromorphone HCl 0.6 MG Q4P PRN 10/10 0745 AC 10/11 IV 0847 Insulin Human Regular 1 UNITS .STK-MED ONE 10/11 0025 DC IV 10/11 0026 Insulin Human Regular 1 UNITS .STK-MED ONE 10/10 1728 DC IV 10/10 1729 Insulin Human Regular 0 Q6 10/08 2359 AC 10/11 SC 0652 Metronidazole 500 MG Q8H 10/09 0200 AC 10/11 N/A 1 UNIT IV 0931 Ondansetron HCl 4 MG Q6P PRN 10/08 1815 AC IV Pantoprazole Sodium 40 MG DAILY 10/09 0900 AC 10/11 IV 0847 Sodium Chloride 1,000 ML Q8H 10/09 0930 AC 10/11 IV 0727 Vital Signs & I&O Last 24 Hrs of Vitals and I&O: Vital Signs Date Time Temp Pulse Resp B/P B/P Pulse O2 O2 Flow FiO2 Mean Ox Delivery Rate 10/11 0629 97.8 65 20 144/86 94 10/10 2148 98.0 66 18 142/80 97 10/10 1449 98.5 60 18 138/72 96 Room Air Intake & Output 10/11 1600 10/11 0800 10/11 0000 Intake Total 1100 435 Output Total 1005 470 Balance 95 -35 Intake, IV 1100 375 Intake, Oral 60 Output, 40 20 Drainage Output, 400 Gastric Drainage Output, Stool 15 Output, Urine 550 450 Patient 220 lb Weight Impression/Plan Impression/Plan Impression/Plan: She appears more comfortable presently, in no acute distress HEENT NG tube remains in place Chest decreased bs both sides Abdomen is distended, dressing intact, with serosanguineous drainage in the ostomy bag, with a drain in place Extremities no cyanosis, clubbing or edema Del Rio catheter remains in place This is a 37-year-old woman with ulcerative colitis,was on sig steroids, previous biologic agents came in with perf bowel with intraabd abcess s/p elap with drainage with total colectomy, end ileostomy and SB resection and anastamosis ISSUES * Status post surgery doing well, with pain now on dilautid * Sig immunosupp state due to high dose steroids and recent UC flare (failed 2 biologic agents and on high dose steroids followed by GI Dr. Canales regularly * Sig reactive thrombocytosis * No sig DM induced by steroid REC /PLAN KEep npo IV abx Reduce steroids hydrocortisone 50 every 12 hrs for now Other management per surgery and id discussed with family
[2017-10-11 14:40] VITALS: BP 140/80
[2017-10-11 22:20] VITALS: BP 157/95
[2017-10-12 06:54] VITALS: BP 154/91
--- NOTE | 2017-10-12 08:30 | PN- Infect Dx ---
Subjective Subjective: Afebrile. She notes abdominal discomfort but overall feels improved. Objective Last 24 Hrs of Vital Signs/I&O Vital Signs Date Time Temp Pulse Resp B/P B/P Pulse O2 O2 Flow FiO2 Mean Ox Delivery Rate 10/12 0654 98.1 61 18 154/91 99 Room Air 10/11 2220 98.3 58 18 157/95 100 Room Air 10/11 1440 97.5 70 20 140/80 98 Room Air Intake & Output 10/12 1600 10/12 0800 10/12 0000 Intake Total 1000 600 Output Total 510 220 Balance 490 380 Intake, IV 1000 600 Output, 10 10 Drainage Output, 0 Gastric Drainage Output, Stool 100 10 Output, Urine 400 200 Physical Exam Other Physical Findings: She appears comfortable in no acute distress HEENT NG tube remains in place Lungs are clear Abdomen is mildly distended, dressing intact, with dark fluid in the ostomy bag; no bowel sounds appreciated Extremities no cyanosis, clubbing or edema Del Rio catheter remains in place Results Last 24 Hours of Lab Results: Laboratory Tests 10/10 10/09 0810 1134 Chemistry Sodium (137 - 145 mmol/L) 137 Potassium (3.5 - 5.1 mmol/L) 3.8 Chloride (98 - 107 mmol/L) 101 Carbon Dioxide (22 - 30 mmol/L) 28 Anion Gap (5 - 16) 8 BUN (7 - 17 mg/dL) 10 Creatinine (0.5 - 1.0 mg/dL) 0.7 Estimated GFR (>60 ml/min) > 60 BUN/Creatinine Ratio (7 - 25 %) 14.3 Hematology CBC w Diff MAN DIFF ORDERED NO MAN DIFF REQ WBC (4.8 - 10.8 /CUMM) 12.0 H 9.7 RBC (4.20 - 5.40 /CUMM) 2.95 L 3.15 L Hgb (12.0 - 16.0 G/DL) 8.5 L 8.7 L Hct (37 - 47 %) 26.2 L 28.3 L MCV (81.0 - 99.0 FL) 88.7 89.9 MCH (27.0 - 31.0 PG) 28.7 27.7 MCHC (33.0 - 37.0 G/DL) 32.4 L 30.9 L RDW (11.5 - 14.5 %) 14.9 H 14.8 H Plt Count (130 - 400 /CUMM) 624 H 639 H MPV (7.4 - 10.4 FL) 7.3 L 7.5 Gran % (42.2 - 75.2 %) 91.3 H 88.3 H Lymphocytes % (20.5 - 51.1 %) 5.5 L 8.2 L Monocytes % (1.7 - 9.3 %) 3.2 3.4 Eosinophils % (0 - 5 %) 0 0 Basophils % (0.0 - 2.0 %) 0 0.1 Absolute Granulocytes (1.4 - 6.5 /CUMM) 11.0 H 8.6 H Segmented Neutrophils (42.2 - 75.2 %) 92 H Band Neutrophils (0.0 - 5.0 %) 3 Absolute Lymphocytes (1.2 - 3.4 /CUMM) 0.7 L 0.8 L Lymphocytes (20.5 - 51.1 %) 4 L Monocytes (1.7 - 9.3 %) 1 L Absolute Monocytes (0.10 - 0.60 /CUMM) 0.4 0.3 Absolute Eosinophils (0.0 - 0.7 /CUMM) 0 0 Absolute Basophils (0.0 - 0.2 /CUMM) 0 0 Platelet Estimate (ADEQUATE) INCREASED Polychromasia 1+ Anisocytosis 1+ 05 0903 Chemistry Sodium (137 - 145 mmol/L) 136 L Potassium (3.5 - 5.1 mmol/L) 4.2 Chloride (98 - 107 mmol/L) 102 Carbon Dioxide (22 - 30 mmol/L) 29 Anion Gap (5 - 16) 5 BUN (7 - 17 mg/dL) 10 Creatinine (0.5 - 1.0 mg/dL) 0.6 Estimated GFR (>60 ml/min) > 60 BUN/Creatinine Ratio (7 - 25 %) 16.7 Glucose (65 - 99 mg/dL) 139 H Phosphorus (2.5 - 4.5 mg/dL) 3.0 Magnesium (1.6 - 2.3 mg/dL) 1.8 Last 24 Hours of Cecilio Results: OR culture October 08 labeled small bowel cavity abscess positive for alpha strep, mixed anaerobes and diphtheroids OR culture October 08 labeled peritoneal fluid negative Assessment/Plan ID Impression: Stable, now 4 days status post exploratory laparotomy, with evacuation and drainage of an abdominal abscess, total abdominal colectomy with end ileostomy and small bowel resection with anastomosis for ulcerative colitis with perforation and abscess. She remains afebrile (on steroids) with her last white blood cell count slightly elevated, possible secondary to steroids, on Ceftriaxone and Flagyl, which can be continued to cover the alpha strep and anaerobes isolated from her OR culture. The diphtheroids, also isolated from the OR culture, likely represents a contaminant and should not require treatment. Suggestion: 1. Repeat CBC 2. Remove Del Rio catheter 3. Continue Ceftriaxone and Flagyl
--- NOTE | 2017-10-12 09:44 | PN- Pulmonary ---
Subjective HPI/Critical Care Issues: Afebrile. She notes abdominal discomfort but overall feels improved. Objective Current Medications: Current Medications Sig/Raymond Start time Last Medication Dose Route Stop Time Status Admin Ceftriaxone Sodium 1,000 MG Q24H 10/09 1200 AC 10/11 IV 1232 Heparin Sodium 5,000 UNIT Q8 10/09 0600 AC 10/12 (Porcine) SC 0550 Hydrocortisone 50 MG Q12 10/12 0929 UNVr Sodium Succinate IV Hydrocortisone 50 MG Q8H 10/09 2200 DC 10/12 Sodium Succinate IV 0550 Hydromorphone HCl 0.6 MG Q4P PRN 10/10 0745 AC 10/12 IV 0835 Insulin Human Regular 1 UNITS .STK-MED ONE 10/12 0036 DC IV 10/12 0037 Insulin Human Regular 1 UNITS .STK-MED ONE 10/11 1230 DC IV 10/11 1231 Insulin Human Regular 0 Q6 10/08 2359 AC 10/12 SC 0550 Metronidazole 500 MG Q8H 10/09 0200 AC 10/12 N/A 1 UNIT IV 0921 Ondansetron HCl 4 MG Q6P PRN 10/08 1815 AC IV Pantoprazole Sodium 40 MG DAILY 10/09 0900 AC 10/12 IV 0835 Sodium Chloride 1,000 ML Q8H 10/09 0930 AC 10/12 IV 0224 Vital Signs & I&O Last 24 Hrs of Vitals and I&O: Vital Signs Date Time Temp Pulse Resp B/P B/P Pulse O2 O2 Flow FiO2 Mean Ox Delivery Rate 10/12 0654 98.1 61 18 154/91 99 Room Air 10/11 2220 98.3 58 18 157/95 100 Room Air 10/11 1440 97.5 70 20 140/80 98 Room Air Intake & Output 10/12 1600 10/12 0800 10/12 0000 Intake Total 1000 600 Output Total 510 220 Balance 490 380 Intake, IV 1000 600 Output, 10 10 Drainage Output, 0 Gastric Drainage Output, Stool 100 10 Output, Urine 400 200 Impression/Plan Impression/Plan Impression/Plan: She appears more comfortable presently, in no acute distress HEENT NG tube remains in place Chest decreased bs both sides Abdomen is distended, dressing intact, with serosanguineous drainage in the ostomy bag, with a drain in place Extremities no cyanosis, clubbing or edema Del Rio catheter remains in place This is a 37-year-old woman with ulcerative colitis,was on sig steroids, previous biologic agents came in with perf bowel with intraabd abcess s/p elap with drainage with total colectomy, end ileostomy and SB resection and anastamosis ISSUES * Status post surgery doing well, with pain now on dilautid * Sig immunosupp state due to high dose steroids and recent UC flare (failed 2 biologic agents and on high dose steroids followed by GI Dr. Canales regularly * Sig reactive thrombocytosis * No sig DM induced by steroid REC /PLAN IV abx Reduce steroids hydrocortisone 50 every 12 hrs for now Other management per surgery and id discussed with patient and rn
--- NOTE | 2017-10-12 10:09 | PN- General Surgery ---
See Addendum Subjective Subjective: PATIENT LYING IN BED WITH GENERALIZED ABDOMINAL PAIN MODERATE LEAKAGE AROUND ARY-DRAIN, REINFORCED BY NURSING OVERNIGHT NGT HAS BEEN CLAMPED FOR 24HR WITHOUT NAUSEA STOMA-BROWN DRAINAGE, NOTHING FORMED FEELS GAS MOVING THROUGH Objective Vital Signs and I&Os Vital Signs Date Time Temp Pulse Resp B/P B/P Pulse O2 O2 Flow FiO2 Mean Ox Delivery Rate 10/12 0654 98.1 61 18 154/91 99 Room Air 10/11 2220 98.3 58 18 157/95 100 Room Air 10/11 1440 97.5 70 20 140/80 98 Room Air Intake & Output 10/12 1600 10/12 0800 10/12 0000 10/11 1600 10/11 0800 10/11 0000 Intake Total 6649 550 7765 1100 435 Output Total 510 391 274 3760 470 Balance 490 380 255 95 -35 Intake, IV 8829 817 2240 1100 375 Intake, Oral 0 60 Output, 10 10 20 40 20 Drainage Output, 0 50 400 Gastric Drainage Output, Stool 100 10 25 15 Output, Urine 400 200 650 550 450 Patient 220 lb Weight VSS, AFEBRILE HEART-RRR CHEST-CTA, SYMMETRIC ABDOMEN -PACKING AND DRESSING CHANGED, WOUNDS -DRY WITH SCANT DRANAGE, NO ERYTHEMA OR CELLULITS POS BS, DRAINAGE IN BAG NONFORMED BILATERAL LOWER EXTREM -SOFT NONTENDER Assessment/Plan Assessment/Plan NGT D/KATE VITAL OUT AMBULATION -OOB ADVANCE SLOWLY -CLD LABS FOR AM Core Measures Venous Thromboembolism VTE Risk Factors Acute Medical Illness No Mechanical VTE Prophylaxis d/t N/A MechProphylax Ordered No VTE Pharm Prophylaxis d/t Surgical Contraindication
[2017-10-12 14:49] VITALS: BP 138/80
[2017-10-12 22:00] VITALS: BP 134/83
[2017-10-13 07:00] VITALS: BP 153/85
--- NOTE | 2017-10-13 07:45 | PN- General Surgery ---
See Addendum Subjective Subjective: NO N/V, SOME OOB, NO APPETITE, NO CP/SOB, REQUESTS TO WAIT FOR DRESSING CHANGE AFTER PAIN MEDS THIS AM, WANTS TO TAKE SHOWER Objective Vital Signs and I&Os Vital Signs Date Time Temp Pulse Resp B/P B/P Pulse O2 O2 Flow FiO2 Mean Ox Delivery Rate 10/12 2199 97.9 59 20 134/83 93 Room Air 10/12 1449 97.8 62 20 138/80 99 Room Air Intake & Output 10/13 0800 10/13 0000 10/12 1600 10/12 0800 10/12 0000 10/11 1600 Intake Total 375 1480 9286 980 7126 Output Total 900 910 510 220 745 Balance -525 570 490 380 255 Intake, IV 375 1000 6267 256 9462 Intake, Oral 480 0 Output, 60 10 10 20 Drainage Output, 0 50 Gastric Drainage Output, Stool 100 100 10 25 Output, Urine 900 750 400 200 650 OSTOMY: WATERY BILIOUS, BAG FULL, AMT NOT RECORDED ARY: NR, SEROSANG Physical Exam: GEN- NAD, COMFORTABLE CARD- S1S2 RRR PULM- CTAB, NO RALES ABD- LARGE DRESSING COVERING ABD, DARK BILIOUS WATERY STOOL IN BAG, STOMA PINK/ VIABLE, ARY SEROSANG. EXT- CALVES SOFT, NT, ALPS ON Current Medications: Current Medications Sig/Raymond Start time Last Medication Dose Route Stop Time Status Admin Ceftriaxone Sodium 1,000 MG Q24H 10/09 1200 AC 10/12 IV 1215 Dicyclomine HCl 20 MG ONCE ONE 10/12 2014 DC 10/12 PO 10/12 Heparin Sodium 5,000 UNIT Q8 10/09 06 AC 10/13 (Porcine) SC 0716 Hydrocortisone 50 MG Q12H 10/12 1800 AC 10/13 Sodium Succinate IV 0718 Hydrocortisone 50 MG Q8H 10/09 220 DC 10/12 Sodium [place] IV 0550 Hydromorphone HCl 2 MG Q4P PRN 10/13 0745 AC PO Hydromorphone HCl 4 MG Q4P PRN 10/13 0745 AC PO Hydromorphone HCl 0.4 MG Q4P PRN 10/13 0745 AC IV Hydromorphone HCl 0.6 MG Q4P PRN 10/10 0745 DC 10/13 IV 0440 Insulin Human Regular 1 UNITS .STK-MED ONE 10/12 1826 DC IV 10/12 1827 Insulin Human Regular 1 UNITS .STK-MED ONE 10/12 1159 DC IV 10/12 1200 Insulin Human Regular 0 Q6 10/08 2359 AC 10/13 SC 0717 Metronidazole 500 MG Q8H 10/09 0200 AC 10/13 N/A 1 UNIT IV 0113 Ondansetron HCl 4 MG Q6P PRN 10/08 1815 AC IV Pantoprazole Sodium 40 MG DAILY 10/09 0900 AC 10/12 IV 0835 Sodium Chloride 1,000 ML Q13H 10/13 0745 AC IV Sodium Chloride 1,000 ML Q8H 10/09 0930 DC 10/12 IV 2134 Assessment/Plan Assessment/Plan A- POD5 SP TOTAL COLECTOMY/END ISLEOSTOMY, STABLE WITH FUNCTIONING ILEOSTOMY. P- FULL LIQUID DIET STRICT I&OS- DW NURSING DECREASE IVF RATE PO PAIN MEDS ?NEED FOR RISS, FS. CONT ABX- ?LENGTH OF COURSE ?LENGTH OF STERIODS? TAPER? OOB, AMBUALTE FU LABS NEEDS TODAYS DRESSING CHANGE AFTER SHOWER/PAIN MEDS PER PT REQUEST WILL DW DR ESAU GIRALDO PLANNING Core Measures Venous Thromboembolism VTE Risk Factors Acute Medical Illness No Mechanical VTE Prophylaxis d/t N/A MechProphylax Ordered No VTE Pharm Prophylaxis d/t Surgical Contraindication
[2017-10-13 09:29] LABS: ABSOLUTE BASOPHIL COUNT 0.3 /CUMM (0.0-0.2); ABSOLUTE EOSINOPHIL COUNT 0 /CUMM (0.0-0.7); ABSOLUTE GRANULOCYTE CT 6.7 /CUMM (1.4-6.5); ABSOLUTE LYMPH COUNT 1.7 /CUMM (1.2-3.4); ABSOLUTE MONOCYTE COUNT 0.2 /CUMM (0.10-0.60); BASOPHIL % 3.6 % (0.0-2.0); EOSINOPHIL % 0.3 % (0-5); GRANULOCYTE % 75.3 % (42.2-75.2); HEMATOCRIT 29.9 % (37-47); MEAN CORPUSCULAR HGB 28.8 PG (27.0-31.0); MEAN CORPUSCULAR HGB CONC 32.3 G/DL (33.0-37.0); MEAN PLATELET VOLUME 7.3 FL (7.4-10.4); PLATELET COUNT 592 /CUMM (130-400); RBC DISTRIBUTION WIDTH 14.8 % (11.5-14.5); RED BLOOD CELL CT 3.36 /CUMM (4.20-5.40); WHITE BLOOD CELL COUNT 8.9 /CUMM (4.8-10.8)
--- NOTE | 2017-10-13 11:55 | PN- Infect Dx ---
Subjective Subjective: Afebrile. She feels improved though still notes abdominal cramps. She is tolerating a diet. Objective Last 24 Hrs of Vital Signs/I&O Vital Signs Date Time Temp Pulse Resp B/P B/P Pulse O2 O2 Flow FiO2 Mean Ox Delivery Rate 10/13 0700 98.1 55 20 153/85 96 Room Air 10/12 2200 97.9 59 20 134/83 93 Room Air 10/12 1449 97.8 62 20 138/80 99 Room Air Intake & Output 10/13 1600 10/13 0800 10/13 0000 Intake Total 1000 375 Output Total 599 089 1956 Balance -600 730 -725 Intake, IV 1000 375 Output, 45 Drainage Output, Stool 225 200 Output, Urine 600 900 Physical Exam Other Physical Findings: She appears comfortable in no acute distress Abdomen is soft, mildly tender on palpation, with dark liquid in the ostomy, with positive bowel sounds Extremities no cyanosis, clubbing or edema Results Last 24 Hours of Lab Results: Laboratory Tests 10/13 08 Chemistry Sodium (137 - 145 mmol/L) 139 Potassium (3.5 - 5.1 mmol/L) 3.4 L Chloride (98 - 107 mmol/L) 105 Carbon Dioxide (22 - 30 mmol/L) 26 Anion Gap (5 - 16) 9 BUN (7 - 17 mg/dL) 9 Creatinine (0.5 - 1.0 mg/dL) 0.6 Estimated GFR (>60 ml/min) > 60 BUN/Creatinine Ratio (7 - 25 %) 15.0 Hematology CBC w Diff NO MAN DIFF REQ WBC (4.8 - 10.8 /CUMM) 8.9 RBC (4.20 - 5.40 /CUMM) 3.36 L Hgb (12.0 - 16.0 G/DL) 9.7 L Hct (37 - 47 %) 29.9 L MCV (81.0 - 99.0 FL) 89.0 MCH (27.0 - 31.0 PG) 28.8 MCHC (33.0 - 37.0 G/DL) 32.3 L RDW (11.5 - 14.5 %) 14.8 H Plt Count (130 - 400 /CUMM) 592 H MPV (7.4 - 10.4 FL) 7.3 L Gran % (42.2 - 75.2 %) 75.3 H Lymphocytes % (20.5 - 51.1 %) 19.0 L Monocytes % (1.7 - 9.3 %) 1.8 Eosinophils % (0 - 5 %) 0.3 Basophils % (0.0 - 2.0 %) 3.6 H Absolute Granulocytes (1.4 - 6.5 /CUMM) 6.7 H Absolute Lymphocytes (1.2 - 3.4 /CUMM) 1.7 Absolute Monocytes (0.10 - 0.60 /CUMM) 0.2 Absolute Eosinophils (0.0 - 0.7 /CUMM) 0 Absolute Basophils (0.0 - 0.2 /CUMM) 0.3 Last 24 Hours of Cecilio Results: No recent cultures Assessment/Plan ID Impression: Doing well, now 5 days status post exploratory laparotomy, with evacuation and drainage of an abdominal abscess, total abdominal colectomy with end ileostomy and small bowel resection with anastomosis for ulcerative colitis with perforation and abscess. She remains afebrile (on steroids) with her white blood cell count normal, on Ceftriaxone and Flagyl, which can be continued to cover the alpha strep and anaerobes isolated from her OR culture. Suggestion: 1. Continue Ceftriaxone and Flagyl
--- NOTE | 2017-10-13 12:56 | PN- Pulmonary ---
Subjective HPI/Critical Care Issues: Afebrile. She feels improved though still notes abdominal cramps. She is tolerating a diet. Objective Current Medications: Current Medications Sig/Raymond Start time Last Medication Dose Route Stop Time Status Admin Ceftriaxone Sodium 1,000 MG Q24H 10/09 1200 AC 10/13 IV 1202 Cholestyramine Resin 1 PAC BID 10/13 1025 AC 10/13 PO 1203 Dicyclomine HCl 20 MG ONCE ONE 10/12 2014 DC 10/12 PO 10/13 2015 211 Heparin Sodium 5,000 UNIT Q8 10/09 06 AC 10/13 (Porcine) SC 1252 Hydrocortisone 50 MG Q12H 10/12 1800 AC 10/13 Sodium Succinate IV 0718 Hydromorphone HCl 2 MG Q4P PRN 10/13 0745 AC PO Hydromorphone HCl 4 MG Q4P PRN 10/13 0745 AC 10/13 PO 1252 Hydromorphone HCl 0.4 MG Q4P PRN 10/13 0745 AC IV Hydromorphone HCl 0.6 MG Q4P PRN 10/10 0745 DC 10/13 IV 0440 Insulin Human Regular 2 UNITS .STK-MED ONE 10/13 0100 DC IV 10/13 0101 Insulin Human Regular 1 UNITS .STK-MED ONE 10/12 1826 DC IV 10/12 1827 Insulin Human Regular 0 Q6 10/08 2359 AC 10/13 SC 1202 Metronidazole 500 MG Q8H 10/09 0200 AC 10/13 N/A 1 UNIT IV 0910 Ondansetron HCl 4 MG Q6P PRN 10/08 1815 IV Pantoprazole Sodium 40 MG DAILY 10/09 0900 AC 10/13 IV 0909 Potassium Chloride 40 MEQ ONCE ONE 10/13 1200 DC 10/13 PO 10/13 1201 1203 Sodium Chloride 1,000 ML Q13H 10/13 0745 AC 10/13 IV 0812 Sodium Chloride 1,000 ML Q8H 10/09 0930 DC 10/12 IV 2134 Vital Signs & I&O Last 24 Hrs of Vitals and I&O: Vital Signs Date Time Temp Pulse Resp B/P B/P Pulse O2 O2 Flow FiO2 Mean Ox Delivery Rate 10/13 07 98.1 55 20 153/85 96 Room Air 10/12 2200 97.9 59 20 134/83 93 Room Air 10/12 1449 97.8 62 20 138/80 99 Room Air Intake & Output 10/13 1600 10/13 0800 06 0000 Intake Total 1000 375 Output Total 959 568 4203 Balance -600 730 -725 Intake, IV 1000 375 Output, 45 Drainage Output, Stool 225 200 Output, Urine 600 900 Impression/Plan Impression/Plan Impression/Plan: She appears more comfortable presently, in no acute distress Chest decreased bs both sides Abdomen is distended, dressing intact, with serosanguineous drainage in the ostomy bag, with a drain in place Extremities no cyanosis, clubbing or edema Del Rio catheter remains in place This is a 37-year-old woman with ulcerative colitis,was on sig steroids, previous biologic agents came in with perf bowel with intraabd abcess s/p elap with drainage with total colectomy, end ileostomy and SB resection and anastamosis ISSUES * Status post surgery doing well, with pain now on dilautid * Sig immunosupp state due to high dose steroids and recent UC flare (failed 2 biologic agents and on high dose steroids followed by GI Dr. Canales regularly * Sig reactive thrombocytosis * No sig DM induced by steroid * Has been on steroids for one yr (atleast 20 mg) REC /PLAN IV abx Dc hydrocortizone after today Start prednisone 20 mg for 5 days, then 15 mg for 5 days, 10 mg for 10 days and 5 mg for 10 days and 5 mg qod for 20 days and will observe Other management per surgery and id
[2017-10-13 14:44] VITALS: BP 128/74
[2017-10-13 15:28] VITALS: BP 122/80
--- NOTE | 2017-10-13 16:37 | Event Note ---
Event Note Event Note: dressing changed at bedside mninmal exudate no cellulitis no draiange from base of wound wound re packed with iodoform gauze large wound vac ordered for application at bedside in am patient tolerated procedure
[2017-10-13 22:35] VITALS: BP 145/81
[2017-10-14 06:57] VITALS: BP 136/72
--- NOTE | 2017-10-14 07:15 | PN- General Surgery ---
See Addendum Subjective Subjective: Patient had one episode of nausea without emesis as well as weakness when ambulating to bathroom overnight. No syncope. No complaints of chest pain, shortness of breath and difficulty breahting. Has been able to void. Objective Vital Signs and I&Os Vital Signs Date Time Temp Pulse Resp B/P B/P Pulse O2 O2 Flow FiO2 Mean Ox Delivery Rate 10/14 0657 97.6 46 18 136/72 98 / 2235 97.8 59 20 145/81 96 Room Air 10/13 1528 98.0 68 22 122/80 98 Room Air 10/13 1444 97.6 68 18 128/74 94 Room Air Intake & Output 10/14 0810/14 0000 10/13 1600 10/13 0800 10/13 0000 10/12 1600 Intake Total 240 1305 1400 2141 557 2459 Output Total 1350 934 0554 270 1100 910 Balance -970 685 -700 730 -725 570 Intake, IV 051 905 7306 375 1000 Intake, Oral 240 1080 800 480 Output, 60 70 100 45 60 Drainage Output, Stool 250 150 300 225 200 100 Output, Urine 240 379 0312 900 750 Physical Exam: General: Alert and oriented x3, no acute distress Cardiac: Bradycardic, 44 bpm, s1s2, no murmurs, rubs, gallops Pulm: Non-labored respiratory effort, cta bilaterally Abd: Soft, incisional tenderness. Stoma pink and viable, watery stool in bag, oswaldo with serosanguinous drainage Extremities: Neurovascularly intact, bilateral calves soft and non-tender Assessment/Plan Assessment/Plan This is a 37 year old female, POD 6, s/p colectomy for uc, bradycardic today -ekg to check qt interval post administration of anti-emetic -labwork now, will check cbc as well as electrolytes, k was low yesterday, repleted -change dilaudid to oxycodone -wound vac to be placed today -Will continue to monitor oswaldo output, will d/w Dr. Waterman prior to dc Core Measures Venous Thromboembolism VTE Risk Factors Acute Medical Illness No Mechanical VTE Prophylaxis d/t N/A MechProphylax Ordered No VTE Pharm Prophylaxis d/t Surgical Contraindication
[2017-10-14 08:56] LABS: ABSOLUTE BASOPHIL COUNT 0 /CUMM (0.0-0.2); ABSOLUTE EOSINOPHIL COUNT 0 /CUMM (0.0-0.7); ABSOLUTE GRANULOCYTE CT 5.1 /CUMM (1.4-6.5); ABSOLUTE LYMPH COUNT 2.5 /CUMM (1.2-3.4); ABSOLUTE MONOCYTE COUNT 0.4 /CUMM (0.10-0.60); BASOPHIL % 0.5 % (0.0-2.0); EOSINOPHIL % 0.6 % (0-5); GRANULOCYTE % 62.3 % (42.2-75.2); HEMATOCRIT 26.7 % (37-47); MEAN CORPUSCULAR HGB 28.4 PG (27.0-31.0); MEAN CORPUSCULAR HGB CONC 31.8 G/DL (33.0-37.0); MEAN CORPUSCULAR VOLUME 89.3 FL (81.0-99.0); MEAN PLATELET VOLUME 6.7 FL (7.4-10.4); PLATELET COUNT 551 /CUMM (130-400); RBC DISTRIBUTION WIDTH 15.2 % (11.5-14.5); RED BLOOD CELL CT 2.99 /CUMM (4.20-5.40); WHITE BLOOD CELL COUNT 8.1 /CUMM (4.8-10.8)
--- NOTE | 2017-10-14 12:20 | PN- Pulmonary ---
Subjective HPI/Critical Care Issues: Patient had one episode of nausea without emesis as well as weakness when ambulating to bathroom overnight. No syncope. No complaints of chest pain, shortness of breath and difficulty breahting. Has been able to void. Objective Current Medications: Current Medications Sig/Raymond Start time Last Medication Dose Route Stop Time Status Admin Acetaminophen 650 MG Q4P PRN 10/14 0745 AC PO Ceftriaxone Sodium 1,000 MG Q24H 10/09 1200 AC 10/13 IV 1202 Cholestyramine Resin 1 PAC BID 10/13 1025 AC 10/14 PO 0808 Heparin Sodium 5,000 UNIT Q8 10/09 0600 10/14 (Porcine) SC 0519 Hydrocortisone 50 MG Q12H 10/12 1800 DC 10/13 Sodium Succinate IV 10/14 0500 1728 Hydromorphone HCl 2 MG Q4P PRN 10/13 0745 DC PO Hydromorphone HCl 4 MG Q4P PRN 10/13 0745 DC 10/14 PO 0228 Hydromorphone HCl 0.4 MG Q4P PRN 10/13 0745 10/14 IV 1043 Insulin Human Regular 0 TIDAC/HS 10/13 2100 AC 10/14 AR 0810 Insulin Human Regular 0 Q6 10/08 2359 DC 10/13 SC 1202 Loperamide HCl 2 MG PC 10/14 1300 AC PO Magnesium Oxide 400 MG DAILY 10/14 1000 AC PO Metronidazole 500 MG Q8H 10/09 0200 AC 10/14 N/A 1 UNIT IV 0903 Ondansetron HCl 4 MG Q6P PRN 10/08 1815 AC 10/14 IV 0342 Oxycodone HCl 5 MG Q4P PRN 10/14 0745 AC PO Oxycodone HCl 10 MG Q4P PRN 10/14 0745 AC 10/14 PO 0849 Pantoprazole Sodium 40 MG DAILY 10/09 0900 AC 10/14 IV 0807 Potassium Chloride 20 MEQ BID 10/14 1000 AC PO Prednisone 20 MG DAILY 10/14 09 AC 10/14 PO 10/18 0901 0807 Sodium Chloride 1,000 ML Q13H 10/13 0745 DC 10/13 IV 0812 Vital Signs & I&O Last 24 Hrs of Vitals and I&O: Vital Signs Date Time Temp Pulse Resp B/P B/P Pulse O2 O2 Flow FiO2 Mean Ox Delivery Rate 10/14 0657 97.6 46 18 136/72 98 / 2235 97.8 59 20 145/81 96 Room Air 10/13 1528 98.0 68 22 122/80 98 Room Air 10/13 1444 97.6 68 18 128/74 94 Room Air Intake & Output 10/14 1600 06/ 0800 06/ 0000 Intake Total 240 1305 Output Total 200 1210 620 Balance -200 -970 685 Intake, IV 225 Intake, Oral 240 1080 Output, 60 70 Drainage Output, Stool 250 150 Output, Urine 200 900 400 Impression/Plan Impression/Plan Impression/Plan: She appears more comfortable presently, in no acute distress Chest decreased bs both sides Abdomen is distended, dressing intact, with serosanguineous drainage in the ostomy bag, with a drain in place Extremities no cyanosis, clubbing or edema This is a 37-year-old woman with ulcerative colitis,was on sig steroids, previous biologic agents came in with perf bowel with intraabd abcess s/p elap with drainage with total colectomy, end ileostomy and SB resection and anastamosis ISSUES * Status post surgery doing well, with pain * Episode of nausea, no dyspnea, no sig tachy or hypoxia last night on sub cut heparin * Sig immunosupp state due to high dose steroids and recent UC flare (failed 2 biologic agents and on high dose steroids followed by GI Dr. Canales regularly * Sig reactive thrombocytosis * No sig DM induced by steroid * Has been on steroids for one yr (atleast 20 mg) REC /PLAN IV abx per id Prednisone 20 mg for 5 days, then 15 mg for 5 days, 10 mg for 10 days and 5 mg for 10 days and 5 mg qod for 20 days and will observe Other management per surgery and id Can switch to lovenox 40 from heparin
[2017-10-14 14:42] VITALS: BP 132/74
[2017-10-14] MEDS ORDERED: HYDROMORPHONE HC2 M1 PO (15:32)
--- NOTE | 2017-10-14 15:34 | Patient Discharge Instructions ---
Discharge Instructions General Discharge Information You were seen/treated for: Surgery Date: 10/08/17 Name of Procedure: 1. Exploratory laparotomy evacuation and drainage of abdominal cavity abscess 2. Total abdominal colectomy with end ileostomy 3. Small bowel resection with anastomosis Pre-Operative Diagnosis: Ulcerative colitis with perforation and abscess You had these procedures: SEE ABOVE Watch for these problems: Worsening abdominal pain, nausea, vomiting, fever, flulike illness, drainage or breakdown of the skin around the ostomy site, redness around the ostomy site. Do not soak the wound: Yes Daily wet to dry dressings: No No bath, but you may shower: Yes Other wound care: Ostomy site care as directed Special Instructions: Prednisone taper: for 5mg pills take 4 pills for two days take 3 pills for five days take 2 pills for ten days take 1 pill for ten days take 1 pill every other day Diet Continue normal diet: No Recommended Diet: Low Residue Activity Full Activity/No Limits: No Activity Self Limited: Yes Pounds, do NOT lift more than: 10 Acute Coronary Syndrome Inclusion Criteria At DC or during hospital stay patient has or had the following: ACS DIAGNOSIS No Discharge Core Measures Meds if any: Prescribed or Continued at Discharge Meds if any: NOT Prescribed or Continued at Discharge Congestive Heart Failure Inclusion Criteria At DC or during hospital stay patient has or had the following: CHF DIAGNOSIS No Discharge Core Measures Meds if any: Prescribed or Continued at Discharge Meds if any: NOT Prescribed or Continued at Discharge Cerebrovascular accident Inclusion Criteria At DC or during hospital stay patient has or had the following: CVA/TIA Diagnosis No Discharge Core Measures Meds if any: Prescribed or Continued at Discharge Meds if any: NOT Prescribed or Continued at Discharge Venous thromboembolism Inclusion Criteria VTE Diagnosis No VTE Type NONE VTE Confirmed by (Test) NONE Discharge Core Measures - Per Current guidelines, there needs to be overlap - treatment for the first 5 days of Warfarin therapy. - If discharged on Warfarin prior to 5 days of - overlap therapy, the patient will need to be - assessed for post discharge needs including - *Post discharge parental anticoagulation - *Warfarin and/or parental anticoagulation education - *Follow up date to check INR post discharge At least 5 days overlap therapy as Inpatient No Meds if any: Prescribed or Continued at Discharge Note: Overlap Therapy is Warfarin and Anticoagulant Meds if any: NOT Prescribed or Continued at Discharge
--- NOTE | 2017-10-14 15:45 | Surgical Discharge Summary ---
Visit Information Visit Dates Admission Date: 10/07/17 Discharge Date: 10/16/17 History of Present Illness Chief Complaint: Abdominal pain Medical History Blood Transfusion Hx: No Neurological: NONE EENT: NONE Cardiovascular: NONE Respiratory: NONE Gastrointestinal: ulcerative colitis, umbilical hernia (intact) Hepatic: NONE Renal: NONE Musculoskeletal: NONE Psychiatric: NONE Endocrine: obesity (wt gain post prednisone) Blood Disorders: NONE Cancer(s): NONE BEEF KILLER/Reproductive: NONE History of MRSA: No History of VRE: No History of CDIFF: No Isolation History: Standard Surgical History Pertinent Surgical History: appendectomy (2014 at [facility]), (x 2) Family History Relations & Conditions If Any: MOTHER (post breast Ca x 2, DM, HTN, diverticulitis). Age 69. FATHER (ASHD, post CABG x 3, DM). Age 72. BROTHER (A&W- *UC, post colectomy). BROTHER (A&W). BROTHER (A&W). BROTHER (Ulcerative colitis). Relation not specified for: ulcerative colitis Psychosocial History Where Do You Live? Home Who Do You Live With? Family Services at Home: None What is Your Primary Language? Ethiopian ETOH Use: denies use Review of Systems: See HPI Hospital Course Course Attending Physician: Samir Arriaga Jr., DO Primary Care Phys[facility]: This is a 28-year-old female with a history of ulcerative colitis admitted on with sigmoid diverticulitis and microperforation with abscess. She did not improve initially and on 10/08/2017 underwent an 1. Exploratory laparotomy evacuation and drainage of abdominal cavity abscess 2. Total abdominal colectomy with end ileostomy 3. Small bowel resection with anastomosis Postoperatively, an NG tube was placed for several days, she was placed on antibiotics. She was also started on a prednisone taper. ARY drain was placed. She had issues with pain management postoperatively and ultimately her pain was controlled. She had mild hypokalemia and this was repleted. High ostomy output was improved with Imodium. Her laboratory values stabilized, she remained afebrile, she has a functional ostomy site and viable stoma. She was cleared for discharge home in stable condition Complications: See above Allergies: Coded Allergies: erythromycin base (From ERYTHROCIN) (Intermediate, HIVES 09/24/17) Penicillins (RASH 04/07/17) amoxicillin (RASH 04/07/17) Disposition Summary Disposition Principal Diagnosis: ULcerative colitis with perforation and abscess Additional Diagnosis: Status post 1. Exploratory laparotomy evacuation and drainage of abdominal cavity abscess 2. Total abdominal colectomy with end ileostomy 3. Small bowel resection with anastomosis Discharge Disposition: home health services Discharge Instructions General Discharge Information Code Status: Full Code Patient's Diet: Low residue Patient's Activity: Self-limited activity. No lifting greater than 10 pounds. No strenuous physical activity. Follow-Up Instructions/Appts: Take antibiotics and prednisone taper as directed pain medication as needed Outpatient follow-up within [address] Arriaga Medications at Discharge Discharge Medications: Stop taking the following medications: Prednisone (Prednisone) 20 MG TABLET ORAL DAILY Qty = 30 Continue taking these medications: Ferrous Sulfate (Ferrous Sulfate) 325 MG (65 MG IRON) TABLET 1 Tablet ORAL DAILY Comments: NOT GIVEN IN HOSPITAL Cholecalciferol (Vitamin D3) (Vitamin D) 1,000 UNIT CAPSULE 1 Tablet ORAL DAILY Qty = 30 Instructions: . Comments: NOT GIVEN IN HOSPITAL Calcium Carbonate/Vitamin D3 (Caltrate 600 + D Tablet) 600 MG-800 TABLET 1 Tablet ORAL DAILY Qty = 30 Instructions: . Comments: NOT GIVEN IN HOSPITAL Start taking the following new medications: Cholestyramine/Aspartame (Cholestyramine Light Packet) 4 GRAM POWD.PACK 1 Packet ORAL TWICE DAILY Qty = 30 No Refills Comments: Last Taken: 10/16/17 Time: 9:00 AM Oxycodone HCl (Oxycodone HCl) 5 MG TABLET 2-3 Tablet ORAL EVERY 4-6 HOURS NEEDED as needed for moderate-severe pain Qty = 36 No Refills Comments: Last Taken: 10/16/17 Time: 2:30 PM Acetaminophen (Tylenol) 325 MG TABLET 2 Tablet ORAL EVERY 4 HOURS NEEDED as needed for pain 1-3 &/or fever > 101.5 Qty = 30 No Refills Comments: NOT GIVEN IN HOSPITAL Loperamide HCl (Loperamide) 2 MG CAPSULE 2 Tablet ORAL THREE TIMES A DAY AFTER MEALS Qty = 80 No Refills Comments: Last Taken: 10/16/17 Time: 1:00 PM Prednisone (Prednisone) 5 MG TABLET 1 Tablet ORAL DAILY Qty = 65 No Refills Instructions: see steroid taper instructions on discharge instruction sheet Comments: Last Taken: 10/16/17 Time: 9:00 AM
[2017-10-14 22:03] VITALS: BP 140/62
[2017-10-15 06:27] VITALS: BP 142/80
--- NOTE | 2017-10-15 11:02 | PN- General Surgery ---
See Addendum Subjective Subjective: pod#6 s/p open subtotal colectomy doing well some pain control issues has received ostomy teaching and wound instruction amualting without difficulty voiding hesitency with urine Objective Vital Signs and I&Os Vital Signs Date Time Temp Pulse Resp B/P B/P Pulse O2 O2 Flow FiO2 Mean Ox Delivery Rate / 06 98.4 55 142/80 97 Room Air 10/14 2203 98.3 56 20 140/62 97 Room Air 10/14 1442 98.5 83 20 132/74 97 Room Air Intake & Output 10/15 1600 10/15 0800 10/15 0000 / 1600 10/14 0800 10/14 0000 Intake Total 220 120 537 058 6876 Output Total 200 540 691 732 8638 620 Balance -200 -320 -270 145 -970 685 Intake, IV 100 175 225 Intake, Oral 120 120 413 057 5109 Number 0 Bowel Movements Output, 40 40 60 70 Drainage Output, Stool 50 50 250 150 Output, Urine 200 450 300 650 900 400 Physical Exam: cv: rrr lungs: clear abd: woundvac in place and working - minimal output oswaldo drain with continued serosanguinous drainage stoma viable with dark liquid stool in ostomy ext: warm, no calf tenderness Assessment/Plan Assessment/Plan surgical stable plan titrate meds will obtain ua/urine c&s per id request continue stoma/wound vac teaching ? d/c abx per id oob/ambulate plan for home d/c tomorrow Core Measures Venous Thromboembolism VTE Risk Factors Acute Medical Illness No Mechanical VTE Prophylaxis d/t N/A MechProphylax Ordered No VTE Pharm Prophylaxis d/t Surgical Contraindication
--- NOTE | 2017-10-15 11:54 | PN- Infect Dx ---
Subjective Subjective: Afebrile. She notes some discomfort over the abdominal incision related to the wound VAC. She also notes urinary hesitancy and mild dysuria since removal of the [place] catheter. Objective Last 24 Hrs of Vital Signs/I&O Vital Signs Date Time Temp Pulse Resp B/P B/P Pulse O2 O2 Flow FiO2 Mean Ox Delivery Rate 10/15 626 98.4 55 142/80 97 Room Air 10/14 2203 98.3 56 20 140/62 97 Room Air 10/14 1442 98.5 83 20 132/74 97 Room Air Intake & Output 10/15 1600 10/15 0800 10/15 0000 Intake Total 220 120 Output Total 200 540 390 Balance -200 -320 -270 Intake, IV 100 Intake, Oral 120 120 Output, 40 40 Drainage Output, Stool 50 50 Output, Urine 200 450 300 Physical Exam Other Physical Findings: She appears comfortable in no acute distress Lungs are clear Heart regular rhythm without a murmur Abdomen is soft, mildly tender on palpation, with stool in the ostomy bag and with a wound VAC in place over the midline incision Back no CVA tenderness Extremities no cyanosis, clubbing or edema Results Last 24 Hours of Lab Results: Laboratory Tests 10/15 656 Chemistry Sodium (137 - 145 mmol/L) 139 Potassium (3.5 - 5.1 mmol/L) 3.3 L Chloride (98 - 107 mmol/L) 103 Carbon Dioxide (22 - 30 mmol/L) 30 Anion Gap (5 - 16) 6 BUN (7 - 17 mg/dL) 12 Creatinine (0.5 - 1.0 mg/dL) 0.7 Estimated GFR (>60 ml/min) > 60 BUN/Creatinine Ratio (7 - 25 %) 17.1 Last 24 Hours of Cecilio Results: No recent cultures Assessment/Plan ID Impression: Doing well overall, now 1 week status post exploratory laparotomy, with evacuation and drainage of an abdominal abscess, total abdominal colectomy with end ileostomy and small bowel resection with anastomosis for ulcerative colitis with perforation and abscess. She remains afebrile (on steroids) with her white blood cell count normal, on Ceftriaxone and Flagyl, which should be able to be discontinued today. Her urinary complaints raise concern for a urinary tract infection and this should be ruled out. Suggestion: 1. Urine for urinalysis and urine culture 2. Discontinue Ceftriaxone and Flagyl and follow off antibiotics pending above
--- NOTE | 2017-10-15 13:51 | PN- Pulmonary ---
Subjective HPI/Critical Care Issues: Doing ok stable In pain Mild dysuria Objective Current Medications: Current Medications Sig/Raymond Start time Last Medication Dose Route Stop Time Status Admin Acetaminophen 0 .STK-MED ONE 10/15 0756 DC PO Acetaminophen 650 MG Q4P PRN 10/14 0745 AC 10/14 PO 2136 Ceftriaxone Sodium 1,000 MG Q24H 10/09 1200 AC 10/15 IV 1252 Cholestyramine Resin 1 PAC BID 10/13 1025 AC 10/15 PO 0806 Heparin Sodium 5,000 UNIT Q8 10/09 0600 AC 10/15 (Porcine) SC 1253 Hydromorphone HCl 2 MG Q4P PRN 10/14 1530 DC PO Hydromorphone HCl 4 MG Q4 HRS NEEDED PRN 10/14 1530 DC 10/14 PO 1553 Hydromorphone HCl 0.4 MG Q4P PRN 10/13 0745 AC 10/14 IV 1043 Insulin Human Regular 2 UNITS .STK-MED ONE 10/14 1749 DC IV 10/14 1750 Insulin Human Regular 0 TIDAC/HS 10/13 2100 AC 10/15 SC 1252 Ketorolac 30 MG Q8P PRN 10/14 1245 DC 10/14 Tromethamine IV 1500 Loperamide HCl 2 MG PC 10/14 1300 AC 10/15 PO 1253 Magnesium Oxide 400 MG DAILY 10/14 1000 AC 10/15 PO 0806 Metronidazole 500 MG Q8H 10/09 0200 AC 10/15 N/A 1 UNIT IV 1028 Omeprazole 40 MG DAILY AC 10/16 0700 AC PO Ondansetron HCl 4 MG Q6P PRN 10/08 1815 AC 10/14 IV 0342 Oxycodone HCl 0 .STK-MED ONE 10/15 0757 DC PO Oxycodone HCl 10 MG Q4 HRS NEEDED PRN 10/14 1615 AC PO Oxycodone HCl 15 MG Q4 HRS NEEDED PRN 10/14 1615 AC 10/15 PO 1300 Oxycodone HCl 5 MG Q4P PRN 10/14 0745 DC PO Oxycodone HCl 10 MG Q4P PRN 10/14 0745 DC 10/14 PO 0849 Pantoprazole Sodium 40 MG DAILY 10/09 0900 DC 10/15 IV 0806 Patient Medication 1 ED ONE ONE 10/15 1100 DC 10/15 Teaching ED 10/15 1101 1246 Potassium Chloride 20 MEQ BID 10/14 1000 AC 10/15 PO 0805 Prednisone 20 MG DAILY 10/14 09 AC 10/15 PO 10/18 0901 0806 Vital Signs & I&O Last 24 Hrs of Vitals and I&O: Vital Signs Date Time Temp Pulse Resp B/P B/P Pulse O2 O2 Flow FiO2 Mean Ox Delivery Rate 10/15 626 98.4 55 142/80 97 Room Air 10/14 2203 98.3 56 20 140/62 97 Room Air 10/14 1442 98.5 83 20 132/74 97 Room Air Intake & Output 10/15 1600 10/15 0800 10/15 0000 Intake Total 220 120 Output Total 200 540 390 Balance -200 -320 -270 Intake, IV 100 Intake, Oral 120 120 Output, 40 40 Drainage Output, Stool 50 50 Output, Urine 200 450 300 Impression/Plan Impression/Plan Impression/Plan: She appears more comfortable presently, in no acute distress Chest decreased bs both sides Abdomen is distended, dressing intact, with serosanguineous drainage in the ostomy bag, with a drain in place Extremities no cyanosis, clubbing or edema This is a 37-year-old woman with ulcerative colitis,was on sig steroids, previous biologic agents came in with perf bowel with intraabd abcess s/p elap with drainage with total colectomy, end ileostomy and SB resection and anastamosis ISSUES * Status post surgery doing well, with pain * Episode of nausea, no dyspnea, no sig tachy or hypoxia last night on sub cut heparin * Sig immunosupp state due to high dose steroids and recent UC flare (failed 2 biologic agents and on high dose steroids followed by GI Dr. Canales regularly * Sig reactive thrombocytosis * No sig DM induced by steroid * Has been on steroids for one yr (atleast 20 mg) * Dysuria REC /PLAN IV abx per id to watch off abx Prednisone 20 mg for 5 days, then 15 mg for 5 days, 10 mg for 10 days and 5 mg for 10 days and 5 mg qod for 20 days and will observe Other management per surgery and id Can switch to lovenox 40 from heparin
[2017-10-15 14:52] VITALS: BP 140/82
[2017-10-15 23:20] VITALS: BP 153/95
[2017-10-16 06:40] VITALS: BP 143/91
[2017-10-16] MEDS ORDERED: OXYCODONE HCL5 M1 PO (07:28)
[2017-10-16] MEDS ORDERED: CHOLESTYRAMINE L4 GM PO (07:28)
[2017-10-16] MEDS ORDERED: LOPERAMIDE2 M2 PO (07:32)
[2017-10-16] MEDS ORDERED: TYLENOL325 M1 PO (07:32)
[2017-10-16] MEDS ORDERED: PREDNISONE5 M1 PO (07:57)
--- NOTE | 2017-10-16 13:36 | PN- Infect Dx ---
Subjective Subjective: Afebrile. She still notes urinary hesitancy. Objective Last 24 Hrs of Vital Signs/I&O Vital Signs Date Time Temp Pulse Resp B/P B/P Pulse O2 O2 Flow FiO2 Mean Ox Delivery Rate 10/16 0640 97.8 57 18 143/91 100 Room Air 10/15 2320 98.0 58 18 153/95 100 Room Air 10/15 1452 98.7 64 20 140/82 95 Room Air Intake & Output 10/16 1600 10/16 0800 06 0000 Intake Total 370 480 Output Total 1620 310 Balance -1250 170 Intake, IV 130 Intake, Oral 240 480 Output, 20 60 Drainage Output, Stool 200 250 Output, Urine 1400 Physical Exam Other Physical Findings: She appears comfortable in no acute distress Exam is unchanged Results Last 24 Hours of Lab Results: No labs from today Last 24 Hours of Cecilio Results: Urine culture October 15 negative Assessment/Plan ID Impression: Stable, with temperatures remaining normal, off antibiotics as of today, now 8 days status post exploratory laparotomy with evacuation and drainage of an abdominal abscess, total abdominal colectomy with end ileostomy and small bowel resection with anastomosis for ulcerative colitis with perforation and abscess. Her urinary symptoms are of unclear etiology, with her urinalysis and urine culture negative, and they may be related to her recent surgery or [place] catheter. If they persist further evaluation will be necessary. Suggestion: 1. Follow-up final urine culture 2. Further evaluation if her urinary symptoms persist per Colorectal surgery 3. Follow off antibiotics
[2017-10-16 14:27] VITALS: BP 142/62
== END 2017-10-16 16:00 | disposition home health service (06) | DRG 329 ==
LOC: ERH 09:21 → 2NB 12:06 → ERHI 12:06 → ENRESERV 12:51 → ENTRNSPT 14:13 → EDTRNSPTSTS 14:19 → EDTRNSPT 14:19 → ENRESERV 14:26 → 2NB 14:27 → CMPTRNSPT 14:57 → ENTRNSPT 10-08 19:57 → EDTRNSPTSTS 10-08 20:21 → EDTRNSPT 10-08 20:21 → CMPTRNSPT 10-08 20:31 → 2NB 10-11 06:55 → ENPENDDIS 10-16 08:03 → ENTRNSPT 10-16 15:32 → 2NB 10-16 16:00 → CMPTRNSPT 10-16 16:06
PROVIDERS: Emergency Medicine; Internal Medicine Hematology & Oncology; Nurse Practitioner; Physician Assistant
PROC: 0D9N0ZZ Drainage of Sigmoid Colon, Open Approach (ICD-10-PCS; principal; 2017-10-08)
PROC: 0DTE0ZZ Resection of Large Intestine, Open Approach (ICD-10-PCS; principal; 2017-10-08)
PROC: 0D1B0Z4 Bypass Ileum to Cutaneous, Open Approach (ICD-10-PCS; principal; 2017-10-08)
PROC: 0DB80ZZ Excision of Small Intestine, Open Approach (ICD-10-PCS; principal; 2017-10-08)
PROC: 3E0T3BZ Introduction of Anesthetic Agent into Peripheral Nerves and Plexi, Percutaneous Approach (ICD-10-PCS; 2017-10-08)
DX: K51.914 Ulcerative colitis, unspecified with abscess (principal); K63.1 Perforation of intestine (nontraumatic); K51.918 Ulcerative colitis, unspecified with other complication; R30.0 Dysuria; E66.9 Obesity, unspecified; Z68.36 Body mass index [BMI] 36.0-36.9, adult; D47.3 Essential (hemorrhagic) thrombocythemia; R00.1 Bradycardia, unspecified; Z90.49 Acquired absence of other specified parts of digestive tract; Z88.1 Allergy status to other antibiotic agents; Z88.0 Allergy status to penicillin
CPT/HCPCS: 2NBP; 36415; 36592; 74177; 81001; 82436; 87040; 87071; 87086; 88307; 93005; 93010; 96361; 96374; 96375; 99291; J0131; J0696; J1170; J1644; J1720; J1815; J1885; J2405; J2920; J2930; J3490; J7040; J7042; J7120

== ENCOUNTER 2018-01-16 16:57 | Inpatient (IN) | payer OTHER ==
[~2018-01-16] VITALS: Ht 165.1 cm; Wt 99.3 kg
[~2018-01-16 16:57] MED LIST changes: +BACTRIM DS TAB1 EACH PO; +CHOLESTYRAMINE L4 GM PO; +HYDROMORPHONE HC2 M1 PO; +LOPERAMIDE2 M2 PO; +OXYCODONE HCL5 M1 PO; +PREDNISONE5 M1 PO; +TYLENOL325 M1 PO
[2018-01-16 18:08] LABS: ABSOLUTE BASOPHIL COUNT 0 /CUMM (0.0-0.2); ABSOLUTE EOSINOPHIL COUNT 0 /CUMM (0.0-0.7); ABSOLUTE GRANULOCYTE CT 15.3 /CUMM (1.4-6.5); ABSOLUTE LYMPH COUNT 0.8 /CUMM (1.2-3.4); ABSOLUTE MONOCYTE COUNT 0.9 /CUMM (0.10-0.60); BASOPHIL % 0.2 % (0.0-2.0); EOSINOPHIL % 0 % (0-5); HEMATOCRIT 29.9 % (37-47); MEAN CORPUSCULAR HGB 25.2 PG (27.0-31.0); MEAN CORPUSCULAR HGB CONC 32.5 G/DL (33.0-37.0); MEAN CORPUSCULAR VOLUME 77.5 FL (81.0-99.0); MEAN PLATELET VOLUME 7.3 FL (7.4-10.4); PLATELET COUNT 535 /CUMM (130-400); RBC DISTRIBUTION WIDTH 16.9 % (11.5-14.5); RED BLOOD CELL CT 3.85 /CUMM (4.20-5.40)
[2018-01-16 18:18] LABS: GRANULOCYTE % 89.9 % (42.2-75.2)
[2018-01-16] MEDS ORDERED: VITAMIN D250000 UNIT PO (18:24)
--- NOTE | 2018-01-16 20:04 | CT SCAN REPORT ---
EXAMINATION: CT ABDOMEN AND PELVIS WITH CONTRAST CLINICAL INFORMATION: Abdominal pain , right labial abscess COMPARISON: 10/07/2017 TECHNIQUE: Multidetector volumetric imaging was performed of the abdomen and pelvis following IV administration of 80 mL of Omnipaque 300 intravenous contrast. Sagittal and coronal reformatted images were obtained on the technologist's workstation. DLP: 1240 mGy-cm FINDINGS: LUNG BASES: The visualized lung bases are unremarkable. LIVER, GALLBLADDER, AND BILIARY TREE: The liver is normal in size, shape, and attenuation. No focal hepatic lesion or biliary ductal dilatation is present. The gallbladder is unremarkable with no evidence of radiopaque gallstones, gallbladder wall thickening, or obvious pericholecystic inflammatory changes. PANCREAS: Unremarkable. SPLEEN: Unremarkable. ADRENAL GLANDS: Unremarkable. KIDNEYS AND URETERS: The kidneys are normal in size, shape, and attenuation. No hydronephrosis, hydroureter, or calculi seen. No perinephric stranding. BLADDER: Unremarkable. GASTROINTESTINAL TRACT: Interval subtotal colectomy. Staple line noted within the rectum. This appears intact. Ileostomy right lower quadrant. Small associated peristomal hernia. Additional staple lines left abdomen related to small bowel. There is notable bowel wall thickening about the anastomosis left abdomen involving the opposing small bowel segments about the anastomosis. Marked somewhat eccentric small bowel thickening is noted with the bowel measuring up to 18 mm. There is no fistula or abscess seen. There is no associated bowel abnormality associated with the right labial inflammatory processes. Perianal location appears grossly normal. ABDOMINAL WALL: As above. LYMPH NODES: Normal. VASCULAR: Unremarkable. PELVIC VISCERA: Unremarkable. OSSEOUS STRUCTURES: Unremarkable. IMPRESSION: 1. Interval postsurgical changes noted. There is notable bowel wall thickening about an enteroenteric anastomosis left abdomen. Appearance is consistent with presumably acute inflammatory bowel disease. 2. Small peristomal hernia without evidence of obstruction. 3. Right labial inflammatory process is isolated to the right labia. No fluid collection.
--- NOTE | 2018-01-16 22:02 | ED GENERAL ADULT ---
History of Present Illness General Chief Complaint: Skin Rash/ Abcess Stated Complaint: PT HAS ABSCESS WAS DRAINED LT NIGHT AND HIGH FEVER Source: patient Exam Limitations: no limitations Vital Signs & Intake/Output Vital Signs & Intake/Output Vital Signs Date Time Temp Pulse Resp B/P B/P Pulse O2 O2 Flow FiO2 Mean Ox Delivery Rate 01/16 2101 99.1 82 16 121/59 100 Room Air 01/16 1957 98.9 90 18 129/60 98 Room Air 01/16 1854 98.9 97 16 119/57 99 Room Air 01/16 1829 99.9 01/16 1800 99.9 94 16 134/62 100 Room Air 01/16 1707 Room Air 01/16 1703 101.0 140 18 161/90 95 Room Air Allergies Coded Allergies: erythromycin base (From ERYTHROCIN) (Intermediate, HIVES 09/24/17) Penicillins (RASH 04/07/17) amoxicillin (RASH 04/07/17) Reconcile Medications Ergocalciferol (Vitamin D2) (Vitamin D2) 50,000 UNIT CAPSULE 1 CAP PO QSUN SUPPLEMENT (Reported) Sulfamethoxazole/Trimethoprim (Bactrim Ds Tablet) 800 MG-160 MG TABLET 1 TAB PO BID abscess Triage Note: PT STATES THAT SHE HAS ABCESS IN R GROIN THAT WAS DRAINED LAST PM, AND ITS GETTING BIGGER AND NOW SHE IS RUNNING FEVERS. 101.0 AT TRIAGE Triage Nurses Notes Reviewed? yes : No Patient currently breastfeeds: No HPI: 37-year-old white female with history of inflammatory bowel disease who is status post a total colectomy to [facility] in September of this year complicated by an intra- abdominal abscess and sepsis and who was seen here 2 days ago for vaginal swelling that was treated with aspiration now presents with worsening of her right labia majora swelling associated with fever and worsening abdominal pain. Patient has a previous colostomy which he reports has been draining normally. She does admit to a sense of total body weakness and "I just do not feel well". She admits to nausea with vomiting. She denies any dysuria, cough, headache, chest pain, shortness of breath, low back pain, or rashes. Past History Travel History Traveled to [place] past 21 day No Medical History Any Pertinent Medical History? 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 Age 69. FATHER (ASHD, post CABG x 3, DM). Age 72. BROTHER (A&W- *UC, post colectomy). BROTHER (A&W). BROTHER (A&W). BROTHER (Ulcerative colitis). Relation not specified for: ulcerative colitis Hx Contributory? No Review of Systems Review of Systems Constitutional: Reports: chills, diaphoresis, fever, malaise, weakness. EENTM: Reports: no symptoms. Respiratory: Reports: no symptoms. Cardiovascular: Reports: no symptoms. GI: Denies: see HPI. Genitourinary: Denies: see HPI. Musculoskeletal: Reports: no symptoms. Skin: Reports: no symptoms. All Other Systems: Reviewed and Negative Physical Exam Physical Exam General Appearance: well developed/nourished, alert, awake, moderate distress Head: atraumatic, normal appearance Eyes: Bilateral: PERRL, EOMI. Ears, Nose, Throat: normal pharynx, normal ENT inspection, hearing grossly normal Neck: normal inspection, supple Respiratory: normal breath sounds, chest non-tender, no respiratory distress, quiet respiration, lungs clear Cardiovascular: regular rate/rhythm Gastrointestinal: Diffuse tenderness with well healing midline incisional scar. Ileostomy noted in RLQ. Decreased bowel sounds. Rectal: right labia majorum erythema, indurated and tender without fluctuance Extremities: normal inspection, normal capillary refill Core Measures ACS in differential dx? No CVA/TIA Diagnosis: No Sepsis Present: No Sepsis Focused Exam Completed? No Progress Differential Diagnoses I considered the following diagnoses in my evaluation of the patient: [Abscess, sepsis, acute abdomen, colitis,] Plan of Care: Orders Procedure Date/time Status Saline Lock 01/16 2237 Active ED Holding Orders 01/16 2237 Active Admit to inpatient 01/16 2237 Active Code Status 01/16 2237 Active LACTIC ACID 01/16 2030 Active XRY-PORTABLE CHEST XRAY 01/16 173 Active Saline Lock 01/16 173 Active Pathway - chart 01/16 173 Active Vital Signs 01/16 173 Active Telemetry/Thermostat Machine Tender 01/16 173 Active CULTURE,URINE 01/16 1730 Active BLOOD CULTURE 01/16 1730 Active URINALYSIS 01/16 173 Complete PHOSPHORUS 01/16 173 Complete MAGNESIUM 01/16 173 Complete LACTIC ACID 01/16 173 Complete COMPREHENSIVE METABOLIC PANEL 01/16 173 Complete CBC WITHOUT DIFFERENTIAL 01/16 1730 Complete BLOOD CULTURE 01/16 172 Active Current Medications Sig/Raymond Start time Last Medication Dose Stop Time Status Admin Acetaminophen 650 MG ONCE ONE 01/16 174 CAN (Tylenol) 01/16 174 Laboratory Tests 01/16/18 1745: Anion Gap 8, Estimated GFR > 60, BUN/Creatinine Ratio 6.3 L, Glucose 98, Lactic Acid 1.2, Calcium 9.0, Phosphorus 3.1, Magnesium 1.7, Total Bilirubin 0.4, AST 19, ALT 32, Alkaline Phosphatase 86, Total Protein 6.7, Albumin 3.7, Globulin 3.0, Albumin/Globulin Ratio 1.2, CBC w Diff MAN DIFF ORDERED, RBC 3.85 L, MCV 77.5 L, MCH 25.2 L, MCHC 32.5 L, RDW 16.9 H, MPV 7.3 L, Gran % 89.9 H, Lymphocytes % 4.7 L, Monocytes % 5.2, Eosinophils % 0, Basophils % 0.2, Absolute Granulocytes 15.3 H, Segmented Neutrophils 87 H, Band Neutrophils 0, Absolute Lymphocytes 0.8 L, Lymphocytes 9 L, Monocytes 3, Absolute Monocytes 0.9 H, Absolute Eosinophils 0, Basophils 1, Absolute Basophils 0, Platelet Estimate VERIFIED BY SMEAR, Normocytic RBCs VERIFIED, Normochromic RBCs VERIFIED , Fld Total RBCs Counted 100 01/16/181735: Urine Color YEL, Urine Clarity HAZY H, Urine pH 6.0, Ur Specific [place] >= 1.030, Urine Protein NEG, Urine Ketones 15 H, Urine Nitrite NEG, Urine Bilirubin NEG, Urine Urobilinogen 0.2, Ur Leukocyte Esterase NEG, Ur Microscopic SEDIMENT EXAMINED, Urine RBC 1-3, Urine WBC 1-3 H, Ur Epithelial Cells MANY H, Urine Bacteria MOD H, Urine Mucus MOD H, Urine Hemoglobin NEG, Urine Glucose NEG Microbiology 01/16 1750 BLOOD: Blood Culture - RECD 01/16 1745 BLOOD: Blood Culture - RECD 01/16 1736 URINE ROUT: Urine Culture - RECD Initial ED EKG: normal axis (not applicable) Comments: The case was discussed with Dr. Robertson of general surgery and the hospitalist for admission. Given the patient's acute inflammatory bowel and CAT scan not revealing a fluid collection in the right labia majora, and I&D will not be done at this time and Dr. Robertson will reevaluate in the morning. Departure Departure Time of Disposition: 2199 Disposition: STILL A PATIENT Condition: Stable Clinical Impression Primary Impression: Inflammatory bowel disease Secondary Impressions: Cellulitis of labia majora Referrals: Erasto OLIVIER,Marin Mckeon (PCP/Family) Departure Forms: Customer Survey General Discharge Information Admission Note Spoke With: Viktor Calabrese MD Documentation of Exam: Documentation of any treatments & extenuating circumstances including Concerns Regarding Discharge (functional status, medication knowledge or non-compliance, living conditions, etc.) that warrant an admission rather than observation: [ Acute inflammatory bowel disease with cellulitis of the right labia majora] Critical Care Note Critical Care Note Critical Care Time: non-applicable
--- NOTE | 2018-01-16 23:06 | History & Physical ---
Dheeraj Arenas 01/16/18 7886: General Information and HPI MD Statement: I have seen and personally examined BROOKLYN TRENT and documented this H&P. The patient is a 37 year old F who presented with a patient stated chief complaint of [lower abdominal pain, fever, labial abscess]. Source of Information: patient Exam Limitations: no limitations History of Present Illness: Ms. Trent is a 37 y/o F with a PMH of UC s/p total abdominal colectomy s/p end ileostomy after failing medical therapy and developing a intraabdominal abscess that comes to the ED complaining of LLQ abdominal pain, fever, and a exquisitely tender right labia majora collection. She states the pain started three days ago as a constant, sharp, 8/10 pain at its worst that prompted her to come to the ED yesterday where she was sent home on antibiotics. No improvement was felt, so she returned to the ED; her pain was relieved only by IV pain medication on her arrival to the ED. She feels it's been progressively gotten worse. The collection in her right labia majora appears to be increasing in size and discomfort as per the patient. She also states she had a low grade fever and chills since the symptoms began and that it peaked at 101.4 yesterday. She also endorses N/V in one ocassion a nonbloody vomitus as well as a chronic cough of unclear duration. She denies hematuria, dysuria, changes in color or consistency of stools, bloody stools, prior episodes, recent travel or injury to the area, sick contacts. Allergies/Medications Allergies: Coded Allergies: erythromycin base (From ERYTHROCIN) (Intermediate, HIVES 09/24/17) Penicillins (RASH 04/07/17) amoxicillin (RASH 04/07/17) Home Med list Ergocalciferol (Vitamin D2) (Vitamin D2) 50,000 UNIT CAPSULE 1 CAP PO QSUN SUPPLEMENT (Reported) Sulfamethoxazole/Trimethoprim (Bactrim Ds Tablet) 800 MG-160 MG TABLET 1 TAB PO BID abscess Past History Travel History Traveled to [place] past 21 day No Medical History Neurological: NONE EENT: NONE Cardiovascular: NONE Respiratory: NONE Gastrointestinal: ulcerative colitis, umbilical hernia (intact) Hepatic: NONE Renal: NONE Musculoskeletal: NONE Psychiatric: NONE Endocrine: obesity (wt gain post prednisone) Blood Disorders: NONE Cancer(s): NONE 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 Age 69. FATHER (ASHD, post CABG x 3, DM). Age 72. BROTHER (A&W- *UC, post colectomy). BROTHER (A&W). BROTHER (A&W). BROTHER (Ulcerative colitis). Relation not specified for: ulcerative colitis Psychosocial History Who Do You Live With? spouse Services at Home: None Primary Language: Greenlandic ETOH Use: denies use Illicit Drug Use: denies illicit drug use Living Will? no Power of Main Line Station Engineer/HCP? no Functional Ability ADLs Independent: dressing, eating, toileting, bathing. Ambulation: independent IADLs Independent: shopping, housework, finances, food prep, telephone, transportation , medication admin. Review of Systems Review of Systems Constitutional: Reports: see HPI, chills, fever, malaise. EENTM: Reports: no symptoms. Cardiovascular: Reports: no symptoms. Denies: chest pain, edema, palpitations. Respiratory: Reports: see HPI, cough. Denies: hemoptysis, orthopnea, short of breath. GI: Reports: abdominal pain, vomiting. Denies: bloating, constipation, diarrhea, melena, bloody stool, changes in stool. Genitourinary: Reports: no symptoms. Musculoskeletal: Reports: no symptoms. Skin: Reports: see HPI. Neurological/Psychological: Reports: no symptoms. Hematologic/Endocrine: Reports: no symptoms. Exam & Diagnostic Data Last 24 Hrs of Vital Signs/I&O Vital Signs Date Time Temp Pulse Resp B/P B/P Pulse O2 O2 Flow FiO2 Mean Ox Delivery Rate 01/17 0029 98.7 86 20 146/84 100 01/16 2243 98.4 87 15 120/59 99 Room Air 01/16 2101 99.1 82 16 121/59 100 Room Air 01/16 1957 98.9 90 18 129/60 98 Room Air 01/16 1854 98.9 97 16 119/57 99 Room Air 01/16 1829 99.9 01/16 1800 99.9 94 16 134/62 100 Room Air 01/16 1707 Room Air 01/16 1703 101.0 140 18 161/90 95 Room Air Intake & Output 01/17 0800 01/17 0000 01/16 1600 Intake Total 1250 Output Total Balance 1250 Intake, IV 1250 Patient 220 lb 220 lb Weight Physical Exam General Appearance Alert, Oriented X3, Cooperative, Moderate Distress HEENT Atraumatic, PERRLA, EOMI Neck Supple Cardiovascular Regular Rate, Normal S1, Normal S2 Lungs Clear to Auscultation Pelvic (FEMALE) 4x2 cm area of indurated swelling with some drainage in the R labia majora; erythematous, exquisitely tender on light palpation. No fluctuation noted. Last 24 Hrs of Labs/Cecilio: Laboratory Tests 01/16/18 2030: Lactic Acid Cancelled 01/16/18 1745: Anion Gap 8, Estimated GFR > 60, BUN/Creatinine Ratio 6.3 L, Glucose 98, Lactic Acid 1.2, Calcium 9.0, Phosphorus 3.1, Magnesium 1.7, Total Bilirubin 0.4, AST 19, ALT 32, Alkaline Phosphatase 86, Total Protein 6.7, Albumin 3.7, Globulin 3.0, Albumin/Globulin Ratio 1.2, CBC w Diff MAN DIFF ORDERED, RBC 3.85 L, MCV 77.5 L, MCH 25.2 L, MCHC 32.5 L, RDW 16.9 H, MPV 7.3 L, Gran % 89.9 H, Lymphocytes % 4.7 L, Monocytes % 5.2, Eosinophils % 0, Basophils % 0.2, Absolute Granulocytes 15.3 H, Segmented Neutrophils 87 H, Band Neutrophils 0, Absolute Lymphocytes 0.8 L, Lymphocytes 9 L, Monocytes 3, Absolute Monocytes 0.9 H, Absolute Eosinophils 0, Basophils 1, Absolute Basophils 0, Platelet Estimate VERIFIED BY SMEAR, Normocytic RBCs VERIFIED, Normochromic RBCs VERIFIED , Fld Total RBCs Counted 100 01/16/18 1736: Urine Color YEL, Urine Clarity HAZY H, Urine pH 6.0, Ur Specific [place] >= 1.030, Urine Protein NEG, Urine Ketones 15 H, Urine Nitrite NEG, Urine Bilirubin NEG, Urine Urobilinogen 0.2, Ur Leukocyte Esterase NEG, Ur Microscopic SEDIMENT EXAMINED, Urine RBC 1-3, Urine WBC 1-3 H, Ur Epithelial Cells MANY H, Urine Bacteria MOD H, Urine Mucus MOD H, Urine Hemoglobin NEG, Urine Glucose NEG, Urine Test NEGATIVE Microbiology 01/16 2313 GENITAL: Anaerobic Culture - RECD 01/16 2313 GENITAL: Genital Culture - RECD 01/16 2311 BODY FLUID: Body Fluid Culture - CAN Cancelled: WRONG ORDER ENTERY 01/16 231 BODY FLUID: Gram Stain - CAN Cancelled: WRONG ORDER ENTERY 01/16 1750 BLOOD: Blood Culture - RECD 01/16 1745 BLOOD: Blood Culture - RECD 01/16 1736 URINE ROUT: Urine Culture - RECD Assessment/Plan Assessment: 37 y/o F with PMH of with a PMH of UC s/p total abdominal colectomy s/p end ileostomy after failing medical therapy that comes to the ED complaining of LLQ abdominal pain, fever, and a exquisitely tender right labia majora collection. Her symptoms are likely multifactorial. CT abdomen and pelvis in the ED showed notable bowel wall thickening about an enteroenteric anastomosis left abdomen consistent of acute inflammatory bowel disease; on the other hand, her cellulitis of the right labia majora could indeed be the culprit of her symptoms. She was admitted for further management of the following issues: #Right labial cellulitis #Enteritis at surgical anastomosis site PLAN * Admit to the general medicine floor * NPO - bowel rest * Ceftriaxone 1g daily, flagyl 500 mg TID and vancomycin * GI consult * General surgery consulted - Dr. Robertson to see patient in the AM. * F/u blood, urine cultures FULL CODE npo As Ranked By This Provider Problem List: 1. Cellulitis of labia majora Core Measures/Misc (01/26) Acute Coronary Syndrome ACS Diagnosis: No Congestive Heart Failure Congestive Heart Failure Diagnosis No Cerebrovascular Accident CVA/TIA Diagnosis: No VTE (View Protocol) VTE Risk Factors Obesity No Mechanical VTE Prophylaxis d/t N/A MechProphylax Ordered No VTE Pharm Prophylaxis d/t NA PharmProphylax ordered Sepsis (View protocol) Sepsis Present: No If YES complete Sepsis Event Note If YES complete Sepsis Event Note Viktor Calabrese 01/16/18 2313: Core Measures/Misc (01/26) Sepsis (View protocol) If YES complete Sepsis Event Note If YES complete Sepsis Event Note Attending MD Review Statement Attending Statement Attending MD Statement: examined this patient, discuss w/resident/PA/GRAPPLE CREW LEADER, agreed w/resident/PA/GRAPPLE CREW LEADER Attending Assessment/Plan: Addendum by . Patient was seen and examined at bedside today (01/16/18 ) at 10:30PM. Reviewed the history physical done by the resident. Reviewed the past medical family, family, social history. ROS: 10 point system reviewed and negative except as described above. Additional details: 37 years old female with history of obesity, abdominal abscess with colitis who underwent total abdominal colectomy, small bowel resection, small bowel end-to-end anastomosis, ileostomy in early October is here with fever, abdominal pain, right labial swelling with abscess. Patient was here yesterday with pain in groin area with extensive swelling of the right labia, she underwent abscess drainage yesterday and she was sent home on antibiotics. Today she developed abdominal pain mostly in the left lower quadrant area and some pain in the right lower quadrant area associated with a fever, continue to have right labial swelling so she came back to ER. Patient also has chronic cough going on for a month with yellowish sputum. No short of breath. As per the GI notes from prior admissions she was treated for presumed ulcerative colitis. She was on at some point Remicade, and Entyvio and Lialda, also was on long course of prednisone. But all these were discontinued as the biopsy studies were not confirmatory for ulcerative colitis. Currently she is not on any treatment for bowel disease. Exam: Obese, no acute distress. Normal cardiac pulmonary exam. Abdomen-has tenderness in the left lower quadrant, mild tenderness in the right lower quadrant, no guarding, no rigidity, bowel sounds are present, no organomegaly. Extensive swelling of the Right Labia, small site of drainage, extensive induration of all labia, small amount of pus was draining when pressed, no fluctuating swelling on exam. Agree with the rest of the exam for resident note. Reviewed the chest x-ray, CT abdomen pelvis, labs, prior records. Assessment: #enteritis at the surgical anastomosis site involving the small bowel-infectious versus inflammatory. Patient has no confirmatory diagnosis of IBD based on prior biopsy studies. #Right labial cellulitis with possible underlying abscess. No drainable collection on CT scan. #Chronic cough-unclear etiology. #Obesity #Chronic anemia, hemoglobin is at baseline. Plan: Admit to general med. Keep n.p.o. Get stool studies including stool WBC and stool cultures, ova and parasite, C. difficile. Start the patient on ceftriaxone 1 g twice daily plus Flagyl 500 mg 3 times daily and vancomycin to cover the labial infection. Consult her colorectal surgeon, gastroenterology. Also consult general surgery to drain labial abscess. Follow-up the cultures sent from the ER. Will not add any steroids at this point as we do not have any confirmatory diagnosis of IBD. Pain control. Ileostomy bag care. Chronic cough-chest x-ray. Patient was seeing Dr. Maurer as an outpatient. Consider pulmonology if any inpatient workup is desired. Reviewed with the resident. Agree with the rest of the plan as per resident's note. Dr.Ravinder Garth MD. Hospitalist. Pager: [phone], cell: [phone]. Tiki OLIVIER,Bill 01/17/18 0217: Core Measures/Misc (01/26) Sepsis (View protocol) If YES complete Sepsis Event Note If YES complete Sepsis Event Note Resident Review Statement Resident Statement: examined this patient, discussed with physician internist, agreed with physician internist, amended to note Other Findings: Patient is 37-year-old obese female with past medical history significant for abdominal abscess with colitis (? Ulcerative colitis) status post total colectomy with end ileostomy approximately 4 months prior to this admission, history of umbilical hernia, status post appendectomy presenting with chief complaint of lower abdominal pain, vaginal pain and abscess and fever. Patient reports left lower quadrant abdominal pain along with tenderness over her right labia majora which she reports started 3 days prior to this admission. Patient characterizes the pain as a constant sharp shooting pain and rates it an 8 out of 10 in severity. Patient received IV morphine in the ED which she said helped however reports the pain has returned. Patient presented one day prior to the ED for similar complaints at which time she had an I&D performed. Cultures were taken and patient was sent home on Bactrim. Patient reports that she has had 2 doses of Bactrim. Patient has returned due to increasing pain, redness and swelling of the area along with the abdominal pain and fever and chills. Patient also reports nausea and 1 episode of emesis on the morning of admission. Per ED notes patient had an ingrown hair at the site of the abscess became infected. Patient follows up with Dr. Arriaga for her colectomy. Reports that she has a follow-up appointment with him in 3-4 days. Patient's grounds maintenance worker is Dr. Canales in [place] who tapered her off the steroids after she received the colectomy. Patient reports that she is currently on vitamin D 50,000 units weekly. Past medical history: As above Past surgical history: Appendectomy, Social history: Former smoker, drinks occasionally, denies any other illicit drug use Allergies: Erythromycin, penicillin, amoxicillin (rash, hives) Medications: Vitamin D 50,000 units weekly, Bactrim (prescribed on 01/15) Labs and physical exam as above Patient is a 37-year-old female with significant history of abdominal abscess and colitis status post colectomy with ileostomy presenting with abdominal pain, fever and right labial abscess draining yellowish fluid with significant erythema, tenderness and induration. Patient will be admitted to the general medicine floor for management of followin. Right labial abscess and cellulitis 2. Acute IBD in setting of recent colectomy 3. History of vitamin D deficiency Plan: Admitted to general med Culture of vaginal abscess fluid was sent Follow-up blood cultures Repeat CBC and BEP in a.m. Continue IV vancomycin, IV ceftriaxone, IV Flagyl Gen. surgery consult for possible abscess I&D Colorectal consult with Dr. Arriaga GI consult for enteritis Stool culture, stool O&P, stool for c.dif toxin was sent CXR done for chronic cough is negative. TRC and nebs PRN Continue vitamin D 50,000IU weekly Pain control: tylenol, IV tylenol, percocet (if needed, give with Zofran PRN) - EKG done with QT of 437. Diet: NPO with IV Fluid Hydration Code: Full code DVT PPx: Lovenox, ALPS
[2018-01-17 00:29] VITALS: BP 146/84
--- NOTE | 2018-01-17 05:47 | PN- Housestaff ---
Dheeraj Arenas 01/17/18 0547: Subjective Follow-up For: R labia majora abscess LLQ pain Subjective: Patient seen and examined this am. She states her pain is not improving, even while receiving multiple pain medications. Tenderness continues to be located to the LLQ on palpation. She is afebrile, looking in distress, though breathing on room air. Review of Systems Constitutional: Reports: see HPI. Objective Last 24 Hrs of Vital Signs/I&O Vital Signs Date Time Temp Pulse Resp B/P B/P Pulse O2 O2 Flow FiO2 Mean Ox Delivery Rate 01/17 0653 98.8 78 20 138/70 99 / 0029 98.7 86 20 146/84 100 / 2243 98.4 87 15 120/59 99 Room Air 01/16 2101 99.1 82 16 121/59 100 Room Air 01/16 1957 98.9 90 18 129/60 98 Room Air 01/16 1854 98.9 97 16 119/57 99 Room Air 01/16 1829 99.9 / 1800 99.9 94 16 134/62 100 Room Air 01/16 1707 Room Air 01/16 1703 101.0 140 18 161/90 95 Room Air Intake & Output 01/17 1600 01/17 0800 01/17 0000 Intake Total 875 1250 Output Total Balance 875 1250 Intake, IV 875 1250 Patient 220 lb 220 lb Weight Physical Exam General Appearance: Alert, Cooperative, Moderate Distress HEENT: Atraumatic Neck: Supple Cardiovascular: Regular Rate, Normal S1, Normal S2, No Murmurs Lungs: Clear to Auscultation Abdomen: Hyperactive BS, no rashes or lesions seen. No guarding or rebound tenderness. Neurological: Normal Speech Current Medications: Current Medications Sig/Raymond Start time Last Medication Dose Route Stop Time Status Admin Acetaminophen 650 MG Q6P PRN 01/16 2315 AC PO Acetaminophen 1,000 MG Q6P PRN 01/16 2315 AC 01/17 IV 0041 Acetaminophen 0 .STK-MED ONE 01/16 1812 DC IV Acetaminophen 1,000 MG STAT STA 01/16 1810 DC 01/16 IV 01/16 1811 1829 Acetaminophen 650 MG ONCE ONE 01/16 1745 CAN PO 01/16 1746 Albuterol Sulfate 3 ML Q6 PRN 01/17 0045 AC INH Ceftriaxone Sodium 1,000 MG BID 01/17 900 AC 01/17 IV 0851 Ciprofloxacin 400 MG STAT STA 01/16 1737 DC 01/16 IV 01/16 1738 2059 Docusate Sodium 100 MG DAILY NEEDED PRN 01/16 2315 AC PO Enoxaparin Sodium 40 MG DAILY 01/17 900 AC 01/17 SC 0851 Guaifenesin/Codeine 10 ML Q6P PRN 01/17 0130 AC Phosphate PO Metronidazole 500 MG Q8H 01/17 630 AC 01/17 N/A 1 UNIT IV 0658 Metronidazole 500 MG STAT STA 01/16 1738 DC 01/16 N/A 1 UNIT IV 01/16 1837 2314 Morphine Sulfate 0 .STK-MED ONE 01/17 0452 DC .ROUTE Morphine Sulfate 2 MG ONCE ONE 01/17 0445 DC 01/17 IV 01/17 0446 0451 Morphine Sulfate 0 .STK-MED ONE 01/16 2336 DC .ROUTE Morphine Sulfate 4 MG STAT STA 01/16 2328 DC 01/16 IV 01/16 2329 2340 Morphine Sulfate 0 .STK-MED ONE 01/16 1813 DC .ROUTE Morphine Sulfate 4 MG STAT STA 01/16 1739 DC 01/16 IV 01/16 1740 1817 Ondansetron HCl 0 .STK-MED ONE 01/17 0846 DC .ROUTE Ondansetron HCl 4 MG Q6P PRN 01/17 0845 AC 01/17 IV 0851 Ondansetron HCl 0 .STK-MED ONE 01/16 1812 DC .ROUTE Ondansetron HCl 4 MG ONCE ONE 01/16 1745 DC 01/16 IV 01/16 1746 1817 Oxycodone/ 0 .STK-MED ONE 01/17 0846 DC Acetaminophen PO Oxycodone/ 1 TAB Q4P PRN 01/17 0845 AC 01/17 Acetaminophen PO 0851 Oxycodone/ 1 TAB ONCE ONE 01/17 0430 DC Acetaminophen PO 01/17 0431 Oxycodone/ 0 .STK-MED ONE 01/17 0424 DC Acetaminophen PO Polyethylene Glycol 17 GM AT BEDTIME PRN 01/16 2330 AC PO Senna/Docusate Sodium 1 TAB AT BEDTIME PRN 01/16 2330 AC PO Sodium Chloride 1,000 ML CONTINOUS INFUSION 01/16 2315 AC 01/17 IV 0041 Sodium Chloride 125 ML STAT STA 01/16 2224 DC 01/16 IV 01/16 2225 2100 Sodium Chloride 2,993.7 ML ONCE 01/16 1730 DC 01/16 IV 01/17 2000 181 Vancomycin HCl 1,000 MG Q12H 01/17 0530 AC 01/17 Sodium Chloride 250 ML IV 0452 Vancomycin HCl 0 .STK-MED ONE 01/16 1818 DC .ROUTE Vancomycin HCl 1,000 MG ONCE ONE 01/16 173 DC 01/16 Sodium Chloride 250 ML IV 01/16 1829 1851 Last 24 Hrs of Lab/Cecilio Results Last 24 Hrs of Labs/Mics: Laboratory Tests 01/17/18 0700: Anion Gap 7, Estimated GFR > 60, BUN/Creatinine Ratio 5.7 L, CBC w Diff Pending , WBC Pending, RBC Pending, Hgb Pending, Hct Pending, MCV Pending, MCH Pending, MCHC Pending, RDW Pending, Plt Count Pending, MPV Pending, Gran % Pending, Lymphocytes % Pending, Monocytes % Pending, Eosinophils % Pending, Basophils % Pending, Absolute Granulocytes Pending, Absolute Lymphocytes Pending, Absolute Monocytes Pending, Absolute Eosinophils Pending, Absolute Basophils Pending 01/16/18 2030: Lactic Acid Cancelled 01/16/18 1745: Anion Gap 8, Estimated GFR > 60, BUN/Creatinine Ratio 6.3 L, Glucose 98, Lactic Acid 1.2, Calcium 9.0, Phosphorus 3.1, Magnesium 1.7, Total Bilirubin 0.4, AST 19, ALT 32, Alkaline Phosphatase 86, Total Protein 6.7, Albumin 3.7, Globulin 3.0, Albumin/Globulin Ratio 1.2, CBC w Diff MAN DIFF ORDERED, RBC 3.85 L, MCV 77.5 L, MCH 25.2 L, MCHC 32.5 L, RDW 16.9 H, MPV 7.3 L, Gran % 89.9 H, Lymphocytes % 4.7 L, Monocytes % 5.2, Eosinophils % 0, Basophils % 0.2, Absolute Granulocytes 15.3 H, Segmented Neutrophils 87 H, Band Neutrophils 0, Absolute Lymphocytes 0.8 L, Lymphocytes 9 L, Monocytes 3, Absolute Monocytes 0.9 H, Absolute Eosinophils 0, Basophils 1, Absolute Basophils 0, Platelet Estimate VERIFIED BY SMEAR, Normocytic RBCs VERIFIED, Normochromic RBCs VERIFIED , Fld Total RBCs Counted 100 01/16/18 1736: Urine Color YEL, Urine Clarity HAZY H, Urine pH 6.0, Ur Specific [place] >= 1.030, Urine Protein NEG, Urine Ketones 15 H, Urine Nitrite NEG, Urine Bilirubin NEG, Urine Urobilinogen 0.2, Ur Leukocyte Esterase NEG, Ur Microscopic SEDIMENT EXAMINED, Urine RBC 1-3, Urine WBC 1-3 H, Ur Epithelial Cells MANY H, Urine Bacteria MOD H, Urine Mucus MOD H, Urine Hemoglobin NEG, Urine Glucose NEG, Urine Test NEGATIVE Microbiology 01/17 600 GI: Cryptosporidium Antigen - COLB 01/17 600 GI: Giardia Antigen (CECILIO) - COLB 01/17 600 STOOL: Clostridium difficile Toxin A & B - COLB 01/17 600 STOOL: Stool Culture - COLB 01/16 2313 GENITAL: Anaerobic Culture - RES 01/16 2313 GENITAL: Genital Culture - RES 01/16 231 BODY FLUID: Body Fluid Culture - CAN Cancelled: WRONG ORDER ENTERY 01/16 231 BODY FLUID: Gram Stain - CAN Cancelled: WRONG ORDER ENTERY 01/16 1750 BLOOD: Blood Culture - RECD 01/16 1745 BLOOD: Blood Culture - RECD 01/16 1736 URINE ROUT: Urine Culture - RECD Assessment/Plan Assessment: 37 y/o F with PMH of with a PMH of UC s/p total abdominal colectomy s/p end ileostomy after failing medical therapy that comes to the ED complaining of LLQ abdominal pain, fever, and a exquisitely tender right labia majora collection. Her symptoms are likely multifactorial. CT abdomen and pelvis in the ED showed notable bowel wall thickening about an enteroenteric anastomosis left abdomen consistent of acute inflammatory bowel disease; on the other hand, her cellulitis of the right labia majora could indeed be the culprit of her symptoms. She was admitted for further management of the following issues: #Right labial cellulitis #Enteritis at surgical anastomosis site PLAN Admit to the general medicine floor NPO - bowel rest Ceftriaxone 1g daily, flagyl 500 mg TID and vancomycin CT did not show any drainable fluid in right groin area. F/u GI consult General surgery consulted, will need to follow up with Dr. Arriaga F/u blood, urine cultures, wound cultures FULL CODE npo Problem List: 1. Cellulitis of labia majora Pain Ratin Pain Location: LLQ, right groin Pain Goal: Pain 4 or less Pain Plan: as indicated Tomorrow's Labs & Rationales: . Wali Hudson 01/17/18 1508: Attending MD Review Statement Attending Statement Attending MD Statement: examined this patient, discuss w/resident/PA/MACHINE TOOL DRESSER, agreed w/resident/PA/MACHINE TOOL DRESSER, discussed with family, reviewed EMR data (avail), discussed with nursing Attending Assessment/Plan: 37-year-old female with inflammatory bowel disease initially thought to be ulcerative colitis who is now several months status post subtotal colectomy with end ileostomy and small bowel resection 2 with primary anastomosis. She presents to hospital with a right labial abscess. Labial abscess- cont on iv abx and get [employer]ANGER [employer]SEMBLER consult . on iv vancomycin/ ceftriaxone and flagyl. d/w pt and pts family at bedside the care plan.
[2018-01-17 06:53] VITALS: BP 138/70
--- NOTE | 2018-01-17 07:18 | PN- General Surgery ---
Surgical Brief Attending Note Brief Attending Note: Called by ER for this patient. Please notifiy Dr. Arriaga (Colorectal Surgery) for intraabdominal process. She is his patient. Second issue is labia infection. Will defer to Gynecology.
[2018-01-17 08:24] LABS: ABSOLUTE BASOPHIL COUNT 0 /CUMM (0.0-0.2); ABSOLUTE EOSINOPHIL COUNT 0.1 /CUMM (0.0-0.7); ABSOLUTE LYMPH COUNT 1.3 /CUMM (1.2-3.4); ABSOLUTE MONOCYTE COUNT 0.8 /CUMM (0.10-0.60); BASOPHIL % 0.2 % (0.0-2.0); EOSINOPHIL % 0.6 % (0-5); GRANULOCYTE % 84.7 % (42.2-75.2); HEMATOCRIT 25.7 % (37-47); MEAN CORPUSCULAR HGB 25.2 PG (27.0-31.0); MEAN CORPUSCULAR VOLUME 78.7 FL (81.0-99.0); MEAN PLATELET VOLUME 7.5 FL (7.4-10.4); PLATELET COUNT 428 /CUMM (130-400); RBC DISTRIBUTION WIDTH 17.2 % (11.5-14.5); RED BLOOD CELL CT 3.26 /CUMM (4.20-5.40)
--- NOTE | 2018-01-17 08:45 | RADIOLOGY REPORT ---
EXAMINATION: XR PORTABLE CHEST CLINICAL INFORMATION: Fever. COMPARISON: None TECHNIQUE: Portable frontal view of the chest was obtained. FINDINGS: The lungs are well-expanded and clear of acute process. The heart size and pulmonary vascularity is normal. No gross bony abnormality seen. IMPRESSION: Unremarkable chest exam.
[2018-01-17 09:44] LABS: WHITE BLOOD CELL COUNT 14.2 /CUMM (4.8-10.8)
--- NOTE | 2018-01-17 12:12 | PN- General Surgery ---
Subjective Subjective: Asked to see this patient by medical hospitalist for the evaluation of abdominal pain Patient is a 37-year-old female well-known to me. She has long-standing diagnosis of ulcerative colitis. Several months ago she presented with acute abdominal pain and was found to have colonic perforation. She underwent in emergent exploratory laparotomy with subtotal colectomy and end ileostomy. Unfortunately 2 portions of her small bowel were involved in the abscess and needed to be resected. So she has to small bowel anastomosis. I saw her in the office last week she was feeling well and we cleared her to return to work. Per her report she developed labial swelling on the right side and came to [facility] several days ago. Per patient's reports the area was lanced and she was sent home with antibiotics. She felt this patient was not improving and she started to develop abdominal pain so she returned to the ER. CT scan was performed. Noted on the CT scan was some bowel wall thickening near 1 of her small bowel anastomosis and a small parastomal hernia. There is no evidence of perforation pneumatosis obstruction. Patient reports her abdominal pain is improving and nearly resolved Review of Systems: Abdominal pain, labial pain, fever Review of Systems Constitutional: Denies: fever. EENTM: Denies: no symptoms. Cardiovascular: Denies: no symptoms. Respiratory: Denies: no symptoms. Gastrointestinal: Reports: abdominal pain. Neurological/Psychological: Reports: tremors. Objective Vital Signs and I&Os Vital Signs Date Time Temp Pulse Resp B/P B/P Pulse O2 O2 Flow FiO2 Mean Ox Delivery Rate 01/17 1046 Room Air 01/17 0653 98.8 78 20 138/70 99 01/17 0029 98.7 86 20 146/84 100 01/16 2243 98.4 87 15 120/59 99 Room Air 01/16 2101 99.1 82 16 121/59 100 Room Air 01/16 1957 98.9 90 18 129/60 98 Room Air 01/16 1854 98.9 97 16 119/57 99 Room Air 01/16 1829 99.9 01/16 1800 99.9 94 16 134/62 100 Room Air 01/16 1707 Room Air 01/16 1703 101.0 140 18 161/90 95 Room Air Intake & Output 01/17 1600 01/17 0800 /08 0000 01/16 1600 01/16 0800 01/16 0000 Intake Total 875 1250 Output Total Balance 875 1250 Intake, IV 875 1250 Patient 220 lb 220 lb Weight General-awake alert oriented in no acute distress Abdomen-soft nontender nondistended well-healed midline surgical scar ileostomy in the right lower quadrant deferred Physical Exam General Appearance: well developed/nourished, no apparent distress, alert, awake , anxious Head: atraumatic Neck: normal inspection Respiratory: no respiratory distress Extremities: normal inspection Neurologic/Psychiatric: no motor/sensory deficits, awake, alert, oriented x 3, normal mood/affect Skin: intact, normal color, warm/dry Current Medications: Current Medications Sig/Raymond Start time Last Medication Dose Route Stop Time Status Admin Acetaminophen 650 MG Q6P PRN 01/16 231 AC PO Acetaminophen 1,000 MG Q6P PRN 01/16 2315 AC 01/17 IV 0041 Acetaminophen 0 .STK-MED ONE 01/17 1812 DC IV Acetaminophen 1,000 MG STAT STA 01/16 181 DC 01/16 IV 01/16 181 1829 Acetaminophen 650 MG ONCE ONE 01/16 1745 CAN PO 01/16 1746 Albuterol Sulfate 3 ML Q6 PRN 01/17 0045 AC INH Ceftriaxone Sodium 1,000 MG BID 01/17 900 AC 01/17 IV 0851 Ciprofloxacin 400 MG STAT STA 01/16 173 DC 01/16 IV 01/16 173 2059 Docusate Sodium 100 MG DAILY NEEDED PRN 01/16 231 AC PO Enoxaparin Sodium 40 MG DAILY 01/17 900 AC 01/17 SC 0851 Guaifenesin/Codeine 10 ML Q6P PRN 01/17 0130 AC Phosphate PO Metronidazole 500 MG Q8H 01/17 0630 AC 01/17 N/A 1 UNIT IV 0658 Metronidazole 500 MG STAT STA 01/16 1738 DC 01/16 N/A 1 UNIT IV 01/16 1837 2314 Morphine Sulfate 0 .STK-MED ONE 01/17 0452 DC .ROUTE Morphine Sulfate 2 MG ONCE ONE 01/17 0445 DC 01/17 IV 01/17 044 0451 Morphine Sulfate 0 .STK-MED ONE 01/16 2336 DC .ROUTE Morphine Sulfate 4 MG STAT STA 01/16 2328 DC 01/16 IV 01/16 232 2340 Morphine Sulfate 0 .STK-MED ONE 01/16 1813 DC .ROUTE Morphine Sulfate 4 MG STAT STA 01/16 1739 DC 01/16 IV 01/16 1740 1817 Ondansetron HCl 0 .STK-MED ONE 01/17 846 DC .ROUTE Ondansetron HCl 4 MG Q6P PRN 01/17 0845 AC 01/17 IV 0851 Ondansetron HCl 0 .STK-MED ONE 01/16 1812 DC .ROUTE Ondansetron HCl 4 MG ONCE ONE 01/16 1745 DC 01/16 IV 01/16 1746 1817 Oxycodone/ 0 .STK-MED ONE 01/17 0846 DC Acetaminophen PO Oxycodone/ 1 TAB Q4P PRN 01/17 0845 AC 01/17 Acetaminophen PO 0851 Oxycodone/ 1 TAB ONCE ONE 01/17 0430 DC Acetaminophen PO 01/17 0431 Oxycodone/ 0 .STK-MED ONE 01/17 0424 DC Acetaminophen PO Polyethylene Glycol 17 GM AT BEDTIME PRN 01/16 2330 AC PO Senna/Docusate Sodium 1 TAB AT BEDTIME PRN 01/16 2330 AC PO Sodium Chloride 1,000 ML CONTINOUS INFUSION 01/16 2315 AC 01/17 IV 1144 Sodium Chloride 125 ML STAT STA 01/16 2224 DC 01/16 IV 01/16 2225 2100 Sodium Chloride 2,993.7 ML ONCE 01/16 1730 DC 01/16 IV 01/16 2000 1817 Vancomycin HCl 1,000 MG Q12H 01/17 0530 AC 01/17 Sodium Chloride 250 ML IV 0452 Vancomycin HCl 0 .STK-MED ONE 01/16 181 DC .ROUTE Vancomycin HCl 1,000 MG ONCE ONE 01/16 1730 DC 01/16 Sodium Chloride 250 ML IV 01/16 1829 1851 Results Last 48 Hours of Labs: Laboratory Tests 01/17 01/16 07 2030 Chemistry Sodium (137 - 145 mmol/L) 136 L Potassium (3.5 - 5.1 mmol/L) 3.8 Chloride (98 - 107 mmol/L) 107 Carbon Dioxide (22 - 30 mmol/L) 22 Anion Gap (5 - 16) 7 BUN (7 - 17 mg/dL) 4 L Creatinine (0.5 - 1.0 mg/dL) 0.7 Estimated GFR (>60 ml/min) > 60 BUN/Creatinine Ratio (7 - 25 %) 5.7 L Lactic Acid Cancelled Hematology CBC w Diff NO MAN DIFF REQ WBC (4.8 - 10.8 /CUMM) 14.2 H RBC (4.20 - 5.40 /CUMM) 3.26 L Hgb (12.0 - 16.0 G/DL) 8.2 L Hct (37 - 47 %) 25.7 L MCV (81.0 - 99.0 FL) 78.7 L MCH (27.0 - 31.0 PG) 25.2 L MCHC (33.0 - 37.0 G/DL) 32.0 L RDW (11.5 - 14.5 %) 17.2 H Plt Count (130 - 400 /CUMM) 428 H MPV (7.4 - 10.4 FL) 7.5 Gran % (42.2 - 75.2 %) 84.7 H Lymphocytes % (20.5 - 51.1 %) 8.8 L Monocytes % (1.7 - 9.3 %) 5.7 Eosinophils % (0 - 5 %) 0.6 Basophils % (0.0 - 2.0 %) 0.2 Absolute Granulocytes (1.4 - 6.5 /CUMM) 12.0 H Absolute Lymphocytes (1.2 - 3.4 /CUMM) 1.3 Absolute Monocytes (0.10 - 0.60 /CUMM) 0.8 H Absolute Eosinophils (0.0 - 0.7 /CUMM) 0.1 Absolute Basophils (0.0 - 0.2 /CUMM) 0 09/07 1745 Chemistry Sodium (137 - 145 mmol/L) 135 L Potassium (3.5 - 5.1 mmol/L) 3.7 Chloride (98 - 107 mmol/L) 102 Carbon Dioxide (22 - 30 mmol/L) 25 Anion Gap (5 - 16) 8 BUN (7 - 17 mg/dL) 5 L Creatinine (0.5 - 1.0 mg/dL) 0.8 Estimated GFR (>60 ml/min) > 60 BUN/Creatinine Ratio (7 - 25 %) 6.3 L Glucose (65 - 99 mg/dL) 98 Lactic Acid (0.7 - 2.1 mmol/L) 1.2 Calcium (8.4 - 10.2 mg/dL) 9.0 Phosphorus (2.5 - 4.5 mg/dL) 3.1 Magnesium (1.6 - 2.3 mg/dL) 1.7 Total Bilirubin (0.2 - 1.3 mg/dL) 0.4 AST (14 - 36 U/L) 19 ALT (9 - 52 U/L) 32 Alkaline Phosphatase (<127 U/L) 86 Total Protein (6.3 - 8.2 g/dL) 6.7 Albumin (3.5 - 5.0 g/dL) 3.7 Globulin (1.9 - 4.2 gm/dL) 3.0 Albumin/Globulin Ratio (1.1 - 2.2 %) 1.2 Hematology CBC w Diff MAN DIFF ORDERED WBC (4.8 - 10.8 /CUMM) 17.0 H RBC (4.20 - 5.40 /CUMM) 3.85 L Hgb (12.0 - 16.0 G/DL) 9.7 L Hct (37 - 47 %) 29.9 L MCV (81.0 - 99.0 FL) 77.5 L MCH (27.0 - 31.0 PG) 25.2 L MCHC (33.0 - 37.0 G/DL) 32.5 L RDW (11.5 - 14.5 %) 16.9 H Plt Count (130 - 400 /CUMM) 535 H MPV (7.4 - 10.4 FL) 7.3 L Gran % (42.2 - 75.2 %) 89.9 H Lymphocytes % (20.5 - 51.1 %) 4.7 L Monocytes % (1.7 - 9.3 %) 5.2 Eosinophils % (0 - 5 %) 0 Basophils % (0.0 - 2.0 %) 0.2 Absolute Granulocytes (1.4 - 6.5 /CUMM) 15.3 H Segmented Neutrophils (42.2 - 75.2 %) 87 H Band Neutrophils (0.0 - 5.0 %) 0 Absolute Lymphocytes (1.2 - 3.4 /CUMM) 0.8 L Lymphocytes (20.5 - 51.1 %) 9 L Monocytes (1.7 - 9.3 %) 3 Absolute Monocytes (0.10 - 0.60 /CUMM) 0.9 H Absolute Eosinophils (0.0 - 0.7 /CUMM) 0 Basophils (0.0 - 2.0 %) 1 Absolute Basophils (0.0 - 0.2 /CUMM) 0 Platelet Estimate (ADEQUATE) VERIFIED BY SMEAR Normocytic RBCs VERIFIED Normochromic RBCs VERIFIED Other Body Source Fld Total RBCs Counted (%) 100 01/16 1736 Urines Urine Color (YEL,AMB,STR) YEL Urine Clarity (CLEAR) HAZY H Urine pH (5.0 - 8.0) 6.0 Ur Specific [place] (1.001 - 1.035) >= 1.030 Urine Protein (NEG,<30 MG/DL) NEG Urine Ketones (NEG) 15 H Urine Nitrite (NEG) NEG Urine Bilirubin (NEG) NEG Urine Urobilinogen (0.1 - 1.0 EU/dl) 0.2 Ur Leukocyte Esterase (NEG) NEG Ur Microscopic SEDIMENT EXAMINED Urine RBC (0 - 5 /HPF) 1-3 Urine WBC (0 - 2 /HPF) 1-3 H Ur Epithelial Cells (NONE,FEW) MANY H Urine Bacteria (NEG/NONE) MOD H Urine Mucus (FEW,NONE) MOD H Urine Hemoglobin (NEG) NEG Urine Glucose (N MG/DL) NEG Urine Test NEGATIVE Recent Imaging Studies: CT scan reviewed see subjective Assessment/Plan Assessment/Plan This is a 37-year-old female with inflammatory bowel disease initially thought to be ulcerative colitis who is now several months status post subtotal colectomy with end ileostomy and small bowel resection 2 with primary anastomosis. She presents to hospital with a right labial abscess. She reported abdominal pain on admission which prompted CT scan. CT scan shows some nonspecific thickening of the bowel wall at 1 of her small bowel anastomosis. CT scan does not show evidence of bowel obstruction pneumatosis or inflammatory process. The small bowel thickening is of unclear clinical significance Recommend: Consults TUBER HELPER for the evaluation of the labial abscess Keep patient n.p.o. until WELT BEATER consult and decide whether or not surgery is indicated Once restart diet would start with clear liquids first and progress as she tolerates
[2018-01-17 14:39] VITALS: BP 126/60
--- NOTE | 2018-01-17 18:17 | Cons- Gastroenterology ---
General Information and HPI Consulting Request Date of Consult: 01/17/18 Requested By: Viktor Calabrese MD Reason for Consult: 1. Inflammatory bowel disease, indeterminate colitis 2. Abnormal CT scan of the abdomen 3. Labial abscess Source of Information: patient, Electronic Medicl Records Exam Limitations: no limitations History of Present Illness: Ms. Trent is a 37-year-old female who was diagnosed with ulcerative proctitis by [facility] in January of 2013. At the time of her initial diagnosis biopsies of TI, right colon, transverse colon & sigmoid colon were negative; bxs of rectosigmoid at 20 cm & rectum showed marked chronic colitis with moderate acute activity & crypt abscesses, reactive epithelial atypia, without dysplasia or Ca. Dr. Arriaga subsequently referred her to Dr. Jordan Banks, a dj instructor in [place] who had reported that she had progression of her disease to involve the entire colon. Of note she has a brother with ulcerative colitis who has had a coloectomy with J-pouch. She has a remote history of tobacco use (D/C 2001). Ms. Trent was initially treated with Remicade to which she was a non-responder. She was then loaded with Entyvio and had received 2 of 3 loading doses when she was admitted to [facility] with fever over 101. 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 09/30/14: *QuantiFERON TB- negative; TPMT genotype- negative for poor metabolizer alleles (TPMT*1/TPMT*1), + varicella IgG 3.59 (immune); Hep A Ab, Hep Bs Ag, Hep B core Ab IgM, Hep Bs Ab- all neg. (*No Hep C Ab or HIV sent then). 09/24/17: CT ANGIOGRAM OF THE CHEST WITH CONTRAST (CT PULMONARY ANGIOGRAM FOR PE ) CT ABDOMEN AND PELVIS WITH IV CONTRAST- 1. No pulmonary embolism. 2. There are a few nonspecific, noncalcified nodules in the right and left upper lobe, largest measuring 0.3 x 0.5 cm. No pulmonary mass or lymphadenopathy in the chest. 3. Findings consistent with active colitis with circumferential wall thickening involving the descending and sigmoid colon, to the level of the rectum, with adjacent pericolonic fat stranding. This is consistent with history of ulcerative colitis. There is reactive lymphadenopathy in the mesentery. Few sigmoid diverticula, without diverticulitis. No obstruction, megacolon, or free air. Post AP. 4. Small fat-containing umbilical hernia. 5. Normal uterus & adnexa. Trace fluid in the pelvis. No abscess. Per progress note this admission and the patient's report she underwent colectomy with resection of a portion of the rectum as well as a portion of the small bowel due to colonic perforation and development of an intra-abdominal abscess in September of this year. However I do not have the results of that operative procedure available. Patient returned to the [facility] ED over the past 3 days with a chief complaint of left lower quadrant abdominal pain as well as swelling in the right labia majora. She was discharged to home with antibiotics but returned because of increasing pain and fever. On admission she had a CT scan of the abdomen with oral and IV contrast, the results of which are as follows. FINDINGS: LUNG BASES: The visualized lung bases are unremarkable. LIVER, GALLBLADDER, AND BILIARY TREE: The liver is normal in size, shape, and attenuation. No focal hepatic lesion or biliary ductal dilatation is present. The gallbladder is unremarkable with no evidence of radiopaque gallstones, gallbladder wall thickening, or obvious pericholecystic inflammatory changes. PANCREAS: Unremarkable. SPLEEN: Unremarkable. ADRENAL GLANDS: Unremarkable. KIDNEYS AND URETERS: The kidneys are normal in size, shape, and attenuation. No hydronephrosis, hydroureter, or calculi seen. No perinephric stranding. BLADDER: Unremarkable. GASTROINTESTINAL TRACT: Interval subtotal colectomy. Staple line noted within the rectum. This appears intact. Ileostomy right lower quadrant. Small associated peristomal hernia. Additional staple lines left abdomen related to small bowel. There is notable bowel wall thickening about the anastomosis left abdomen involving the opposing small bowel segments about the anastomosis. Marked somewhat eccentric small bowel thickening is noted with the bowel measuring up to 18 mm. There is no fistula or abscess seen. There is no associated bowel abnormality associated with the right labial inflammatory processes. Perianal location appears grossly normal. ABDOMINAL WALL: As above. LYMPH NODES: Normal. VASCULAR: Unremarkable. PELVIC VISCERA: Unremarkable. OSSEOUS STRUCTURES: Unremarkable. IMPRESSION: 1. Interval postsurgical changes noted. There is notable bowel wall thickening about an enteroenteric anastomosis left abdomen. Appearance is consistent with presumably acute inflammatory bowel disease. 2. Small peristomal hernia without evidence of obstruction. 3. Right labial inflammatory process is isolated to the right labia. No fluid collection. Allergies/Medications Allergies: Coded Allergies: erythromycin base (From ERYTHROCIN) (Intermediate, HIVES 09/24/17) Penicillins (RASH 04/07/17) amoxicillin (RASH 04/07/17) Home Med List: Ergocalciferol (Vitamin D2) (Vitamin D2) 50,000 UNIT CAPSULE 1 CAP PO QSUN SUPPLEMENT (Reported) Sulfamethoxazole/Trimethoprim (Bactrim Ds Tablet) 800 MG-160 MG TABLET 1 TAB PO BID abscess Current Medications: Current Medications Sig/Raymond Start time Last Medication Dose Route Stop Time Status Admin Acetaminophen 650 MG Q6P PRN 01/16 231 AC PO Acetaminophen 1,000 MG Q6P PRN 01/16 2315 AC 01/17 IV 0041 Albuterol Sulfate 3 ML Q6 PRN 01/17 0045 AC INH Ceftriaxone Sodium 1,000 MG BID 01/17 900 AC 01/17 IV 0851 Docusate Sodium 100 MG DAILY NEEDED PRN 01/16 2315 AC PO Enoxaparin Sodium 40 MG DAILY 01/17 900 AC 01/17 SC 0851 Guaifenesin/Codeine 10 ML Q6P PRN 01/17 0130 AC Phosphate PO Metronidazole 500 MG Q8H 01/17 0630 AC 01/17 N/A 1 UNIT IV 1607 Metronidazole 500 MG STAT STA 01/16 1738 DC 01/16 N/A 1 UNIT IV 01/16 1837 2314 Morphine Sulfate 0 .STK-MED ONE 01/17 0452 DC .ROUTE Morphine Sulfate 2 MG ONCE ONE 01/17 0445 DC 01/17 IV 01/17 0446 0451 Morphine Sulfate 0 .STK-MED ONE 01/16 2336 DC .ROUTE Morphine Sulfate 4 MG STAT STA 01/16 2328 DC 01/16 IV 01/16 2329 2340 Ondansetron HCl 0 .STK-MED ONE 01/18 0846 DC .ROUTE Ondansetron HCl 4 MG Q6P PRN 01/18 0845 AC 01/17 IV 1720 Oxycodone/ 0 .STK-MED ONE 01/18 0846 DC Acetaminophen PO Oxycodone/ 1 TAB Q4P PRN 01/17 845 AC 01/17 Acetaminophen PO 1720 Oxycodone/ 1 TAB ONCE ONE 01/17 0430 DC Acetaminophen PO 01/17 0431 Oxycodone/ 0 .STK-MED ONE 01/17 0424 DC Acetaminophen PO Polyethylene Glycol 17 GM AT BEDTIME PRN 01/16 2330 AC PO Senna/Docusate Sodium 1 TAB AT BEDTIME PRN 01/16 2330 AC PO Sodium Chloride 1,000 ML CONTINOUS INFUSION 01/16 2315 AC 01/17 IV 1144 Sodium Chloride 125 ML STAT STA 01/16 2224 DC 01/16 IV 01/16 2225 2100 Sodium Chloride 2,993.7 ML ONCE 01/16 1730 DC 01/16 IV 01/16 2000 1817 Vancomycin HCl 1,000 MG Q12H 01/17 0530 AC 01/17 Sodium Chloride 250 ML IV 1720 Vancomycin HCl 0 .STK-MED ONE 01/16 1818 DC .ROUTE Vancomycin HCl 1,000 MG ONCE ONE 01/16 1730 DC 01/16 Sodium Chloride 250 ML IV 01/16 1829 1851 Past History Travel History Traveled to [place] past 21 day No Medical History Blood Transfusion Hx: No Neurological: NONE EENT: NONE Cardiovascular: NONE Respiratory: NONE Gastrointestinal: ulcerative colitis, umbilical hernia (intact) Hepatic: NONE Renal: NONE Musculoskeletal: NONE Psychiatric: NONE Endocrine: obesity (wt gain post prednisone) Blood Disorders: NONE Cancer(s): NONE STATISTICS TEACHER/Reproductive: NONE Surgical History Surgical History: appendectomy (2014 at [facility]), (x 2) Family History Relations & Conditions If Any: MOTHER (post breast Ca x 2, DM, HTN, diverticulitis). Age 69. FATHER (ASHD, post CABG x 3, DM). Age 72. BROTHER ([facility]- *UC, post colectomy). BROTHER (A&W). BROTHER ([employer]&W). BROTHER (Ulcerative colitis). Relation not specified for: ulcerative colitis Psychosocial History Where Do You Live? Home Who Do You Live With? spouse Services at Home: None Primary Language: Armenian Smoking Status: Never Smoked ETOH Use: denies use Illicit Drug Use: denies illicit drug use Living Will? no Power of [employer] Plant Supervisor/HCP? no Functional Ability ADLs Independent: dressing, eating, toileting, bathing. Ambulation: independent IADLs Independent: shopping, housework, finances, food prep, telephone, transportation , medication admin. Review of Systems Review of Systems Constitutional: Reports: see HPI. EENTM: Reports: no symptoms. Cardiovascular: Reports: see HPI. Respiratory: Reports: see HPI. GI: Reports: see HPI. Genitourinary: Reports: see HPI. Musculoskeletal: Reports: no symptoms. Skin: Reports: no symptoms. Neurological/Psychological: Reports: no symptoms. Hematologic/Endocrine: Reports: no symptoms. Exam & Diagnostic Data Vital Signs and I&O Vital Signs Date Time Temp Pulse Resp B/P B/P Pulse O2 O2 Flow FiO2 Mean Ox Delivery Rate 01/17 1439 99.4 75 18 126/60 97 01/17 1046 Room Air 01/17 0653 98.8 78 20 138/70 99 01/17 0029 98.7 86 20 146/84 100 / 2243 98.4 87 15 120/59 99 Room Air 01/16 2101 99.1 82 16 121/59 100 Room Air 01/16 1957 98.9 90 18 129/60 98 Room Air 01/16 1854 98.9 97 16 119/57 99 Room Air 01/16 1829 99.9 Intake & Output 01/17 1600 01/17 0400 01/16 1600 01/16 0400 01/15 1600 01/15 0400 Intake Total 1750 1250 Output Total Balance 1750 1250 Intake, IV 1750 1250 Patient 220 lb Weight Physical Exam General Appearance: well developed/nourished, alert, awake, comfortable Head: atraumatic, normal appearance Eyes: Bilateral: normal appearance. Neck: normal inspection, supple, full range of motion Respiratory: normal breath sounds, no respiratory distress Cardiovascular: regular rate/rhythm, Normal S1 and S2 without rub, murmur or gallop Gastrointestinal: normal bowel sounds, soft, non-tender, mid-line, surgical scar well-healed Extremities: normal inspection, no edema Neurologic/Psych: no motor/sensory deficits, awake, alert, oriented x 3, normal mood/affect Skin: intact, normal color, warm/dry Reproductive: Swelling erythema and edema with fluctuance, right labia majora Results Pertinent Lab Results: Laboratory Tests 01/17 01/16 0700 2030 Chemistry Sodium (137 - 145 mmol/L) 136 L Potassium (3.5 - 5.1 mmol/L) 3.8 Chloride (98 - 107 mmol/L) 107 Carbon Dioxide (22 - 30 mmol/L) 22 Anion Gap (5 - 16) 7 BUN (7 - 17 mg/dL) 4 L Creatinine (0.5 - 1.0 mg/dL) 0.7 Estimated GFR (>60 ml/min) > 60 BUN/Creatinine Ratio (7 - 25 %) 5.7 L Lactic Acid Cancelled Hematology CBC w Diff NO MAN DIFF REQ WBC (4.8 - 10.8 /CUMM) 14.2 H RBC (4.20 - 5.40 /CUMM) 3.26 L Hgb (12.0 - 16.0 G/DL) 8.2 L Hct (37 - 47 %) 25.7 L MCV (81.0 - 99.0 FL) 78.7 L MCH (27.0 - 31.0 PG) 25.2 L MCHC (33.0 - 37.0 G/DL) 32.0 L RDW (11.5 - 14.5 %) 17.2 H Plt Count (130 - 400 /CUMM) 428 H MPV (7.4 - 10.4 FL) 7.5 Gran % (42.2 - 75.2 %) 84.7 H Lymphocytes % (20.5 - 51.1 %) 8.8 L Monocytes % (1.7 - 9.3 %) 5.7 Eosinophils % (0 - 5 %) 0.6 Basophils % (0.0 - 2.0 %) 0.2 Absolute Granulocytes (1.4 - 6.5 /CUMM) 12.0 H Absolute Lymphocytes (1.2 - 3.4 /CUMM) 1.3 Absolute Monocytes (0.10 - 0.60 /CUMM) 0.8 H Absolute Eosinophils (0.0 - 0.7 /CUMM) 0.1 Absolute Basophils (0.0 - 0.2 /CUMM) 0 09/07 1745 Chemistry Sodium (137 - 145 mmol/L) 135 L Potassium (3.5 - 5.1 mmol/L) 3.7 Chloride (98 - 107 mmol/L) 102 Carbon Dioxide (22 - 30 mmol/L) 25 Anion Gap (5 - 16) 8 BUN (7 - 17 mg/dL) 5 L Creatinine (0.5 - 1.0 mg/dL) 0.8 Estimated GFR (>60 ml/min) > 60 BUN/Creatinine Ratio (7 - 25 %) 6.3 L Glucose (65 - 99 mg/dL) 98 Lactic Acid (0.7 - 2.1 mmol/L) 1.2 Calcium (8.4 - 10.2 mg/dL) 9.0 Phosphorus (2.5 - 4.5 mg/dL) 3.1 Magnesium (1.6 - 2.3 mg/dL) 1.7 Total Bilirubin (0.2 - 1.3 mg/dL) 0.4 AST (14 - 36 U/L) 19 ALT (9 - 52 U/L) 32 Alkaline Phosphatase (<127 U/L) 86 Total Protein (6.3 - 8.2 g/dL) 6.7 Albumin (3.5 - 5.0 g/dL) 3.7 Globulin (1.9 - 4.2 gm/dL) 3.0 Albumin/Globulin Ratio (1.1 - 2.2 %) 1.2 Hematology CBC w Diff MAN DIFF ORDERED WBC (4.8 - 10.8 /CUMM) 17.0 H RBC (4.20 - 5.40 /CUMM) 3.85 L Hgb (12.0 - 16.0 G/DL) 9.7 L Hct (37 - 47 %) 29.9 L MCV (81.0 - 99.0 FL) 77.5 L MCH (27.0 - 31.0 PG) 25.2 L MCHC (33.0 - 37.0 G/DL) 32.5 L RDW (11.5 - 14.5 %) 16.9 H Plt Count (130 - 400 /CUMM) 535 H MPV (7.4 - 10.4 FL) 7.3 L Gran % (42.2 - 75.2 %) 89.9 H Lymphocytes % (20.5 - 51.1 %) 4.7 L Monocytes % (1.7 - 9.3 %) 5.2 Eosinophils % (0 - 5 %) 0 Basophils % (0.0 - 2.0 %) 0.2 Absolute Granulocytes (1.4 - 6.5 /CUMM) 15.3 H Segmented Neutrophils (42.2 - 75.2 %) 87 H Band Neutrophils (0.0 - 5.0 %) 0 Absolute Lymphocytes (1.2 - 3.4 /CUMM) 0.8 L Lymphocytes (20.5 - 51.1 %) 9 L Monocytes (1.7 - 9.3 %) 3 Absolute Monocytes (0.10 - 0.60 /CUMM) 0.9 H Absolute Eosinophils (0.0 - 0.7 /CUMM) 0 Basophils (0.0 - 2.0 %) 1 Absolute Basophils (0.0 - 0.2 /CUMM) 0 Platelet Estimate (ADEQUATE) VERIFIED BY SMEAR Normocytic RBCs VERIFIED Normochromic RBCs VERIFIED Other Body Source Fld Total RBCs Counted (%) 100 01/16 1736 Urines Urine Color (YEL,AMB,STR) YEL Urine Clarity (CLEAR) HAZY H Urine pH (5.0 - 8.0) 6.0 Ur Specific [place] (1.001 - 1.035) >= 1.030 Urine Protein (NEG,<30 MG/DL) NEG Urine Ketones (NEG) 15 H Urine Nitrite (NEG) NEG Urine Bilirubin (NEG) NEG Urine Urobilinogen (0.1 - 1.0 EU/dl) 0.2 Ur Leukocyte Esterase (NEG) NEG Ur Microscopic SEDIMENT EXAMINED Urine RBC (0 - 5 /HPF) 1-3 Urine WBC (0 - 2 /HPF) 1-3 H Ur Epithelial Cells (NONE,FEW) MANY H Urine Bacteria (NEG/NONE) MOD H Urine Mucus (FEW,NONE) MOD H Urine Hemoglobin (NEG) NEG Urine Glucose (N MG/DL) NEG Urine Test NEGATIVE Assessment/Plan Assessment/Recommendations: ASSESSMENT: 1. Abscess Right Labia Majora --this is highly suggestive of an enterocutaneous fistula despite the negative CT scan of the abdomen and pelvis. 2. Inflammatory bowel disease --given changes at the surgical anastomosis again this is suggestive of recurrent Crohn's disease. Patient was seen by her regular dj instructor Dr. Banks within the past several days who had also suggested to her that the labial abscess suggested a diagnosis other than ulcerative colitis. RECOMMENDATIONS: 1. I spoke with the medical manager of the day Dr. Sergio Alfaro and asked that gynecology be called again as they had not seen the patient when I seen her earlier in the afternoon. Patient will need an I&D of the labial abscess. 2. Patient has already made plans to seek a second opinion regarding her inflammatory bowel disease both in [place] ([facility]) and in [place]. She understands that should she have Crohn's disease that we anastomosis would be inadvisable. However given the inflammatory changes present on CT scan as well as the presence of a labial abscess, she will likely need treatment with another biologic agent of a different class than an tibia O. This would most likely be something like Stelara (Ustekinumab). 3. IBD Serologies should be ordered, however, this can be done as an outpatient as ordering them now will not likely changer fixer. 4. Continue IV antibiotics. Consult Acknowledgment - Thank you for your consult request.
--- NOTE | 2018-01-17 20:27 | Cons- OBGYN ---
General Information and HPI Consulting Request Date of Consult: 01/17/18 Requested By: Viktor Calabrese MD Reason for Consult: right labial infection Source of Information: patient, family, medical record Exam Limitations: no limitations History of Present Illness: Patient was interviewed and examined, and patient's [facility] medical record was reviewed including all physician notes, labs, cultures, and imaging reports. She has been a patient of [facility] for many years, her office record of RETAIL ACCOUNT REPRESENTATIVE visits was reviewed, last seen by us 04/2017 for annual, and was found to be noncontributory. 37yo admitted yesterday through the ED with right labial and LLQ pelvic pain and fever. Present admission was preceded by a visit to the ED a day prior seeking treatment for right labial pain/swelling that patient reported developed quickly over 3 days from a tiny sore spot she assumed was an ingrown hair. (she shaves her pubic hair because otherwise it gets caught under the ileostomy bag adhesive). I&D was attempted in the ED, no abscess was found to drain, and some purulent material was sent for culture, which preliminarily is growing Staph., possible MRSA. She went home on Bactrim but returned when her symptoms worsened. Per GI consultation his exam revealed a small opening of the swollen right labum that spontaneously and with pressure drained droplets of pus. Admission Ct scan showed no fistula or abscess, and no labial fluid collection. On IV Vanco, Flagyl, and Rocephin the labial pain and swelling has worsened since admission. She has suffered with IBD for many years, went through several medical therapies, and is s/p recent total colectomy with end ileostomy for abdominal abscess/peritonitis from bowel perforation. Her appetite was fine, the ileostomy was working well without any noted change in drainage or contents, and the LLQ pain is only recent. She has 2 brothers with UC, one is s/p colectomy. Her admission CT revealed bowel wall thickening of unknown significance and she had an episode of N&V the day of admission. Her exam revealed a soft, nonsurgical abdomen, her LLQ pain has almost resolved now, and she's been asking for food. Allergies/Medications Allergies: Coded Allergies: erythromycin base (From ERYTHROCIN) (Intermediate, HIVES 09/24/17) Penicillins (RASH 04/07/17) amoxicillin (RASH 04/07/17) Home Med List: Ergocalciferol (Vitamin D2) (Vitamin D2) 50,000 UNIT CAPSULE 1 CAP PO QSUN SUPPLEMENT (Reported) Sulfamethoxazole/Trimethoprim (Bactrim Ds Tablet) 800 MG-160 MG TABLET 1 TAB PO BID abscess Current Medications: Current Medications Sig/Raymond Start time Last Medication Dose Route Stop Time Status Admin Acetaminophen 650 MG Q6P PRN 01/16 231 AC PO Acetaminophen 1,000 MG Q6P PRN 01/16 2315 AC 01/17 IV 0041 Albuterol Sulfate 3 ML Q6 PRN 01/17 0045 AC INH Ceftriaxone Sodium 1,000 MG BID 01/17 900 AC 01/17 IV 2122 Docusate Sodium 100 MG DAILY NEEDED PRN 01/16 2315 AC PO Enoxaparin Sodium 40 MG DAILY 01/17 900 AC 01/17 SC 0851 Guaifenesin/Codeine 10 ML Q6P PRN 01/17 0130 AC Phosphate PO Metronidazole 500 MG Q8H 01/17 630 AC 01/17 N/A 1 UNIT IV 1607 Morphine Sulfate 0 .STK-MED ONE 01/17 0452 DC .ROUTE Morphine Sulfate 2 MG ONCE ONE 01/17 0445 DC 01/17 IV 01/17 0446 0451 Morphine Sulfate 0 .STK-MED ONE 01/16 2336 DC .ROUTE Morphine Sulfate 4 MG STAT STA 01/16 2328 DC 01/16 IV 01/16 2329 2340 Ondansetron HCl 0 .STK-MED ONE 01/17 0846 DC .ROUTE Ondansetron HCl 4 MG Q6P PRN 01/17 0845 AC 01/17 IV 1720 Oxycodone/ 0 .STK-MED ONE 01/17 0846 DC Acetaminophen PO Oxycodone/ 1 TAB Q4P PRN 01/17 0845 AC 01/17 Acetaminophen PO 2122 Oxycodone/ 1 TAB ONCE ONE 01/17 0430 DC Acetaminophen PO 01/17 0431 Oxycodone/ 0 .STK-MED ONE 01/17 0424 DC Acetaminophen PO Polyethylene Glycol 17 GM AT BEDTIME PRN 01/16 2330 AC PO Senna/Docusate Sodium 1 TAB AT BEDTIME PRN 01/16 2330 AC PO Sodium Chloride 1,000 ML CONTINOUS INFUSION 01/16 2315 AC 01/17 IV 1144 Sodium Chloride 125 ML STAT STA 01/16 2224 DC 01/16 IV 01/16 2225 2100 Vancomycin HCl 1,000 MG Q12H 01/17 0530 AC 01/17 Sodium Chloride 250 ML IV 1720 Past History Medical History Blood Transfusion Hx: No Neurological: NONE EENT: NONE Cardiovascular: NONE Respiratory: NONE Gastrointestinal: umbilical hernia, IBD Hepatic: NONE Renal: NONE Musculoskeletal: NONE Psychiatric: NONE Endocrine: obesity (wt gain post prednisone), vitamin D deficiency Blood Disorders: anemia Cancer(s): NONE RETAIL ACCOUNT REPRESENTATIVE/Reproductive: NONE Surgical History Pertinent Surgical History: appendectomy (2014 at [facility]), colon resection, c- section (x 2), hernia repair-umbilical, end ileostomy Family History Relations & Conditions If Any: MOTHER (post breast Ca x 2, DM, HTN, diverticulitis). Age 69. FATHER (ASHD, post CABG x 3, DM). Age 72. BROTHER (A&W- *UC, post colectomy). BROTHER (A&W). BROTHER (A&W). BROTHER (Ulcerative colitis). Relation not specified for: ulcerative colitis Psychosocial History Where Do You Live? Home Who Do You Live With? spouse, child Services at Home: None Primary Language: Luxembourger Smoking Status: Never Smoked ETOH Use: denies use Illicit Drug Use: denies illicit drug use Living Will? no Power of Quality System Manager/HCP? no Functional Ability ADLs Independent: dressing, eating, toileting, bathing. Ambulation: independent IADLs Independent: shopping, housework, finances, food prep, telephone, transportation , medication admin. Employment History Employment: Unemployed Retired? no Review of Systems Review of Systems Constitutional: Reports: chills, fever, malaise, weakness (no fever since admission). EENTM: Reports: no symptoms. Cardiovascular: Reports: no symptoms. Respiratory: Reports: cough (mild, dry). GI: Reports: see HPI. Denies: changes in stool. Genitourinary: Reports: see HPI. Musculoskeletal: Reports: no symptoms. Skin: Reports: no symptoms. Neurological/Psychological: Reports: headache. Hematologic/Endocrine: Reports: no symptoms. Immunologic/Allergic: Reports: no symptoms. All Other Systems: Reviewed and Negative Exam & Diagnostic Data Vital Signs and I&O Vital Signs Date Time Temp Pulse Resp B/P B/P Pulse O2 O2 Flow FiO2 Mean Ox Delivery Rate 01/18 0634 98.0 64 20 126/72 97 01/17 2219 98.2 77 18 132/70 98 Room Air 01/17 1439 99.4 75 18 126/60 97 08 1046 Room Air Intake & Output 01/18 0800 01/18 0000 08 1600 01/17 0800 01/17 0000 01/16 1600 Intake Total 1000 680 655 307 4802 Output Total 200 Balance 800 680 029 896 7408 Intake, IV 1000 500 070 267 9078 Intake, Oral 180 Output, Stool 200 Patient 220 lb 220 lb Weight Physical Exam General Appearance: well developed/nourished, no apparent distress, alert, awake , comfortable, obese Head: normal appearance Eyes: Bilateral: normal appearance. Ears, Nose, Throat: normal ENT inspection, moist mucus membranes Neck: full range of motion, no midline tenderness Respiratory: quiet respiration Cardiovascular: regular rate/rhythm, norml femoral pulses equa Breasts Breast appear nl Gastrointestinal: soft, non-tender, midline scar healing well Rectal: deferred Back: normal inspection Extremities: normal range of motion Neurologic/Psych: no motor/sensory deficits, awake, alert, oriented x 3, normal mood/affect Cranial Nerves: normal hearing, normal speech Skin: intact, normal color, warm/dry Lymphatic: no palpable adenopathy Reproductive: pubic hair shaved off, right labium visibly swollen, erythematous, warm and slightly tender to touch, nonfluctuant, crust of pus on skin, with pressure no pus seen to come out, border of erythema marked with pen extends inferiorly to posterior labium and anteriorly up past groin to the skin of the lower right abdominal wall, not reaching the ileostomy, no skin crepitus, erythema blanches to pressure, skin not taut Pelvic: bimanual exam deferred due to tenderness Other Physical Findings: Ileostomy intact RLQ Assessment/Plan Assessment/Plan - Right labial infection, prelim. culture growing Staph. aureus with sensitivities pending, poss. MRSA, patient has been on Vanco - abscess vs. cellulitis - clinically looks more like cellulitis, tissue is hardened and nonfluctuant, no fluid collection per CT scan, and attempt at I&D in ER not successful in drainage and relief of swelling, BUT if fluid collection present incision and drainage would hasten relief of patient's discomfort, lead to faster resolution of infectious process, and decrease risk of necrotizing fasciitis. I will obtain a translabial ultrasound to better qualify the consistency of the underlying vulvar tissue, and if there is a drainable collection I'll bring the patient to the OR right away for an I&D. If the tissue appears solid I&D will create a wound for no purpose. - there was a question raised about a possible fistulous tract from the bowel to the labium, and although the CT scan did not detect such a fistula I don't know what imaging procedure could better detect it or rule it out. The patient has had multiple surgeries including 2 C/S and her anatomy is likely distorted by adhesions and scar tissue. Fistulas between the bowel or rectum and the vagina are more common. The uterine round ligament passes down through the groin into the labium, which course this infection seems to be following, although the infection seems more superficial. Patient's abdominal pain has almost completely resolved and her abdominal exam is benign when I examined her. Thank you for the opportunity to help treat this patient, will follow closely. Problem List: 1. Cellulitis of labia majora likely source of fever 2. Labial abscess rule out underlying labial abscess 3. Fever pancultures and sensitivities pending 4. Inflammatory bowel disease s/p total colectomy 3 months ago 5. Obesity much excess weight secondary to steroids for IBD Consult Acknowledgment - Thank you for your consult request. Attending MD Review Statement Attending Statement Attending MD Statement: examined this patient, discussed with family, reviewed EMR data (avail), discussed w/nursing, reviewed images
[2018-01-17 22:19] VITALS: BP 132/70
[2018-01-18 06:34] VITALS: BP 126/72
--- NOTE | 2018-01-18 08:13 | PN- Housestaff ---
Subjective Follow-up For: R labia majora abscess LLQ pain Subjective: Pt seen and examined at bedside. Continues to have worsening pain and inflammation in labial region. Patient is afebrile and in moderate distress although saturating on room air. Her leukocytosis has resolved to 10.7 from 14.2 this morning on IV antibiotics. Patients ultrasound this morning consistent with right labial cellulitis. Being followed by surgery, oncology, GI. Review of Systems Constitutional: Denies: see HPI. Objective Last 24 Hrs of Vital Signs/I&O Vital Signs Date Time Temp Pulse Resp B/P B/P Pulse O2 O2 Flow FiO2 Mean Ox Delivery Rate 01/18 0634 98.0 64 20 126/72 97 01/17 2219 98.2 77 18 132/70 98 Room Air 01/17 1439 99.4 75 18 126/60 97 Intake & Output 01/18 1600 01/18 0800 01/18 0000 Intake Total 1000 680 Output Total 200 Balance 800 680 Intake, IV 1000 500 Intake, Oral 180 Output, Stool 200 Physical Exam General Appearance: Alert, Oriented X3, Moderate Distress Skin: erythema, nonfluctulant on labium marked with pen, no crepitus Skin Temp/Moisture Exam: Warm/Dry HEENT: PERRLA, Mucous Membr. moist/pink Neck: Supple Cardiovascular: Regular Rate, Normal S1, Normal S2 Lungs: Clear to Auscultation, Normal Air Movement Abdomen: Soft, Tender in right lower quadrant close to labial area of inflammation Vascular: Normal Pulses, Pulses Symmetrical Reproductive (FEMALE) shaved pubic hear, right labium swollen with erythema, warm and tender to touch, hard/nonfluctuant, marked with pen no gas/crepitus noted Current Medications: Current Medications Sig/Raymond Start time Last Medication Dose Route Stop Time Status Admin Acetaminophen 650 MG Q6P PRN 01/165 AC PO Acetaminophen 1,000 MG Q6P PRN 01/165 AC 01/18 IV 0013 Albuterol Sulfate 3 ML Q6 PRN 01/17 0045 AC INH Ceftriaxone Sodium 1,000 MG BID 01/17 900 AC 01/18 IV 0816 Docusate Sodium 100 MG DAILY NEEDED PRN 01/16 2315 AC PO Enoxaparin Sodium 40 MG DAILY 01/17 900 AC 01/18 SC 0816 Guaifenesin/Codeine 10 ML Q6P PRN 01/17 0130 AC Phosphate PO Metronidazole 500 MG Q8H 01/17 0630 AC 01/18 N/A 1 UNIT IV 0654 Ondansetron HCl 4 MG Q6P PRN 01/17 0845 AC 01/18 IV 1149 Oxycodone/ 1 TAB Q4P PRN 01/17 0845 AC 01/18 Acetaminophen PO 1148 Polyethylene Glycol 17 GM AT BEDTIME PRN 01/16 2330 AC PO Senna/Docusate Sodium 1 TAB AT BEDTIME PRN 01/16 2330 AC PO Sodium Chloride 1,000 ML CONTINOUS INFUSION 01/16 2315 AC 01/17 IV 2302 Vancomycin HCl 1,000 MG Q12H 01/17 0530 AC 01/18 Sodium Chloride 250 ML IV 0435 Last 24 Hrs of Lab/Cecilio Results Last 24 Hrs of Labs/Mics: Laboratory Tests 01/18/18 0755: CBC w Diff NO MAN DIFF REQ, RBC 3.27 L, MCV 78.0 L, MCH 24.9 L, MCHC 31.9 L, RDW 17.7 H, MPV 7.3 L, Gran % 81.4 H, Lymphocytes % 11.1 L, Monocytes % 5.2, Eosinophils % 2.0, Basophils % 0.3, Absolute Granulocytes 8.7 H, Absolute Lymphocytes 1.2, Absolute Monocytes 0.6, Absolute Eosinophils 0.2, Absolute Basophils 0 Assessment/Plan Assessment: 37 y/o F with PMH of with a PMH of UC s/p total abdominal colectomy s/p end ileostomy after failing medical therapy that comes to the ED complaining of LLQ abdominal pain, fever, and a exquisitely tender right labia majora collection. Her symptoms are likely multifactorial. CT abdomen and pelvis in the ED showed notable bowel wall thickening about an enteroenteric anastomosis left abdomen consistent of acute inflammatory bowel disease; on the other hand, her cellulitis of the right labia majora could indeed be the culprit of her symptoms. She was admitted for further management of the following issues: 01/18: Afebrile overnight with leukocytosis resolved to 10.7 on IV antibiotics. Patient has worsening pain. Area of labial swelling, erythema tender towswelling. Ultrasound this morning consistent with right labial cellulitis. Seen by surgical team this morning who recommends clear diet and NPO after midnight for possible I/D in the AM under anesthesia. Follow up with GI, OBGYN recs. ID Consulted recommends discontinuing ceftriaxone and adding IV clindamycin 600 q8 x 6 doses. Follow up vanc trough in AM. PROBLEM LIST: 1. Right labial cellulitis 2. Enteritis at surgical anastomosis site PLAN: * Clear diet today - NPO after midnight for possible I/D in AM * Flagyl 500 mg TID and vancomycin; Added Clindamycin 600 q8 X 6doses as per ID to decrease staph aureus toxin production * Vanc trough in AM * CT did not show any drainable fluid in right groin area; RUQ US consistent with right labial cellulitis - will consider translabial US * F/u GI consult, OBYN. ID consultation for area of fluctulance. * Appreciate General Surgery recommendations - will keep patient NPO after midnight for possible I/D in AM * F/u blood, urine cultures, wound cultures; Genital cx: Staph Aureus FULL CODE Diet: NPO DVT PPx: Problem List: 1. Labial abscess 2. Inflammatory bowel disease 3. Cellulitis of labia majora 4. Obesity Pain Ratin Pain Location: Labium Pain Goal: Pain 4 or less Pain Plan: as per pain pathway Tomorrow's Labs & Rationales: cbc bep
[2018-01-18 09:30] LABS: ABSOLUTE BASOPHIL COUNT 0 /CUMM (0.0-0.2); ABSOLUTE EOSINOPHIL COUNT 0.2 /CUMM (0.0-0.7); ABSOLUTE GRANULOCYTE CT 8.7 /CUMM (1.4-6.5); ABSOLUTE LYMPH COUNT 1.2 /CUMM (1.2-3.4); ABSOLUTE MONOCYTE COUNT 0.6 /CUMM (0.10-0.60); BASOPHIL % 0.3 % (0.0-2.0); GRANULOCYTE % 81.4 % (42.2-75.2); HEMATOCRIT 25.5 % (37-47); MEAN CORPUSCULAR HGB 24.9 PG (27.0-31.0); MEAN CORPUSCULAR HGB CONC 31.9 G/DL (33.0-37.0); MEAN PLATELET VOLUME 7.3 FL (7.4-10.4); PLATELET COUNT 459 /CUMM (130-400); RBC DISTRIBUTION WIDTH 17.7 % (11.5-14.5); RED BLOOD CELL CT 3.27 /CUMM (4.20-5.40); WHITE BLOOD CELL COUNT 10.7 /CUMM (4.8-10.8)
--- NOTE | 2018-01-18 09:30 | ULTRASOUND REPORT ---
EXAMINATION: US SUPERFICIAL IMAGING, EXTREMITY CLINICAL INFORMATION: 37-year-old female with right labial cellulitis/abscess. COMPARISON: CT of the abdomen and pelvis done on 01/16/2018. TECHNIQUE: Targeted ultrasound of the both labia was performed (left labia was done for comparison only). FINDINGS: Significant asymmetric soft tissue thickening, and mild hypervascularity are noted involving the right labia when compared to the normal left side, consistent with right labial cellulitis. No discrete focal fluid collection suggestive of superimposed abscess formation identified. IMPRESSION: Consistent with right labial cellulitis.
--- NOTE | 2018-01-18 11:08 | PN- General Surgery ---
Surgical Brief Attending Note Brief Attending Note: Patient is afebrile and leukocytosis has improved However, has worsening right-sided labial cellulitis CT scan and now labial ultrasound with no discrete drainable abscess Patient is on IV antibiotic Recommend: Consult infectious disease If the cellulitis progresses we will plan to do exam under anesthesia tomorrow in the operating room with possible I&D Patient okay to have clear liquids today should be n.p.o. after mid
--- NOTE | 2018-01-18 13:16 | PN- OBGYN ---
See Addendum Surgical Brief Attending Note Brief Attending Note: Patient appears comfortable in bed, watching TV. She is hungry. States her pain has not changed. No new symptoms. afebrile, HR 86 Skin - warm, dry Abd - soft, NT, nondistended, no guarding or rebound Labia - 2 small stains of purulent material on a pad she's wearing, right labium seems less taut and less red than yesterday, there is no extension of the marked extent of erythema, and today I'm able to press more on the swelling than yesterday. No opening or drainage hole is seen. Again, there is no fluctuance. Extr - benign Ultrasound, labs, and cultures reviewed A: right labial cellulitis without a drainable collection, as confirmed with local sonography initial culture suspicious for MRSA, sensitivities pending, pt. on IV Vanco /Rocephin/Flagyl, afebrile since admission. I think the labial swelling and redness have decreased somewhat since yesterday although the patient feels no difference. The ice packs helped. P: continue IV antibiotics, C&S pending, ice packs PRN if no improvement in pain soon suggest ID consult P:
--- NOTE | 2018-01-18 13:38 | PN- Pulmonary ---
Subjective HPI/Critical Care Issues: DOing ok but still in pain Afebrile wbc down Objective Current Medications: Current Medications Sig/Raymond Start time Last Medication Dose Route Stop Time Status Admin Acetaminophen 650 MG Q6P PRN 01/16 2315 AC PO Acetaminophen 1,000 MG Q6P PRN 01/16 2315 AC 01/18 IV 0013 Albuterol Sulfate 3 ML Q6 PRN 01/17 0045 AC INH Ceftriaxone Sodium 1,000 MG BID 01/17 900 AC 01/18 IV 0816 Docusate Sodium 100 MG DAILY NEEDED PRN 01/16 231 AC PO Enoxaparin Sodium 40 MG DAILY 01/17 900 AC 01/18 SC 0816 Guaifenesin/Codeine 10 ML Q6P PRN 01/17 0130 AC Phosphate PO Metronidazole 500 MG Q8H 01/17 630 01/18 N/A 1 UNIT IV 0654 Ondansetron HCl 4 MG Q6P PRN 01/18 0845 AC 01/18 IV 1149 Oxycodone/ 1 TAB Q4P PRN 01/17 845 01/18 Acetaminophen PO 1148 Polyethylene Glycol 17 GM AT BEDTIME PRN 01/16 2330 AC PO Senna/Docusate Sodium 1 TAB AT BEDTIME PRN 01/16 2330 AC PO Sodium Chloride 1,000 ML CONTINOUS INFUSION 01/16 2315 AC 01/17 IV 2302 Vancomycin HCl 1,000 MG Q12H 01/17 0530 AC 01/18 Sodium Chloride 250 ML IV 0435 Vital Signs & I&O Last 24 Hrs of Vitals and I&O: Vital Signs Date Time Temp Pulse Resp B/P B/P Pulse O2 O2 Flow FiO2 Mean Ox Delivery Rate 01/18 634 98.0 64 20 126/72 97 01/17 2219 98.2 77 18 132/70 98 Room Air 01/17 1439 99.4 75 18 126/60 97 Intake & Output 01/18 1600 01/18 0801/18 0000 Intake Total 1000 680 Output Total 200 Balance 800 680 Intake, IV 1000 500 Intake, Oral 180 Output, Stool 200 Laboratory Tests 01/18 01/17 0755 0700 Chemistry Sodium (137 - 145 mmol/L) 136 L Potassium (3.5 - 5.1 mmol/L) 3.8 Chloride (98 - 107 mmol/L) 107 Carbon Dioxide (22 - 30 mmol/L) 22 Anion Gap (5 - 16) 7 BUN (7 - 17 mg/dL) 4 L Creatinine (0.5 - 1.0 mg/dL) 0.7 Estimated GFR (>60 ml/min) > 60 BUN/Creatinine Ratio (7 - 25 %) 5.7 L Hematology CBC w Diff NO MAN DIFF REQ NO MAN DIFF REQ WBC (4.8 - 10.8 /CUMM) 10.7 14.2 H RBC (4.20 - 5.40 /CUMM) 3.27 L 3.26 L Hgb (12.0 - 16.0 G/DL) 8.1 L 8.2 L Hct (37 - 47 %) 25.5 L 25.7 L MCV (81.0 - 99.0 FL) 78.0 L 78.7 L MCH (27.0 - 31.0 PG) 24.9 L 25.2 L MCHC (33.0 - 37.0 G/DL) 31.9 L 32.0 L RDW (11.5 - 14.5 %) 17.7 H 17.2 H Plt Count (130 - 400 /CUMM) 459 H 428 H MPV (7.4 - 10.4 FL) 7.3 L 7.5 Gran % (42.2 - 75.2 %) 81.4 H 84.7 H Lymphocytes % (20.5 - 51.1 %) 11.1 L 8.8 L Monocytes % (1.7 - 9.3 %) 5.2 5.7 Eosinophils % (0 - 5 %) 2.0 0.6 Basophils % (0.0 - 2.0 %) 0.3 0.2 Absolute Granulocytes (1.4 - 6.5 /CUMM) 8.7 H 12.0 H Absolute Lymphocytes (1.2 - 3.4 /CUMM) 1.2 1.3 Absolute Monocytes (0.10 - 0.60 /CUMM) 0.6 0.8 H Absolute Eosinophils (0.0 - 0.7 /CUMM) 0.2 0.1 Absolute Basophils (0.0 - 0.2 /CUMM) 0 0 /01/16 2030 1745 Chemistry Sodium (137 - 145 mmol/L) 135 L Potassium (3.5 - 5.1 mmol/L) 3.7 Chloride (98 - 107 mmol/L) 102 Carbon Dioxide (22 - 30 mmol/L) 25 Anion Gap (5 - 16) 8 BUN (7 - 17 mg/dL) 5 L Creatinine (0.5 - 1.0 mg/dL) 0.8 Estimated GFR (>60 ml/min) > 60 BUN/Creatinine Ratio (7 - 25 %) 6.3 L Glucose (65 - 99 mg/dL) 98 Lactic Acid (0.7 - 2.1 mmol/L) Cancelled 1.2 Calcium (8.4 - 10.2 mg/dL) 9.0 Phosphorus (2.5 - 4.5 mg/dL) 3.1 Magnesium (1.6 - 2.3 mg/dL) 1.7 Total Bilirubin (0.2 - 1.3 mg/dL) 0.4 AST (14 - 36 U/L) 19 ALT (9 - 52 U/L) 32 Alkaline Phosphatase (<127 U/L) 86 Total Protein (6.3 - 8.2 g/dL) 6.7 Albumin (3.5 - 5.0 g/dL) 3.7 Globulin (1.9 - 4.2 gm/dL) 3.0 Albumin/Globulin Ratio (1.1 - 2.2 %) 1.2 Hematology CBC w Diff MAN DIFF ORDERED WBC (4.8 - 10.8 /CUMM) 17.0 H RBC (4.20 - 5.40 /CUMM) 3.85 L Hgb (12.0 - 16.0 G/DL) 9.7 L Hct (37 - 47 %) 29.9 L MCV (81.0 - 99.0 FL) 77.5 L MCH (27.0 - 31.0 PG) 25.2 L MCHC (33.0 - 37.0 G/DL) 32.5 L RDW (11.5 - 14.5 %) 16.9 H Plt Count (130 - 400 /CUMM) 535 H MPV (7.4 - 10.4 FL) 7.3 L Gran % (42.2 - 75.2 %) 89.9 H Lymphocytes % (20.5 - 51.1 %) 4.7 L Monocytes % (1.7 - 9.3 %) 5.2 Eosinophils % (0 - 5 %) 0 Basophils % (0.0 - 2.0 %) 0.2 Absolute Granulocytes (1.4 - 6.5 /CUMM) 15.3 H Segmented Neutrophils (42.2 - 75.2 %) 87 H Band Neutrophils (0.0 - 5.0 %) 0 Absolute Lymphocytes (1.2 - 3.4 /CUMM) 0.8 L Lymphocytes (20.5 - 51.1 %) 9 L Monocytes (1.7 - 9.3 %) 3 Absolute Monocytes (0.10 - 0.60 /CUMM) 0.9 H Absolute Eosinophils (0.0 - 0.7 /CUMM) 0 Basophils (0.0 - 2.0 %) 1 Absolute Basophils (0.0 - 0.2 /CUMM) 0 Platelet Estimate (ADEQUATE) VERIFIED BY SMEAR Normocytic RBCs VERIFIED Normochromic RBCs VERIFIED Other Body Source Fld Total RBCs Counted (%) 100 01/16 1736 Urines Urine Color (YEL,AMB,STR) YEL Urine Clarity (CLEAR) HAZY H Urine pH (5.0 - 8.0) 6.0 Ur Specific [place] (1.001 - 1.035) >= 1.030 Urine Protein (NEG,<30 MG/DL) NEG Urine Ketones (NEG) 15 H Urine Nitrite (NEG) NEG Urine Bilirubin (NEG) NEG Urine Urobilinogen (0.1 - 1.0 EU/dl) 0.2 Ur Leukocyte Esterase (NEG) NEG Ur Microscopic SEDIMENT EXAMINED Urine RBC (0 - 5 /HPF) 1-3 Urine WBC (0 - 2 /HPF) 1-3 H Ur Epithelial Cells (NONE,FEW) MANY H Urine Bacteria (NEG/NONE) MOD H Urine Mucus (FEW,NONE) MOD H Urine Hemoglobin (NEG) NEG Urine Glucose (N MG/DL) NEG Urine Test NEGATIVE Microbiology Date/Time Procedure - Status Source Growth 01/18 920 Cryptosporidium Antigen - RECD GI 01/18 920 Giardia Antigen (TRAY) - RECD GI 01/18 920 Clostridium difficile Toxin A & B - RES STOOL 01/18 920 Stool Culture - RES STOOL 01/16 2313 Anaerobic Culture - RES GENITAL 01/16 2313 Genital Culture - RES GENITAL STAPH AUREUS 01/16 2311 Body Fluid Culture - CAN BODY FLUID Cancelled: WRONG ORDER ENTERY 01/16 2311 Gram Stain - CAN BODY FLUID Cancelled: WRONG ORDER ENTERY 01/16 175 Blood Culture - RES BLOOD 01/16 1745 Blood Culture - RES BLOOD 01/16 1736 Urine Culture - COMP URINE ROUT Impression/Plan Impression/Plan Impression/Plan: General Appearance: well developed/nourished, alert, awake, comfortable Head: atraumatic, normal appearance Eyes: Bilateral: normal appearance. Neck: normal inspection, supple, full range of motion Respiratory: normal breath sounds, no respiratory distress Cardiovascular: regular rate/rhythm, Normal S1 and S2 without rub, murmur or gallop Gastrointestinal: normal bowel sounds, soft, non-tender, mid-line, surgical scar well-healed Extremities: normal inspection, no edema Neurologic/Psych: no motor/sensory deficits, awake, alert, oriented x 3, normal mood/affect Skin: intact, normal color, warm/dry Reproductive: Swelling erythema and edema with fluctuance, right labia majora This is a 37-year-old woman with ulcerative colitis,was on sig steroids, previous biologic agents came in with with total colectomy, end ileostomy and SB resection and anastamosis, now with sig cellulitis in the vulva, no fluid collection noted, no sig evidence of necrotizing issue, rule out fistula (ct does not show) Ultrasound no fluid collection Clinically still in pain, but no fever, and reducing leuckocytosis and not tachy REC /PLAN IV abx per id A1c Cortisol level Npo after midnight for exam and I and D Discussed with the family
--- NOTE | 2018-01-18 13:50 | Cons- Infect Disease ---
General Information and HPI Consulting Request Date of Consult: 01/18/18 Requested By: Viktor Calabrese MD Reason for Consult: abx advice Source of Information: patient Exam Limitations: no limitations History of Present Illness: 37 y/o F with a PMH of UC (failed biologics tx) s/p recent total abdominal colectomy and ileostomy presented to the ED on 01/16 complaining of LLQ abdominal pain, fever, and a exquisitely tender right labia majora collection. She states the pain started three days ago as a constant, sharp, 8/10 pain at its worst that prompted her to come to the ED the day before admission; patient was sent home on oral antibiotics (? Bactrim). As she failed to improved she returned to the ED; the right labial abscess was increased in size (" the size of a golf ball"). She also states she had fever and chills since the symptoms began. She has been shaving daily the pubic area. She denies hematuria, dysuria, changes in color or consistency of stools. Currently afebrile, reports mild nausea and poor appetite. Allergies/Medications Allergies: Coded Allergies: erythromycin base (From ERYTHROCIN) (Intermediate, HIVES 09/24/17) Penicillins (RASH 04/07/17) amoxicillin (RASH 04/07/17) Home Med List: Ergocalciferol (Vitamin D2) (Vitamin D2) 50,000 UNIT CAPSULE 1 CAP PO QSUN SUPPLEMENT (Reported) Sulfamethoxazole/Trimethoprim (Bactrim Ds Tablet) 800 MG-160 MG TABLET 1 TAB PO BID abscess Current Medications: Current Medications Sig/Raymond Start time Last Medication Dose Route Stop Time Status Admin Acetaminophen 650 MG Q6P PRN 01/16 2315 AC PO Acetaminophen 1,000 MG Q6P PRN 01/16 2315 AC 01/18 IV 0013 Albuterol Sulfate 3 ML Q6 PRN 01/17 0045 AC INH Ceftriaxone Sodium 1,000 MG BID 01/17 900 AC 01/18 IV 0816 Docusate Sodium 100 MG DAILY NEEDED PRN 01/16 2315 AC PO Enoxaparin Sodium 40 MG DAILY 01/17 900 AC 01/18 SC 0816 Guaifenesin/Codeine 10 ML Q6P PRN 01/17 0130 AC Phosphate PO Metronidazole 500 MG Q8H 01/17 0630 AC 01/18 N/A 1 UNIT IV 0654 Ondansetron HCl 4 MG Q6P PRN 01/17 0845 AC 01/18 IV 1149 Oxycodone/ 1 TAB Q4P PRN 01/17 0845 01/18 Acetaminophen PO 1148 Polyethylene Glycol 17 GM AT BEDTIME PRN 01/16 2330 AC PO Senna/Docusate Sodium 1 TAB AT BEDTIME PRN 01/16 2330 AC PO Sodium Chloride 1,000 ML CONTINOUS INFUSION 01/16 2315 AC 01/17 IV 2302 Vancomycin HCl 1,000 MG Q12H 01/17 0530 AC 01/18 Sodium Chloride 250 ML IV 0435 Past History Travel History Traveled to [place] past 21 day No Medical History Blood Transfusion Hx: No Neurological: NONE EENT: NONE Cardiovascular: NONE Respiratory: NONE Gastrointestinal: umbilical hernia, IBD Hepatic: NONE Renal: NONE Musculoskeletal: NONE Psychiatric: NONE Endocrine: obesity (wt gain post prednisone), vitamin D deficiency Blood Disorders: anemia Cancer(s): NONE TEST TECH/Reproductive: NONE History of MRSA: No History of VRE: No History of CDIFF: No Isolation History: Standard Surgical History Surgical History: appendectomy (2014 at [facility]), colon resection, (x 2), hernia repair-umbilical, end ileostomy Family History Relations & Conditions If Any: MOTHER (post breast Ca x 2, DM, HTN, diverticulitis). Age 69. FATHER (ASHD, post CABG x 3, DM). Age 72. BROTHER (A&W- *UC, post colectomy). BROTHER (A&W). BROTHER (A&W). BROTHER (Ulcerative colitis). Relation not specified for: ulcerative colitis Psychosocial History Where Do You Live? Home Who Do You Live With? spouse, child Services at Home: None Primary Language: Tam[place] Smoking Status: Never Smoked ETOH Use: denies use Illicit Drug Use: denies illicit drug use Living Will? no Power of Turkish Line Attendant/HCP? no Functional Ability ADLs Independent: dressing, eating, toileting, bathing. Ambulation: independent IADLs Independent: shopping, housework, finances, food prep, telephone, transportation , medication admin. Employment History Employment: Unemployed Review of Systems Comments 12 points reviewed as noted, otherwise negative. Exam & Diagnostic Data Last 24 Hrs of Vital Signs/I&O Vital Signs Date Time Temp Pulse Resp B/P B/P Pulse O2 O2 Flow FiO2 Mean Ox Delivery Rate 01/18 0634 98.0 64 20 126/72 97 01/17 2219 98.2 77 18 132/70 98 Room Air 01/17 1439 99.4 75 18 126/60 97 Intake & Output 01/18 1600 01/18 0800 01/18 0000 Intake Total 1000 680 Output Total 200 Balance 800 680 Intake, IV 1000 500 Intake, Oral 180 Output, Stool 200 Physical Exam Other Physical Findings: General Appearance: BNAD, elev BMI >35 Skin: mild erythema, nonfluctulant on labium extending to the R upper thigh and SP area/local tenderness; w/o raised margins no crepitations. HEENT: PERRLA, Mucous Membr. moist/pink Neck: Supple, No JVD Cardiovascular: Regular Rate, Normal S1, Normal S2 Lungs: Clear to Auscultation, Normal Air Movement Abdomen: Soft, + BS, + ileostomy in place Vascular: Normal Pulses, Pulses Symmetrical Neuro: A&O x 3, non focal Last 24 Hours of Lab Results: Laboratory Tests 01/18 0755 Hematology CBC w Diff NO MAN DIFF REQ WBC (4.8 - 10.8 /CUMM) 10.7 RBC (4.20 - 5.40 /CUMM) 3.27 L Hgb (12.0 - 16.0 G/DL) 8.1 L Hct (37 - 47 %) 25.5 L MCV (81.0 - 99.0 FL) 78.0 L MCH (27.0 - 31.0 PG) 24.9 L MCHC (33.0 - 37.0 G/DL) 31.9 L RDW (11.5 - 14.5 %) 17.7 H Plt Count (130 - 400 /CUMM) 459 H MPV (7.4 - 10.4 FL) 7.3 L Gran % (42.2 - 75.2 %) 81.4 H Lymphocytes % (20.5 - 51.1 %) 11.1 L Monocytes % (1.7 - 9.3 %) 5.2 Eosinophils % (0 - 5 %) 2.0 Basophils % (0.0 - 2.0 %) 0.3 Absolute Granulocytes (1.4 - 6.5 /CUMM) 8.7 H Absolute Lymphocytes (1.2 - 3.4 /CUMM) 1.2 Absolute Monocytes (0.10 - 0.60 /CUMM) 0.6 Absolute Eosinophils (0.0 - 0.7 /CUMM) 0.2 Absolute Basophils (0.0 - 0.2 /CUMM) 0 Last 24 Hours of Cecilio Results: SPEC #: [id number] TYREL: 01/16/18 STATUS: RES RECD: 01/16/[address]: Ishaan Walls MD, [facility] SOURCE: GENITAL ENTR: 01/16/[address]: Guanakito OLIVIER, Viktor [facility]: GARRISON Maurer MD,Marin Mckeon ORDERED: GENITAL CULTURE, AN02 ADDON COMMENT: RIGHT LABIA MAJORA ABSCESS, CONFIRMED WITH Procedure Result > GENITAL CULTURE Preliminary 01/18/18 Light growth of: STAPH AUREUS ISOLATED NOTE THIS IS A PRELIMINARY REPORT: IF: patient has had significant exposure to a healthcare setting in the past three (3) months, THEN: suspect Methicillin Resistant Staph aureus and place patient on Contact precautions PENDING susceptibility results TO FOLLOW > ANO2 CULTURE REPORT Final 01/18/18 No anaerobes isolated after 2 days incubation Diagnostic Data Recent Imaging Findings: CT Pelvis IMPRESSION: 1. Interval postsurgical changes noted. There is notable bowel wall thickening about an enteroenteric anastomosis left abdomen. Appearance is consistent with presumably acute inflammatory bowel disease. 2. Small peristomal hernia without evidence of obstruction. 3. Right labial inflammatory process is isolated to the right labia. No fluid collection. DICTATED BY: Yosef De MD DATE/TIME DICTATED:01/16/181946 NUCLEAR EQUIPMENT DESIGN ENGINEER:SAMI DATE/TIME TRANSCRIBED:01/16/181946 EXAMINATION: US SUPERFICIAL IMAGING, EXTREMITY CLINICAL INFORMATION: 37-year-old female with right labial cellulitis/abscess. COMPARISON: CT of the abdomen and pelvis done on 01/16/2018. TECHNIQUE: Targeted ultrasound of the both labia was performed (left labia was done for comparison only). FINDINGS: Significant asymmetric soft tissue thickening, and mild hypervascularity are noted involving the right labia when compared to the normal left side, consistent with right labial cellulitis. No discrete focal fluid collection suggestive of superimposed abscess formation identified. IMPRESSION: Consistent with right labial cellulitis. DICTATED BY: Lynn Ornelas MD DATE/TIME DICTATED:01/18/18918 NUCLEAR EQUIPMENT DESIGN ENGINEER:SAMI DATE/TIME TRANSCRIBED:01/18/18918 Assessment/Plan Assessment/Plan Impression: 37 y/o F with a PMH of UC (failed biologics tx) s/p recent total abdominal colectomy and ileostomy admitted on 01/16 with fever. R labial abscess/cellulitis; clinical and imaging findings making necrotizing fasciitis less likely Leukocytosis/resolved Allergy PCN (rash) Suggestion: 1. Pending final abscess culture results continue iv vancomycin; dosed per pharmacy; goal trough 15-20; obtain trough 9/10 in am 30 min before the due dose. 2. Would favor stopping CTX; would add iv Clindamycin 600 mg iv q 8 h x6 doses (in order to decrease S. aureus toxin production). 3. Continue to trend CBC, BMP. 4. ESR/CRP in am. Consult Acknowledgment - Thank you for your consult request.
[2018-01-18 14:13] VITALS: BP 138/62
--- NOTE | 2018-01-18 18:29 | PN- Gastroenterology ---
Assessment/Plan GI Assessment/Recommendations: ASSESSMENT: 1. Abscess versus Cellulitis Right Labia Majora --Clindamycin added to antibiotic regimen 2. Inflammatory bowel disease --given changes at the surgical anastomosis involving small bowel this is suggestive of recurrent Crohn's disease. RECOMMENDATIONS: 1. Patient will need an I&D of the labial abscess if there is extension of the cellulitis 2. Patient has already made plans to seek a second opinion regarding her inflammatory bowel disease both in [place] ([facility]) and in [place]. I have discussed with her that a colonoscopy through her ileostomy may help confirm the diagnosis of Crohn's Disease, however, given the labial cellulitis, that should be deferred until that his adequately treated. 3. IBD Serologies should be ordered, however, this can be done as an outpatient as ordering them now will not likely change management administrator. 4. Continue IV antibiotics per ID. 5. I have discussed with the patient and her mother my concerns that the findings on CT as well as a labial cellulitis may actually represent signs and symptoms suggestive of Crohn's disease. All questions were answered. Subjective Subjective: Patient continues to have right labial pain. ID and SUMMER CHILD CAREGIVER notes are appreciated. CT scan of the abdomen and pelvis showed bowel wall thickening about the anastomosis left abdomen involving the opposing small bowel segments about the anastomosis. Marked somewhat eccentric small bowel thickening was noted with the bowel measuring up to 18 mm. ID has has added Clindamycin to the patient's regimen. If the cellulitis expands beyond drawn borders, Dr. Arriaga plans to do an exam / I&D in the OR under anesthesia. Objective Vital Signs and I&Os Vital Signs Date Time Temp Pulse Resp B/P B/P Pulse O2 O2 Flow FiO2 Mean Ox Delivery Rate 01/18 1413 98.0 71 20 138/62 99 Room Air 01/18 0634 98.0 64 20 126/72 97 01/17 2219 98.2 77 18 132/70 98 Room Air Intake & Output 01/18 0400 01/17 0400 01/16 0400 Intake Total 2075 680 1750 1250 Output Total 200 Balance 1277 727 9416 1250 Intake, IV 1361 922 9746 1250 Intake, Oral 200 180 Output, Stool 200 Patient 220 lb Weight Physical Exam General Appearance: alert, awake, comfortable Neck: supple, full range of motion Respiratory: normal breath sounds, lungs clear Cardiovascular: regular rate/rhythm Abdomen: normal bowel sounds, soft, non-tender Neurologic/Psychiatric: awake, alert, oriented x 3, normal mood/affect Current Medications: Current Medications Sig/Raymond Start time Last Medication Dose Route Stop Time Status Admin Acetaminophen 650 MG Q6P PRN 01/16 2315 AC PO Acetaminophen 1,000 MG Q6P PRN 01/16 2315 AC 01/18 IV 0013 Albuterol Sulfate 3 ML Q6 PRN 01/17 0045 AC INH Ceftriaxone Sodium 1,000 MG BID 01/17 900 DC 01/18 IV 0816 Clindamycin 600 MG IQ8 01/18 1600 AC Dextrose/Water 50 ML IV Docusate Sodium 100 MG DAILY NEEDED PRN 01/16 231 AC PO Enoxaparin Sodium 40 MG DAILY 01/17 900 AC 01/18 SC 0816 Ergocalciferol 50,000 IU ONCE ONE 01/18 1415 DC 01/18 PO 01/18 1416 1632 Guaifenesin/Codeine 10 ML Q6P PRN 01/17 0130 AC Phosphate PO Metronidazole 500 MG Q8H 01/17 0630 AC 01/18 N/A 1 UNIT IV 1632 Ondansetron HCl 4 MG Q6P PRN 01/17 0845 AC 01/18 IV 1149 Oxycodone/ 1 TAB Q4P PRN 01/17 0845 AC 01/18 Acetaminophen PO 1632 Polyethylene Glycol 17 GM AT BEDTIME PRN 01/16 2330 AC PO Senna/Docusate Sodium 1 TAB AT BEDTIME PRN 01/16 2330 AC PO Sodium Chloride 1,000 ML CONTINOUS INFUSION 01/16 2315 AC 01/17 IV 2302 Vancomycin HCl 1,000 MG Q12H 01/17 0530 AC 01/18 Sodium Chloride 250 ML IV 0435 Results Pertinent Lab Results: Laboratory Tests 01/18 01/17 0755 0700 Chemistry Sodium (137 - 145 mmol/L) 136 L Potassium (3.5 - 5.1 mmol/L) 3.8 Chloride (98 - 107 mmol/L) 107 Carbon Dioxide (22 - 30 mmol/L) 22 Anion Gap (5 - 16) 7 BUN (7 - 17 mg/dL) 4 L Creatinine (0.5 - 1.0 mg/dL) 0.7 Estimated GFR (>60 ml/min) > 60 BUN/Creatinine Ratio (7 - 25 %) 5.7 L Hematology CBC w Diff NO MAN DIFF REQ NO MAN DIFF REQ WBC (4.8 - 10.8 /CUMM) 10.7 14.2 H RBC (4.20 - 5.40 /CUMM) 3.27 L 3.26 L Hgb (12.0 - 16.0 G/DL) 8.1 L 8.2 L Hct (37 - 47 %) 25.5 L 25.7 L MCV (81.0 - 99.0 FL) 78.0 L 78.7 L MCH (27.0 - 31.0 PG) 24.9 L 25.2 L MCHC (33.0 - 37.0 G/DL) 31.9 L 32.0 L RDW (11.5 - 14.5 %) 17.7 H 17.2 H Plt Count (130 - 400 /CUMM) 459 H 428 H MPV (7.4 - 10.4 FL) 7.3 L 7.5 Gran % (42.2 - 75.2 %) 81.4 H 84.7 H Lymphocytes % (20.5 - 51.1 %) 11.1 L 8.8 L Monocytes % (1.7 - 9.3 %) 5.2 5.7 Eosinophils % (0 - 5 %) 2.0 0.6 Basophils % (0.0 - 2.0 %) 0.3 0.2 Absolute Granulocytes (1.4 - 6.5 /CUMM) 8.7 H 12.0 H Absolute Lymphocytes (1.2 - 3.4 /CUMM) 1.2 1.3 Absolute Monocytes (0.10 - 0.60 /CUMM) 0.6 0.8 H Absolute Eosinophils (0.0 - 0.7 /CUMM) 0.2 0.1 Absolute Basophils (0.0 - 0.2 /CUMM) 0 0 01/16 01/16 2030 1745 Chemistry Sodium (137 - 145 mmol/L) 135 L Potassium (3.5 - 5.1 mmol/L) 3.7 Chloride (98 - 107 mmol/L) 102 Carbon Dioxide (22 - 30 mmol/L) 25 Anion Gap (5 - 16) 8 BUN (7 - 17 mg/dL) 5 L Creatinine (0.5 - 1.0 mg/dL) 0.8 Estimated GFR (>60 ml/min) > 60 BUN/Creatinine Ratio (7 - 25 %) 6.3 L Glucose (65 - 99 mg/dL) 98 Lactic Acid (0.7 - 2.1 mmol/L) Cancelled 1.2 Calcium (8.4 - 10.2 mg/dL) 9.0 Phosphorus (2.5 - 4.5 mg/dL) 3.1 Magnesium (1.6 - 2.3 mg/dL) 1.7 Total Bilirubin (0.2 - 1.3 mg/dL) 0.4 AST (14 - 36 U/L) 19 ALT (9 - 52 U/L) 32 Alkaline Phosphatase (<127 U/L) 86 Total Protein (6.3 - 8.2 g/dL) 6.7 Albumin (3.5 - 5.0 g/dL) 3.7 Globulin (1.9 - 4.2 gm/dL) 3.0 Albumin/Globulin Ratio (1.1 - 2.2 %) 1.2 Hematology CBC w Diff MAN DIFF ORDERED WBC (4.8 - 10.8 /CUMM) 17.0 H RBC (4.20 - 5.40 /CUMM) 3.85 L Hgb (12.0 - 16.0 G/DL) 9.7 L Hct (37 - 47 %) 29.9 L MCV (81.0 - 99.0 FL) 77.5 L MCH (27.0 - 31.0 PG) 25.2 L MCHC (33.0 - 37.0 G/DL) 32.5 L RDW (11.5 - 14.5 %) 16.9 H Plt Count (130 - 400 /CUMM) 535 H MPV (7.4 - 10.4 FL) 7.3 L Gran % (42.2 - 75.2 %) 89.9 H Lymphocytes % (20.5 - 51.1 %) 4.7 L Monocytes % (1.7 - 9.3 %) 5.2 Eosinophils % (0 - 5 %) 0 Basophils % (0.0 - 2.0 %) 0.2 Absolute Granulocytes (1.4 - 6.5 /CUMM) 15.3 H Segmented Neutrophils (42.2 - 75.2 %) 87 H Band Neutrophils (0.0 - 5.0 %) 0 Absolute Lymphocytes (1.2 - 3.4 /CUMM) 0.8 L Lymphocytes (20.5 - 51.1 %) 9 L Monocytes (1.7 - 9.3 %) 3 Absolute Monocytes (0.10 - 0.60 /CUMM) 0.9 H Absolute Eosinophils (0.0 - 0.7 /CUMM) 0 Basophils (0.0 - 2.0 %) 1 Absolute Basophils (0.0 - 0.2 /CUMM) 0 Platelet Estimate (ADEQUATE) VERIFIED BY SMEAR Normocytic RBCs VERIFIED Normochromic RBCs VERIFIED Other Body Source Fld Total RBCs Counted (%) 100 / 1736 Urines Urine Color (YEL,AMB,STR) YEL Urine Clarity (CLEAR) HAZY H Urine pH (5.0 - 8.0) 6.0 Ur Specific [place] (1.001 - 1.035) >= 1.030 Urine Protein (NEG,<30 MG/DL) NEG Urine Ketones (NEG) 15 H Urine Nitrite (NEG) NEG Urine Bilirubin (NEG) NEG Urine Urobilinogen (0.1 - 1.0 EU/dl) 0.2 Ur Leukocyte Esterase (NEG) NEG Ur Microscopic SEDIMENT EXAMINED Urine RBC (0 - 5 /HPF) 1-3 Urine WBC (0 - 2 /HPF) 1-3 H Ur Epithelial Cells (NONE,FEW) MANY H Urine Bacteria (NEG/NONE) MOD H Urine Mucus (FEW,NONE) MOD H Urine Hemoglobin (NEG) NEG Urine Glucose (N MG/DL) NEG Urine Test NEGATIVE
[2018-01-18 22:05] VITALS: BP 144/82
--- NOTE | 2018-01-19 06:55 | PN- Housestaff ---
Subjective Follow-up For: R labia majora cellulitis LLQ pain Complaints: no complaints Subjective: Pt seen and examined today. She complains of pain being "about the same" in groin area. She is however afebrile. Patient will be taken for an I/D tomorrow. She will be NPO overnight. She looks visibly in pain, though breathing room air with 99% O2 sat. No increased swelling. Review of Systems Constitutional: Reports: see HPI. Objective Last 24 Hrs of Vital Signs/I&O Vital Signs Date Time Temp Pulse Resp B/P B/P Pulse O2 O2 Flow FiO2 Mean Ox Delivery Rate 01/19 713 97.7 58 18 130/80 99 01/18 2205 98.5 58 18 144/82 100 Room Air 01/18 1413 98.0 71 20 138/62 99 Room Air Intake & Output 01/19 1600 01/19 0800 01/19 0000 Intake Total 1566 1250 Output Total Balance 1566 1250 Intake, IV 1566 1250 Physical Exam General Appearance: Alert, Oriented X3, Cooperative, Moderate Distress HEENT: Atraumatic, PERRLA, EOMI Neck: Supple Cardiovascular: Regular Rate, Normal S1, Normal S2, No Murmurs Lungs: Clear to Auscultation Abdomen: Normal Bowel Sounds, Soft, Slight diffuse tenderness across all abdominal quadrants on palpation Neurological: Normal Speech Extremities: No Edema Reproductive (FEMALE) Noted right labia majora swelling and tenderness, within drawn borders Current Medications: Current Medications Sig/Raymond Start time Last Medication Dose Route Stop Time Status Admin Acetaminophen 650 MG Q6P PRN 01/165 AC PO Acetaminophen 1,000 MG Q6P PRN 01/16 2315 AC 01/18 IV 0013 Albuterol Sulfate 3 ML Q6 PRN 01/17 0045 AC INH Ceftriaxone Sodium 1,000 MG BID 01/17 900 DC 01/18 IV 0816 Clindamycin 600 MG IQ8 01/18 1600 AC 01/19 Dextrose/Water 50 ML IV 0829 Diphenhydramine HCl 1 DIDI Q6P PRN 01/18 2300 01/18 TOP 2324 Docusate Sodium 100 MG DAILY NEEDED PRN 01/16 231 AC PO Enoxaparin Sodium 40 MG DAILY 01/17 900 AC 01/18 SC 0816 Ergocalciferol 50,000 IU ONCE ONE 01/18 1415 DC 01/18 PO 01/18 1416 1632 Guaifenesin/Codeine 10 ML Q6P PRN 01/17 0130 AC Phosphate PO Metronidazole 500 MG Q8H 01/17 0630 AC 01/19 N/A 1 UNIT IV 0536 Ondansetron HCl 4 MG Q6P PRN 01/17 0845 AC 01/19 IV 0458 Oxycodone/ 1 TAB Q4P PRN 01/17 0845 AC 01/19 Acetaminophen PO 0659 Polyethylene Glycol 17 GM AT BEDTIME PRN 01/16 2330 AC PO Senna/Docusate Sodium 1 TAB AT BEDTIME PRN 01/16 2330 AC PO Sodium Chloride 1,000 ML Q8H 01/19 0400 AC 01/19 IV 0359 Sodium Chloride 1,000 ML CONTINOUS INFUSION 01/16 2315 AC 01/17 IV 2302 Vancomycin HCl 1,000 MG Q12H 01/17 0530 AC 01/19 Sodium Chloride 250 ML IV 0433 Last 24 Hrs of Lab/Cecilio Results Last 24 Hrs of Labs/Mics: Laboratory Tests 01/19/18 0225: Vancomycin Trough 9.3 L Assessment/Plan Assessment: 37 y/o F with PMH of with a PMH of UC s/p total abdominal colectomy s/p end ileostomy after failing medical therapy that comes to the ED complaining of LLQ abdominal pain, fever, and a exquisitely tender right labia majora collection. Her symptoms are likely multifactorial. CT abdomen and pelvis in the ED showed notable bowel wall thickening about an enteroenteric anastomosis left abdomen consistent of acute inflammatory bowel disease; on the other hand, her cellulitis of the right labia majora could indeed be the culprit of her symptoms. She was admitted for further management of the following issues: PROBLEM LIST: 1. Right labial cellulitis 2. Enteritis at surgical anastomosis site PLAN: * Flagyl 500 mg TID and vancomycin; Added Clindamycin 600 q8 X 6doses (dose #3 given at the time of review) as per ID to decrease staph aureus toxin production. * Vanc through - 9.3, low. Goal 10-15. * CT did not show any drainable fluid in right groin area; RUQ US consistent with right labial cellulitis. * F/u GI consult, OBYN, ID consultation. * Appreciate General Surgery recommendations -I/D tomorrow in AM; will be NPO overnight. * Blood cultures, urine cultures, stool cultures - No growth so far. * Genital culture: Staph Aureus FULL CODE Diet: NPO at midnight for OR tomorrow DVT PPx: Problem List: 1. Cellulitis of labia majora 2. Inflammatory bowel disease Pain Ratin Pain Location: right labia majora Pain Goal: Pain 4 or less Pain Plan: as indicated Tomorrow's Labs & Rationales: cbc, bep
[2018-01-19 07:13] VITALS: BP 130/80
--- NOTE | 2018-01-19 09:01 | PN- General Surgery ---
Surgical Brief Attending Note Brief Attending Note: Now having spontaneous drainage from previous right labial incision Labial swelling has improved Remains afebrile Plan: Patient okay to eat today-please make n.p.o. after midnight tonight I will try to arrange exam under anesthesia with flexible sigmoidoscopy for tomorrow to rule out anorectal fistula to labia
[2018-01-19 10:01] LABS: ABSOLUTE BASOPHIL COUNT 0 /CUMM (0.0-0.2); ABSOLUTE EOSINOPHIL COUNT 0.2 /CUMM (0.0-0.7); ABSOLUTE GRANULOCYTE CT 5.1 /CUMM (1.4-6.5); ABSOLUTE LYMPH COUNT 1.3 /CUMM (1.2-3.4); ABSOLUTE MONOCYTE COUNT 0.4 /CUMM (0.10-0.60); BASOPHIL % 0.5 % (0.0-2.0); EOSINOPHIL % 2.8 % (0-5); GRANULOCYTE % 71.8 % (42.2-75.2); HEMATOCRIT 27.4 % (37-47); MEAN CORPUSCULAR HGB 25.2 PG (27.0-31.0); MEAN CORPUSCULAR HGB CONC 32.2 G/DL (33.0-37.0); MEAN CORPUSCULAR VOLUME 78.2 FL (81.0-99.0); MEAN PLATELET VOLUME 7.3 FL (7.4-10.4); PLATELET COUNT 475 /CUMM (130-400); RBC DISTRIBUTION WIDTH 17.2 % (11.5-14.5); RED BLOOD CELL CT 3.51 /CUMM (4.20-5.40); WHITE BLOOD CELL COUNT 7.1 /CUMM (4.8-10.8)
--- NOTE | 2018-01-19 10:33 | PN- Gastroenterology ---
Assessment/Plan GI Assessment/Recommendations: ASSESSMENT: 1. Abscess versus Cellulitis Right Labia Majora --Clindamycin added to antibiotic regimen with decrease in inflammatory changes 2. Inflammatory bowel disease --given changes at the surgical anastomosis involving small bowel this is suggestive of recurrent Crohn's disease. RECOMMENDATIONS: 1. Patient will need an I&D of the labial abscess if there is extension of the cellulitis. 2. Discussed with Dr. Arriaga. He plans rectal exam under anesthesia tomorrow to evaluate for possible fistulous disease. I have also asked that he do an endoscopy through the ileostomy for biopsy of the small bowel given anastomotic changes seen on CT which likely represent changes of small bowel Crohn's Disease. 3. IBD Serologies should be ordered, however, this can be done as an outpatient as ordering them now will not likely size changer. 4. Continue IV antibiotics per ID. Subjective Subjective: Patient has had some decrease in the size of the labial swelling, but has not had significant decrease in discomfort or pain. Denies pneumaturia. Has not had any stool from vaginal vault or admixed in urine. Discussed with Dr. Arriaga who plans rectal exam under anesthesia tomorrow. Pathology has been reviewed by [facility] and they feel it is still most consistent with ulcerative colitis. Review of Systems Constitutional: Denies: chills, diaphoresis, fever, malaise. Gastrointestinal: Denies: bloody stool, vomiting. Genitourinary: Denies: discharge, dysuria, frequency, hematuria. Objective Vital Signs and I&Os Vital Signs Date Time Temp Pulse Resp B/P B/P Pulse O2 O2 Flow FiO2 Mean Ox Delivery Rate 01/19 0713 97.7 58 18 130/80 99 01/18 2205 98.5 58 18 144/82 100 Room Air 01/18 1413 98.0 71 20 138/62 99 Room Air Intake & Output 01/19 1600 01/19 0400 01/18 1600 01/18 0400 01/17 1600 01/17 0400 Intake Total 1566 1250 2075 680 1750 1250 Output Total 200 Balance 1566 1250 9330 782 8099 1250 Intake, IV 1566 1250 1427 850 6929 1250 Intake, Oral 200 180 Output, Stool 200 Patient 220 lb Weight Physical Exam General Appearance: comfortable Respiratory: no respiratory distress Abdomen: normal bowel sounds, soft, non-tender Neurologic/Psychiatric: oriented x 3, normal mood/affect Current Medications: Current Medications Sig/Raymond Start time Last Medication Dose Route Stop Time Status Admin Acetaminophen 650 MG Q6P PRN 01/16 231 AC PO Acetaminophen 1,000 MG Q6P PRN 01/16 2315 AC 01/18 IV 0013 Albuterol Sulfate 3 ML Q6 PRN 01/17 0045 AC INH Ceftriaxone Sodium 1,000 MG BID 01/17 900 DC 01/18 IV 0816 Clindamycin 600 MG IQ8 01/18 1600 AC 01/19 Dextrose/Water 50 ML IV 0829 Diphenhydramine HCl 1 DIDI Q6P PRN 01/18 2300 AC 01/18 TOP 2324 Docusate Sodium 100 MG DAILY NEEDED PRN 01/16 231 AC PO Enoxaparin Sodium 40 MG DAILY 01/17 900 AC 01/18 SC 0816 Ergocalciferol 50,000 IU ONCE ONE 01/18 1415 DC 01/18 PO 01/18 1416 1632 Guaifenesin/Codeine 10 ML Q6P PRN 01/17 0130 AC Phosphate PO Metronidazole 500 MG Q8H 01/17 0630 AC 01/19 N/A 1 UNIT IV 0536 Ondansetron HCl 4 MG Q6P PRN 01/17 0845 AC 01/19 IV 0947 Oxycodone/ 1 TAB Q4P PRN 01/17 0845 AC 01/19 Acetaminophen PO 0659 Polyethylene Glycol 17 GM AT BEDTIME PRN 01/16 2330 AC PO Senna/Docusate Sodium 1 TAB AT BEDTIME PRN 01/16 2330 AC PO Sodium Chloride 1,000 ML Q8H 01/19 0400 AC 01/19 IV 0359 Sodium Chloride 1,000 ML CONTINOUS INFUSION 01/16 231 AC 01/17 IV 2302 Vancomycin HCl 1,000 MG Q12H 01/17 0530 AC 01/19 Sodium Chloride 250 ML IV 0433 Results Pertinent Lab Results: Laboratory Tests 01/1933 0225 Chemistry Sodium (137 - 145 mmol/L) 137 Potassium (3.5 - 5.1 mmol/L) 3.4 L Chloride (98 - 107 mmol/L) 107 Carbon Dioxide (22 - 30 mmol/L) 22 Anion Gap (5 - 16) 8 BUN (7 - 17 mg/dL) 2 L Creatinine (0.5 - 1.0 mg/dL) 0.6 Estimated GFR (>60 ml/min) > 60 BUN/Creatinine Ratio (7 - 25 %) 3.3 L Hemoglobin A1c (4.2 - 5.8 %) 5.4 C-Reactive Prot, Quant (<1.0 mg/dL) 6.4 H Cortisol AM Sample (4.46 - 22.7 ug/dL) Pending Hematology CBC w Diff NO MAN DIFF REQ WBC (4.8 - 10.8 /CUMM) 7.1 RBC (4.20 - 5.40 /CUMM) 3.51 L Hgb (12.0 - 16.0 G/DL) 8.8 L Hct (37 - 47 %) 27.4 L MCV (81.0 - 99.0 FL) 78.2 L MCH (27.0 - 31.0 PG) 25.2 L MCHC (33.0 - 37.0 G/DL) 32.2 L RDW (11.5 - 14.5 %) 17.2 H Plt Count (130 - 400 /CUMM) 475 H MPV (7.4 - 10.4 FL) 7.3 L Gran % (42.2 - 75.2 %) 71.8 Lymphocytes % (20.5 - 51.1 %) 18.6 L Monocytes % (1.7 - 9.3 %) 6.3 Eosinophils % (0 - 5 %) 2.8 Basophils % (0.0 - 2.0 %) 0.5 Absolute Granulocytes (1.4 - 6.5 /CUMM) 5.1 Absolute Lymphocytes (1.2 - 3.4 /CUMM) 1.3 Absolute Monocytes (0.10 - 0.60 /CUMM) 0.4 Absolute Eosinophils (0.0 - 0.7 /CUMM) 0.2 Absolute Basophils (0.0 - 0.2 /CUMM) 0 ESR Westergren (0 - 20 MM) Pending Toxicology Vancomycin Trough (10.0 - 20.0 ug/mL) 9.3 L 01/18 01/17 0755 0700 Chemistry Sodium (137 - 145 mmol/L) 136 L Potassium (3.5 - 5.1 mmol/L) 3.8 Chloride (98 - 107 mmol/L) 107 Carbon Dioxide (22 - 30 mmol/L) 22 Anion Gap (5 - 16) 7 BUN (7 - 17 mg/dL) 4 L Creatinine (0.5 - 1.0 mg/dL) 0.7 Estimated GFR (>60 ml/min) > 60 BUN/Creatinine Ratio (7 - 25 %) 5.7 L Hematology CBC w Diff NO MAN DIFF REQ NO MAN DIFF REQ WBC (4.8 - 10.8 /CUMM) 10.7 14.2 H RBC (4.20 - 5.40 /CUMM) 3.27 L 3.26 L Hgb (12.0 - 16.0 G/DL) 8.1 L 8.2 L Hct (37 - 47 %) 25.5 L 25.7 L MCV (81.0 - 99.0 FL) 78.0 L 78.7 L MCH (27.0 - 31.0 PG) 24.9 L 25.2 L MCHC (33.0 - 37.0 G/DL) 31.9 L 32.0 L RDW (11.5 - 14.5 %) 17.7 H 17.2 H Plt Count (130 - 400 /CUMM) 459 H 428 H MPV (7.4 - 10.4 FL) 7.3 L 7.5 Gran % (42.2 - 75.2 %) 81.4 H 84.7 H Lymphocytes % (20.5 - 51.1 %) 11.1 L 8.8 L Monocytes % (1.7 - 9.3 %) 5.2 5.7 Eosinophils % (0 - 5 %) 2.0 0.6 Basophils % (0.0 - 2.0 %) 0.3 0.2 Absolute Granulocytes (1.4 - 6.5 /CUMM) 8.7 H 12.0 H Absolute Lymphocytes (1.2 - 3.4 /CUMM) 1.2 1.3 Absolute Monocytes (0.10 - 0.60 /CUMM) 0.6 0.8 H Absolute Eosinophils (0.0 - 0.7 /CUMM) 0.2 0.1 Absolute Basophils (0.0 - 0.2 /CUMM) 0 0 /07 01/16 2030 1745 Chemistry Sodium (137 - 145 mmol/L) 135 L Potassium (3.5 - 5.1 mmol/L) 3.7 Chloride (98 - 107 mmol/L) 102 Carbon Dioxide (22 - 30 mmol/L) 25 Anion Gap (5 - 16) 8 BUN (7 - 17 mg/dL) 5 L Creatinine (0.5 - 1.0 mg/dL) 0.8 Estimated GFR (>60 ml/min) > 60 BUN/Creatinine Ratio (7 - 25 %) 6.3 L Glucose (65 - 99 mg/dL) 98 Lactic Acid (0.7 - 2.1 mmol/L) Cancelled 1.2 Calcium (8.4 - 10.2 mg/dL) 9.0 Phosphorus (2.5 - 4.5 mg/dL) 3.1 Magnesium (1.6 - 2.3 mg/dL) 1.7 Total Bilirubin (0.2 - 1.3 mg/dL) 0.4 AST (14 - 36 U/L) 19 ALT (9 - 52 U/L) 32 Alkaline Phosphatase (<127 U/L) 86 Total Protein (6.3 - 8.2 g/dL) 6.7 Albumin (3.5 - 5.0 g/dL) 3.7 Globulin (1.9 - 4.2 gm/dL) 3.0 Albumin/Globulin Ratio (1.1 - 2.2 %) 1.2 Hematology CBC w Diff MAN DIFF ORDERED WBC (4.8 - 10.8 /CUMM) 17.0 H RBC (4.20 - 5.40 /CUMM) 3.85 L Hgb (12.0 - 16.0 G/DL) 9.7 L Hct (37 - 47 %) 29.9 L MCV (81.0 - 99.0 FL) 77.5 L MCH (27.0 - 31.0 PG) 25.2 L MCHC (33.0 - 37.0 G/DL) 32.5 L RDW (11.5 - 14.5 %) 16.9 H Plt Count (130 - 400 /CUMM) 535 H MPV (7.4 - 10.4 FL) 7.3 L Gran % (42.2 - 75.2 %) 89.9 H Lymphocytes % (20.5 - 51.1 %) 4.7 L Monocytes % (1.7 - 9.3 %) 5.2 Eosinophils % (0 - 5 %) 0 Basophils % (0.0 - 2.0 %) 0.2 Absolute Granulocytes (1.4 - 6.5 /CUMM) 15.3 H Segmented Neutrophils (42.2 - 75.2 %) 87 H Band Neutrophils (0.0 - 5.0 %) 0 Absolute Lymphocytes (1.2 - 3.4 /CUMM) 0.8 L Lymphocytes (20.5 - 51.1 %) 9 L Monocytes (1.7 - 9.3 %) 3 Absolute Monocytes (0.10 - 0.60 /CUMM) 0.9 H Absolute Eosinophils (0.0 - 0.7 /CUMM) 0 Basophils (0.0 - 2.0 %) 1 Absolute Basophils (0.0 - 0.2 /CUMM) 0 Platelet Estimate (ADEQUATE) VERIFIED BY SMEAR Normocytic RBCs VERIFIED Normochromic RBCs VERIFIED Other Body Source Fld Total RBCs Counted (%) 100 01/16 1736 Urines Urine Color (YEL,AMB,STR) YEL Urine Clarity (CLEAR) HAZY H Urine pH (5.0 - 8.0) 6.0 Ur Specific [place] (1.001 - 1.035) >= 1.030 Urine Protein (NEG,<30 MG/DL) NEG Urine Ketones (NEG) 15 H Urine Nitrite (NEG) NEG Urine Bilirubin (NEG) NEG Urine Urobilinogen (0.1 - 1.0 EU/dl) 0.2 Ur Leukocyte Esterase (NEG) NEG Ur Microscopic SEDIMENT EXAMINED Urine RBC (0 - 5 /HPF) 1-3 Urine WBC (0 - 2 /HPF) 1-3 H Ur Epithelial Cells (NONE,FEW) MANY H Urine Bacteria (NEG/NONE) MOD H Urine Mucus (FEW,NONE) MOD H Urine Hemoglobin (NEG) NEG Urine Glucose (N MG/DL) NEG Urine Test NEGATIVE
--- NOTE | 2018-01-19 11:09 | PN- Infect Dx ---
Subjective Subjective: No fever or chills; feeling better; area of redness decreased Review of Systems Comments: 12 points reviewed as noted, otherwise negative. Objective Last 24 Hrs of Vital Signs/I&O Vital Signs Date Time Temp Pulse Resp B/P B/P Pulse O2 O2 Flow FiO2 Mean Ox Delivery Rate 01/19 713 97.7 58 18 130/80 99 01/18 2205 98.5 58 18 144/82 100 Room Air 01/18 1413 98.0 71 20 138/62 99 Room Air Intake & Output 01/19 1600 01/19 0800 01/19 0000 Intake Total 1566 1250 Output Total Balance 1566 1250 Intake, IV 1566 1250 Physical Exam Other Physical Findings: General Appearance: BNAD, elev BMI >35 Skin: minimal overlying erythema, induration on labium local tenderness HEENT: PERRLA, Mucous Membr. moist/pink Neck: Supple, No JVD Cardiovascular: Regular Rate, Normal S1, Normal S2 Lungs: Clear to Auscultation, Normal Air Movement Abdomen: Soft, + BS, + ileostomy in place Vascular: Normal Pulses, Pulses Symmetrical Neuro: A&O x 3, non focal Results Last 24 Hours of Lab Results: Laboratory Tests 01/19 01/19 0833 0225 Chemistry Sodium (137 - 145 mmol/L) 137 Potassium (3.5 - 5.1 mmol/L) 3.4 L Chloride (98 - 107 mmol/L) 107 Carbon Dioxide (22 - 30 mmol/L) 22 Anion Gap (5 - 16) 8 BUN (7 - 17 mg/dL) 2 L Creatinine (0.5 - 1.0 mg/dL) 0.6 Estimated GFR (>60 ml/min) > 60 BUN/Creatinine Ratio (7 - 25 %) 3.3 L Hemoglobin A1c (4.2 - 5.8 %) 5.4 C-Reactive Prot, Quant (<1.0 mg/dL) 6.4 H Cortisol AM Sample (4.46 - 22.7 ug/dL) 5.8 Hematology CBC w Diff NO MAN DIFF REQ WBC (4.8 - 10.8 /CUMM) 7.1 RBC (4.20 - 5.40 /CUMM) 3.51 L Hgb (12.0 - 16.0 G/DL) 8.8 L Hct (37 - 47 %) 27.4 L MCV (81.0 - 99.0 FL) 78.2 L MCH (27.0 - 31.0 PG) 25.2 L MCHC (33.0 - 37.0 G/DL) 32.2 L RDW (11.5 - 14.5 %) 17.2 H Plt Count (130 - 400 /CUMM) 475 H MPV (7.4 - 10.4 FL) 7.3 L Gran % (42.2 - 75.2 %) 71.8 Lymphocytes % (20.5 - 51.1 %) 18.6 L Monocytes % (1.7 - 9.3 %) 6.3 Eosinophils % (0 - 5 %) 2.8 Basophils % (0.0 - 2.0 %) 0.5 Absolute Granulocytes (1.4 - 6.5 /CUMM) 5.1 Absolute Lymphocytes (1.2 - 3.4 /CUMM) 1.3 Absolute Monocytes (0.10 - 0.60 /CUMM) 0.4 Absolute Eosinophils (0.0 - 0.7 /CUMM) 0.2 Absolute Basophils (0.0 - 0.2 /CUMM) 0 ESR Westergren (0 - 20 MM) 50 H Toxicology Vancomycin Trough (10.0 - 20.0 ug/mL) 9.3 L Last 24 Hours of Cecilio Results: SPEC #: [id number] TYREL: 01/16/18 STATUS: COMP RECD: 01/16/[address] [facility] [address]: Ishaan Walls MD, [facility] SOURCE: GENITAL ENTR: 01/16/18 [facility] DR: Guanakito OLIVIER, [facility] GARRISON Maurer MD,Marin Mckeon ORDERED: GENITAL CULTURE, AN02 ADDON COMMENT: RIGHT LABIA MAJORA ABSCESS, CONFIRMED WITH Procedure Result > GENITAL CULTURE Final 01/19/18-1010 Light growth of: METH RESIST STAPH AUREUS ISOLATED Called to/Readback by NASRA by LAB.GEOK 01/19/18 1009 1. METH RESIST STAPH AUREUS RX ABN ------ --- 1. METH RESIST STAPH AUREUS RX AB ------ -- CEFAZOLIN R AMOXICILLIN/CLAVULINIC ACID R AMPICILLIN/SULBACTAM R TETRACYCLINE S TRIMETHOPRIM/SULFAMETHOXAZOLE S AZITHROMYCIN R CLINDAMYCIN S ERYTHROMYCIN R OXACILLIN R VANCOMYCIN S ATTENTIONATTENTIONPLACE PATIENT ON CONTACT PRECAUTIONS > ANO2 CULTURE REPORT Final 01/18/18-1223 No anaerobes isolated after 2 days incubation Recent Imaging Studies: reviewed Assessment/Plan ID Impression: 37 y/o F with a PMH of UC (failed biologics tx) s/p recent total abdominal colectomy and ileostomy admitted on 01/16 with fever. MRSA R labial abscess/cellulitis; clinically improvoing Leukocytosis/resolved Allergy PCN (rash) Suggestion: 1. Continue iv vancomycin; dosed per pharmacy; goal trough 10-15; trough today close to therapeutic range. 2. Clindamycin started 01/18 600 mg iv q 8 h x6 doses (in order to decrease S. aureus toxin production). 3. F/U sx recom.
--- NOTE | 2018-01-19 13:06 | Cons- OBGYN ---
General Information and HPI Consulting Request Date of Consult: 01/19/18 Requested By: Erasto OLIVIER,Marin Mckeon Reason for Consult: vulvar lesion Source of Information: patient Exam Limitations: no limitations History of Present Illness: pt admitted after failed ER I&D of vulvar lesion now on appropriate antibiotics after culture results improving Allergies/Medications Allergies: Coded Allergies: erythromycin base (From ERYTHROCIN) (Intermediate, HIVES 09/24/17) Penicillins (RASH 04/07/17) amoxicillin (RASH 04/07/17) Home Med List: Ergocalciferol (Vitamin D2) (Vitamin D2) 50,000 UNIT CAPSULE 1 CAP PO QSUN SUPPLEMENT (Reported) Sulfamethoxazole/Trimethoprim (Bactrim Ds Tablet) 800 MG-160 MG TABLET 1 TAB PO BID abscess Current Medications: Current Medications Sig/Raymond Start time Last Medication Dose Route Stop Time Status Admin Acetaminophen 650 MG Q6P PRN 01/16 2315 AC PO Acetaminophen 1,000 MG Q6P PRN 01/16 2315 AC 01/18 IV 0013 Albuterol Sulfate 3 ML Q6 PRN 01/17 0045 AC INH Ceftriaxone Sodium 1,000 MG BID 01/17 900 DC 01/18 IV 0816 Clindamycin 600 MG IQ8 01/18 1600 AC 01/19 Dextrose/Water 50 ML IV 0829 Diphenhydramine HCl 1 DIDI Q6P PRN 01/18 2300 AC 01/18 TOP 2324 Docusate Sodium 100 MG DAILY NEEDED PRN 01/16 2315 AC PO Enoxaparin Sodium 40 MG DAILY 01/17 900 AC 01/18 SC 0816 Ergocalciferol 50,000 IU ONCE ONE 01/18 1415 DC 01/18 PO 01/18 1416 1632 Guaifenesin/Codeine 10 ML Q6P PRN 01/17 0130 AC Phosphate PO Metronidazole 500 MG Q8H 01/17 0630 AC 01/19 N/A 1 UNIT IV 0536 Ondansetron HCl 4 MG Q6P PRN 01/17 0845 AC 01/19 IV 0947 Oxycodone/ 1 TAB Q4P PRN 01/17 0845 AC 01/19 Acetaminophen PO 0659 Polyethylene Glycol 17 GM AT BEDTIME PRN 01/16 2330 AC PO Senna/Docusate Sodium 1 TAB AT BEDTIME PRN 01/16 2330 AC PO Sodium Chloride 1,000 ML Q8H 01/19 0400 AC 01/19 IV 1215 Sodium Chloride 1,000 ML CONTINOUS INFUSION 01/16 2315 AC 01/17 IV 2302 Vancomycin HCl 1,000 MG Q12H 01/17 0530 AC 01/19 Sodium Chloride 250 ML IV 0433 Past History Medical History Blood Transfusion Hx: No Neurological: NONE EENT: NONE Cardiovascular: NONE Respiratory: NONE Gastrointestinal: umbilical hernia, IBD Hepatic: NONE Renal: NONE Musculoskeletal: NONE Psychiatric: NONE Endocrine: obesity (wt gain post prednisone), vitamin D deficiency Blood Disorders: anemia Cancer(s): NONE FRONT OFFICE MANAGER/Reproductive: NONE Surgical History Pertinent Surgical History: appendectomy (2014 at [facility]), colon resection, c- section (x 2), hernia repair-umbilical, end ileostomy Family History Relations & Conditions If Any: MOTHER (post breast Ca x 2, DM, HTN, diverticulitis). Age 69. FATHER (ASHD, post CABG x 3, DM). Age 72. BROTHER (A&W- *UC, post colectomy). BROTHER (A&W). BROTHER (A&W). BROTHER (Ulcerative colitis). Relation not specified for: ulcerative colitis Psychosocial History Where Do You Live? Home Who Do You Live With? spouse, child Services at Home: None Primary Language: Angolan Smoking Status: Never Smoked ETOH Use: denies use Illicit Drug Use: denies illicit drug use Living Will? no Power of President Celebrity Acquistion/HCP? no Functional Ability ADLs Independent: dressing, eating, toileting, bathing. Ambulation: independent IADLs Independent: shopping, housework, finances, food prep, telephone, transportation , medication admin. Employment History Employment: Unemployed Retired? no Review of Systems Review of Systems Constitutional: Denies: chills, fever. EENTM: Denies: blurred vision, double vision, visual changes. Cardiovascular: Denies: chest pain. Respiratory: Denies: short of breath. GI: Denies: distention, nausea, vomiting. Exam & Diagnostic Data Vital Signs and I&O Vital Signs Date Time Temp Pulse Resp B/P B/P Pulse O2 O2 Flow FiO2 Mean Ox Delivery Rate 01/19 07 97.7 58 18 130/80 99 01/18 2205 98.5 58 18 144/82 100 Room Air 01/18 1413 98.0 71 20 138/62 99 Room Air Intake & Output 01/19 1600 01/19 0801/19 0000 01/18 1600 01/18 0800 01/18 0000 Intake Total 1566 1250 1075 1000 680 Output Total 200 Balance 1566 1250 1075 800 680 Intake, IV 1566 4327 973 5971 500 Intake, Oral 200 180 Output, Stool 200 Physical Exam General Appearance: no apparent distress, alert, awake, comfortable Pelvic: edema of right vulva and right side of mons no fluctuation Last 24 Hours of Labs: Laboratory Tests 01/19 01/19 0833 0225 Chemistry Sodium (137 - 145 mmol/L) 137 Potassium (3.5 - 5.1 mmol/L) 3.4 L Chloride (98 - 107 mmol/L) 107 Carbon Dioxide (22 - 30 mmol/L) 22 Anion Gap (5 - 16) 8 BUN (7 - 17 mg/dL) 2 L Creatinine (0.5 - 1.0 mg/dL) 0.6 Estimated GFR (>60 ml/min) > 60 BUN/Creatinine Ratio (7 - 25 %) 3.3 L Hemoglobin A1c (4.2 - 5.8 %) 5.4 C-Reactive Prot, Quant (<1.0 mg/dL) 6.4 H Cortisol AM Sample (4.46 - 22.7 ug/dL) 5.8 Hematology CBC w Diff NO MAN DIFF REQ WBC (4.8 - 10.8 /CUMM) 7.1 RBC (4.20 - 5.40 /CUMM) 3.51 L Hgb (12.0 - 16.0 G/DL) 8.8 L Hct (37 - 47 %) 27.4 L MCV (81.0 - 99.0 FL) 78.2 L MCH (27.0 - 31.0 PG) 25.2 L MCHC (33.0 - 37.0 G/DL) 32.2 L RDW (11.5 - 14.5 %) 17.2 H Plt Count (130 - 400 /CUMM) 475 H MPV (7.4 - 10.4 FL) 7.3 L Gran % (42.2 - 75.2 %) 71.8 Lymphocytes % (20.5 - 51.1 %) 18.6 L Monocytes % (1.7 - 9.3 %) 6.3 Eosinophils % (0 - 5 %) 2.8 Basophils % (0.0 - 2.0 %) 0.5 Absolute Granulocytes (1.4 - 6.5 /CUMM) 5.1 Absolute Lymphocytes (1.2 - 3.4 /CUMM) 1.3 Absolute Monocytes (0.10 - 0.60 /CUMM) 0.4 Absolute Eosinophils (0.0 - 0.7 /CUMM) 0.2 Absolute Basophils (0.0 - 0.2 /CUMM) 0 ESR Westergren (0 - 20 MM) 50 H Toxicology Vancomycin Trough (10.0 - 20.0 ug/mL) 9.3 L Assessment/Plan Assessment/Plan labial cellulitis responding to antibiotics will follow Problem List: 1. Cellulitis of labia majora Consult Acknowledgment - Thank you for your consult request. Attending MD Review Statement Attending Statement Attending MD Statement: examined this patient
--- NOTE | 2018-01-19 14:11 | PN- Pulmonary ---
Subjective HPI/Critical Care Issues: No fever or chills; feeling better; area of redness decreased now has MRSA Objective Current Medications: Current Medications Sig/Raymond Start time Last Medication Dose Route Stop Time Status Admin Acetaminophen 650 MG Q6P PRN 01/16 231 AC PO Acetaminophen 1,000 MG Q6P PRN 01/16 2315 AC 01/18 IV 0013 Albuterol Sulfate 3 ML Q6 PRN 01/17 0045 AC INH Ceftriaxone Sodium 1,000 MG BID 01/17 900 DC 01/18 IV 0816 Clindamycin 600 MG IQ8 01/18 1600 AC 01/19 Dextrose/Water 50 ML IV 01/20 0829 0829 Diphenhydramine HCl 1 DIDI Q6P PRN 01/18 2300 01/18 TOP 2324 Docusate Sodium 100 MG DAILY NEEDED PRN 01/16 231 AC PO Enoxaparin Sodium 40 MG DAILY 01/17 900 AC 01/18 SC 0816 Ergocalciferol 50,000 IU ONCE ONE 01/18 1415 DC 01/18 PO 01/18 1416 1632 Guaifenesin/Codeine 10 ML Q6P PRN 01/17 0130 AC Phosphate PO Metronidazole 500 MG Q8H 01/17 0630 AC 01/19 N/A 1 UNIT IV 0536 Ondansetron HCl 4 MG Q6P PRN 01/17 0845 AC 01/19 IV 0947 Oxycodone/ 1 TAB Q4P PRN 01/17 0845 01/19 Acetaminophen PO 0659 Polyethylene Glycol 17 GM AT BEDTIME PRN 01/16 2330 AC PO Senna/Docusate Sodium 1 TAB AT BEDTIME PRN 01/16 2330 AC PO Sodium Chloride 1,000 ML Q8H 01/19 0400 AC 01/19 IV 1215 Sodium Chloride 1,000 ML CONTINOUS INFUSION 01/16 2315 AC 01/17 IV 2302 Vancomycin HCl 1,000 MG Q12H 01/17 0530 AC 01/19 Sodium Chloride 250 ML IV 0433 Vital Signs & I&O Last 24 Hrs of Vitals and I&O: Vital Signs Date Time Temp Pulse Resp B/P B/P Pulse O2 O2 Flow FiO2 Mean Ox Delivery Rate 01/19 713 97.7 58 18 130/80 99 01/18 2205 98.5 58 18 144/82 100 Room Air 01/18 1413 98.0 71 20 138/62 99 Room Air Intake & Output 01/19 1600 01/19 0800 01/19 0000 Intake Total 1566 1250 Output Total Balance 1566 1250 Intake, IV 1566 1250 Impression/Plan Impression/Plan Impression/Plan: General Appearance: well developed/nourished, alert, awake, comfortable Head: atraumatic, normal appearance Eyes: Bilateral: normal appearance. Neck: normal inspection, supple, full range of motion Respiratory: normal breath sounds, no respiratory distress Cardiovascular: regular rate/rhythm, Normal S1 and S2 without rub, murmur or gallop Gastrointestinal: normal bowel sounds, soft, non-tender, mid-line, surgical scar well-healed Extremities: normal inspection, no edema Neurologic/Psych: no motor/sensory deficits, awake, alert, oriented x 3, normal mood/affect Skin: intact, normal color, warm/dry Reproductive: Swelling erythema and edema with fluctuance, right labia majora This is a 37-year-old woman with ulcerative colitis,was on sig steroids, previous biologic agents came in with with total colectomy, end ileostomy and SB resection and anastamosis, now with sig cellulitis in the vulva, no fluid collection noted, no sig evidence of necrotizing issue, rule out fistula (ct does not show) Ultrasound no fluid collection Clinically improving, but no fever, and reducing leuckocytosis and not tachy REC /PLAN IV abx per id Npo after midnight for exam by surg
[2018-01-19 14:51] VITALS: BP 130/70
[2018-01-19 21:00] VITALS: BP 140/80
[2018-01-20 06:06] VITALS: BP 138/82
--- NOTE | 2018-01-20 06:31 | PN- Housestaff ---
Subjective Follow-up For: R labia majora cellulitis LLQ pain Subjective: Patient was in the OR today, when I examined her she was just back fromthe OR and was sleeping. She stated reduced pain and swelling . But was hungry and was eager to eat. Review of Systems Constitutional: Reports: see HPI. Objective Last 24 Hrs of Vital Signs/I&O Vital Signs Date Time Temp Pulse Resp B/P B/P Pulse O2 O2 Flow FiO2 Mean Ox Delivery Rate 01/20 2213 98.3 68 20 120/62 97 Room Air 01/20 1426 98.5 73 20 140/78 96 Room Air 01/20 0606 98.0 60 20 138/82 98 Room Air Intake & Output 01/20 1600 01/20 0800 01/20 0000 Intake Total 1400 1000 800 Output Total 1 Balance 1399 1000 800 Intake, IV 900 1000 500 Intake, Oral 500 300 Output, Stool 1 Physical Exam General Appearance: Alert, Oriented X3, Cooperative, No Acute Distress Cardiovascular: Regular Rate, No Murmurs Lungs: Clear to Auscultation, Normal Air Movement Abdomen: Normal Bowel Sounds, Soft, No Tenderness, No Hepatospenomegaly, No Masses Neurological: Normal Speech, Strength at 5/5 X4 Ext, Normal Tone, Sensation Intact Extremities: No Clubbing, No Cyanosis, No Edema, Normal Pulses, No Tenderness/ Swelling Current Medications: Current Medications Sig/Raymond Start time Last Medication Dose Route Stop Time Status Admin Acetaminophen 650 MG Q6P PRN 01/16 2315 AC PO Acetaminophen 1,000 MG Q6P PRN 01/16 2315 AC 01/20 IV 2009 Albuterol Sulfate 3 ML Q6 PRN 01/17 0045 AC INH Clindamycin 600 MG IQ8 01/18 1600 DC 01/20 Dextrose/Water 50 ML IV 01/20 08 1045 Dextrose/Sodium 1,000 ML Q13H 01/19 2355 DC Chloride IV Dextrose/Sodium 1,000 ML .Q8H 01/19 2345 DC 01/20 Chloride IV 0002 Diphenhydramine HCl 1 DIDI Q6P PRN 01/18 2300 01/18 TOP 2324 Docusate Sodium 100 MG DAILY NEEDED PRN 01/16 2315 AC PO Enoxaparin Sodium 40 MG DAILY 01/17 900 AC 01/20 SC 1052 Famotidine 0 .STK-MED ONE 01/20 0739 DC IV Fentanyl Citrate 0 .STK-MED ONE 01/20 0737 DC .ROUTE Guaifenesin/Codeine 10 ML Q6P PRN 01/17 0130 AC Phosphate PO Metronidazole 500 MG Q8H 01/17 0630 01/20 N/A 1 UNIT IV 1359 Midazolam HCl 0 .STK-MED ONE 01/20 0737 DC .ROUTE Ondansetron HCl 4 MG Q6P PRN 01/18 0845 01/20 IV 2009 Oxycodone/ 1 TAB Q4P PRN 01/17 0845 01/20 Acetaminophen PO 0516 Patient Medication 1 ED ONE ONE 01/20 1930 DC Teaching ED 01/20 193 Polyethylene Glycol 17 GM AT BEDTIME PRN 01/16 2330 AC PO Scopolamine HBr 0 .STK-MED ONE 01/20 0739 DC TOP Senna/Docusate Sodium 1 TAB AT BEDTIME PRN 01/16 2330 AC PO Sodium Chloride 1,000 ML Q8H 01/19 0400 [place] 01/19 IV 01/19 2350 1949 Sodium Chloride 1,000 ML CONTINOUS INFUSION 01/16 2315 WA 01/17 IV 2302 Vancomycin HCl 1,500 MG Q12H 01/20 1730 01/20 Sodium Chloride 250 ML IV 1753 Vancomycin HCl 1,000 MG Q12H 01/17 0530 WA 01/20 Sodium Chloride 250 ML IV 01/20 1729 0516 Last 24 Hrs of Lab/Cecilio Results Last 24 Hrs of Labs/Mics: Laboratory Tests 01/20/18 0755: Total Beta HCG Cancelled, Urine Test NEGATIVE Assessment/Plan Assessment: 37 y/o F with PMH of with a PMH of UC s/p total abdominal colectomy s/p end ileostomy after failing medical therapy that comes to the ED complaining of LLQ abdominal pain, fever, and a exquisitely tender right labia majora collection. Her symptoms are likely multifactorial. CT abdomen and pelvis in the ED showed notable bowel wall thickening about an enteroenteric anastomosis left abdomen consistent of acute inflammatory bowel disease; on the other hand, her cellulitis of the right labia majora could indeed be the culprit of her symptoms. She was admitted for further management of the following issues: PROBLEM LIST: 1. Right labial cellulitis 2. Enteritis at surgical anastomosis site PLAN: - WBC and temperatiure have been stable, -increase the dose of vancomycin to 1.5g day 4 and continue flagyl -Cx positive for MRSA - I and D considered if Fluctuance increases, otherwise continue ABX - There was no evidence of abscess or fistula on flexible endoscopy, Bipsy result to be f/u findings on endoscopy- Normal appearing terminal ileum to 10 cm -Severe proctitis of the Berg's pouch -Berg's pouch length 15 cm -GI stated - removing her rectum and forming a J pouch if proctitis is refractory to medical management . if pt is compliant , could try rowasa or canasa,for proctisis advanced to low fibre diet FULL CODE Diet:low fibre DVT PPx: Problem List: 1. Inflammatory bowel disease Pain Ratin Pain Location: labia Pain Goal: Remain pain free Pain Plan: tyelenol Tomorrow's Labs & Rationales: cbc, bep
--- NOTE | 2018-01-20 08:55 | Operative Report ---
Operative/Inv Procedure Report Surgery Date: 01/20/18 Name of Procedure: 1. Rectal exam under anesthesia 2. Flexible ileoscopy with biopsies 3. Flexible proctoscopy with biopsies Pre-Operative Diagnosis: 1. History of complicated inflammatory bowel disease 2. Labial abscess Post-Operative Diagnosis: Same Estimated Blood Loss: scant Surgeon/Lie Detector Operator: Dr Samir Arriaga Jr Anesthesia: laryngeal mask airway Monitors: Per routine Specimens: 1. Biopsies from ileum-normal appearing mucosa 2. Biopsies from rectum-severe proctitis Complications: None Condition: Good Operative Indication: This is a 29-year-old female with several history of ulcerative colitis Several months ago she presented to the hospital with worsening abdominal pain and was found to have perforation at her distal sigmoid She underwent urgent exploratory laparotomy with total abdominal colectomy and end. This presentation was atypical for ulcerative colitis and that she had isolated perforation without megacolon which raised the question as to whether or not her diagnosis was truly Crohn's. She was readmitted to the hospital several days ago with abdominal pain and a right labial. CT scan of the abdomen shows thickening around the small bowel anastomosis once again raising the question of change in diagnosis to Crohn's disease. This procedure is being done today to obtain further tissue for analysis and to see if her labial abscess actually originates in the rectum is an is a result of an anal fistula Operative/Procedure Note Note: Patient was made n.p.o. after midnight She was taken down to the operating room. In the operating room she underwent induction of anesthesia and placement of laryngeal mask airway. Her stoma collection device was removed the ileal mucosa appeared normal. Gentle digital exam of the stump was performed and then a well-lubricated adult size colonoscope was inserted. The small bowel mucosa appeared normal to about 10 cm multiple biopsies were taken. Next the patient was converted to lithotomy position. Visual inspection of the perineum was performed patient had impressive right labial swelling with some weeping purulent material. The anal margin tissue appeared normal. Digital rectal exam and bimanual exam demonstrated no evidence of perirectal abscess or fistula. Next well-lubricated adult size colonoscope was inserted transanally and advanced to the end of the Berg's pouch. The apex of the pouch was at 15 cm. The suture line was intact. Patient had impressive severe proctitis which was confluent. Multiple biopsies were performed. The scope was slowly withdrawn through the anal canal and the anal canal mucosa appeared severely inflamed with anoderm skin appeared normal. There was no evidence of abscess or fistula. Findings: Normal-appearing terminal ileum to 10 cm Severe proctitis of the Berg's pouch Berg's pouch length 15 cm No evidence of anal rectal abscess or fistula Impressive right labial cellulitis and inflammation Discharge Disposition: PACU CC: Erasto OLIVIER,Marin Mckeon; Parker OLIVIER,Jordan; Latha OLIVIER,Deandra
--- NOTE | 2018-01-20 10:04 | PN- Pulmonary ---
Subjective HPI/Critical Care Issues: Clinically stable IN or Objective Current Medications: Current Medications Sig/Raymond Start time Last Medication Dose Route Stop Time Status Admin Acetaminophen 650 MG Q6P PRN 01/16 2315 AC PO Acetaminophen 1,000 MG Q6P PRN 01/16 2315 AC 01/18 IV 0013 Albuterol Sulfate 3 ML Q6 PRN 01/17 0045 AC INH Clindamycin 600 MG IQ8 01/18 1600 DC 01/19 Dextrose/Water 50 ML IV 01/20 0829 2357 Dextrose/Sodium 1,000 ML Q13H 01/19 2355 DC Chloride IV Dextrose/Sodium 1,000 ML .Q8H 01/19 2345 AC 01/20 Chloride IV 0002 Diphenhydramine HCl 1 DIDI Q6P PRN 01/18 2300 AC 01/18 TOP 2324 Docusate Sodium 100 MG DAILY NEEDED PRN 01/16 231 AC PO Enoxaparin Sodium 40 MG DAILY 01/17 09 AC 01/18 SC 0816 Famotidine 0 .STK-MED ONE 01/20 739 DC IV Fentanyl Citrate 0 .STK-MED ONE 01/20 737 DC .ROUTE Guaifenesin/Codeine 10 ML Q6P PRN 01/17 0130 AC Phosphate PO Metoclopramide HCl 10 MG ONCE ONE 01/19 184 DC 01/19 PO 01/19 184 2111 Metoclopramide HCl 0 .STK-MED ONE 01/19 184 DC .ROUTE Metronidazole 500 MG Q8H 01/17 0630 AC 01/20 N/A 1 UNIT IV 0637 Midazolam HCl 0 .STK-MED ONE 01/20 737 DC .ROUTE Ondansetron HCl 4 MG Q6P PRN 01/17 0845 AC 01/20 IV 0516 Oxycodone/ 1 TAB Q4P PRN 01/17 0845 AC 01/20 Acetaminophen PO 0516 Polyethylene Glycol 17 GM AT BEDTIME PRN 01/16 2330 AC PO Potassium Chloride 40 MEQ ONCE ONE 01/19 1900 DC 01/19 PO 01/19 1901 1859 Potassium Chloride 40 MEQ ONCE ONE 01/19 1445 DC 01/19 PO 01/19 1446 1609 Scopolamine HBr 0 .STK-MED ONE 01/20 0739 DC TOP Senna/Docusate Sodium 1 TAB AT BEDTIME PRN 01/16 2330 AC PO Sodium Chloride 1,000 ML Q8H 01/19 0400 DC 01/19 IV 01/19 2350 1949 Sodium Chloride 1,000 ML CONTINOUS INFUSION 01/16 2315 DC 01/17 IV 2302 Vancomycin HCl 1,000 MG Q12H 01/17 0530 AC 01/20 Sodium Chloride 250 ML IV 0516 Vital Signs & I&O Last 24 Hrs of Vitals and I&O: Vital Signs Date Time Temp Pulse Resp B/P B/P Pulse O2 O2 Flow FiO2 Mean Ox Delivery Rate 01/20 0606 98.0 60 20 138/82 98 Room Air 01/19 2100 98.0 77 16 140/80 99 01/19 1451 98.3 75 18 130/70 99 Room Air Intake & Output 01/20 1600 01/20 0800 01/20 0000 Intake Total 1000 800 Output Total Balance 1000 800 Intake, IV 1000 500 Intake, Oral 300 Impression/Plan Impression/Plan Impression/Plan: Proctoscopy and ileoscopy and Findings: Normal-appearing terminal ileum to 10 cm Severe proctitis of the Berg's pouch Berg's pouch length 15 cm No evidence of anal rectal abscess or fistula Impressive right labial cellulitis and inflammation General Appearance: well developed/nourished, alert, awake, comfortable Head: atraumatic, normal appearance Eyes: Bilateral: normal appearance. Neck: normal inspection, supple, full range of motion Respiratory: normal breath sounds, no respiratory distress Cardiovascular: regular rate/rhythm, Normal S1 and S2 without rub, murmur or gallop Gastrointestinal: normal bowel sounds, soft, non-tender, mid-line, surgical scar well-healed Extremities: normal inspection, no edema Neurologic/Psych: no motor/sensory deficits, awake, alert, oriented x 3, normal mood/affect Skin: intact, normal color, warm/dry Reproductive: Swelling erythema and edema with fluctuance, right labia majora This is a 37-year-old woman with ulcerative colitis,was on sig steroids, previous biologic agents came in with with total colectomy, end ileostomy and SB resection and anastamosis, now with sig cellulitis in the vulva, no fluid collection noted, No evidence of sig fascitis and now rectoscopy shows severe UC with no sig fistula Clinically improving, but no fever, and reducing leuckocytosis and not tachy REC /PLAN IV abx per id Ask GI if she would need rx for severe colitis ie enema rx etc DC ivf
--- NOTE | 2018-01-20 11:46 | PN- OBGYN ---
Surgical Brief Attending Note Brief Attending Note: HD#4 Patient is resting in bed, c/o feels much better today, labia swollen decreased , a little drainage started today, no pain today, only slight burning sensation. PE: VSS. genital: Right labia edema, slight erythema, indurated area measure 3-4 cm in size, mild tender, no fluctuance, small drainage hole seen, minimal drainage upon expressed. Patient currently receiving IV antibiotics, will continue current management, may consider I&D if lesion is more soft and fluctuance. Plan of care discussed with the patient, she understand and agreed.
--- NOTE | 2018-01-20 12:56 | PN- Infect Dx ---
Subjective Subjective: Afebrile. OR findings from earlier today noted. She notes a decrease in size of the right labial swelling since yesterday, with spontaneous purulent drainage. Objective Last 24 Hrs of Vital Signs/I&O Vital Signs Date Time Temp Pulse Resp B/P B/P Pulse O2 O2 Flow FiO2 Mean Ox Delivery Rate 01/20 606 98.0 60 20 138/82 98 Room Air 01/19 2100 98.0 77 16 140/80 99 01/19 1451 98.3 75 18 130/70 99 Room Air Intake & Output 01/20 1600 01/20 0800 01/20 0000 Intake Total 1000 800 Output Total Balance 1000 800 Intake, IV 1000 500 Intake, Oral 300 Physical Exam Other Physical Findings: She appears comfortable in no acute distress right labial induration and tenderness, with purulent drainage easily expressed on minimal palpation; no erythema noted Results Last 24 Hours of Lab Results: Laboratory Tests 01/20 0755 Chemistry Total Beta HCG Cancelled Urines Urine Test NEGATIVE Last 24 Hours of Cecilio Results: No new cultures Assessment/Plan ID Impression: Stable, with her temperatures and white blood cell count now normal, on Vancomycin and Flagyl, Day 4 of treatment for a right labial abscess secondary to MRSA, status post I&D in the ER one day prior to admission, with the culture from that procedure and from one obtained on admission both positive for MRSA. Feel that she will benefit from more definitive drainage and this has been discussed with [facility] and Colorectal surgery. Her OR findings today are noted with no evidence for any fistula but with severe proctitis of the Berg's pouch noted. Suggestion: 1. Sitz baths or, if this is not feasible, warm compresses to the right labial area 2. Would reevaluate need for more effective drainage of the right labial abscess as discussed with [facility] 3. Increase Vancomycin to 1.5 g IV every 12 hours 4. Continue Flagyl
[2018-01-20 14:26] VITALS: BP 140/78
--- NOTE | 2018-01-20 14:45 | PN- Gastroenterology ---
Assessment/Plan GI Assessment/Recommendations: Assessment: Ms. Trent is a 37 year old female with IBD s/p subtotal colectomy with hartmans pouch and ileoscopy formation at the end of September readmitted with a labial abscess for which she underwent an exam under anesthesia today along with a pouchoscopy and distal ileoscopy which showed severe proctitis, but the distal ileum was normal in appearance which favors a diagnosis of UC. Making that determination at this point isn't absolutely necessary however as she can't get a biological agent such as xeljanx because of the infection and considering the active inflammation in her pouch re-anastomosis isn't going to be considered now anyway. Recommendations: 1. Abx and further I and d of rectal abscess per ID, OB and CRS. 2. Follow up pathology as an outpatient 3. Would give consideration for an outpatient small bowel pill cam to assess for small bowel IBD (ie. crohns) and if this is negative and her proctitis is refractory to medical management would then consider removing her rectum and forming a J pouch. 4. Advance to low residue diet as tolerated if no further surgeries planned. 5. If pt agreeable would consider re-trying rowasa enemas, canasa suppositories , cortifoam or steroids enemas for proctitis appreciated today on her pouchoscopy Dr. Azul will resume GI care in the am. Problem List: 1. Ulcerative colitis 2. Labial abscess 3. Nausea & vomiting Subjective Subjective: pt s/p exam under anesthesia this am and ileoscopy and colonoscopy of her pouch which revealed significant inflammation of her hartmans pouch, but the distal ileum was normal. she has had some continued drainage from her labial abscess, no abdominal pain or vomiting. She notes that all topical meds she has previously tried for colitis/proctitis haven't been too effective and seemed like it made it worse. Objective Vital Signs and I&Os Vital Signs Date Time Temp Pulse Resp B/P B/P Pulse O2 O2 Flow FiO2 Mean Ox Delivery Rate 01/20 1426 98.5 73 20 140/78 96 Room Air 01/20 0606 98.0 60 20 138/82 98 Room Air 01/19 2100 98.0 77 16 140/80 99 Intake & Output 01/20 1600 01/20 0400 01/19 1600 01/19 0400 09/09 1600 09/09 0400 Intake Total 2400 800 2754 1250 2075 680 Output Total 1 1 200 Balance 2399 800 2753 1250 1875 680 Intake, IV 3100 359 9453 1250 1875 500 Intake, Oral 500 300 480 200 180 Output, Stool 1 1 200 Physical Exam General Appearance: well developed/nourished, no apparent distress, comfortable Head: atraumatic Respiratory: normal breath sounds, chest non-tender Abdomen: normal bowel sounds, soft, non-tender Rectal: deferred, see CRS note Reproductive: deferred Current Medications: Current Medications Sig/Raymond Start time Last Medication Dose Route Stop Time Status Admin Acetaminophen 650 MG Q6P PRN 01/16 2315 AC PO Acetaminophen 1,000 MG Q6P PRN 01/16 2315 AC 01/18 IV 0013 Albuterol Sulfate 3 ML Q6 PRN 01/17 0045 AC INH Clindamycin 600 MG IQ8 01/18 1600 NM 01/20 Dextrose/Water 50 ML IV 01/20 0829 1045 Dextrose/Sodium 1,000 ML Q13H 01/19 2355 DC Chloride IV Dextrose/Sodium 1,000 ML .Q8H 01/19 2345 DC 01/20 Chloride IV 0002 Diphenhydramine HCl 1 DIDI Q6P PRN 01/18 2300 01/18 TOP 2324 Docusate Sodium 100 MG DAILY NEEDED PRN 01/16 2315 AC PO Enoxaparin Sodium 40 MG DAILY 01/17 0900 01/20 SC 1052 Famotidine 0 .STK-MED ONE 01/20 0739 DC IV Fentanyl Citrate 0 .STK-MED ONE 01/20 737 DC .ROUTE Guaifenesin/Codeine 10 ML Q6P PRN 01/17 0130 AC Phosphate PO Metoclopramide HCl 10 MG ONCE ONE 01/19 1845 DC 01/19 PO 01/19 1846 2111 Metoclopramide HCl 0 .STK-MED ONE 01/19 1843 DC .ROUTE Metronidazole 500 MG Q8H 01/17 0630 01/20 N/A 1 UNIT IV 1359 Midazolam HCl 0 .STK-MED ONE 01/20 737 DC .ROUTE Ondansetron HCl 4 MG Q6P PRN 01/18 0845 01/20 IV 0516 Oxycodone/ 1 TAB Q4P PRN 01/17 845 AC 01/20 Acetaminophen PO 0516 Polyethylene Glycol 17 GM AT BEDTIME PRN 01/16 2330 AC PO Potassium Chloride 40 MEQ ONCE ONE 01/19 1900 DC 01/19 PO 01/19 1901 1859 Scopolamine HBr 0 .STK-MED ONE 01/20 0739 DC TOP Senna/Docusate Sodium 1 TAB AT BEDTIME PRN 01/16 2330 AC PO Sodium Chloride 1,000 ML Q8H 01/19 0400 DC 01/19 IV 01/19 2350 1949 Sodium Chloride 1,000 ML CONTINOUS INFUSION 01/16 2315 DC 01/17 IV 2302 Vancomycin HCl 1,500 MG Q12H 01/20 1730 AC Sodium Chloride 250 ML IV Vancomycin HCl 1,000 MG Q12H 01/17 0530 AC 01/20 Sodium Chloride 250 ML IV 01/20 1729 0516 Results Pertinent Lab Results: Laboratory Tests 01/20 01/19 01/19 0755 0833 0225 Chemistry Sodium (137 - 145 mmol/L) 137 Potassium (3.5 - 5.1 mmol/L) 3.4 L Chloride (98 - 107 mmol/L) 107 Carbon Dioxide (22 - 30 mmol/L) 22 Anion Gap (5 - 16) 8 BUN (7 - 17 mg/dL) 2 L Creatinine (0.5 - 1.0 mg/dL) 0.6 Estimated GFR (>60 ml/min) > 60 BUN/Creatinine Ratio (7 - 25 %) 3.3 L Hemoglobin A1c (4.2 - 5.8 %) 5.4 C-Reactive Prot, Quant (<1.0 mg/dL) 6.4 H Total Beta HCG Cancelled Cortisol AM Sample (4.46 - 22.7 ug/dL) 5.8 Hematology CBC w Diff NO MAN DIFF REQ WBC (4.8 - 10.8 /CUMM) 7.1 RBC (4.20 - 5.40 /CUMM) 3.51 L Hgb (12.0 - 16.0 G/DL) 8.8 L Hct (37 - 47 %) 27.4 L MCV (81.0 - 99.0 FL) 78.2 L MCH (27.0 - 31.0 PG) 25.2 L MCHC (33.0 - 37.0 G/DL) 32.2 L RDW (11.5 - 14.5 %) 17.2 H Plt Count (130 - 400 /CUMM) 475 H MPV (7.4 - 10.4 FL) 7.3 L Gran % (42.2 - 75.2 %) 71.8 Lymphocytes % (20.5 - 51.1 %) 18.6 L Monocytes % (1.7 - 9.3 %) 6.3 Eosinophils % (0 - 5 %) 2.8 Basophils % (0.0 - 2.0 %) 0.5 Absolute Granulocytes (1.4 - 6.5 /CUMM) 5.1 Absolute Lymphocytes (1.2 - 3.4 /CUMM) 1.3 Absolute Monocytes (0.10 - 0.60 /CUMM) 0.4 Absolute Eosinophils (0.0 - 0.7 /CUMM) 0.2 Absolute Basophils (0.0 - 0.2 /CUMM) 0 ESR Westergren (0 - 20 MM) 50 H Toxicology Vancomycin Trough (10.0 - 20.0 ug/mL) 9.3 L Urines Urine Test NEGATIVE 01/18 755 Hematology CBC w Diff NO MAN DIFF REQ WBC (4.8 - 10.8 /CUMM) 10.7 RBC (4.20 - 5.40 /CUMM) 3.27 L Hgb (12.0 - 16.0 G/DL) 8.1 L Hct (37 - 47 %) 25.5 L MCV (81.0 - 99.0 FL) 78.0 L MCH (27.0 - 31.0 PG) 24.9 L MCHC (33.0 - 37.0 G/DL) 31.9 L RDW (11.5 - 14.5 %) 17.7 H Plt Count (130 - 400 /CUMM) 459 H MPV (7.4 - 10.4 FL) 7.3 L Gran % (42.2 - 75.2 %) 81.4 H Lymphocytes % (20.5 - 51.1 %) 11.1 L Monocytes % (1.7 - 9.3 %) 5.2 Eosinophils % (0 - 5 %) 2.0 Basophils % (0.0 - 2.0 %) 0.3 Absolute Granulocytes (1.4 - 6.5 /CUMM) 8.7 H Absolute Lymphocytes (1.2 - 3.4 /CUMM) 1.2 Absolute Monocytes (0.10 - 0.60 /CUMM) 0.6 Absolute Eosinophils (0.0 - 0.7 /CUMM) 0.2 Absolute Basophils (0.0 - 0.2 /CUMM) 0 Imaging/Other Studies: 01/20/18 ileoscopy/pouchoscopy Findings: Normal-appearing terminal ileum to 10 cm Severe proctitis of the Berg's pouch Berg's pouch length 15 cm No evidence of anal rectal abscess or fistula Impressive right labial cellulitis and inflammation
[2018-01-20 22:13] VITALS: BP 120/62
[2018-01-21 06:38] VITALS: BP 138/78
--- NOTE | 2018-01-21 07:14 | PN- Housestaff ---
See Addendum Subjective Follow-up For: labial abcess LLQ pain Complaints: decreased pain Subjective: Patient was examined this morning. SHe said she was doing well today and her symtpoms have been reducing although tshe still continues to have a little pain. SHe recieved vancomycin this morning and c/o flushing and facial redness Review of Systems Constitutional: Reports: see HPI, fever, malaise, weakness. Objective Last 24 Hrs of Vital Signs/I&O Vital Signs Date Time Temp Pulse Resp B/P B/P Pulse O2 O2 Flow FiO2 Mean Ox Delivery Rate 01/21 0638 98.3 66 20 138/78 99 01/20 2213 98.3 68 20 120/62 97 Room Air 01/20 1426 98.5 73 20 140/78 96 Room Air Intake & Output 01/21 1600 01/21 0800 01/21 0000 Intake Total 475 500 Output Total Balance 475 500 Intake, IV 375 400 Intake, Oral 100 100 Physical Exam General Appearance: Alert, Oriented X3, Cooperative, No Acute Distress Cardiovascular: Regular Rate, No Murmurs Lungs: Clear to Auscultation, Normal Air Movement Abdomen: Normal Bowel Sounds, Soft, No Tenderness, No Hepatospenomegaly, No Masses Neurological: Normal Speech, Strength at 5/5 X4 Ext, Normal Tone, Sensation Intact Reproductive (FEMALE) reduced erythema and swelling of the labia Current Medications: Current Medications Sig/Raymond Start time Last Medication Dose Route Stop Time Status Admin Acetaminophen 650 MG Q6P PRN 01/16 2315 AC PO Acetaminophen 1,000 MG Q6P PRN 01/16 2315 AC 01/20 IV 2009 Albuterol Sulfate 3 ML Q6 PRN 01/17 0045 AC INH Dextrose/Sodium 1,000 ML .Q8H 01/19 2345 DC 01/20 Chloride IV 0002 Diphenhydramine HCl 1 DIDI Q6P PRN 01/18 2300 AC 01/18 TOP 2324 Docusate Sodium 100 MG DAILY NEEDED PRN 01/16 2315 AC PO Enoxaparin Sodium 40 MG DAILY 01/17 900 AC 01/21 SC 0757 Guaifenesin/Codeine 10 ML Q6P PRN 01/17 0130 AC Phosphate PO Metronidazole 500 MG Q8H 01/21 0800 AC 01/21 N/A 1 UNIT IV 0800 Metronidazole 500 MG Q8H 01/17 0630 DC 01/20 N/A 1 UNIT IV 2221 Ondansetron HCl 4 MG Q6P PRN 01/18 0845 AC 01/20 IV 2009 Oxycodone/ 1 TAB Q4P PRN 01/17 0845 AC 01/21 Acetaminophen PO 05 Patient Medication 1 ED ONE ONE 01/20 1930 [facility] ED 01/20 1931 Polyethylene Glycol 17 GM AT BEDTIME PRN 01/16 233 AC PO Senna/Docusate Sodium 1 TAB AT BEDTIME PRN 01/16 233 AC PO Vancomycin HCl 1,500 MG Q12H 01/20 1730 AC 01/21 Sodium Chloride 250 ML IV 05 Vancomycin HCl 1,000 MG Q12H 01/17 530 DC 01/20 Sodium Chloride 250 ML IV 01/20 1729 0516 Last 24 Hrs of Lab/Cecilio Results Last 24 Hrs of Labs/Mics: Laboratory Tests 01/21/18 0731: Anion Gap 7, Estimated GFR > 60, BUN/Creatinine Ratio 6.0 L, CBC w Diff NO MAN DIFF REQ, RBC 3.51 L, MCV 78.1 L, MCH 24.5 L, MCHC 31.4 L, RDW 17.6 H, MPV 7.5, Gran % 65.2, Lymphocytes % 28.3, Monocytes % 4.9, Eosinophils % 0.6, Basophils % 1.0, Absolute Granulocytes 5.2, Absolute Lymphocytes 2.2, Absolute Monocytes 0.4, Absolute Eosinophils 0, Absolute Basophils 0.1 Assessment/Plan Assessment: slowed the rate of vancomycin for further dose for 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 37 y/o F with PMH of with a PMH of UC s/p total abdominal colectomy s/p end ileostomy after failing medical therapy that comes to the ED complaining of LLQ abdominal pain, fever, and a exquisitely tender right labia majora collection. Her symptoms are likely multifactorial. CT abdomen and pelvis in the ED showed notable bowel wall thickening about an enteroenteric anastomosis left abdomen consistent of acute inflammatory bowel disease; on the other hand, her cellulitis of the right labia majora could indeed be the culprit of her symptoms. She was admitted for further management of the following issues: PROBLEM LIST: 1. Right labial cellulitis 2. Enteritis at surgical anastomosis site PLAN: - reduced swelling of the vulva, reduced erythema. hb and wbc stable at the same values. - afebrile -increase the dose of vancomycin to 1.5g day 4 and continue flagyl, slow down the rate of vancomycin for suspected red frank syndrome. - flushing and redness of face and upper extremities. -Cx positive for MRSA - I and D considered if Fluctuance increases, otherwise continue ABX - There was no evidence of abscess or fistula on flexible endoscopy, Bipsy result to be f/u findings on endoscopy- Normal appearing terminal ileum to 10 cm -Severe proctitis of the Berg's pouch -Berg's pouch length 15 cm -GI stated - removing her rectum and forming a J pouch if proctitis is refractory to medical management . if pt is compliant , could try rowasa or canasa,for proctisis advanced to low fibre diet. f/u GI note for today FULL CODE Diet:low fibre DVT PPx: Problem List: 1. Inflammatory bowel disease 2. Labial abscess Pain Ratin Pain Location: labia Pain Goal: Remain pain free Pain Plan: tyelenol Tomorrow's Labs & Rationales: cbc,
[2018-01-21 08:17] LABS: ABSOLUTE BASOPHIL COUNT 0.1 /CUMM (0.0-0.2); ABSOLUTE EOSINOPHIL COUNT 0 /CUMM (0.0-0.7); ABSOLUTE GRANULOCYTE CT 5.2 /CUMM (1.4-6.5); ABSOLUTE LYMPH COUNT 2.2 /CUMM (1.2-3.4); ABSOLUTE MONOCYTE COUNT 0.4 /CUMM (0.10-0.60); EOSINOPHIL % 0.6 % (0-5); GRANULOCYTE % 65.2 % (42.2-75.2); HEMATOCRIT 27.4 % (37-47); MEAN CORPUSCULAR HGB 24.5 PG (27.0-31.0); MEAN CORPUSCULAR HGB CONC 31.4 G/DL (33.0-37.0); MEAN CORPUSCULAR VOLUME 78.1 FL (81.0-99.0); MEAN PLATELET VOLUME 7.5 FL (7.4-10.4); PLATELET COUNT 551 /CUMM (130-400); RBC DISTRIBUTION WIDTH 17.6 % (11.5-14.5); RED BLOOD CELL CT 3.51 /CUMM (4.20-5.40); WHITE BLOOD CELL COUNT 7.9 /CUMM (4.8-10.8)
--- NOTE | 2018-01-21 12:29 | PN- Infect Dx ---
Subjective Subjective: Afebrile. She still notes discomfort in the right inguinal area. She apparently had flushing with the recent infusion of her Vancomycin. Objective Last 24 Hrs of Vital Signs/I&O Vital Signs Date Time Temp Pulse Resp B/P B/P Pulse O2 O2 Flow FiO2 Mean Ox Delivery Rate 01/21 0638 98.3 66 20 138/78 99 01/20 2213 98.3 68 20 120/62 97 Room Air 01/20 1426 98.5 73 20 140/78 96 Room Air Intake & Output 01/21 1600 01/21 0800 01/21 0000 Intake Total 475 500 Output Total Balance 475 500 Intake, IV 375 400 Intake, Oral 100 100 Physical Exam Other Physical Findings: She appears comfortable no acute distress Skin mild flushing of the face and extremities [employer] right labial/inguinal induration persists, with a small amount of purulent drainage able to be expressed Results Last 24 Hours of Lab Results: Laboratory Tests 01/21 0731 Chemistry Sodium (137 - 145 mmol/L) 138 Potassium (3.5 - 5.1 mmol/L) 3.5 Chloride (98 - 107 mmol/L) 107 Carbon Dioxide (22 - 30 mmol/L) 24 Anion Gap (5 - 16) 7 BUN (7 - 17 mg/dL) 3 L Creatinine (0.5 - 1.0 mg/dL) 0.5 Estimated GFR (>60 ml/min) > 60 BUN/Creatinine Ratio (7 - 25 %) 6.0 L Hematology CBC w Diff NO MAN DIFF REQ WBC (4.8 - 10.8 /CUMM) 7.9 RBC (4.20 - 5.40 /CUMM) 3.51 L Hgb (12.0 - 16.0 G/DL) 8.6 L Hct (37 - 47 %) 27.4 L MCV (81.0 - 99.0 FL) 78.1 L MCH (27.0 - 31.0 PG) 24.5 L MCHC (33.0 - 37.0 G/DL) 31.4 L RDW (11.5 - 14.5 %) 17.6 H Plt Count (130 - 400 /CUMM) 551 H MPV (7.4 - 10.4 FL) 7.5 Gran % (42.2 - 75.2 %) 65.2 Lymphocytes % (20.5 - 51.1 %) 28.3 Monocytes % (1.7 - 9.3 %) 4.9 Eosinophils % (0 - 5 %) 0.6 Basophils % (0.0 - 2.0 %) 1.0 Absolute Granulocytes (1.4 - 6.5 /CUMM) 5.2 Absolute Lymphocytes (1.2 - 3.4 /CUMM) 2.2 Absolute Monocytes (0.10 - 0.60 /CUMM) 0.4 Absolute Eosinophils (0.0 - 0.7 /CUMM) 0 Absolute Basophils (0.0 - 0.2 /CUMM) 0.1 Last 24 Hours of Cecilio Results: No new cultures Assessment/Plan ID Impression: Persistent induration of the right labial/inguinal area, though her temperatures and white blood cell count remain normal, on Vancomycin and Flagyl, Day 5 of treatment for a right labial abscess secondary to MRSA, status post I&D in the ER one day prior to admission. Feel that she will benefit from more definitive drainage and this has been discussed with [employer] and Colorectal surgery. GI comments regarding the severe proctitis of her Berg's pouch noted. The flushing reported with Vancomycin is likely secondary to "red man syndrome" and slowing of the infusion will be necessary. Suggestion: 1. [employer] reevaluation regarding need for drainage of the right labial abscess 2. Warm compresses or, if feasible, sits baths 3. Slow the infusion rate of the Vancomycin 4. Continue Flagyl
--- NOTE | 2018-01-21 13:15 | PN- OBGYN ---
Surgical Brief Attending Note Brief Attending Note: pt seen and evaluated by me reports vulvar pain much improved since admission, getting a little better every day reports discomfort, but overall decreasing in size states quarter size purulent drainage expressed by ID this AM, none since then no F/C has not done warm compresses since admission T - 98.3, P 66. v/ss NAD abd soft nt nd perineum - min right labial erythema, + induration 3-4cm, pinpoint tenderness at site of drainage this am, possible 5mm area of fluctuance, no drainage expressed , no drainage on pad, no calor, no crepitus A/P -labial cellulitis, likely from MRSA, improving slowly on Vanc / Flagyl, no e/o abscess on imaging or clinical exam - no benefit to I&D at this point -start warm compresses / sitz baths tid -pain mgmt -will continue to follow
[2018-01-21 14:35] VITALS: BP 130/70
--- NOTE | 2018-01-21 15:41 | PN- Gastroenterology ---
Assessment/Plan GI Assessment/Recommendations: Assessment: Ms. Trent is a 37 year old female with IBD s/p subtotal colectomy with hartmans pouch and ileoscopy formation at the end of September readmitted with a labial abscess for which she underwent an exam under anesthesia today along with a pouchoscopy and distal ileoscopy which showed severe proctitis, but the distal ileum was normal in appearance which favors a diagnosis of UC. However, pathology from initial surgery showed transmural ulceration as well as serositis in the rectosigmoid which favors a diagnosis of Crohn's Disease. However, at this time it is not necessary to make a firm diagnosis. Recommendations: 1. Antibiotics per ID, OB and CRS. 2. Follow up pathology as an outpatient. Patient is a long-time patient of Dr. Jordan Canales and has not seen anyone from [facility] at anytime except during this hospitalization. 3. Would give consideration for a Pelvic MRI with MRE protocol which may help better identify fistulous disease. One could also consider an outpatient small bowel pill cam to assess for small bowel IBD (ie. crohns) and if this is negative and her proctitis is refractory to medical management would then consider removing her rectum and forming a J pouch. 4. Advance to low residue diet as tolerated if no further surgeries planned. 5. If pt agreeable would start canasa suppositories on a BID basis, cortifoam, uceris foam or steroids enemas for proctitis appreciated. on her pouchoscopy 6. GI will sign off for now. Please do not hesitate to contact us as needed. Subjective Subjective: Patient still with discomfort from labial abscess. I have reviewed Dr. Arriaga's operative note. Patient with proctitis. On endoscopy through ileostomy, patient had normal appearing mucosa. I have reviewed patient's surgical pathology from September and the results are as follows: A. COLON, RECTOSIGMOID, RESECTION: CHRONIC ACTIVE COLITIS WITH EXTENSIVE ULCERATION, TRANSMURAL INFLAMMATION, AND SEROSITIS. BOTH MARGINS OF RESECTION ARE INVOLVED BY CHRONIC ACTIVE COLITIS. NO GRANULOMAS, FOCAL CYTOLOGIC ATYPIA, FAVOR REACTIVE. CMV IMMUNOSTAIN IS NEGATIVE. B. SMALL INTESTINE, JEJUNUM, SEGMENTAL RESECTION: SMALL INTESTINE WITH EXTENSIVE SEROSITIS AND SUBSEROSAL ABSCESS. MUCOSA WITHOUT SIGNIFICANT ABNORMALITY. Objective Vital Signs and I&Os Vital Signs Date Time Temp Pulse Resp B/P B/P Pulse O2 O2 Flow FiO2 Mean Ox Delivery Rate 01/21 1435 98.8 60 18 130/70 100 Room Air 01/21 0638 98.3 66 20 138/78 99 01/20 2213 98.3 68 20 120/62 97 Room Air Intake & Output 01/21 1600 01/21 0400 01/20 1600 01/20 0400 01/19 1600 01/19 0400 Intake Total 467 395 0979 800 2754 1250 Output Total 1 1 Balance 239 748 2563 800 2753 1250 Intake, IV 022 450 9965 500 2274 1250 Intake, Oral 100 100 500 300 480 Output, Stool 1 1 Physical Exam General Appearance: no apparent distress, alert, awake, comfortable Respiratory: lungs clear Abdomen: normal bowel sounds, soft, non-tender Neurologic/Psychiatric: alert, oriented x 3, normal mood/affect Current Medications: Current Medications Sig/Raymond Start time Last Medication Dose Route Stop Time Status Admin Acetaminophen 650 MG Q6P PRN 01/16 231 AC PO Acetaminophen 1,000 MG Q6P PRN 01/16 2315 AC 01/20 IV 2009 Albuterol Sulfate 3 ML Q6 PRN 01/17 0045 AC INH Diphenhydramine HCl 1 DIDI Q6P PRN 01/18 2300 AC 01/18 TOP 2324 Docusate Sodium 100 MG DAILY NEEDED PRN 01/16 2315 AC PO Enoxaparin Sodium 40 MG DAILY 01/17 900 AC 01/21 SC 0757 Guaifenesin/Codeine 10 ML Q6P PRN 01/17 0130 AC Phosphate PO Metronidazole 500 MG Q8H 01/21 0800 AC 01/21 N/A 1 UNIT IV 1526 Metronidazole 500 MG Q8H 01/17 0630 DC 01/20 N/A 1 UNIT IV 2222 Ondansetron HCl 4 MG Q6P PRN 01/17 0845 AC 01/20 IV 2008 Oxycodone/ 1 TAB Q4P PRN 01/17 0845 AC 01/21 Acetaminophen PO 0521 Patient Medication 1 ED ONE ONE 01/20 1930 [facility] 01/20 1931 Polyethylene Glycol 17 GM AT BEDTIME PRN 01/16 2330 AC PO Senna/Docusate Sodium 1 TAB AT BEDTIME PRN 01/16 2330 AC PO Vancomycin HCl 1,500 MG Q12H 01/20 1730 AC 01/21 Sodium Chloride 250 ML IV 0522 Vancomycin HCl 1,000 MG Q12H 01/17 0530 DC 01/20 Sodium Chloride 250 ML IV 01/20 8204 2989 Results Pertinent Lab Results: Laboratory Tests 01/21 01/20 01/20 0731 0755 0600 Chemistry Sodium (137 - 145 mmol/L) 138 Cancelled Potassium (3.5 - 5.1 mmol/L) 3.5 Cancelled Chloride (98 - 107 mmol/L) 107 Cancelled Carbon Dioxide (22 - 30 mmol/L) 24 Cancelled Anion Gap (5 - 16) 7 Cancelled BUN (7 - 17 mg/dL) 3 L Cancelled Creatinine (0.5 - 1.0 mg/dL) 0.5 Cancelled Estimated GFR (>60 ml/min) > 60 BUN/Creatinine Ratio (7 - 25 %) 6.0 L Cancelled Total Beta HCG Cancelled Hematology CBC w Diff NO MAN DIFF REQ Cancelled WBC (4.8 - 10.8 /CUMM) 7.9 Cancelled RBC (4.20 - 5.40 /CUMM) 3.51 L Cancelled Hgb (12.0 - 16.0 G/DL) 8.6 L Cancelled Hct (37 - 47 %) 27.4 L Cancelled MCV (81.0 - 99.0 FL) 78.1 L Cancelled MCH (27.0 - 31.0 PG) 24.5 L Cancelled MCHC (33.0 - 37.0 G/DL) 31.4 L Cancelled RDW (11.5 - 14.5 %) 17.6 H Cancelled Plt Count (130 - 400 /CUMM) 551 H Cancelled MPV (7.4 - 10.4 FL) 7.5 Cancelled Gran % (42.2 - 75.2 %) 65.2 Lymphocytes % (20.5 - 51.1 %) 28.3 Monocytes % (1.7 - 9.3 %) 4.9 Eosinophils % (0 - 5 %) 0.6 Basophils % (0.0 - 2.0 %) 1.0 Absolute Granulocytes (1.4 - 6.5 /CUMM) 5.2 Absolute Lymphocytes (1.2 - 3.4 /CUMM) 2.2 Absolute Monocytes (0.10 - 0.60 /CUMM) 0.4 Absolute Eosinophils (0.0 - 0.7 /CUMM) 0 Absolute Basophils (0.0 - 0.2 /CUMM) 0.1 Urines Urine Test NEGATIVE 01/19 01/19 2905 5456 Chemistry Sodium (137 - 145 mmol/L) 137 Potassium (3.5 - 5.1 mmol/L) 3.4 L Chloride (98 - 107 mmol/L) 107 Carbon Dioxide (22 - 30 mmol/L) 22 Anion Gap (5 - 16) 8 BUN (7 - 17 mg/dL) 2 L Creatinine (0.5 - 1.0 mg/dL) 0.6 Estimated GFR (>60 ml/min) > 60 BUN/Creatinine Ratio (7 - 25 %) 3.3 L Hemoglobin A1c (4.2 - 5.8 %) 5.4 C-Reactive Prot, Quant (<1.0 mg/dL) 6.4 H Cortisol AM Sample (4.46 - 22.7 ug/dL) 5.8 Hematology CBC w Diff NO MAN DIFF REQ WBC (4.8 - 10.8 /CUMM) 7.1 RBC (4.20 - 5.40 /CUMM) 3.51 L Hgb (12.0 - 16.0 G/DL) 8.8 L Hct (37 - 47 %) 27.4 L MCV (81.0 - 99.0 FL) 78.2 L MCH (27.0 - 31.0 PG) 25.2 L MCHC (33.0 - 37.0 G/DL) 32.2 L RDW (11.5 - 14.5 %) 17.2 H Plt Count (130 - 400 /CUMM) 475 H MPV (7.4 - 10.4 FL) 7.3 L Gran % (42.2 - 75.2 %) 71.8 Lymphocytes % (20.5 - 51.1 %) 18.6 L Monocytes % (1.7 - 9.3 %) 6.3 Eosinophils % (0 - 5 %) 2.8 Basophils % (0.0 - 2.0 %) 0.5 Absolute Granulocytes (1.4 - 6.5 /CUMM) 5.1 Absolute Lymphocytes (1.2 - 3.4 /CUMM) 1.3 Absolute Monocytes (0.10 - 0.60 /CUMM) 0.4 Absolute Eosinophils (0.0 - 0.7 /CUMM) 0.2 Absolute Basophils (0.0 - 0.2 /CUMM) 0 ESR Westergren (0 - 20 MM) 50 H Toxicology Vancomycin Trough (10.0 - 20.0 ug/mL) 9.3 L
[2018-01-21 22:18] VITALS: BP 110/76
[2018-01-22 06:23] VITALS: BP 126/80
--- NOTE | 2018-01-22 07:33 | PN- Housestaff ---
Joe Bowman 01/22/18 0733: Subjective Follow-up For: ulcerative colitis labial abcess Subjective: Marnie was examined thios morning. She was doing better and said that her pain is significantly better. The drainage has decreased significantly but the size of the abscess continues to be the same. The erythema has decreased. She said that she had another episode of facial flushing and upper extremity flushing and redness last night while receiving vancomycin. She also wanted to know if she needs to go home on IV antibiotics. This morning vancomycin has been reduced to 50 mL/h Review of Systems Constitutional: Reports: no symptoms. Objective Last 24 Hrs of Vital Signs/I&O Vital Signs Date Time Temp Pulse Resp B/P B/P Pulse O2 O2 Flow FiO2 Mean Ox Delivery Rate 01/22 06 98.6 50 18 126/80 96 Room Air 01/21 2218 98.4 53 18 110/76 97 Intake & Output 01/22 1600 01/22 0800 01/22 0000 Intake Total 490 440 Output Total Balance 490 440 Intake, IV 250 200 Intake, Oral 240 240 Patient 219 lb Weight Physical Exam General Appearance: Alert, Oriented X3, Cooperative, No Acute Distress Cardiovascular: Regular Rate, No Murmurs Lungs: Clear to Auscultation, Normal Air Movement Abdomen: Normal Bowel Sounds, Soft, No Tenderness, No Hepatospenomegaly, No Masses Neurological: Normal Speech, Strength at 5/5 X4 Ext, Normal Tone, Sensation Intact Extremities: No Clubbing, No Cyanosis, No Edema, Normal Pulses, No Tenderness/ Swelling Other Physical Findings: genital eythema is reduced, swelling continues to be the same as yesterday and drainage is decreased. Current Medications: Current Medications Sig/Raymond Start time Last Medication Dose Route Stop Time Status Admin Acetaminophen 650 MG Q6P PRN 01/165 AC 01/21 PO 1539 Acetaminophen 1,000 MG Q6P PRN 01/16 2315 AC 01/20 IV 2009 Albuterol Sulfate 3 ML Q6 PRN 01/17 0045 AC INH Diphenhydramine HCl 1 DIDI Q6P PRN 01/18 2300 AC 01/18 TOP 2324 Docusate Sodium 100 MG DAILY NEEDED PRN 01/16 2315 AC PO Enoxaparin Sodium 40 MG DAILY 01/17 900 AC 01/22 SC 0837 Guaifenesin/Codeine 10 ML Q6P PRN 01/17 0130 AC Phosphate PO Hydrocortisone 100 MG 1400 01/22 1400 AC [place] Hydrocortisone 100 MG DAILY 01/22 2008 DC 01/21 [place] 212 Mesalamine 1,000 MG BID 01/21 2100 AC 01/22 [place] 0913 Metronidazole 500 MG Q8H 01/21 0800 AC 01/21 N/A 1 UNIT IV 2327 Non-Formulary 0 SEE ADMIN CRITERIA 01/21 1600 DC Medication ANY Ondansetron HCl 4 MG Q6P PRN 01/17 0845 AC 01/20 IV 2009 Oxycodone/ 1 TAB Q4P PRN 01/17 0845 AC 01/21 Acetaminophen PO 2327 Polyethylene Glycol 17 GM AT BEDTIME PRN 01/16 2330 AC PO Senna/Docusate Sodium 1 TAB AT BEDTIME PRN 01/16 2330 AC PO Vancomycin HCl 1,500 MG Q12H 01/20 1730 AC 01/22 Sodium Chloride 250 ML IV 0527 Last 24 Hrs of Lab/Cecilio Results Last 24 Hrs of Labs/Mics: Laboratory Tests 01/22/18 1017: Anion Gap 7, Estimated GFR > 60, BUN/Creatinine Ratio 10.0, CBC w Diff NO MAN DIFF REQ, RBC 3.36 L, MCV 77.4 L, MCH 25.1 L, MCHC 32.4 L, RDW 17.5 H, MPV 6.8 L, Gran % 72.0, Lymphocytes % 20.9, Monocytes % 5.3, Eosinophils % 1.4, Basophils % 0.4, Absolute Granulocytes 5.8, Absolute Lymphocytes 1.7, Absolute Monocytes 0.4, Absolute Eosinophils 0.1, Absolute Basophils 0 Assessment/Plan Assessment: slowed the rate of vancomycin for further dose for 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 37 y/o F with PMH of with a PMH of UC s/p total abdominal colectomy s/p end ileostomy after failing medical therapy that comes to the ED complaining of LLQ abdominal pain, fever, and a exquisitely tender right labia majora collection. Her symptoms are likely multifactorial. CT abdomen and pelvis in the ED showed notable bowel wall thickening about an enteroenteric anastomosis left abdomen consistent of acute inflammatory bowel disease; on the other hand, her cellulitis of the right labia majora could indeed be the culprit of her symptoms. She was admitted for further management of the following issues: PROBLEM LIST: 1. Right labial cellulitis 2. Enteritis at surgical anastomosis site PLAN: - reduced swelling of the vulva, reduced erythema. hb and wbc stable at the same values. - afebrile -continue vancomycin 1.5g and continue flagyl, slow down the rate of vancomycin to 50ml /hr -Cx positive for MRSA - I and D considered if Fluctuance increases, otherwise continue ABX - will do us of the swelklibng' -mri with mre f/u, -continue suppositery and 5asa FULL CODE Diet:low fibre DVT PPx: Problem List: 1. Ulcerative colitis 2. Cellulitis of labia majora Pain Ratin Pain Location: groin Pain Goal: Remain pain free Pain Plan: tyelenol iv Tomorrow's Labs & Rationales: cbc, Erasto OLIVIER,[facility] 01/22/18 1848: Attending MD Review Statement Attending Statement Attending MD Statement: examined this patient, discuss w/resident/PA/CHARGING OPERATOR, agreed w/resident/PA/CHARGING OPERATOR, discussed with family, reviewed EMR data (avail), discussed with nursing, discussed with case mgmt, reviewed images, amended to note Attending Assessment/Plan: Seen and examined All issues as noted above Continues to be on appropriate therapy We'll consider MRIIMPRESSION: Tiny 1.4 x 0.4 cm fluid collection within the right labia. DICTATED BY: Dayron Pisano MD DATE/TIME DICTATED:01/22/18 / 1528 Plan as noted above Continue antibiotics
--- NOTE | 2018-01-22 08:42 | Patient Discharge Instructions ---
Discharge Instructions General Discharge Information You were seen/treated for: cellulitis of labia majora Special Instructions: PLEASE COME BACK TO EMERGENCY ROOM IF ANY CHANGES IN THE LABIAL AREA, INCREASED SWELLING/ PAIN/ REDNESS/ DISCHARGE Please follow up with Dr. Maurer within 1 week of discharge Please follow up with OBGYN within 1 weeek of discharge. Please follow up with Gastroenterologistr within 1 week of discharge Please follow up with surgery within 1 week of discharge Acute Coronary Syndrome Inclusion Criteria At DC or during hospital stay patient has or had the following: ACS DIAGNOSIS No Discharge Core Measures Meds if any: Prescribed or Continued at Discharge Meds if any: NOT Prescribed or Continued at Discharge Congestive Heart Failure Inclusion Criteria At DC or during hospital stay patient has or had the following: CHF DIAGNOSIS No Discharge Core Measures Meds if any: Prescribed or Continued at Discharge Meds if any: NOT Prescribed or Continued at Discharge Cerebrovascular accident Inclusion Criteria At DC or during hospital stay patient has or had the following: CVA/TIA Diagnosis No Discharge Core Measures Meds if any: Prescribed or Continued at Discharge Meds if any: NOT Prescribed or Continued at Discharge Venous thromboembolism Inclusion Criteria VTE Diagnosis No VTE Type NONE VTE Confirmed by (Test) NONE Discharge Core Measures - Per Current guidelines, there needs to be overlap - treatment for the first 5 days of Warfarin therapy. - If discharged on Warfarin prior to 5 days of - overlap therapy, the patient will need to be - assessed for post discharge needs including - *Post discharge parental anticoagulation - *Warfarin and/or parental anticoagulation education - *Follow up date to check INR post discharge At least 5 days overlap therapy as Inpatient No Meds if any: Prescribed or Continued at Discharge Note: Overlap Therapy is Warfarin and Anticoagulant Meds if any: NOT Prescribed or Continued at Discharge
[2018-01-22 10:26] LABS: ABSOLUTE BASOPHIL COUNT 0 /CUMM (0.0-0.2); ABSOLUTE EOSINOPHIL COUNT 0.1 /CUMM (0.0-0.7); ABSOLUTE GRANULOCYTE CT 5.8 /CUMM (1.4-6.5); ABSOLUTE LYMPH COUNT 1.7 /CUMM (1.2-3.4); ABSOLUTE MONOCYTE COUNT 0.4 /CUMM (0.10-0.60); BASOPHIL % 0.4 % (0.0-2.0); EOSINOPHIL % 1.4 % (0-5); MEAN CORPUSCULAR HGB 25.1 PG (27.0-31.0); MEAN CORPUSCULAR HGB CONC 32.4 G/DL (33.0-37.0); MEAN CORPUSCULAR VOLUME 77.4 FL (81.0-99.0); MEAN PLATELET VOLUME 6.8 FL (7.4-10.4); PLATELET COUNT 614 /CUMM (130-400); RBC DISTRIBUTION WIDTH 17.5 % (11.5-14.5); RED BLOOD CELL CT 3.36 /CUMM (4.20-5.40); WHITE BLOOD CELL COUNT 8.1 /CUMM (4.8-10.8)
--- NOTE | 2018-01-22 11:06 | PN- Infect Dx ---
Subjective Subjective: Afebrile. She still notes discomfort in the right labial area. 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 slightly decreased, with perhaps decreased induration as well, mildly tender to palpation; no purulent drainage expressible Results Last 24 Hours of Lab Results: Laboratory Tests 01/22 1017 Chemistry Sodium (137 - 145 mmol/L) 137 Potassium (3.5 - 5.1 mmol/L) 3.4 L Chloride (98 - 107 mmol/L) 104 Carbon Dioxide (22 - 30 mmol/L) 26 Anion Gap (5 - 16) 7 BUN (7 - 17 mg/dL) 5 L Creatinine (0.5 - 1.0 mg/dL) 0.5 Estimated GFR (>60 ml/min) > 60 BUN/Creatinine Ratio (7 - 25 %) 10.0 Hematology CBC w Diff NO MAN DIFF REQ WBC (4.8 - 10.8 /CUMM) 8.1 RBC (4.20 - 5.40 /CUMM) 3.36 L Hgb (12.0 - 16.0 G/DL) 8.4 L Hct (37 - 47 %) 26.0 L MCV (81.0 - 99.0 FL) 77.4 L MCH (27.0 - 31.0 PG) 25.1 L MCHC (33.0 - 37.0 G/DL) 32.4 L RDW (11.5 - 14.5 %) 17.5 H Plt Count (130 - 400 /CUMM) 614 H MPV (7.4 - 10.4 FL) 6.8 L Gran % (42.2 - 75.2 %) 72.0 Lymphocytes % (20.5 - 51.1 %) 20.9 Monocytes % (1.7 - 9.3 %) 5.3 Eosinophils % (0 - 5 %) 1.4 Basophils % (0.0 - 2.0 %) 0.4 Absolute Granulocytes (1.4 - 6.5 /CUMM) 5.8 Absolute Lymphocytes (1.2 - 3.4 /CUMM) 1.7 Absolute Monocytes (0.10 - 0.60 /CUMM) 0.4 Absolute Eosinophils (0.0 - 0.7 /CUMM) 0.1 Absolute Basophils (0.0 - 0.2 /CUMM) 0 Last 24 Hours of Cecilio Results: No new cultures Assessment/Plan ID Impression: Overall stable, with her temperatures and white blood cell count remaining normal, on Vancomycin and Flagyl, Day 6 of treatment for a right labial abscess secondary to MRSA, status post I&D in the ER on the day prior to admission. She continues to have a significant amount of induration in the right labial/ inguinal area and, though it has improved, feel that she may still benefit from more definitive drainage. The flushing reported with Vancomycin is likely secondary to "red man syndrome" and slowing of the infusion will be necessary. Suggestion: 1. Would repeat ultrasound of the right labial area 2. Continue warm compresses to the labial area 3. BLAST [employer] SUPERVISOR follow-up 4. Slow the infusion rate of the Vancomycin 5. Continue Vancomycin and Flagyl
--- NOTE | 2018-01-22 12:01 | PN- General Surgery ---
Surgical Brief Attending Note Brief Attending Note: Patient states still has labial pain stable Remains afebrile with stable vital signs Abdomen is soft nontender stoma functioning Pathology from flexible sigmoidoscopy and ileoscopy pending Agree with GI recommendation regarding topical treatment of proctitis No other colorectal surgical intervention planned for this admission Discharge home when cleared by infectious disease Follow up with me as outpatient in 2-3 weeks
--- NOTE | 2018-01-22 13:51 | PN- OBGYN ---
Surgical Brief Attending Note Brief Attending Note: OBGYN Awaiting repeat labial sono findings.
[2018-01-22 14:48] VITALS: BP 118/75
--- NOTE | 2018-01-22 15:48 | ULTRASOUND REPORT ---
EXAMINATION: US SUPERFICIAL IMAGING, EXTREMITY CLINICAL INFORMATION: 37-year-old female with right labial abscess COMPARISON: Right labial ultrasound 01/18/2018 TECHNIQUE: Grayscale and color Doppler imaging was obtained of the right labia. FINDINGS: Within the subcutaneous tissues of the right labia there is an approximately 1.4 x 0.4 cm hypoechoic, avascular focus suggestive of a tiny fluid collection. There are no prominent borders to this collection. There are a few tiny echogenicities within this collection. IMPRESSION: Tiny 1.4 x 0.4 cm fluid collection within the right labia.
--- NOTE | 2018-01-22 16:08 | Discharge Summary ---
Hospital Course Allergies: Coded Allergies: erythromycin base (From ERYTHROCIN) (Intermediate, HIVES 09/24/17) Penicillins (RASH 04/07/17) amoxicillin (RASH 04/07/17) Discharge Instructions Medications at Discharge Discharge Medications: Continue taking these medications: Sulfamethoxazole/Trimethoprim (Bactrim Ds Tablet) 800 MG-160 MG TABLET 1 Tablet ORAL TWICE DAILY Qty = 20 Ergocalciferol (Vitamin D2) (Vitamin D2) 50,000 UNIT CAPSULE 1 Capsule ORAL EVERY FRIDAY Qty = 4
[2018-01-22 22:15] VITALS: BP 150/80
[2018-01-23 06:18] VITALS: BP 142/72
--- NOTE | 2018-01-23 07:12 | PN- Housestaff ---
See Addendum Joe Bowman 01/23/18 0711: Subjective Follow-up For: Ulcerative colitis Labial abscess Subjective: Patient was seen and examined this morning. She said that she had a headache from last night because she was not eating or drinking anything. She said she is used to drinking lots of fluids because of her ileostomy. denies any signs or symptoms suggestive of "red man" syndrome. Has been getting antibiotics at 50 mL/h. MRI was called and n.p.o. was canceled patient was given food and fluids to prevent dehydration. The labial swelling continues to remain the same as per patient and there is decreased drainage from the swelling. Patient was concerned that the swelling has remained the same despite the use of antibiotics for the past 2 days and was wondering if the antibiotics are working or not. Patient also wanted to know about the antibiotic plan for her. She asked if her MRSA would be the wall of as read some of her and become resistant to vancomycin. Her questions were answered and she was educated regarding bacterial sensitivity to antibiotics and the testing. Review of Systems Constitutional: Reports: see HPI. Objective Last 24 Hrs of Vital Signs/I&O Vital Signs Date Time Temp Pulse Resp B/P B/P Pulse O2 O2 Flow FiO2 Mean Ox Delivery Rate 01/23 0618 98.9 67 20 142/72 96 01/22 2215 98.4 52 20 150/80 100 01/22 1448 97.9 60 18 118/75 97 Room Air Intake & Output 01/23 1600 01/23 0800 01/23 0000 Intake Total 400 225 Output Total Balance 400 225 Intake, IV 400 225 Physical Exam General Appearance: Alert, Oriented X3, Cooperative, No Acute Distress HEENT: PERRLA, EOMI Cardiovascular: Regular Rate, No Murmurs Lungs: Clear to Auscultation, Normal Air Movement Abdomen: Normal Bowel Sounds, Soft, No Tenderness, No Hepatospenomegaly, No Masses Neurological: Normal Speech, Strength at 5/5 X4 Ext, Normal Tone, Sensation Intact Extremities: No Clubbing, No Cyanosis, No Edema, Normal Pulses, No Tenderness/ Swelling Other Physical Findings: Labial swelling on the right side continues to remain the same as yesterday. Erythema remains the same. Drainage not seen from the swelling. Current Medications: Current Medications Sig/Raymond Start time Last Medication Dose Route Stop Time Status Admin Acetaminophen 650 MG Q6P PRN 01/16 2315 AC 01/21 PO 1539 Acetaminophen 1,000 MG Q6P PRN 01/16 2315 AC 01/20 IV 2009 Albuterol Sulfate 3 ML Q6 PRN 01/17 0045 AC INH Dextrose/Sodium 1,000 ML ONCE ONE 01/23 0800 AC Chloride IV 01/24 0359 Diphenhydramine HCl 1 DIDI Q6P PRN 01/18 2300 AC 01/18 TOP 2324 Docusate Sodium 100 MG DAILY NEEDED PRN 01/16 2315 AC PO Enoxaparin Sodium 40 MG DAILY 01/17 0900 AC 01/22 SC 0837 Guaifenesin/Codeine 10 ML Q6P PRN 01/17 0130 AC Phosphate PO Hydrocortisone 100 MG QPM 01/22 2100 AC 01/22 NC 2013 Hydrocortisone 100 MG 1400 01/22 1400 DC 01/22 NC 1500 Hydrocortisone 100 MG DAILY 01/22 2008 DC 01/21 NC 2122 Mesalamine 1,000 MG BID 01/21 2100 AC 01/22 NC 2148 Metronidazole 500 MG Q8H 01/22 1800 AC 01/23 N/A 1 UNIT IV 0212 Metronidazole 500 MG Q8H 01/21 0800 DC 01/22 N/A 1 UNIT IV 1750 Ondansetron HCl 4 MG Q6P PRN 01/17 0845 AC 01/20 IV 2009 Oxycodone/ 1 TAB Q4P PRN 01/17 0845 AC 01/23 Acetaminophen PO 0635 Polyethylene Glycol 17 GM AT BEDTIME PRN 01/16 2330 AC PO Potassium Chloride 40 MEQ ONCE ONE 01/22 1530 DC 01/22 PO 01/22 1531 1644 Senna/Docusate Sodium 1 TAB AT BEDTIME PRN 01/16 2330 AC PO Vancomycin HCl 1,500 MG Q12H 01/20 1730 AC 01/23 Sodium Chloride 250 ML IV 0526 Last 24 Hrs of Lab/Cecilio Results Last 24 Hrs of Labs/Mics: Laboratory Tests 01/23/18 0705: Sodium Pending, Potassium Pending, Chloride Pending, Carbon Dioxide Pending, Anion Gap Pending, BUN Pending, Creatinine Pending, BUN/Creatinine Ratio Pending , CBC w Diff Pending, WBC Pending, RBC Pending, Hgb Pending, Hct Pending, MCV Pending, MCH Pending, MCHC Pending, RDW Pending, Plt Count Pending, MPV Pending 01/22/18 1017: Anion Gap 7, Estimated GFR > 60, BUN/Creatinine Ratio 10.0, CBC w Diff NO MAN DIFF REQ, RBC 3.36 L, MCV 77.4 L, MCH 25.1 L, MCHC 32.4 L, RDW 17.5 H, MPV 6.8 L, Gran % 72.0, Lymphocytes % 20.9, Monocytes % 5.3, Eosinophils % 1.4, Basophils % 0.4, Absolute Granulocytes 5.8, Absolute Lymphocytes 1.7, Absolute Monocytes 0.4, Absolute Eosinophils 0.1, Absolute Basophils 0 Assessment/Plan Assessment: Biopsy result -rectum and anus shows significant severe acute and chronic inflammation, ulceration without signs of malignancy. no significant histopathological changes in Ileum. 37 y/o F with PMH of with a PMH of UC s/p total abdominal colectomy s/p end ileostomy after failing medical therapy that comes to the ED complaining of LLQ abdominal pain, fever, and a exquisitely tender right labia majora collection. Her symptoms are likely multifactorial. CT abdomen and pelvis in the ED showed notable bowel wall thickening about an enteroenteric anastomosis left abdomen consistent of acute inflammatory bowel disease; on the other hand, her cellulitis of the right labia majora could indeed be the culprit of her symptoms. She was admitted for further management of the following issues: PROBLEM LIST: 1. Right labial cellulitis 2. Enteritis at surgical anastomosis site PLAN: - reduced swelling of the vulva, reduced erythema. hb and wbc stable at the same values. - afebrile -continue vancomycin 1.5g and continue flagyl, slow down the rate of vancomycin to 50ml /hr -Cx positive for MRSA - I and D considered if Fluctuance increases, otherwise continue ABX - will do us of the [facility]' -mri was cancelled due to patients claustrophobea consider discharge home with bactrim for mrsa coverage and follow up with transportation modeler as OP as per UNDERCUTTER -Continue Vancomycin and Flagyl , change to Bactrim DS p.o.bid for 1 more week Problem List: 1. Ulcerative colitis 2. Cellulitis of labia majora Pain Ratin Pain Location: labia Pain Goal: Remain pain free Pain Plan: none Tomorrow's Labs & Rationales: cbc, bep Erasto OLIVIER,[facility] 01/23/18 1030: Attending MD Review Statement Attending Statement Attending MD Statement: examined this patient, discuss w/resident/PA/CHIEF CLINICAL OFFICER, agreed w/resident/PA/CHIEF CLINICAL OFFICER, discussed with family, reviewed EMR data (avail), discussed with nursing, discussed with case mgmt, reviewed images, amended to note Attending Assessment/Plan: This is a 37-year-old woman with ulcerative colitis,was on sig steroids, previous biologic agents had prior total colectomy, end ileostomy and SB resection and anastamosis, now with sig cellulitis in the vulva, no sig fluid collection noted, No evidence of sig fascitis and now rectoscopy shows severe UC with no sig fistula Clinically improving, REC /PLAN IV abx per id Cont local rx for colitis MRI today will follow
[2018-01-23 08:17] LABS: ABSOLUTE EOSINOPHIL COUNT 0.3 /CUMM (0.0-0.7); ABSOLUTE LYMPH COUNT 2.5 /CUMM (1.2-3.4); ABSOLUTE MONOCYTE COUNT 0.4 /CUMM (0.10-0.60); BASOPHIL % 0.6 % (0.0-2.0); MEAN PLATELET VOLUME 7.8 FL (7.4-10.4); RED BLOOD CELL CT 4.08 /CUMM (4.20-5.40)
[2018-01-23 08:33] LABS: ABSOLUTE BASOPHIL COUNT 0 /CUMM (0.0-0.2); ABSOLUTE GRANULOCYTE CT 5.6 /CUMM (1.4-6.5); GRANULOCYTE % 63.5 % (42.2-75.2); MEAN CORPUSCULAR HGB 24.6 PG (27.0-31.0); PLATELET COUNT 681 /CUMM (130-400); RBC DISTRIBUTION WIDTH 17.9 % (11.5-14.5); WHITE BLOOD CELL COUNT 8.8 /CUMM (4.8-10.8)
[2018-01-23 08:35] LABS: HEMATOCRIT 31.4 % (37-47)
--- NOTE | 2018-01-23 12:42 | PN- Infect Dx ---
Subjective Subjective: Afebrile. She still notes some discomfort in the right labial area. She reportedly drained a fair amount of purulent material earlier today. 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 EXAMINER right labial/inguinal induration persists, tender to palpation, with no erythema and no purulent drainage expressed Results Last 24 Hours of Lab Results: Laboratory Tests 01/23 07 Chemistry Sodium (137 - 145 mmol/L) 137 Potassium (3.5 - 5.1 mmol/L) 4.5 Chloride (98 - 107 mmol/L) 102 Carbon Dioxide (22 - 30 mmol/L) 24 Anion Gap (5 - 16) 11 BUN (7 - 17 mg/dL) 7 Creatinine (0.5 - 1.0 mg/dL) 0.6 Estimated GFR (>60 ml/min) > 60 BUN/Creatinine Ratio (7 - 25 %) 11.7 Hematology CBC w Diff NO MAN DIFF REQ WBC (4.8 - 10.8 /CUMM) 8.8 RBC (4.20 - 5.40 /CUMM) 4.08 L Hgb (12.0 - 16.0 G/DL) 10.0 L Hct (37 - 47 %) 31.4 L MCV (81.0 - 99.0 FL) 77.0 L MCH (27.0 - 31.0 PG) 24.6 L MCHC (33.0 - 37.0 G/DL) 32.0 L RDW (11.5 - 14.5 %) 17.9 H Plt Count (130 - 400 /CUMM) 681 H MPV (7.4 - 10.4 FL) 7.8 Gran % (42.2 - 75.2 %) 63.5 Lymphocytes % (20.5 - 51.1 %) 28.2 Monocytes % (1.7 - 9.3 %) 4.7 Eosinophils % (0 - 5 %) 3.0 Basophils % (0.0 - 2.0 %) 0.6 Absolute Granulocytes (1.4 - 6.5 /CUMM) 5.6 Absolute Lymphocytes (1.2 - 3.4 /CUMM) 2.5 Absolute Monocytes (0.10 - 0.60 /CUMM) 0.4 Absolute Eosinophils (0.0 - 0.7 /CUMM) 0.3 Absolute Basophils (0.0 - 0.2 /CUMM) 0 Last 24 Hours of Cecilio Results: No new cultures Recent Imaging Studies: Ultrasound of the right labial area reveals a 1.4 x 0.4 cm fluid collection Assessment/Plan ID Impression: Remains stable, with her temperatures and white blood cell count remaining normal, on Vancomycin and Flagyl, Day 7 of treatment for a right labial abscess secondary to MRSA, with a repeat ultrasound yesterday revealing a small collection not felt by IR to be amenable to drainage. Have discussed with ADJUSTMENT EXAMINER and have placed a call to IR today to discuss possible drainage given her persistent induration and tenderness. If there are no plans for further drainage she can be switched to oral antibiotics and follow-up with ADJUSTMENT EXAMINER as an outpatient. Suggestion: 1. Await ADJUSTMENT EXAMINER follow-up 2. Await further discussion with IR regarding possible drainage 3. Continue Vancomycin and Flagyl pending above but, if there are no plans for further drainage, would change to Bactrim DS 1 p.o. every 12 hours for 1 more week with ADJUSTMENT EXAMINER follow-up prior to discontinuation of antibiotics
[2018-01-23] MEDS ORDERED: CANASA1000 M1 PR (13:15)
[2018-01-23] MEDS ORDERED: CORTENEMA PR (13:15)
[2018-01-23 14:48] VITALS: BP 145/70
--- NOTE | 2018-01-23 16:39 | PN- OBGYN ---
Surgical Brief Attending Note Brief Attending Note: pt continues to feel a little better. mild discomfort of perineum. no f/c. reports small amt of drainage this am noted by rn. 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
[2018-01-23 22:23] VITALS: BP 140/88
[2018-01-24 06:24] VITALS: BP 118/86
--- NOTE | 2018-01-24 07:38 | PN- Housestaff ---
Subjective Follow-up For: ulcerative colitis labial cellulitis Subjective: patient was seen and examined today, she is doing weell. No overnight evenst. she feels ready to go home Review of Systems Constitutional: Reports: see HPI. Objective Last 24 Hrs of Vital Signs/I&O Vital Signs Date Time Temp Pulse Resp B/P B/P Pulse O2 O2 Flow FiO2 Mean Ox Delivery Rate 01/24 0800 Room Air 01/24 0624 99.0 91 22 118/86 94 Room Air Intake & Output 01/24 1600 01/24 0800 01/24 0000 Intake Total 300 50 Output Total 1 Balance 300 49 Intake, IV 300 50 Output, Stool 1 Physical Exam General Appearance: Alert, Oriented X3, Cooperative, No Acute Distress Cardiovascular: Regular Rate, No Murmurs Lungs: Clear to Auscultation, Normal Air Movement Abdomen: Normal Bowel Sounds, Soft, No Tenderness, No Hepatospenomegaly, No Masses Neurological: Normal Speech, Strength at 5/5 X4 Ext, Normal Tone, Sensation Intact Assessment/Plan Assessment: 37 y/o F with PMH of with a PMH of UC s/p total abdominal colectomy s/p end ileostomy after failing medical therapy that comes to the ED complaining of LLQ abdominal pain, fever, and a exquisitely tender right labia majora collection. Her symptoms are likely multifactorial. CT abdomen and pelvis in the ED showed notable bowel wall thickening about an enteroenteric anastomosis left abdomen consistent of acute inflammatory bowel disease; on the other hand, her cellulitis of the right labia majora could indeed be the culprit of her symptoms. She was admitted for further management of the following issues: PROBLEM LIST: 1. Right labial cellulitis 2. Enteritis at surgical anastomosis site PLAN: - reduced swelling of the vulva, reduced erythema. hb and wbc stable at the same values. -afebrile -continue vancomycin 1.5g and continue flagyl, slow down the rate of vancomycin to 50ml /hr -Cx positive for MRSA - I and D considered if Fluctuance increases, otherwise continue ABX -mri was cancelled due to patients claustrophobea -Continue Vancomycin and Flagyl , change to Bactrim DS p.o.bid for 1 more week Patient may be discharged on per oral Bactrim as per ID Problem List: 1. Inflammatory bowel disease 2. Labial abscess Pain Ratin Pain Location: labia Pain Goal: Remain pain free Pain Plan: tyelenol Tomorrow's Labs & Rationales: none
[2018-01-24 08:43] LABS: ABSOLUTE BASOPHIL COUNT 0.1 /CUMM (0.0-0.2); ABSOLUTE EOSINOPHIL COUNT 0.2 /CUMM (0.0-0.7); ABSOLUTE GRANULOCYTE CT 5.5 /CUMM (1.4-6.5); ABSOLUTE LYMPH COUNT 1.4 /CUMM (1.2-3.4); ABSOLUTE MONOCYTE COUNT 0.4 /CUMM (0.10-0.60); BASOPHIL % 0.8 % (0.0-2.0); EOSINOPHIL % 3.2 % (0-5); GRANULOCYTE % 71.8 % (42.2-75.2); HEMATOCRIT 28.5 % (37-47); MEAN CORPUSCULAR HGB 24.8 PG (27.0-31.0); MEAN CORPUSCULAR HGB CONC 32.1 G/DL (33.0-37.0); MEAN CORPUSCULAR VOLUME 77.3 FL (81.0-99.0); MEAN PLATELET VOLUME 7.1 FL (7.4-10.4); PLATELET COUNT 627 /CUMM (130-400); RBC DISTRIBUTION WIDTH 17.7 % (11.5-14.5); RED BLOOD CELL CT 3.69 /CUMM (4.20-5.40); WHITE BLOOD CELL COUNT 7.6 /CUMM (4.8-10.8)
[2018-01-24] MEDS ORDERED: BACTRIM DS TAB1 EACH PO (10:28)
[2018-01-24] MEDS ORDERED: CANASA1000 M1 PR (10:29)
[2018-01-24] MEDS ORDERED: CORTENEMA PR (10:29)
[2018-01-24] MEDS ORDERED: DOCUSATE SODIU100 M3 PO (10:50)
[2018-01-24] MEDS ORDERED: MIRALAX119 GM PO (11:25)
[2018-01-24] MEDS ORDERED: SENNA PLUS TAB1 EACH PO (11:25)
--- NOTE | 2018-01-24 11:53 | PN- Att Addend ---
Attending Addendum Attending Brief Note Ms. Trent was interviewed and examined. Her EMR was reviewed. She denies fever, chills, and abdominal pain. Pain in her vulvar region is decreased or resolved. T-max 99.0. Heart and respiratory rates are stable and satisfactory as is her blood pressure. She is in no acute distress. Pulmonary exam reveals equal breath sounds which are clear. Heart exam reveals regular rate and rhythm with a 2/6 systolic ejection murmur. Her abdomen is soft and nontender. WBCs are 7600 and her H&H is 9.1/28.5 with a platelet count of 627,000 ( decreasing). Electrolytes are stable as his renal function. As noted above patient was unable to complete her MRI study due to claustrophobia. At this point Ms. Trent is stable for discharge. She has received clearance from both COUNSELOR AIDE and ID. She will be continued on SMX/TMP DS tab twice daily for another 7 days. Follow-up arrangements will be made for the following weeks. Her CMR has been reviewed and signed.
== END 2018-01-24 13:40 | DRG 392 ==
LOC: ERH 16:57 → ERHI 22:37 → 2NA 22:37 → ENRESERV 23:39 → 2NA 01-17 00:20 → ENTRNSPT 01-20 09:53 → EDTRNSPT 01-20 10:15 → EDTRNSPTSTS 01-20 10:15 → CMPTRNSPT 01-20 10:29 → 2NA 01-24 13:40
PROVIDERS: Emergency Medicine; Internal Medicine; Physical Medicine & Rehabilitation Pain Medicine; Student in an Organized Health Care Education/Training Program
PROC: 0DBB8ZX Excision of Ileum, Via Natural or Artificial Opening Endoscopic, Diagnostic (ICD-10-PCS; principal; 2018-01-20)
PROC: 0DBP8ZX Excision of Rectum, Via Natural or Artificial Opening Endoscopic, Diagnostic (ICD-10-PCS; principal; 2018-01-20)
DX: K58.8 Other irritable bowel syndrome (principal); N76.4 Abscess of vulva; Z90.49 Acquired absence of other specified parts of digestive tract; Z93.2 Ileostomy status; Z88.1 Allergy status to other antibiotic agents; Z88.0 Allergy status to penicillin; E66.9 Obesity, unspecified; Z68.36 Body mass index [BMI] 36.0-36.9, adult; Z87.891 Personal history of nicotine dependence; E55.9 Vitamin D deficiency, unspecified; N76.2 Acute vulvitis; R11.2 Nausea with vomiting, unspecified; T36.8X5A Adverse effect of other systemic antibiotics, initial encounter; B95.62 Methicillin resistant Staphylococcus aureus infection as the cause of diseases classified elsewhere
CPT/HCPCS: 2NAP; 87070; 87075; 87184; 87205; ERO; 36415; 36592; 71045; 74177; 76881; 81001; 81025; 82436; 87015; 87040; 87045; 87086; 87147; 87328; 87329; 87899; 87899-59; 88305; 93005; 93010; 96374; 96375; J0131; J0696; J0744; J1650; J2405; J2765; J3370; J7040; J7042